=== PATIENT | female | born 1950 | race African-American/Black ===

== ENCOUNTER 2016-10-12 19:23 | Inpatient (IN) | payer MEDICARE, OTHER ==
[~2016-10-12] VITALS: Ht 170.2 cm; Wt 72.6 kg
[2016-10-12] MEDS ORDERED: ALBUTEROL2.5 MG/3 M INH (19:28)
[2016-10-12] MEDS ORDERED: METHADONE HCL5 MG PO (19:28)
[2016-10-12] MEDS ORDERED: CLONIDINE HCL0.1 M1 PO (19:28)
[2016-10-12] MEDS ORDERED: COREG3.125 MG ORAL (19:28)
[2016-10-12] MEDS ORDERED: ZOLOFT25 MG ORAL (19:28)
[2016-10-12] MEDS ORDERED: QUETIAPINE FUMA25 MG ORAL (19:28)
[2016-10-12] MEDS ORDERED: TRAMADOL HCL50 MG ORAL (19:28)
[2016-10-12 19:30] VITALS: BP 161/74
[2016-10-12 20:20] LABS: MEAN CORPUSCULAR HGB CONC 32.5 G/DL (32.0-36.0); MEAN CORPUSCULAR VOLUME 86 FL (80-99); MEAN PLATELET VOLUME 7.9 FL (6.5-10.1); PLATELET COUNT 225 K/UL (150-450); RED BLOOD COUNT 2.64 M/UL (4.20-5.40); RED CELL DISTRIBUTION WIDTH 13.4 % (11.6-14.8); WHITE BLOOD COUNT 10.8 K/UL (4.8-10.8)
[2016-10-12 20:57] LABS: ALANINE AMINOTRANSFERASE 12 U/L (3-33); ALBUMIN/GLOBULIN RATIO 0.9 (1.0-2.7); ANION GAP 25 (5-15); ASPARTATE AMINO TRANSFERASE 24 U/L (5-40); CALCIUM 6.9 mg/dL (8.6-10.2); CARBON DIOXIDE 23 mEQ/L (20-30); CHLORIDE 97 mEQ/L (98-107); CREATININE 14.4 mg/dL (0.5-0.9); HEMOLYSIS 5; SODIUM 145 mEQ/L (135-145); TOTAL PROTEIN 8.5 g/dL (6.6-8.7); TROPONIN I < 0.30 ng/mL (<=0.30)
[2016-10-12 21:02] LABS: EOSINOPHILS % (MANUAL) 3 % (0-3); LYMPHOCYTES % (MANUAL) 22 % (20-45); NEUTROPHILS % (MANUAL) 70 % (45-75); TOTAL CELLS COUNTED 100
[2016-10-12 21:03] LABS: ANISOCYTOSIS 1+; BAND NEUTROPHILS % (MANUAL) 0 % (0-8); BASOPHILS % (MANUAL) 0 % (0-2); HYPOCHROMASIA 2+; PLATELET ESTIMATE ADEQUATE; PLATELET MORPHOLOGY NORMAL; TARGET CELLS 1+
[2016-10-12 21:15] LABS: CKMB 6.1 ng/mL (< 3.8)
[2016-10-12] MEDS ORDERED: Sodium Polystyrene Sulfonate 15gm Powder ORAL ONE ×2 (21:15→23:00)
[2016-10-12] MEDS ORDERED: Calcium Gluconate 1gm/10ml vial IVP ONE ×2 (21:15→23:00)
[2016-10-12 21:30] VITALS: BP 161/86
[2016-10-12 21:30] LABS: INR 1.1 (0.9-1.1); PROTHROMBIN TIME 11.1 SEC (9.30-11.50)
[2016-10-12] MEDS ORDERED: Albuterol ud Inhalation HHN ONE (21:30)
[2016-10-12] MEDS ORDERED: Sodium Polystyrene Sulfonate Enema RECTAL ONE (22:15)
[2016-10-12 22:30] VITALS: BP 170/90
[2016-10-12] MEDS ORDERED: DuoNeb 0.5-3(2.5)mg/3ml neb HHN PRN (22:30)
[2016-10-12] MEDS ORDERED: Miralax 17gm pkt ORAL PRN (22:30)
[2016-10-12] MEDS ORDERED: Mylanta II UD 30ml ORAL PRN (22:30)
[2016-10-12] MEDS ORDERED: Zolpidem 5mg tab ORAL PRN (22:30)
[2016-10-12] MEDS ORDERED: Morphine Sulfate 2mg/ml Inj IVP PRN (22:30)
--- NOTE | 2016-10-12 22:42 | Emergency Room Report ---
History of Present Illness General Chief Complaint: Generalized Weakness Source: Patient, EMS Present Illness HPI 65-year-old female presents ED evaluation. Patient picked up by EMS from street. Patient noting that she feels very weak and tired x1 day. Patient states she missed dialysis today. History of end-stage renal disease and gets dialysis Saturday. Denies chest pain or shortness of breath. Denies fevers or chills. Denies nausea or vomiting. No other aggravating or relieving factors. Denies any other associated symptoms Allergies: Coded Allergies: No Known Allergies (Unverified , 01/01/12) Patient History Past Medical History: asthma, CVA/TIA, psych hx, renal disease, dialysis Past Surgical History: none Pertinent Family History: none Social History: Denies: alcohol use, drug use, smoking Last Menstrual Period: UNKNOWN Now: No Immunizations: UTD Reviewed Nursing Documentation: PMH: Agreed, PSxH: Agreed Nursing Documentation-PMH Hx Cardiac Problems: Yes Hx Asthma: Yes Hx Dialysis: Yes - MWF History Of Psychiatric Problem: Yes Hx Cerebrovascular Accident: Yes Hx Seizures: Yes Review of Systems All Other Systems: negative except mentioned in HPI Physical Exam Vital Signs Date Time Temp Pulse Resp B/P Pulse Ox O2 Delivery O2 Flow Rate FiO2 10/12/16 19:23 98.2 88 18 148/100 94 Room Air 10/12/16 21:30 3.0 32 Sp02 EP Interpretation: reviewed, normal General Appearance: alert, GCS 15, non-toxic, lethargic Head: normocephalic, atraumatic Eyes: bilateral eye PERRL, bilateral eye normal inspection ENT: hearing grossly normal, normal pharynx, no angioedema, normal voice Neck: full range of motion, supple/symm/no masses Respiratory: chest non-tender, lungs clear, normal breath sounds, speaking full sentences Cardiovascular #1: regular rate, rhythm, no edema Cardiovascular #2: 2+ carotid (R), 2+ carotid (L), 2+ radial (R), 2+ radial (L) , 2+ dorsalis pedis (R), 2+ dorsalis pedis (L) Gastrointestinal: normal bowel sounds, non tender, soft, non-distended, no guarding, no rebound Rectal: deferred Genitourinary: normal inspection, no CVA tenderness Musculoskeletal: back normal, gait/station normal, normal range of motion, non- tender Neurologic: alert, oriented x3, responsive, motor strength/tone normal, sensory intact, speech normal Psychiatric: judgement/insight normal, memory normal, mood/affect normal, no suicidal/homicidal ideation Reflexes: 3+ bicep (R), 3+ bicep (L), 3+ tricep (R), 3+ tricep (L), 3+ knee (R) , 3+ knee (L) Skin: normal color, no rash, warm/dry, well hydrated Lymphatic: no adenopathy Procedures Critical Care Time Critical Care Time i. I feel this is a highly complex case requiring extensive working including EKG/Rhythm strip, Xray/CT/US, Blood/urine lab work, repeat exams while in ED, and administration of strong opiates/narcotics for pain control, admission to hospital or close patient follow up. Total time: 30 min bedside evaluation and treatment excludes procedures (EKG). Reason for critical care: hyperkalemia, anemia, hypoglycemia Possible complications: hypotension, hypertension, VA, shock, arrhythmias, metabolic acidosis, end organ damage, respiratory failure. Interventions: labs, EKG, CXR. D50. calcium. kayexelate. continued albtuerol. PRBCs Course: Patient brought in for weakness, lethargy. missed dialysis today. Potassium 7.0. EKG shows peak T waves. Hb 7.4. glucose 45. given calcium. D50. kayexelate. continued albuterol. PRCs ordered. patient will likley require emergent dialysis. Consultations: nursing staff, EMS, family Performed by: Dr De Jesus Tolerated well condition = critical j. because of unstable vital signs this patient had a condition that could potentially threaten life or limb. I feel this is a critical patient who required my full attention while patient was considered critical. Total Critical Care Time excluding procedures was greater than 35 minutes Medical Decision Making Diagnostic Impression: Primary Impression: Hyperkalemia Additional Impressions: ESRD (end stage renal disease) on dialysis Anemia Qualified Codes: D64.9 - Anemia, unspecified Hypoglycemia Episode of generalized weakness ER Course Hospital Course 65-year-old female presents to ED with weakness and lethargy. missed dialysis today Differential diagnoses include: VA/unstable angina, V. tach, bradycardia, hyperkalemia, fluid overload Clinical course Patient placed on stretcher. 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 After initial history and physical I ordered labs, EKG labs reviewed- potassium 7.0. BUN/Cr elevated. Hemoglobin 7.4. glucose 45 CXR - cardiomegaly. EKG - peaked twaves, no acute changes Given Kayexalate and calcium. Given D50 and continued albuterol. PBRCs ordered. Patient is likely lethargic because of BUN >100. likely will require dialysis tonight Case discussed with Dr. Waller and he agreed to accept the patient to his service for further care and support I. I feel this is a highly complex case requiring extensive working including EKG/Rhythm strip, Xray/CT/US, Blood/urine lab work, repeat exams while in ED, and administration of strong opiates/narcotics for pain control, admission to hospital or close patient follow up. Diagnosis - hyperkalemia, ESRD on dialysis, anemia, hypoglycemia, weakness admitted to telemetry in critical condition Labs Test 10/12/16 20:00 White Blood Count 10.8 K/UL (4.8-10.8) Red Blood Count 2.64 M/UL (4.20-5.40) Hemoglobin 7.4 G/DL (12.0-16.0) Hematocrit 22.7 % (37.0-47.0) Mean Corpuscular Volume 86 FL (80-99) Mean Corpuscular Hemoglobin 28.0 PG (27.0-31.0) Mean Corpuscular Hemoglobin Concent 32.5 G/DL (32.0-36.0) Red Cell Distribution Width 13.4 % (11.6-14.8) Platelet Count 225 K/UL (150-450) Mean Platelet Volume 7.9 FL (6.5-10.1) Neutrophils (%) (Auto) % (45.0-75.0) Lymphocytes (%) (Auto) % (20.0-45.0) Monocytes (%) (Auto) % (1.0-10.0) Eosinophils (%) (Auto) % (0.0-3.0) Basophils (%) (Auto) % (0.0-2.0) Differential Total Cells Counted 100 Neutrophils % (Manual) 70 % (45-75) Lymphocytes % (Manual) 22 % (20-45) Monocytes % (Manual) 5 % (1-10) Eosinophils % (Manual) 3 % (0-3) Basophils % (Manual) 0 % (0-2) Band Neutrophils 0 % (0-8) Platelet Estimate Adequate Platelet Morphology Normal Hypochromasia 2+ Anisocytosis 1+ Target Cells 1+ Prothrombin Time 11.1 SEC (9.30-11.50) Prothromb Time International Ratio 1.1 (0.9-1.1) Activated Partial Thromboplast Time 30 SEC (23-33) Sodium Level 145 mEQ/L (135-145) Potassium Level 7.0 mEQ/L (3.4-4.9) Chloride Level 97 mEQ/L (98-107) Carbon Dioxide Level 23 mEQ/L (20-30) Anion Gap 25 (5-15) Blood Urea Nitrogen 140 mg/dL (7-23) Creatinine 14.4 mg/dL (0.5-0.9) Estimat Glomerular Filtration Rate 3.0 mL/min (>60) Glucose Level 45 mg/dL (74-106) Calcium Level 6.9 mg/dL (8.6-10.2) Total Bilirubin 0.5 mg/dL (0.0-1.2) Aspartate Amino Transf (AST/SGOT) 24 U/L (5-40) Alanine Aminotransferase (ALT/SGPT) 12 U/L (3-33) Alkaline Phosphatase 117 U/L (35-104) Total Creatine Kinase 182 U/L (26-140) Creatine Kinase MB 6.1 ng/mL (< 3.8) Creatine Kinase MB Relative Index 3.3 Troponin I < 0.30 ng/mL (<=0.30) Pro-B-Type Natriuretic Peptide > 20435 pg/mL (0-125) Total Protein 8.5 g/dL (6.6-8.7) Albumin 4.1 g/dL (3.5-5.2) Globulin 4.4 g/dL Albumin/Globulin Ratio 0.9 (1.0-2.7) EKG Diagnostic Results Rate: normal Rhythm: NSR ST Segments: other - peaked twaves ASA given to the pt in ED: No Rhythm Strip Diag. Results EP Interpretation: yes Rhythm: NSR, no PVC's, no ectopy Chest X-Ray Diagnostic Results EP Interpretation: Yes Findings: no consolidation, no effusion, no pneumothorax, no acute cardiopulmonary disease Number of Views: 1 Last Vital Signs Date Time Temp Pulse Resp B/P Pulse Ox O2 Delivery O2 Flow Rate FiO2 10/12/16 21:49 80 20 100 Nasal Cannula 3.0 32 10/12/16 21:30 98.2 161/86 Status: improved Disposition: ADMITTED INPATIENT Condition: Critical Referrals: NOT CHOSEN JAE/,REFERRING (PCP) MERARI DE JESUS M.D. Oct 12, 2016 22:41
[2016-10-13] VITALS (10 sets, daily range): BP systolic 130–162; BP diastolic 66–88
[2016-10-13 07:44] LABS: MEAN CORPUSCULAR HEMOGLOBIN 26.2 PG (27.0-31.0); MEAN CORPUSCULAR HGB CONC 30.3 G/DL (32.0-36.0); MEAN CORPUSCULAR VOLUME 86 FL (80-99); MEAN PLATELET VOLUME 7.7 FL (6.5-10.1); PLATELET COUNT 217 K/UL (150-450); RED CELL DISTRIBUTION WIDTH 13.5 % (11.6-14.8); WHITE BLOOD COUNT 21.8 K/UL (4.8-10.8)
[2016-10-13 07:55] LABS: ALBUMIN/GLOBULIN RATIO 0.8 (1.0-2.7); CALCIUM 6.6 mg/dL (8.6-10.2); CREATININE 13.9 mg/dL (0.5-0.9); GLOMERULAR FILTRATION RATE 3.3 mL/min (>60); TOTAL PROTEIN 7.1 g/dL (6.6-8.7)
[2016-10-13 08:32] LABS: HEMOGLOBIN A1C 4.1 % (< 6.0)
[2016-10-13 08:33] LABS: THYROID STIMULATING HORMONE 0.832 uIU/mL (0.300-4.500)
[2016-10-13] MEDS ORDERED: Heparin 5000 units/ml inj SUBQ SCH (09:00)
[2016-10-13] MEDS ORDERED: Sertraline 50mg tab ORAL SCH (09:00)
--- NOTE | 2016-10-13 09:33 | Diagnostic Imaging Report ---
Indications: Chest pain Technique: Portable AP chest Findings: Comparison: None Thoraco- lumbar spine demonstrates severe S-shaped scoliosis. Surgical clips overlie are presumably within the upper abdomen. Clustered metallic densities overlie the abdominal left upper quadrant. Cardiac silhouette enlarged. Pulmonary vascular redistribution. Bilateral interstitial infiltrates. Linear density right lung base. Patchy consolidative opacity left lung base. No obvious pleural abnormality. Aortic arch calcified. IMPRESSION: Findings most compatible with congestive heart failure Subsegmental atelectasis right lung base; same versus pneumonia left lung base Aortosclerosis Scoliosis Previous upper abdominal surgery Metallic densities overlying abdominal left upper quadrant may reside external to the patient or in the stomach.
[2016-10-13 09:45] LABS: BAND NEUTROPHILS % (MANUAL) 0 % (0-8); BASOPHILS % (MANUAL) 0 % (0-2); EOSINOPHILS % (MANUAL) 0 % (0-3); HYPOCHROMASIA 2+; LYMPHOCYTES % (MANUAL) 4 % (20-45); NEUTROPHILS % (MANUAL) 93 % (45-75); PLATELET ESTIMATE ADEQUATE; PLATELET MORPHOLOGY NORMAL; TOTAL CELLS COUNTED 100
[2016-10-13 09:46] LABS: TARGET CELLS OCCASIONAL
--- NOTE | 2016-10-13 11:47 | Consultation ---
History of Present Illness General Date patient seen: Oct 13, 2016 Chief Complaint: Generalized Weakness Referring physician: Dr. Waller Reason for Consultation: inpatient management Present Illness HPI 65-year-old female with pmhx of ESRF, who apparently missed her HD in [place] , was picked up by paramedics from the street because of extreme fatigue. Her K was more than 7 and bun/creatinine were very high too. She was severely anemic as well. Her cxr showed bilateral edema and effusion. Allergies: Coded Allergies: No Known Allergies (Unverified , 01/01/12) Medication History Scheduled Carvedilol (Coreg), Unknown Dose ORAL EVERY 12 HOURS, (Reported) Methadone Hcl* (Methadone*), Unknown Dose PO DAILY, (Reported) Quetiapine Fumarate* (Seroquel*), Unknown Dose ORAL DAILY, (Reported) Quetiapine Fumarate* (Seroquel*), Unknown Dose ORAL DAILY, (Reported) Sertraline Hcl* (Zoloft*), Unknown Dose ORAL DAILY, (Reported) Scheduled PRN Albuterol Sulfate* (Albuterol Sulfate Hhn*), Unknown Dose INH Q4H PRN for Shortness of Breath, (Reported) Tramadol Hcl* (Ultram*), Unknown Dose ORAL Q6H PRN for For Pain, (Reported) Miscellaneous Medications Clonidine HCl (Clonidine HCl ER), Unknown Dose PO, (Reported) Patient History Healthcare decision maker Resuscitation status Advanced Directive on File Past Medical/Surgical History Past Medical/Surgical History: (1) ESRD (end stage renal disease) on dialysis Review of Systems Constitutional: Reports: malaise, weakness Physical Exam General Appearance: cachetic Lines, tubes and drains: peripheral, dialysis access - Left arm HEENT: normocephalic, atraumatic Neck: non-tender, normal alignment Respiratory/Chest: chest wall non-tender, lungs clear Cardiovascular/Chest: normal peripheral pulses, normal rate Abdomen: normal bowel sounds Genitourinary/Rectal: normal genital exam Last 24 Hour Vital Signs Date Time Temp Pulse Resp B/P Pulse Ox O2 Delivery O2 Flow Rate FiO2 10/13/16 11:14 96.6 66 18 130/82 98 2.0 10/13/16 09:54 62 155/80 10/13/16 08:10 Nasal Cannula 2.0 10/13/16 08:00 96.0 57 20 154/78 100 Nasal Cannula 2.0 10/13/16 07:58 96.1 62 18 155/80 100 Nasal Cannula 2.0 10/13/16 07:15 98.6 62 11 152/84 100 Nasal Cannula 2.0 10/13/16 06:35 62 11 152/84 100 Nasal Cannula 2.0 10/13/16 04:00 98.6 76 17 150/72 100 Nasal Cannula 2.0 10/13/16 02:08 98.4 74 16 162/74 100 Nasal Cannula 2.0 10/13/16 00:30 73 12 155/76 100 Nasal Cannula 2.0 10/12/16 22:30 74 14 170/90 100 Nasal Cannula 2.0 10/12/16 21:49 80 20 100 Nasal Cannula 3.0 32 10/12/16 21:30 98.2 73 15 161/86 99 Room Air 10/12/16 21:30 72 12 100 Nasal Cannula 3.0 32 10/12/16 21:30 72 12 Nasal Cannula 3.0 32 10/12/16 19:30 98.2 79 13 161/74 99 Room Air 10/12/16 19:23 98.2 88 18 148/100 94 Room Air Intake and Output 10/12/16 10/13/16 19:00 07:00 Output Total 0 ml Balance 0 ml Output Urine Total 0 ml Laboratory Tests Test 10/12/16 20:00 10/13/16 07:29 10/13/16 08:00 White Blood Count 10.8 K/UL (4.8-10.8) 21.8 K/UL (4.8-10.8) #H Red Blood Count 2.64 M/UL (4.20-5.40) L 2.50 M/UL (4.20-5.40) L Hemoglobin 7.4 G/DL (12.0-16.0) L 6.5 G/DL (12.0-16.0) *L Hematocrit 22.7 % (37.0-47.0) L 21.6 % (37.0-47.0) L Mean Corpuscular Volume 86 FL (80-99) 86 FL (80-99) Mean Corpuscular Hemoglobin 28.0 PG (27.0-31.0) 26.2 PG (27.0-31.0) L Mean Corpuscular Hemoglobin Concent 32.5 G/DL (32.0-36.0) 30.3 G/DL (32.0-36.0) L Red Cell Distribution Width 13.4 % (11.6-14.8) 13.5 % (11.6-14.8) Platelet Count 225 K/UL (150-450) 217 K/UL (150-450) Mean Platelet Volume 7.9 FL (6.5-10.1) 7.7 FL (6.5-10.1) Neutrophils (%) (Auto) % (45.0-75.0) % (45.0-75.0) Lymphocytes (%) (Auto) % (20.0-45.0) % (20.0-45.0) Monocytes (%) (Auto) % (1.0-10.0) % (1.0-10.0) Eosinophils (%) (Auto) % (0.0-3.0) % (0.0-3.0) Basophils (%) (Auto) % (0.0-2.0) % (0.0-2.0) Differential Total Cells Counted 100 100 Neutrophils % (Manual) 70 % (45-75) 93 % (45-75) H Lymphocytes % (Manual) 22 % (20-45) 4 % (20-45) L Monocytes % (Manual) 5 % (1-10) 3 % (1-10) Eosinophils % (Manual) 3 % (0-3) 0 % (0-3) Basophils % (Manual) 0 % (0-2) 0 % (0-2) Band Neutrophils 0 % (0-8) 0 % (0-8) Platelet Estimate Adequate Adequate Platelet Morphology Normal Normal Hypochromasia 2+ 2+ Anisocytosis 1+ Target Cells 1+ Occasional Prothrombin Time 11.1 SEC (9.30-11.50) Prothromb Time International Ratio 1.1 (0.9-1.1) Activated Partial Thromboplast Time 30 SEC (23-33) Sodium Level 145 mEQ/L (135-145) 144 mEQ/L (135-145) Potassium Level 7.0 mEQ/L (3.4-4.9) *H 7.0 mEQ/L (3.4-4.9) *H Chloride Level 97 mEQ/L (98-107) L 98 mEQ/L (98-107) Carbon Dioxide Level 23 mEQ/L (20-30) 21 mEQ/L (20-30) Anion Gap 25 (5-15) H 25 (5-15) H Blood Urea Nitrogen 140 mg/dL (7-23) H 139 mg/dL (7-23) H Creatinine 14.4 mg/dL (0.5-0.9) H 13.9 mg/dL (0.5-0.9) H Estimat Glomerular Filtration Rate 3.0 mL/min (>60) 3.3 mL/min (>60) Glucose Level 45 mg/dL (74-106) L 102 mg/dL (74-106) Calcium Level 6.9 mg/dL (8.6-10.2) L 6.6 mg/dL (8.6-10.2) L Total Bilirubin 0.5 mg/dL (0.0-1.2) 0.4 mg/dL (0.0-1.2) Aspartate Amino Transf (AST/SGOT) 24 U/L (5-40) 23 U/L (5-40) Alanine Aminotransferase (ALT/SGPT) 12 U/L (3-33) 10 U/L (3-33) Alkaline Phosphatase 117 U/L (35-104) H 89 U/L (35-104) Total Creatine Kinase 182 U/L (26-140) H Creatine Kinase MB 6.1 ng/mL (< 3.8) H Creatine Kinase MB Relative Index 3.3 Troponin I < 0.30 ng/mL (<=0.30) Pro-B-Type Natriuretic Peptide > 24297 pg/mL (0-125) H Total Protein 8.5 g/dL (6.6-8.7) 7.1 g/dL (6.6-8.7) Albumin 4.1 g/dL (3.5-5.2) 3.3 g/dL (3.5-5.2) L Globulin 4.4 g/dL 3.8 g/dL Albumin/Globulin Ratio 0.9 (1.0-2.7) L 0.8 (1.0-2.7) L Hemoglobin A1c 4.1 % (< 6.0) Thyroid Stimulating Hormone (TSH) 0.832 uIU/mL (0.300-4.500) Stool Occult Blood Pending Height (Feet): 5 Height (Inches): 7.00 Weight (Pounds): 160 Medications Current Medications Medications (Trade) Dose Ordered Sig/Winter Route PRN Reason Start Time Stop Time Status Last Admin Dose Admin Acetaminophen (Tylenol) 650 mg Q4H PRN ORAL fever 10/12/16 22:30 11/11/16 22:29 Al Hydroxide/Mg Hydroxide (Mylanta II) 30 ml Q6H PRN ORAL dyspepsia 10/12/16 22:30 11/11/16 22:29 Albuterol/ Ipratropium (DuoNeb 0.5-3(2.5)mg/3ml) 3 ml Q6H PRN HHN dyspnea 10/12/16 22:30 10/17/16 22:29 Carvedilol (Coreg) 3.125 mg EVERY 12 HOURS ORAL 10/13/16 09:00 11/12/16 08:59 Clonidine HCl (Catapres) 0.1 mg Q4H PRN ORAL For High Blood Pressure 10/12/16 22:30 11/11/16 22:29 Dextrose (Dextrose 50%) STAT PRN IV Hypoglycemia 10/12/16 22:30 11/11/16 22:29 10/13/16 05:46 Heparin Sodium (Porcine) (Heparin 5000 units/ml) 5,000 units EVERY 12 HOURS SUBQ 10/13/16 09:00 11/12/16 08:59 Methadone HCl (Methadone HCl) 5 mg DAILY ORAL 10/13/16 10:00 10/20/16 09:59 Morphine Sulfate (Morphine Sulfate) 1 mg Q4H PRN IVP For Pain 10/12/16 22:30 10/19/16 22:29 Ondansetron HCl (Zofran) 4 mg Q6H PRN IVP Nausea & Vomiting 10/12/16 22:30 11/11/16 22:29 Polyethylene Glycol (Miralax) 17 gm HSPRN PRN ORAL Constipation 10/12/16 22:30 11/11/16 22:29 Quetiapine Fumarate (SEROquel) 25 mg DAILY ORAL 10/13/16 09:00 11/12/16 08:59 Sertraline HCl (Zoloft) 25 mg DAILY ORAL 10/13/16 09:00 11/12/16 08:59 Zolpidem Tartrate (Ambien) 5 mg HSPRN PRN ORAL Insomnia 10/12/16 22:30 11/11/16 22:29 Assessment/Plan Problem List: (1) Pulmonary edema ICD Codes: J81.1 - Chronic pulmonary edema SNOMED: 99383465 (2) Hyperkalemia ICD Codes: E87.5 - Hyperkalemia SNOMED: 86332703 (3) Hypoglycemia ICD Codes: E16.2 - Hypoglycemia, unspecified SNOMED: 996123767 (4) ESRD (end stage renal disease) on dialysis ICD Codes: N18.6 - End stage renal disease; Z99.2 - Dependence on renal dialysis SNOMED: 917026096 (5) Anemia ICD Codes: D64.9 - Anemia, unspecified SNOMED: 356879835 Qualifiers: Qualified Codes: D64.9 - Anemia, unspecified Assessment/Plan HD kayexalate prbc repeat cxr in one or two days pt/ot social service evaluation for home safety. GAGE SAEZ Oct 13, 2016 11:46
[2016-10-13] MEDS ORDERED: Cefepime HCl 1 GM in D5W 110 ML IVPB ONE ×2 (16:30→18:00)
[2016-10-13] MEDS ORDERED: Vancomycin 1gm in D5W 275ml IVPB ONE (17:00)
--- NOTE | 2016-10-13 17:38 | History and Physical Report ---
DATE OF ADMISSION: 10/12/2016 TIME: 10 a.m. CONSULTANTS: 1. Rod Garcia M.D. 2. Nicolasa Delgado M.D. CHIEF COMPLAINT: Hypoglycemia, anemia, ESRD, and hyperkalemia. HISTORY OF PRESENT ILLNESS: This is a 65-year-old female, who presented to [place] last night with history of weakness and hypoglycemia and was found to have hyperkalemia and was admitted to the telemetry for further care. Currently, calm, very sleepy in bed, unable to arouse. PAST MEDICAL HISTORY: Includes anemia, ESRD, and generalized weakness. PAST SURGICAL HISTORY: Unknown. MEDICATIONS: Include methadone, Coreg, Seroquel, Zoloft, heparin, Tylenol, MiraLax, morphine, and Ambien. ALLERGIES: Denies. SOCIAL HISTORY: Unable to obtain. REVIEW OF SYSTEMS: Not available. PHYSICAL EXAMINATION: GENERAL: , lethargic in bed, and refusing to answer questions. VITAL SIGNS: Temperature 96 degrees, pulse 62, respiratory rate 20, and blood pressure 135/80. CARDIOVASCULAR: No murmur. LUNGS: Distant and clear. ABDOMEN: Positive bowel sounds. Nontender. Nondistended. EXTREMITIES: No cyanosis, clubbing, or edema. NEUROLOGIC: The patient moves all extremities, but slightly weak. LABORATORY DATA: White count 21, hemoglobin and hematocrit 6.5 and 21, and platelets is 217,000. Potassium 7.0. BUN and creatinine 113 and 13.9, otherwise BMP is normal. INR is 1.1. ASSESSMENT: 1. Hypoglycemia. 2. Anemia. 3. Weakness. 4. End-stage renal disease. 5. Hyperkalemia. 6. Leukocytosis. PLAN: 1. Continue premedications. 2. Antibiotics per Infectious Diseases. 3. OT, PT, and dietary evaluation. 4. CBC and BMP in the morning. 5. Dialysis. 6. Resume home medications. 7. We will continue to follow this patient. Dr. Garcia, Dr. Delgado, Dr. Timmons, Dr. Andrew, and Dr. Hodge to consult. Facundo Waller D.O. DR: MELIDA JOB#: [id number] CC:
[2016-10-13] MEDS ORDERED: DuoNeb 0.5-3(2.5)mg/3ml neb HHN PRN (18:00)
[2016-10-13] MEDS ORDERED: Vancomycin 1 GM in D5W 275 ML IVPB ONE (18:30)
--- NOTE | 2016-10-13 18:35 | Consultation ---
Consult Note Consult Note HEMATOLOGY CONSULT NOTE REASON FOR CONSULT: ANEMIA EVAL DOS: 10/13/16 REQUESTING MD: ANKUR ID: 65-year-old female with a pmhx of anemia, esrd, has been seen by us back in [address] [facility] and at this time she presents to the ER for further evaluation. She was picked up by EMS from [place]. Patient noting that she feels very weak and tired x1 day. Patient states she missed dialysis today. History of end-stage renal disease and gets dialysis Saturday. Denies chest pain or shortness of breath. Denies fevers or chills. Denies nausea or vomiting. No other aggravating or relieving factors. Denies any other associated symptoms. Her hgb was noted to be 6.9, was given blood and workup commenced. Allergies: No Known Allergies (Unverified , 01/01/12) Past Medical History: asthma, CVA/TIA, psych hx, renal disease, dialysis, seizures hx Past Surgical History: none Pertinent Family History: none Social History: Denies: alcohol use, drug use, smoking ROS: negative except mentioned in HPI PE: Vital Signs Date Time Temp Pulse Resp B/P Pulse Ox O2 Delivery O2 Flow Rate FiO2 10/12/16 19:23 98.2 88 18 148/100 94 Room Air 10/12/16 21:30 3.0 32 Sp02: reviewed, normal General: lethargic Head: normocephalic, atraumatic Eyes: bilateral eye PERRL ENT: hearing grossly normal, normal pharynx Neck: full range of motion, supple/symm/no masses Respiratory: chest non-tender, lungs clear Cardiovascular: regular rate Gastrointestinal: normal bowel sounds, non tender Musculoskeletal: back normal, gait/station normal Neurologic: alert, oriented x3, responsive, motor strength/tone normal, sensory intact, speech normal Laboratory Tests: Test 10/12/16 20:00 10/13/16 07:29 10/13/16 08:00 White Blood Count 10.8 K/UL (4.8-10.8) 21.8 K/UL (4.8-10.8) #H Red Blood Count 2.64 M/UL (4.20-5.40) L 2.50 M/UL (4.20-5.40) L Hemoglobin 7.4 G/DL (12.0-16.0) L 6.5 G/DL (12.0-16.0) *L Hematocrit 22.7 % (37.0-47.0) L 21.6 % (37.0-47.0) L Mean Corpuscular Volume 86 FL (80-99) 86 FL (80-99) Mean Corpuscular Hemoglobin 28.0 PG (27.0-31.0) 26.2 PG (27.0-31.0) L Mean Corpuscular Hemoglobin Concent 32.5 G/DL (32.0-36.0) 30.3 G/DL (32.0-36.0) L Red Cell Distribution Width 13.4 % (11.6-14.8) 13.5 % (11.6-14.8) Platelet Count 225 K/UL (150-450) 217 K/UL (150-450) Mean Platelet Volume 7.9 FL (6.5-10.1) 7.7 FL (6.5-10.1) Neutrophils (%) (Auto) % (45.0-75.0) % (45.0-75.0) Lymphocytes (%) (Auto) % (20.0-45.0) % (20.0-45.0) Monocytes (%) (Auto) % (1.0-10.0) % (1.0-10.0) Eosinophils (%) (Auto) % (0.0-3.0) % (0.0-3.0) Basophils (%) (Auto) % (0.0-2.0) % (0.0-2.0) Differential Total Cells Counted 100 100 Neutrophils % (Manual) 70 % (45-75) 93 % (45-75) H Lymphocytes % (Manual) 22 % (20-45) 4 % (20-45) L Monocytes % (Manual) 5 % (1-10) 3 % (1-10) Eosinophils % (Manual) 3 % (0-3) 0 % (0-3) Basophils % (Manual) 0 % (0-2) 0 % (0-2) Band Neutrophils 0 % (0-8) 0 % (0-8) Platelet Estimate Adequate Adequate Platelet Morphology Normal Normal Hypochromasia 2+ 2+ Anisocytosis 1+ Target Cells 1+ Occasional Prothrombin Time 11.1 SEC (9.30-11.50) Prothromb Time International Ratio 1.1 (0.9-1.1) Activated Partial Thromboplast Time 30 SEC (23-33) Sodium Level 145 mEQ/L (135-145) 144 mEQ/L (135-145) Potassium Level 7.0 mEQ/L (3.4-4.9) *H 7.0 mEQ/L (3.4-4.9) *H Chloride Level 97 mEQ/L (98-107) L 98 mEQ/L (98-107) Carbon Dioxide Level 23 mEQ/L (20-30) 21 mEQ/L (20-30) Anion Gap 25 (5-15) H 25 (5-15) H Blood Urea Nitrogen 140 mg/dL (7-23) H 139 mg/dL (7-23) H Creatinine 14.4 mg/dL (0.5-0.9) H 13.9 mg/dL (0.5-0.9) H Estimat Glomerular Filtration Rate 3.0 mL/min (>60) 3.3 mL/min (>60) Glucose Level 45 mg/dL (74-106) L 102 mg/dL (74-106) Calcium Level 6.9 mg/dL (8.6-10.2) L 6.6 mg/dL (8.6-10.2) L Total Bilirubin 0.5 mg/dL (0.0-1.2) 0.4 mg/dL (0.0-1.2) Aspartate Amino Transf (AST/SGOT) 24 U/L (5-40) 23 U/L (5-40) Alanine Aminotransferase (ALT/SGPT) 12 U/L (3-33) 10 U/L (3-33) Alkaline Phosphatase 117 U/L (35-104) H 89 U/L (35-104) Total Creatine Kinase 182 U/L (26-140) H Creatine Kinase MB 6.1 ng/mL (< 3.8) H Creatine Kinase MB Relative Index 3.3 Troponin I < 0.30 ng/mL (<=0.30) Pro-B-Type Natriuretic Peptide > 87046 pg/mL (0-125) H Total Protein 8.5 g/dL (6.6-8.7) 7.1 g/dL (6.6-8.7) Albumin 4.1 g/dL (3.5-5.2) 3.3 g/dL (3.5-5.2) L Globulin 4.4 g/dL 3.8 g/dL Albumin/Globulin Ratio 0.9 (1.0-2.7) L 0.8 (1.0-2.7) L Hemoglobin A1c 4.1 % (< 6.0) Thyroid Stimulating Hormone (TSH) 0.832 uIU/mL (0.300-4.500) Stool Occult Blood Negative (NEGATIVE) Assessment: # Anemia 2/2 chronic disease # Anemia 2/2 kidney disease- back on epo # Neutrophilia potentially 2/2 infection # Hyperkalemia # ESRD (end stage renal disease) on dialysis # Hypoglycemia # Episode of generalized weakness # weakness and lethargy. missed dialysis today # cardiomegaly. Recs: - Given Kayexalate and calcium. Given D50 and continued albuterol. PBRCs ordered. - Hgb goal >7 - Ferritin and anemia w/u ordered - EPOGEN started - HD as per renal team - Appreciate pulm/cc and renal recs - Appreciate consultation! Tomas Hodge Oct 13, 2016 18:35
[2016-10-13] MEDS: Heparin 5000 units/ml inj SUBQ SCH (21:00)
--- NOTE | 2016-10-13 22:08 | Nephrology Progress Note ---
Objective Objective Last 24 Hour Vital Signs Date Time Temp Pulse Resp B/P Pulse Ox O2 Delivery O2 Flow Rate FiO2 10/13/16 21:26 73 155/88 10/13/16 19:00 96.3 73 20 155/88 99 Nasal Cannula 2.0 10/13/16 16:00 76 10/13/16 15:22 98.1 77 18 151/85 97 Room Air 10/13/16 11:44 65 10/13/16 11:42 Nasal Cannula 2.0 10/13/16 11:41 98.0 59 18 148/66 98 Nasal Cannula 2.0 10/13/16 11:14 96.6 66 18 130/82 98 2.0 10/13/16 09:54 62 155/80 10/13/16 08:15 58 10/13/16 08:10 Nasal Cannula 2.0 10/13/16 08:00 96.0 57 20 154/78 100 Nasal Cannula 2.0 10/13/16 07:58 96.1 62 18 155/80 100 Nasal Cannula 2.0 10/13/16 07:15 98.6 62 11 152/84 100 Nasal Cannula 2.0 10/13/16 06:35 62 11 152/84 100 Nasal Cannula 2.0 10/13/16 04:00 98.6 76 17 150/72 100 Nasal Cannula 2.0 10/13/16 02:08 98.4 74 16 162/74 100 Nasal Cannula 2.0 10/13/16 00:30 73 12 155/76 100 Nasal Cannula 2.0 10/12/16 22:30 74 14 170/90 100 Nasal Cannula 2.0 Intake and Output 10/12/16 10/13/16 19:00 07:00 Output Total 0 ml Balance 0 ml Output Urine Total 0 ml Laboratory Tests 10/13/16 07:29: White Blood Count 21.8#H, Red Blood Count 2.50L, Hemoglobin 6.5*L, Hematocrit 21.6L, Mean Corpuscular Volume 86, Mean Corpuscular Hemoglobin 26.2L, Mean Corpuscular Hemoglobin Concent 30.3L, Red Cell Distribution Width 13.5, Platelet Count 217, Mean Platelet Volume 7.7, Neutrophils (%) (Auto) , Lymphocytes (%) (Auto) , Monocytes (%) (Auto) , Eosinophils (%) (Auto) , Basophils (%) (Auto) , Differential Total Cells Counted 100, Neutrophils % ( Manual) 93H, Lymphocytes % (Manual) 4L, Monocytes % (Manual) 3, Eosinophils % ( Manual) 0, Basophils % (Manual) 0, Band Neutrophils 0, Platelet Estimate Adequate, Platelet Morphology Normal, Hypochromasia 2+, Target Cells Occasional , Sodium Level 144, Potassium Level 7.0*H, Chloride Level 98, Carbon Dioxide Level 21, Anion Gap 25H, Blood Urea Nitrogen 139H, Creatinine 13.9H, Estimat Glomerular Filtration Rate 3.3, Glucose Level 102, Hemoglobin A1c 4.1, Calcium Level 6.6L, Total Bilirubin 0.4, Aspartate Amino Transf (AST/SGOT) 23, Alanine Aminotransferase (ALT/SGPT) 10, Alkaline Phosphatase 89, Total Protein 7.1, Albumin 3.3L, Globulin 3.8, Albumin/Globulin Ratio 0.8L, Thyroid Stimulating Hormone (TSH) 0.832 10/13/16 08:00: Stool Occult Blood Negative Height (Feet): 5 Height (Inches): 7.00 Weight (Pounds): 160 DEBBIE HERNANDEZ Oct 13, 2016 22:08
[2016-10-13] MEDS ORDERED: Zolpidem 5mg tab ORAL PRN (22:30)
[2016-10-13] MEDS ORDERED: Mylanta II UD 30ml ORAL PRN (22:30)
[2016-10-13] MEDS ORDERED: Miralax 17gm pkt ORAL PRN (22:30)
--- NOTE | 2016-10-13 23:05 | Infectious Diseases Prog Note ---
Assessment/Plan Problems: (1) Sepsis Assessment & Plan: Present on admission. Due to pneumonia. (2) Pneumonia Assessment & Plan: Empiric cefepime. Follow-up CXR. Follow-up Scx. (3) ESRD (end stage renal disease) on dialysis (4) Non compliance with medical treatment (5) Pulmonary edema Subjective Allergies: Coded Allergies: No Known Allergies (Unverified , 01/01/12) Objective Vital Signs Last 24 Hour Vital Signs Date Time Temp Pulse Resp B/P Pulse Ox O2 Delivery O2 Flow Rate FiO2 10/13/16 21:26 73 155/88 10/13/16 19:00 96.3 73 20 155/88 99 Nasal Cannula 2.0 10/13/16 16:00 76 10/13/16 15:22 98.1 77 18 151/85 97 Room Air 10/13/16 11:44 65 10/13/16 11:42 Nasal Cannula 2.0 10/13/16 11:41 98.0 59 18 148/66 98 Nasal Cannula 2.0 10/13/16 11:14 96.6 66 18 130/82 98 2.0 10/13/16 09:54 62 155/80 10/13/16 08:15 58 10/13/16 08:10 Nasal Cannula 2.0 10/13/16 08:00 96.0 57 20 154/78 100 Nasal Cannula 2.0 10/13/16 07:58 96.1 62 18 155/80 100 Nasal Cannula 2.0 10/13/16 07:15 98.6 62 11 152/84 100 Nasal Cannula 2.0 10/13/16 06:35 62 11 152/84 100 Nasal Cannula 2.0 10/13/16 04:00 98.6 76 17 150/72 100 Nasal Cannula 2.0 10/13/16 02:08 98.4 74 16 162/74 100 Nasal Cannula 2.0 10/13/16 00:30 73 12 155/76 100 Nasal Cannula 2.0 Height (Feet): 5 Height (Inches): 7.00 Weight (Pounds): 160 Laboratory Tests Test 10/13/16 07:29 10/13/16 08:00 White Blood Count 21.8 K/UL (4.8-10.8) #H Red Blood Count 2.50 M/UL (4.20-5.40) L Hemoglobin 6.5 G/DL (12.0-16.0) *L Hematocrit 21.6 % (37.0-47.0) L Mean Corpuscular Volume 86 FL (80-99) Mean Corpuscular Hemoglobin 26.2 PG (27.0-31.0) L Mean Corpuscular Hemoglobin Concent 30.3 G/DL (32.0-36.0) L Red Cell Distribution Width 13.5 % (11.6-14.8) Platelet Count 217 K/UL (150-450) Mean Platelet Volume 7.7 FL (6.5-10.1) Neutrophils (%) (Auto) % (45.0-75.0) Lymphocytes (%) (Auto) % (20.0-45.0) Monocytes (%) (Auto) % (1.0-10.0) Eosinophils (%) (Auto) % (0.0-3.0) Basophils (%) (Auto) % (0.0-2.0) Differential Total Cells Counted 100 Neutrophils % (Manual) 93 % (45-75) H Lymphocytes % (Manual) 4 % (20-45) L Monocytes % (Manual) 3 % (1-10) Eosinophils % (Manual) 0 % (0-3) Basophils % (Manual) 0 % (0-2) Band Neutrophils 0 % (0-8) Platelet Estimate Adequate Platelet Morphology Normal Hypochromasia 2+ Target Cells Occasional Sodium Level 144 mEQ/L (135-145) Potassium Level 7.0 mEQ/L (3.4-4.9) *H Chloride Level 98 mEQ/L (98-107) Carbon Dioxide Level 21 mEQ/L (20-30) Anion Gap 25 (5-15) H Blood Urea Nitrogen 139 mg/dL (7-23) H Creatinine 13.9 mg/dL (0.5-0.9) H Estimat Glomerular Filtration Rate 3.3 mL/min (>60) Glucose Level 102 mg/dL (74-106) Hemoglobin A1c 4.1 % (< 6.0) Calcium Level 6.6 mg/dL (8.6-10.2) L Total Bilirubin 0.4 mg/dL (0.0-1.2) Aspartate Amino Transf (AST/SGOT) 23 U/L (5-40) Alanine Aminotransferase (ALT/SGPT) 10 U/L (3-33) Alkaline Phosphatase 89 U/L (35-104) Total Protein 7.1 g/dL (6.6-8.7) Albumin 3.3 g/dL (3.5-5.2) L Globulin 3.8 g/dL Albumin/Globulin Ratio 0.8 (1.0-2.7) L Thyroid Stimulating Hormone (TSH) 0.832 uIU/mL (0.300-4.500) Stool Occult Blood Negative (NEGATIVE) Current Medications Medications (Trade) Dose Ordered Sig/Winter Route PRN Reason Start Time Stop Time Status Last Admin Dose Admin Acetaminophen (Tylenol) 650 mg Q4H PRN ORAL fever 10/13/16 18:30 11/12/16 18:29 10/13/16 21:27 Al Hydroxide/Mg Hydroxide (Mylanta II) 30 ml Q6H PRN ORAL dyspepsia 10/13/16 22:30 11/12/16 22:29 Albuterol/ Ipratropium (DuoNeb 0.5-3(2.5)mg/3ml) 3 ml Q6H PRN HHN dyspnea 10/13/16 18:00 10/18/16 17:59 Carvedilol (Coreg) 3.125 mg EVERY 12 HOURS ORAL 10/13/16 21:00 11/12/16 20:59 10/13/16 21:26 Cefepime HCl/ Dextrose (Maxipime/D5W) 55 ml @ 110 mls/hr Q24H IVPB 10/14/16 16:30 10/21/16 16:29 Clonidine HCl (Catapres) 0.1 mg Q4H PRN ORAL For High Blood Pressure 10/13/16 18:30 11/12/16 18:29 Dextrose (Dextrose 50%) STAT PRN IV Hypoglycemia 10/13/16 22:30 11/12/16 22:29 Epoetin Vijay (Procrit (for ESRD on dialysis)) 5,000 units SAT-SAT-SAT SUBQ 10/15/16 21:00 11/14/16 20:59 Heparin Sodium (Porcine) (Heparin 5000 units/ml) 5,000 units EVERY 12 HOURS SUBQ 10/13/16 21:00 11/12/16 20:59 Methadone HCl (Methadone HCl) 5 mg DAILY ORAL 10/14/16 09:00 10/21/16 08:59 Morphine Sulfate (Morphine Sulfate) 1 mg Q4H PRN IVP For Pain 10/13/16 18:30 10/20/16 18:29 Ondansetron HCl (Zofran) 4 mg Q6H PRN IVP Nausea & Vomiting 10/13/16 22:30 11/12/16 22:29 Polyethylene Glycol (Miralax) 17 gm HSPRN PRN ORAL Constipation 10/13/16 22:30 11/12/16 22:29 Quetiapine Fumarate (SEROquel) 25 mg DAILY ORAL 10/14/16 09:00 11/13/16 08:59 Sertraline HCl (Zoloft) 25 mg DAILY ORAL 10/14/16 09:00 11/13/16 08:59 Vancomycin HCl (Vanco rx to dose) 1 ea DAILYPRN PRN MISC Per rx protocol 10/14/16 14:15 11/13/16 14:14 Zolpidem Tartrate (Ambien) 5 mg HSPRN PRN ORAL Insomnia 10/13/16 22:30 11/12/16 22:29 SARAHI BOWEN Oct 13, 2016 23:05
[2016-10-13] MEDS: Morphine Sulfate 2mg/ml Inj IVP PRN (23:52)
[2016-10-14] VITALS: BP 148/82
--- NOTE | 2016-10-14 01:08 | Consultation ---
DATE OF CONSULTATION: 10/13/2016 GASTROENTEROLOGY CONSULTATION CHIEF COMPLAINT: Anemia. HISTORY OF PRESENT ILLNESS: Most of the history is per chart. The patient is a 65-year-old female with a history of end-stage renal disease, on hemodialysis, who dialysis, was picked up by the paramedics from the street and brought to the hospital in acute renal failure and required an emergency dialysis. The patient was found to be profoundly anemic, so GI consult was requested for further evaluation. PAST MEDICAL HISTORY: 1. History of end-stage renal disease, on hemodialysis. 2. Scoliosis. 3. Seizure disorder. 4. Asthma. PAST SURGICAL HISTORY: Some kind of abdominal surgeries and possible hysterectomy. ALLERGIES: No known drug allergies. SOCIAL HISTORY: Unknown. FAMILY HISTORY: Noncontributory. REVIEW OF SYSTEMS: Unable to obtain. PHYSICAL EXAMINATION: VITAL SIGNS: Temperature 96.6 degrees, pulse 80, respirations 18, and blood pressure is 130/82. HEENT: Normocephalic and atraumatic. Mild pale conjunctivae. NECK: Supple. No lymphadenopathy. CARDIOVASCULAR: Regular rhythm. Plus S1 and S2. LUNGS: Decreased breath sounds bilaterally and diffusely on the supine exam. ABDOMEN: Soft and nontender. There is a scar in the midline from prior abdominal surgeries. No rebound. No guarding. No peritoneal sign. EXTREMITIES: No cyanosis. No clubbing. No edema. LABORATORY DATA: White count is 21.8, hemoglobin 6.5, hematocrit 21.6, and platelet count is 217,000. Chem-7, sodium 144, potassium 7.0, BUN is 139, and creatinine 13.9. ASSESSMENT AND PLAN: 1. This is a 65-year-old female with anemia, normocytic, most probably secondary to renal disease, no evidence of obvious gastrointestinal bleeding at this time. 2. Acute renal failure and history of hemodialysis. 3. Congestive heart failure based on chest x-ray, it was most probably from non-dialysis and fluid overload. PLAN: At this time, again there is no active gastrointestinal bleeding, anemia is most probably secondary to renal disease. The patient has not consented for GI procedures, is slowly waking up most probably from her elevated BUN and creatinine and uremia. Plan to re-interview her tomorrow regarding her prior history of GI workup. Meanwhile, stool for occult blood, send for CEA, and we will follow after blood transfusion. I want to thank Dr. Facundo Waller for this kind referral. Issa Andrew M.D. DR: SYLVIA JOB#: [id number] CC: Facundo Waller D.O.
[2016-10-14 04:10] VITALS: BP 137/79
[2016-10-14 07:10] LABS: BASOPHILS % (AUTO) 0.6 % (0.0-2.0); EOSINOPHILS % (AUTO) 0.8 % (0.0-3.0); LYMPHOCYTES % (AUTO) 21.5 % (20.0-45.0); MEAN CORPUSCULAR HEMOGLOBIN 26.9 PG (27.0-31.0); MEAN CORPUSCULAR HGB CONC 31.4 G/DL (32.0-36.0); MEAN CORPUSCULAR VOLUME 86 FL (80-99); MEAN PLATELET VOLUME 8.5 FL (6.5-10.1); MONOCYTES % (AUTO) 3.7 % (1.0-10.0); NEUTROPHILS % (AUTO) 73.4 % (45.0-75.0); PLATELET COUNT 185 K/UL (150-450); RED BLOOD COUNT 2.99 M/UL (4.20-5.40); RED CELL DISTRIBUTION WIDTH 13.6 % (11.6-14.8); WHITE BLOOD COUNT 12.2 K/UL (4.8-10.8)
[2016-10-14 07:14] LABS: CALCIUM 6.1 mg/dL (8.6-10.2); CREATININE 9.8 mg/dL (0.5-0.9); GLOMERULAR FILTRATION RATE 4.8 mL/min (>60); POTASSIUM 4.4 mEQ/L (3.4-4.9)
[2016-10-14 07:29] LABS: HEMOLYSIS 4; IRON 95 ug/dL (37-145); TOTAL IRON BINDING CAPACITY 175 ug/dL (250-400)
--- NOTE | 2016-10-14 07:41 | General Progress Note ---
Assessment/Plan Problem List: (1) Abdominal distention ICD Codes: R14.0 - Abdominal distension (gaseous) SNOMED: 67121821 (2) Anemia ICD Codes: D64.9 - Anemia, unspecified SNOMED: 134615854 Qualifiers: Qualified Codes: D64.9 - Anemia, unspecified (3) Hypoglycemia ICD Codes: E16.2 - Hypoglycemia, unspecified SNOMED: 216493772 (4) ESRD (end stage renal disease) on dialysis ICD Codes: N18.6 - End stage renal disease; Z99.2 - Dependence on renal dialysis SNOMED: 550858973 (5) Episode of generalized weakness ICD Codes: R53.1 - Weakness SNOMED: 64523819 (6) Hyperkalemia ICD Codes: E87.5 - Hyperkalemia SNOMED: 16516917 (7) Pulmonary edema ICD Codes: J81.1 - Chronic pulmonary edema SNOMED: 39738948 Status: stable, progressing, tolerating diet Assessment/Plan otp t diet bs control dialysis prn cbc bmp am Subjective Allergies: Coded Allergies: No Known Allergies (Unverified , 01/01/12) All Systems: reviewed and negative except above Subjective calm in bed Objective Last 24 Hour Vital Signs Date Time Temp Pulse Resp B/P Pulse Ox O2 Delivery O2 Flow Rate FiO2 10/14/16 04:10 98.0 71 18 137/79 98 Nasal Cannula 2.0 10/14/16 02:14 97.0 10/14/16 00:00 97.0 77 20 148/82 98 Nasal Cannula 2.0 10/13/16 23:04 96.3 10/13/16 21:26 73 155/88 10/13/16 19:00 96.3 73 20 155/88 99 Nasal Cannula 2.0 10/13/16 16:00 76 10/13/16 15:22 98.1 77 18 151/85 97 Room Air 10/13/16 11:44 65 10/13/16 11:42 Nasal Cannula 2.0 10/13/16 11:41 98.0 59 18 148/66 98 Nasal Cannula 2.0 10/13/16 11:14 96.6 66 18 130/82 98 2.0 10/13/16 09:54 62 155/80 10/13/16 08:15 58 10/13/16 08:10 Nasal Cannula 2.0 10/13/16 08:00 96.0 57 20 154/78 100 Nasal Cannula 2.0 10/13/16 07:58 96.1 62 18 155/80 100 Nasal Cannula 2.0 Intake and Output 10/13/16 10/14/16 19:00 07:00 Intake Total 120 ml Output Total 2700 ml Balance -2580 ml Intake Oral 120 ml Hemodialysis UF 2700 ml # Voids 1 # Bowel Movements 3 Laboratory Tests 10/13/16 08:00: Stool Occult Blood Negative 10/14/16 05:50: White Blood Count [Pending], Red Blood Count [Pending], Hemoglobin [Pending], Hematocrit [Pending], Mean Corpuscular Volume [Pending], Mean Corpuscular Hemoglobin [Pending], Mean Corpuscular Hemoglobin Concent [Pending], Red Cell Distribution Width [Pending], Platelet Count [Pending], Mean Platelet Volume [ Pending], Neutrophils (%) (Auto) [Pending], Lymphocytes (%) (Auto) [Pending], Monocytes (%) (Auto) [Pending], Eosinophils (%) (Auto) [Pending], Basophils (%) (Auto) [Pending], Sodium Level 140, Potassium Level 4.4, Chloride Level 92L, Carbon Dioxide Level 28, Anion Gap 20H, Blood Urea Nitrogen 82#H, Creatinine 9.8H, Estimat Glomerular Filtration Rate 4.8, Glucose Level 45L, Calcium Level 6.1L, Iron Level 95, Total Iron Binding Capacity 175L, Percent Iron Saturation 54H, Unsaturated Iron Binding 80L, Ferritin [Pending], Carcinoembryonic Antigen 14.0H Height (Feet): 5 Height (Inches): 7.00 Weight (Pounds): 160 General Appearance: alert EENT: normal ENT inspection Neck: normal alignment Cardiovascular: normal peripheral pulses, normal rate, regular rhythm Respiratory/Chest: chest wall non-tender, lungs clear, normal breath sounds Abdomen: normal bowel sounds, non tender, soft Extremities: normal inspection Edema: no edema noted Arm (L), no edema noted Arm (R), no edema noted Leg (L), no edema noted Leg (R), no edema noted Pedal (L), no edema noted Pedal (R), no edema noted Generalized Neurologic: responsive, motor weakness Skin: normal pigmentation, warm/dry PASCALE PASCUAL Oct 14, 2016 07:41
[2016-10-14 08:13] VITALS: BP 165/104
[2016-10-14 08:37] LABS: FERRITIN 1298 ng/mL (13-150)
[2016-10-14] MEDS ORDERED: Sertraline 50mg tab ORAL SCH (09:00)
[2016-10-14] MEDS: Heparin 5000 units/ml inj SUBQ SCH (09:24)
[2016-10-14] MEDS: Morphine Sulfate 2mg/ml Inj IVP PRN (09:45)
--- NOTE | 2016-10-14 10:02 | General Progress Note ---
Assessment/Plan Problem List: (1) Elevated CEA ICD Codes: R97.0 - Elevated carcinoembryonic antigen [CEA] SNOMED: 20334049, 719084218 (2) ESRD (end stage renal disease) on dialysis ICD Codes: N18.6 - End stage renal disease; Z99.2 - Dependence on renal dialysis SNOMED: 738321799 (3) Anemia ICD Codes: D64.9 - Anemia, unspecified SNOMED: 424229322 Qualifiers: Qualified Codes: D64.9 - Anemia, unspecified Assessment/Plan plan EGD and colonoscopy in AM Subjective ROS Limited/Unobtainable: Yes Constitutional: Reports: no symptoms HEENT: Reports: no symptoms Cardiovascular: Reports: no symptoms Respiratory: Reports: no symptoms Gastrointestinal/Abdominal: Reports: no symptoms Genitourinary: Reports: no symptoms 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: Reports: no symptoms Endocrine: Reports: no symptoms Allergies: Coded Allergies: No Known Allergies (Unverified , 01/01/12) Objective Last 24 Hour Vital Signs Date Time Temp Pulse Resp B/P Pulse Ox O2 Delivery O2 Flow Rate FiO2 10/14/16 09:20 99 165/104 10/14/16 08:13 97.7 99 20 165/104 100 Room Air 10/14/16 04:10 98.0 71 18 137/79 98 Nasal Cannula 2.0 10/14/16 02:14 97.0 10/14/16 00:00 97.0 77 20 148/82 98 Nasal Cannula 2.0 10/13/16 23:04 96.3 10/13/16 21:26 73 155/88 10/13/16 19:00 96.3 73 20 155/88 99 Nasal Cannula 2.0 10/13/16 16:00 76 10/13/16 15:22 98.1 77 18 151/85 97 Room Air 10/13/16 11:44 65 10/13/16 11:42 Nasal Cannula 2.0 10/13/16 11:41 98.0 59 18 148/66 98 Nasal Cannula 2.0 10/13/16 11:14 96.6 66 18 130/82 98 2.0 Intake and Output 10/13/16 10/14/16 19:00 07:00 Intake Total 120 ml Output Total 2700 ml Balance -2580 ml Intake Oral 120 ml Hemodialysis UF 2700 ml # Voids 1 # Bowel Movements 3 Laboratory Tests 10/14/16 05:50: White Blood Count 12.2H, Red Blood Count 2.99L, Hemoglobin 8.0L, Hematocrit 25.6L, Mean Corpuscular Volume 86, Mean Corpuscular Hemoglobin 26.9L, Mean Corpuscular Hemoglobin Concent 31.4L, Red Cell Distribution Width 13.6, Platelet Count 185, Mean Platelet Volume 8.5, Neutrophils (%) (Auto) 73.4, Lymphocytes (%) (Auto) 21.5, Monocytes (%) (Auto) 3.7, Eosinophils (%) (Auto) 0.8, Basophils (%) (Auto) 0.6, Sodium Level 140, Potassium Level 4.4, Chloride Level 92L, Carbon Dioxide Level 28, Anion Gap 20H, Blood Urea Nitrogen 82#H, Creatinine 9.8H, Estimat Glomerular Filtration Rate 4.8, Glucose Level 45L, Calcium Level 6.1L, Iron Level 95, Total Iron Binding Capacity 175L, Percent Iron Saturation 54H, Unsaturated Iron Binding 80L, Ferritin 1298H, Carcinoembryonic Antigen 14.0H Height (Feet): 5 Height (Inches): 7.00 Weight (Pounds): 160 General Appearance: alert EENT: normal ENT inspection Neck: supple Cardiovascular: normal rate Respiratory/Chest: decreased breath sounds Abdomen: normal bowel sounds, non tender, soft Extremities: non-tender CIPRIANO CHAVEZ Oct 14, 2016 10:02
--- NOTE | 2016-10-14 11:05 | Nephrology Progress Note ---
Assessment/Plan Problem List: (1) Anemia (2) ESRD (end stage renal disease) on dialysis (3) Episode of generalized weakness (4) Hyperkalemia (5) Elevated CEA Plan EGD/colonoscopy in am. monitor labs. HD as scheduled. d/w Dr. Garcia. Subjective Subjective s/p blood transfusion. lethargic. not conversant. Objective Objective Last 24 Hour Vital Signs Date Time Temp Pulse Resp B/P Pulse Ox O2 Delivery O2 Flow Rate FiO2 10/14/16 10:15 97.7 10/14/16 09:20 99 165/104 10/14/16 08:13 97.7 99 20 165/104 100 Room Air 10/14/16 04:10 98.0 71 18 137/79 98 Nasal Cannula 2.0 10/14/16 00:00 97.0 77 20 148/82 98 Nasal Cannula 2.0 10/13/16 23:04 96.3 10/13/16 21:26 73 155/88 10/13/16 19:00 96.3 73 20 155/88 99 Nasal Cannula 2.0 10/13/16 16:00 76 10/13/16 15:22 98.1 77 18 151/85 97 Room Air 10/13/16 11:44 65 10/13/16 11:42 Nasal Cannula 2.0 10/13/16 11:41 98.0 59 18 148/66 98 Nasal Cannula 2.0 10/13/16 11:14 96.6 66 18 130/82 98 2.0 Intake and Output 10/13/16 10/14/16 19:00 07:00 Intake Total 120 ml Output Total 2700 ml Balance -2580 ml Intake Oral 120 ml Hemodialysis UF 2700 ml # Voids 1 # Bowel Movements 3 Laboratory Tests 10/14/16 05:50: White Blood Count 12.2H, Red Blood Count 2.99L, Hemoglobin 8.0L, Hematocrit 25.6L, Mean Corpuscular Volume 86, Mean Corpuscular Hemoglobin 26.9L, Mean Corpuscular Hemoglobin Concent 31.4L, Red Cell Distribution Width 13.6, Platelet Count 185, Mean Platelet Volume 8.5, Neutrophils (%) (Auto) 73.4, Lymphocytes (%) (Auto) 21.5, Monocytes (%) (Auto) 3.7, Eosinophils (%) (Auto) 0.8, Basophils (%) (Auto) 0.6, Sodium Level 140, Potassium Level 4.4, Chloride Level 92L, Carbon Dioxide Level 28, Anion Gap 20H, Blood Urea Nitrogen 82#H, Creatinine 9.8H, Estimat Glomerular Filtration Rate 4.8, Glucose Level 45L, Calcium Level 6.1L, Iron Level 95, Total Iron Binding Capacity 175L, Percent Iron Saturation 54H, Unsaturated Iron Binding 80L, Ferritin 1298H, Carcinoembryonic Antigen 14.0H Height (Feet): 5 Height (Inches): 7.00 Weight (Pounds): 160 General Appearance: no apparent distress Cardiovascular: normal rate, regular rhythm Respiratory/Chest: lungs clear Abdomen: non tender, soft Extremities: non-pitting Neurologic: depressed affect LAKEISHA ATKINS Oct 14, 2016 11:05
[2016-10-14 12:30] VITALS: BP 160/71
[2016-10-14] MEDS ORDERED: Bisacodyl EC 5mg tab ORAL ONE (13:30)
[2016-10-14] MEDS ORDERED: Tubing Blood Filter IV ONE (14:04)
[2016-10-14] MEDS ORDERED: NS 275ml ONE (14:04)
[2016-10-14] MEDS ORDERED: Nulytely 4L ORAL ONE (15:00)
[2016-10-14] MEDS ORDERED: Cefepime HCl 500 MG in D5W 55 ML IVPB SCH (16:30)
[2016-10-14] MEDS ORDERED: Cefepime 500mg in D5W 55ml IVPB SCH (16:30)
--- NOTE | 2016-10-14 22:38 | Consultation ---
DATE OF CONSULTATION: 10/14/2016 ENDOCRINOLOGY CONSULTATION CONSULTING PHYSICIAN: Ayush Spencer M.D. REFERRING PHYSICIAN: Facundo Waller D.O. REASON FOR CONSULTATION: Hypoglycemia. HISTORY OF PRESENT ILLNESS: The patient is a 66-year-old female with history of end-stage renal disease, anemia who presents to the emergency department for evaluation. The patient has been feeling very weak and lethargic over the past one week, missed dialysis, has been anemic and blood glucose has been running low. Endocrinology was consulted. PAST MEDICAL HISTORY: 1. End-stage renal disease. 2. Scoliosis. 3. Seizure disorder. 4. Asthma. PAST SURGICAL HISTORY: 1. Abdominal surgery. 2. Hysterectomy. MEDICATIONS: Reviewed. ALLERGIES TO MEDICATIONS: None. SOCIAL HISTORY: Unknown. FAMILY HISTORY: Noncontributory. REVIEW OF SYSTEMS: As per history of present illness. PHYSICAL EXAMINATION: VITAL SIGNS: Blood pressure 98/42, pulse 80, temperature 98.3 degrees, respiratory rate 18. HEENT: Pupils are equal and reactive to light. Sclerae are anicteric. NECK: No JVD. No thyromegaly. No bruit. LUNGS: Clear. HEART: Regular. ABDOMEN: Positive bowel sounds. Soft. EXTREMITIES: Positive for edema. LABORATORY AND DIAGNOSTIC DATA: WBC 12, hemoglobin 8, and hematocrit 25, platelet count 185,000. Sodium 140, potassium 4.4, chloride 92, bicarbonate 28, BUN 83, creatinine 9.8, glucose 45. TSH 0.8. DIAGNOSES: 1. End-stage renal disease. 2. Congestive heart failure. 3. Hypoglycemia. 4. Hyperkalemia. DISCUSSION: Hypoglycemia is due to poor oral intake as well as end-stage renal disease and depletion of glycogen, possible component of sepsis. Glucose monitoring has been ordered. Encouraged oral intake. I will follow the patient during hospital stay for the management of hypoglycemia. Ayush Spencer M.D. DR: TONEY/hilda JOB#: [id number] CC:
--- NOTE | 2016-10-14 23:29 | General Progress Note ---
Assessment/Plan Assessment/Plan Assessment: # Anemia 2/2 chronic disease # Anemia 2/2 kidney disease- back on epo # Neutrophilia potentially 2/2 infection # Hyperkalemia # ESRD (end stage renal disease) on dialysis # Hypoglycemia # Episode of generalized weakness # weakness and lethargy. missed dialysis today # cardiomegaly. Recs: - Given Kayexalate and calcium. Given D50 and continued albuterol. PBRCs ordered. - Hgb goal >7 - Ferritin and anemia w/u ordered- reviewed - EPOGEN started - HD as per renal team - Appreciate pulm/cc and renal recs - Outpatient screen for colon cancer - Appreciate consultation! Subjective Constitutional: Reports: no symptoms HEENT: Reports: no symptoms Cardiovascular: Reports: no symptoms Respiratory: Reports: no symptoms Gastrointestinal/Abdominal: Reports: no symptoms Genitourinary: Reports: no symptoms 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: Reports: no symptoms Endocrine: Reports: no symptoms Hematologic/Lymphatic: Reports: anemia Allergies: Coded Allergies: No Known Allergies (Unverified , 01/01/12) Subjective Pt left AMA Objective Last 24 Hour Vital Signs Date Time Temp Pulse Resp B/P Pulse Ox O2 Delivery O2 Flow Rate FiO2 10/14/16 12:30 97.0 60 18 160/71 98 Room Air 10/14/16 10:15 97.7 10/14/16 09:20 99 165/104 10/14/16 08:13 97.7 99 20 165/104 100 Room Air 10/14/16 08:10 60 18 Room Air 21 10/14/16 04:10 98.0 71 18 137/79 98 Nasal Cannula 2.0 10/14/16 00:00 97.0 77 20 148/82 98 Nasal Cannula 2.0 Intake and Output 10/13/16 10/14/16 19:00 07:00 Intake Total 120 ml Output Total 2700 ml Balance -2580 ml Intake Oral 120 ml Hemodialysis UF 2700 ml # Voids 1 # Bowel Movements 3 Laboratory Tests 10/14/16 05:50: White Blood Count 12.2H, Red Blood Count 2.99L, Hemoglobin 8.0L, Hematocrit 25.6L, Mean Corpuscular Volume 86, Mean Corpuscular Hemoglobin 26.9L, Mean Corpuscular Hemoglobin Concent 31.4L, Red Cell Distribution Width 13.6, Platelet Count 185, Mean Platelet Volume 8.5, Neutrophils (%) (Auto) 73.4, Lymphocytes (%) (Auto) 21.5, Monocytes (%) (Auto) 3.7, Eosinophils (%) (Auto) 0.8, Basophils (%) (Auto) 0.6, Sodium Level 140, Potassium Level 4.4, Chloride Level 92L, Carbon Dioxide Level 28, Anion Gap 20H, Blood Urea Nitrogen 82#H, Creatinine 9.8H, Estimat Glomerular Filtration Rate 4.8, Glucose Level 45L, Calcium Level 6.1L, Iron Level 95, Total Iron Binding Capacity 175L, Percent Iron Saturation 54H, Unsaturated Iron Binding 80L, Ferritin 1298H, Carcinoembryonic Antigen 14.0H Height (Feet): 5 Height (Inches): 7.00 Weight (Pounds): 160 General Appearance: WD/WN EENT: PERRL/EOMI Neck: non-tender Cardiovascular: normal peripheral pulses Respiratory/Chest: chest wall non-tender Abdomen: normal bowel sounds Extremities: normal range of motion Edema: no edema noted Leg (L), no edema noted Leg (R), no edema noted Pedal (L) , no edema noted Pedal (R), no edema noted 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
--- NOTE | 2016-10-14 23:32 | Pulmonology Progress Note ---
Assessment/Plan Problems: (1) Pulmonary edema (2) Hyperkalemia (3) Hypoglycemia (4) ESRD (end stage renal disease) on dialysis (5) Anemia Subjective Allergies: Coded Allergies: No Known Allergies (Unverified , 01/01/12) Objective Last 24 Hour Vital Signs Date Time Temp Pulse Resp B/P Pulse Ox O2 Delivery O2 Flow Rate FiO2 10/14/16 12:30 97.0 60 18 160/71 98 Room Air 10/14/16 10:15 97.7 10/14/16 09:20 99 165/104 10/14/16 08:13 97.7 99 20 165/104 100 Room Air 10/14/16 08:10 60 18 Room Air 21 10/14/16 04:10 98.0 71 18 137/79 98 Nasal Cannula 2.0 10/14/16 00:00 97.0 77 20 148/82 98 Nasal Cannula 2.0 Intake and Output 10/13/16 10/14/16 19:00 07:00 Intake Total 120 ml Output Total 2700 ml Balance -2580 ml Intake Oral 120 ml Hemodialysis UF 2700 ml # Voids 1 # Bowel Movements 3 Laboratory Tests 10/14/16 05:50: White Blood Count 12.2H, Red Blood Count 2.99L, Hemoglobin 8.0L, Hematocrit 25.6L, Mean Corpuscular Volume 86, Mean Corpuscular Hemoglobin 26.9L, Mean Corpuscular Hemoglobin Concent 31.4L, Red Cell Distribution Width 13.6, Platelet Count 185, Mean Platelet Volume 8.5, Neutrophils (%) (Auto) 73.4, Lymphocytes (%) (Auto) 21.5, Monocytes (%) (Auto) 3.7, Eosinophils (%) (Auto) 0.8, Basophils (%) (Auto) 0.6, Sodium Level 140, Potassium Level 4.4, Chloride Level 92L, Carbon Dioxide Level 28, Anion Gap 20H, Blood Urea Nitrogen 82#H, Creatinine 9.8H, Estimat Glomerular Filtration Rate 4.8, Glucose Level 45L, Calcium Level 6.1L, Iron Level 95, Total Iron Binding Capacity 175L, Percent Iron Saturation 54H, Unsaturated Iron Binding 80L, Ferritin 1298H, Carcinoembryonic Antigen 14.0H GAGE SAEZ Oct 14, 2016 23:32
[2016-10-15] MEDS ORDERED: Epogen (for ESRD on dialysis) SUBQ SCH (21:00)
--- NOTE | 2016-10-16 08:51 | Discharge Summary ---
Discharge Summary Hospital Course Date of Admission Oct 12, 2016 at 22:01 Date of Discharge Oct 14, 2016 at 18:17 Admitting Diagnosis weakness/anemia HPI Syeda Golden is a 66 year old female who was admitted on Oct 12, 2016 at 22: 01 for Weakness/Anemia Hospital Course dc summary #[id number] Discharge Discharge Disposition Patient signed AMA Discharge Diagnoses: Discharge Instructions Discharge Instructions Special Instructions I have been assigned to complete a D/C Summary on this account. I was not involved in the patient management Avis Silva NP (Vanchtein) Oct 16, 2016 08:51
--- NOTE | 2016-10-16 23:18 | Discharge Summary 2 SIG ---
DATE OF ADMISSION: 10/12/2016 DATE OF SIGNING AGAINST MEDICAL ADVISE : 10/14/2016 REASON FOR ADMISSION: 66-year-old female with a history of end-stage renal disease, on hemodialysis, asthma, and psychiatric disease. She was picked up on the street by paramedics and brought to ED for evaluation. The patient was noted to be very weak and tired for one day. The patient missed dialysis. The patient denied chest pain, shortness of breath, fever, chills, nausea or vomiting. Workup in the emergency room revealed hypoglycemia with blood sugar of 45 and acute hyperkalemia with potassium of 7.0. Renal parameters were consistent with end-stage renal disease. BUN- 140 and creatinine -14.4. No leukocytosis. Anemic, hemoglobin -7.4 and hematocrit -22.7. Chest x-ray revealed pulmonary edema, subsegmental atelectasis, right lung base, possible left lung base pneumonia. Pro BNP was elevated, more than 70,000. Troponin was negative. Elevated total CK -182, elevated CK-MB -6.1, and elevated alkaline phosphatase -117. The patient was admitted for further management. ADMITTING DIAGNOSES: 1. Acute hyperkalemia. 2. Acute pulmonary edema. 3. End-stage renal disease, on hemodialysis. 4. Anemia. 5. Hypoglycemia. 6. Episode of generalized weakness. 7. Possible pneumonia HOSPITAL STAY: The patient was admitted to telemetry floor. Nephrology, Hematology, ID and GI consults were requested. Hemodialysis was done as per formula bottler. Renal parameters and electrolytes were closely monitored. Initially hyperkalemia was managed with Kayexalate, calcium gluconate, D50 and albuterol. Potassium prior to signing against medical advice - 4.4. The patient was started on empiric antibiotics. ID followed. Supplemental oxygen and pulmonary toilet was provided as needed. Pulse oximetry was stable on room air. Status post transfusion of 2 units of packed red blood cell . Anemia workup revealed stable iron. Instrument Checker followed the patient. Started the patient on Epogen, after anemia workup was reviewed. GI followed the patient. The patient with elevated CEA of 14. Stool OB was negative. GI scheduled the patient for EGD and colonoscopy. Health Analyst seen and evaluated the patient due to the hypoglycemia . Per marine cargo specialist hypoglycemia was likely secondary to poor oral intake as well as end-stage renal disease and depletion of glycogen. Glucose was closely monitored and was stable. The patient was working with physical and occupational therapists. Social service was working on evaluation for home safety. Colonoscopy and endoscopy were pending for the next morning. However, the patient decided to sign against medical advice. Risks and consequences of signing against medical advice were explained in detail to the patient by the nursing staff. However, the patient insisted and signed the form. FINAL DIAGNOSES: 1. Acute pulmonary edema likely secondary to fluid overload due to the missed hemodialysis. 2. Acute hyperkalemia, - resolved. 3. End-stage renal disease, -on hemodialysis. 4. Anemia of chronic kidney disease 5. status post 2 units packed red blood cell transfusion. 6. Hypoglycemia. 7. Elevated carcinoembryonic antigen. 8. Possible pneumonia. Facundo Waller D.O. I have been assigned to dictate discharge summary on this account and I was not involved in the patient's management. Avis sanchezelton NNayeli DR: ADONIS JOB#: [id number] CC: TIFF
[2016-10-17 09:05] LABS: OTHERS PATHOLOGIST COMMENT
== END 2016-10-14 18:17 | disposition left against medical advice (07) | DRG 425 ==
LOC: EDBD 19:23 → EMR 21:04 → EDBEDREQSVC 21:24 → EDBEDREQ 21:25 → 2E 22:01 → EDBEDREQ 10-13 06:00 → 2E 10-13 08:20 → 4W 10-13 16:43
PROC: 5A1D00Z (ICD-10-PCS; principal; 2016-10-13)
PROC: 30233N1 Transfusion of Nonautologous Red Blood Cells into Peripheral Vein, Percutaneous Approach (ICD-10-PCS; 2016-10-13)
DX: E87.5 Hyperkalemia (principal); N17.9 Acute kidney failure, unspecified; J18.9 Pneumonia, unspecified organism; N18.6 End stage renal disease; I50.9 Heart failure, unspecified; E87.79 Other fluid overload; Z99.2 Dependence on renal dialysis; D64.9 Anemia, unspecified; E16.2 Hypoglycemia, unspecified; J45.909 Unspecified asthma, uncomplicated; Z86.73 Personal history of transient ischemic attack (TIA), and cerebral infarction without residual deficits; G40.909 Epilepsy, unspecified, not intractable, without status epilepticus; Z91.15 Patient's noncompliance with renal dialysis; D63.1 Anemia in chronic kidney disease; M41.9 Scoliosis, unspecified; R97.0 Elevated carcinoembryonic antigen [CEA]
CPT/HCPCS: 36415; 71010; 80048; 80053; 82270; 82378; 82550; 82553; 82728; 82962; 83036; 83540; 83550; 83880; 84443; 84484; 85007; 85025; 85610; 85730; 86850; 86870; 86900; 86901; 86904; 86920; 87081; 93005; 94640; 94664

== ENCOUNTER 2017-01-28 06:03 | Inpatient (IN) | payer MEDICARE, OTHER ==
[~2017-01-28] VITALS: Ht 167.6 cm; Wt 66.3 kg
[2017-01-28] VITALS (18 sets, daily range): BP systolic 115–211; BP diastolic 69–129
[~2017-01-28 06:03] MED LIST: ALBUTEROL2.5 MG/3 M INH; CLONIDINE HCL0.1 M1 PO; COREG3.125 MG ORAL; METHADONE HCL5 MG PO; QUETIAPINE FUMA25 MG ORAL; TRAMADOL HCL50 MG ORAL; ZOLOFT25 MG ORAL
[2017-01-28] MEDS ORDERED: COZAAR25 MG ORAL (06:18)
[2017-01-28] MEDS ORDERED: METHADONE HCL10 MG PO (06:18)
[2017-01-28] MEDS ORDERED: MILK OF MA400 MG/51 ORAL (06:18)
[2017-01-28] MEDS ORDERED: DULCOLAX STOOL100 M1 RC (06:18)
[2017-01-28] MEDS ORDERED: CARDURA1 MG ORAL (06:18)
[2017-01-28] MEDS ORDERED: HYDRALAZINE HCL25 M1 ORAL (06:18)
[2017-01-28] MEDS ORDERED: PROTEINEX-18 LI30 ML PO (06:18)
[2017-01-28] MEDS ORDERED: COLACE100 MG ORAL (06:18)
[2017-01-28] MEDS ORDERED: RENAL-VITE TAB0.8 MG PO (06:18)
[2017-01-28] MEDS ORDERED: TYLENOL325 MG ORAL (06:18)
[2017-01-28] MEDS ORDERED: VITAMIN D400 INTLU ORAL (06:18)
[2017-01-28] MEDS ORDERED: GABAPENTIN300 MG ORAL (06:18)
[2017-01-28] MEDS ORDERED: FLEET ENEMA133 ML RECTAL (06:18)
--- NOTE | 2017-01-28 06:49 | Emergency Room Report ---
History of Present Illness General Chief Complaint: Dyspnea/Respdistress Source: Patient, Medical Record, EMS Present Illness HPI This patient presents from a nursing home facility. Chief complaint was shortness of breath. EMS report that on arrival to the nursing home facility the patient's O2 saturation is in the high 80s. On arrival here, the patient's O2 saturation is a high 90s. His has a history of renal failure and is dialysis dependent. She also has a history of peptic diabetes, hypertension , congestive heart failure. At this time she does have a sensation of difficulty breathing. She has pain in her back. She is due for dialysis today. She has no other complaints. Allergies: Coded Allergies: No Known Allergies (Unverified , 01/01/12) Patient History Past Medical History: see triage record, old chart reviewed, DM, HTN, MA, CAD, CHF, renal disease, dialysis, other - chronic anemia Social History: Denies: alcohol use, drug use, smoking Reviewed Nursing Documentation: PMH: Agreed, PSxH: Agreed Nursing Documentation-PMH Past Medical History: No History, Except For Hx Cardiac Problems: Yes - Anemia, Heart failure, Angina pectoris, Atherosclerotic heart disease Hx Hypertension: Yes Hx Asthma: Yes Hx COPD: Yes Hx Diabetes: Yes - Type 2 Hx Gastrointestinal Problems: Yes - Hemorrhoids Hx Dialysis: Yes - CKD, ESRD, AV Fistula MWF History Of Psychiatric Problem: Yes - Schizophrenia Hx Neurological Problems: No - Hyperkalemia, Metabolic Encephalopathy, Altered Mental Hx Cerebrovascular Accident: Yes Hx Seizures: Yes Review of Systems All Other Systems: negative except mentioned in HPI Physical Exam Vital Signs Date Time Temp Pulse Resp B/P Pulse Ox O2 Delivery O2 Flow Rate FiO2 01/28/17 05:55 98.1 109 18 176/129 96 Non-Rebreather 15.0 Sp02 EP Interpretation: reviewed, abnormal General Appearance: no apparent distress, alert, GCS 15, non-toxic Head: normocephalic, atraumatic Eyes: bilateral eye PERRL, bilateral eye normal inspection ENT: hearing grossly normal, normal pharynx, no angioedema, normal voice Neck: full range of motion, supple/symm/no masses Respiratory: chest non-tender, no respiratory distress, no retraction, no accessory muscle use, rales, speaking full sentences Cardiovascular #1: regular rate, rhythm, no edema, systolic murmur Gastrointestinal: normal bowel sounds, non tender, soft, non-distended, no guarding, no rebound Rectal: deferred Musculoskeletal: back normal, gait/station normal, normal range of motion, non- tender Neurologic: alert, oriented x3, responsive, motor strength/tone normal, sensory intact, speech normal Psychiatric: judgement/insight normal, memory normal, mood/affect normal, no suicidal/homicidal ideation Skin: normal color, no rash, warm/dry, well hydrated, other - anasarca Medical Decision Making Diagnostic Impression: Primary Impression: Hyperkalemia Additional Impressions: ESRD (end stage renal disease) on dialysis Pulmonary edema Respiratory distress Anemia Respiratory failure ER Course This patient presents with dyspnea. She was found to be in fluid overload. She is supposed to get dialysis today. The patient initially was doing well on nasal cannula, however she began having desaturations he became hypoxemic on nasal cannula. An ABG was obtained that showed she was acidotic and retaining CO2. She was then placed on BiPAP. Repeat ABG was obtained again and there was only marginal improvement. Therefore, I felt this patient needed definitive airway. She was also given albuterol nebs, insulin and glucose and Kayexalate. She was intubated by rapid sequence intubation on on the first attempt without complications. The case was discussed with the on-call ground support equipment mechanic who was asked to do an emergency dialysis. The patient was transferred to the ICU. This patient is critically ill. This patient required complex medical decision- making, aggressive intervention, extensive laboratory workup and monitoring. Critical care time: 40 minutes. Labs Test 01/28/17 08:00 01/28/17 09:51 01/28/17 10:30 01/28/17 11:55 White Blood Count 9.5 K/UL (4.8-10.8) Red Blood Count 2.94 M/UL (4.20-5.40) Hemoglobin 7.7 G/DL (12.0-16.0) Hematocrit 26.0 % (37.0-47.0) Mean Corpuscular Volume 89 FL (80-99) Mean Corpuscular Hemoglobin 26.4 PG (27.0-31.0) Mean Corpuscular Hemoglobin Concent 29.8 G/DL (32.0-36.0) Red Cell Distribution Width 15.4 % (11.6-14.8) Platelet Count 184 K/UL (150-450) Mean Platelet Volume 8.3 FL (6.5-10.1) Neutrophils (%) (Auto) % (45.0-75.0) Lymphocytes (%) (Auto) % (20.0-45.0) Monocytes (%) (Auto) % (1.0-10.0) Eosinophils (%) (Auto) % (0.0-3.0) Basophils (%) (Auto) % (0.0-2.0) Differential Total Cells Counted 100 Neutrophils % (Manual) 67 % (45-75) Lymphocytes % (Manual) 27 % (20-45) Monocytes % (Manual) 5 % (1-10) Eosinophils % (Manual) 1 % (0-3) Basophils % (Manual) 0 % (0-2) Band Neutrophils 0 % (0-8) Platelet Estimate Adequate Platelet Morphology Normal Hypochromasia 1+ Anisocytosis 1+ Sodium Level 142 mEQ/L (135-145) 140 mEQ/L (135-145) Potassium Level 7.4 mEQ/L (3.4-4.9) 7.5 mEQ/L (3.4-4.9) Chloride Level 99 mEQ/L (98-107) 98 mEQ/L (98-107) Carbon Dioxide Level 25 mEQ/L (20-30) 26 mEQ/L (20-30) Anion Gap 18 (5-15) 16 (5-15) Blood Urea Nitrogen 87 mg/dL (7-23) 89 mg/dL (7-23) Creatinine 9.1 mg/dL (0.5-0.9) 9.1 mg/dL (0.5-0.9) Estimat Glomerular Filtration Rate 5.2 mL/min (>60) 5.2 mL/min (>60) Glucose Level 87 mg/dL (74-106) 88 mg/dL (74-106) Calcium Level 7.9 mg/dL (8.6-10.2) 7.7 mg/dL (8.6-10.2) Total Bilirubin 0.4 mg/dL (0.0-1.2) Aspartate Amino Transf (AST/SGOT) 35 U/L (5-40) Alanine Aminotransferase (ALT/SGPT) 25 U/L (3-33) Alkaline Phosphatase 134 U/L (35-104) Total Creatine Kinase 106 U/L (26-140) Creatine Kinase MB 2.5 ng/mL (< 3.8) Creatine Kinase MB Relative Index 2.3 Troponin I < 0.30 ng/mL (<=0.30) Pro-B-Type Natriuretic Peptide 09681 pg/mL (0-125) Total Protein 7.8 g/dL (6.6-8.7) Albumin 3.7 g/dL (3.5-5.2) Globulin 4.1 g/dL Albumin/Globulin Ratio 0.9 (1.0-2.7) Arterial Blood pH 7.213 (7.350-7.450) 7.214 (7.350-7.450) Arterial Blood Partial Pressure CO2 67.9 mmHg (35.0-45.0) 66.0 mmHg (35.0-45.0) Arterial Blood Partial Pressure O2 107.7 mmHg (75.0-100.0) 144.0 mmHg (75.0-100.0) Arterial Blood HCO3 26.7 mmol/L (22.0-26.0) 26.0 mmol/L (22.0-26.0) Arterial Blood Oxygen Saturation 96.8 % (92.0-98.0) 98.5 % (92.0-98.0) Arterial Blood Base Excess -1.5 -2.0 Lico Test Positive Positive Labs Test 01/28/17 08:00 01/28/17 09:51 01/28/17 10:30 White Blood Count 9.5 K/UL (4.8-10.8) Red Blood Count 2.94 M/UL (4.20-5.40) Hemoglobin 7.7 G/DL (12.0-16.0) Hematocrit 26.0 % (37.0-47.0) Mean Corpuscular Volume 89 FL (80-99) Mean Corpuscular Hemoglobin 26.4 PG (27.0-31.0) Mean Corpuscular Hemoglobin Concent 29.8 G/DL (32.0-36.0) Red Cell Distribution Width 15.4 % (11.6-14.8) Platelet Count 184 K/UL (150-450) Mean Platelet Volume 8.3 FL (6.5-10.1) Neutrophils (%) (Auto) % (45.0-75.0) Lymphocytes (%) (Auto) % (20.0-45.0) Monocytes (%) (Auto) % (1.0-10.0) Eosinophils (%) (Auto) % (0.0-3.0) Basophils (%) (Auto) % (0.0-2.0) Differential Total Cells Counted 100 Neutrophils % (Manual) 67 % (45-75) Lymphocytes % (Manual) 27 % (20-45) Monocytes % (Manual) 5 % (1-10) Eosinophils % (Manual) 1 % (0-3) Basophils % (Manual) 0 % (0-2) Band Neutrophils 0 % (0-8) Platelet Estimate Adequate Platelet Morphology Normal Hypochromasia 1+ Anisocytosis 1+ Sodium Level 142 mEQ/L (135-145) 140 mEQ/L (135-145) Potassium Level 7.4 mEQ/L (3.4-4.9) 7.5 mEQ/L (3.4-4.9) Chloride Level 99 mEQ/L (98-107) 98 mEQ/L (98-107) Carbon Dioxide Level 25 mEQ/L (20-30) 26 mEQ/L (20-30) Anion Gap 18 (5-15) 16 (5-15) Blood Urea Nitrogen 87 mg/dL (7-23) 89 mg/dL (7-23) Creatinine 9.1 mg/dL (0.5-0.9) 9.1 mg/dL (0.5-0.9) Estimat Glomerular Filtration Rate 5.2 mL/min (>60) 5.2 mL/min (>60) Glucose Level 87 mg/dL (74-106) 88 mg/dL (74-106) Calcium Level 7.9 mg/dL (8.6-10.2) 7.7 mg/dL (8.6-10.2) Total Bilirubin 0.4 mg/dL (0.0-1.2) Aspartate Amino Transf (AST/SGOT) 35 U/L (5-40) Alanine Aminotransferase (ALT/SGPT) 25 U/L (3-33) Alkaline Phosphatase 134 U/L (35-104) Total Creatine Kinase 106 U/L (26-140) Creatine Kinase MB 2.5 ng/mL (< 3.8) Creatine Kinase MB Relative Index 2.3 Troponin I < 0.30 ng/mL (<=0.30) Pro-B-Type Natriuretic Peptide 45310 pg/mL (0-125) Total Protein 7.8 g/dL (6.6-8.7) Albumin 3.7 g/dL (3.5-5.2) Globulin 4.1 g/dL Albumin/Globulin Ratio 0.9 (1.0-2.7) Arterial Blood pH 7.213 (7.350-7.450) Arterial Blood Partial Pressure CO2 67.9 mmHg (35.0-45.0) Arterial Blood Partial Pressure O2 107.7 mmHg (75.0-100.0) Arterial Blood HCO3 26.7 mmol/L (22.0-26.0) Arterial Blood Oxygen Saturation 96.8 % (92.0-98.0) Arterial Blood Base Excess -1.5 Lico Test Positive EKG Diagnostic Results Rate: normal Rhythm: NSR ST Segments: no acute changes Rhythm Strip Diag. Results EP Interpretation: yes Rate: 80's Rhythm: NSR, no PVC's, no ectopy Chest X-Ray Diagnostic Results Chest X-Ray Diagnostic Results : Chest X-Ray Ordered: Yes # of Views/Limited/Complete: 1 View Indication: Shortness of Breath EP Interpretation: No Interpretation: no pneumothorax, other Impression: Other - +patchy opacities, concerning for CHF. PA Scribe Text Post intubation chest x-ray: Appropriate tube placement to include endotracheal tube and NG tube. Last Vital Signs Date Time Temp Pulse Resp B/P Pulse Ox O2 Delivery O2 Flow Rate FiO2 01/28/17 05:55 98.1 109 18 176/129 96 Non-Rebreather 15.0 Disposition: ADMITTED INPATIENT Condition: Critical BINA ZARAGOZA D.O. Jan 28, 2017 06:49
[2017-01-28 08:20] LABS: MEAN CORPUSCULAR HEMOGLOBIN 26.4 PG (27.0-31.0); MEAN CORPUSCULAR HGB CONC 29.8 G/DL (32.0-36.0); MEAN CORPUSCULAR VOLUME 89 FL (80-99); MEAN PLATELET VOLUME 8.3 FL (6.5-10.1); PLATELET COUNT 184 K/UL (150-450); RED BLOOD COUNT 2.94 M/UL (4.20-5.40); RED CELL DISTRIBUTION WIDTH 15.4 % (11.6-14.8); WHITE BLOOD COUNT 9.5 K/UL (4.8-10.8)
[2017-01-28 09:37] LABS: CALCIUM 7.9 mg/dL (8.6-10.2); CREATININE 9.1 mg/dL (0.5-0.9); GLOMERULAR FILTRATION RATE 5.2 mL/min (>60); TOTAL PROTEIN 7.8 g/dL (6.6-8.7); TROPONIN I < 0.30 ng/mL (<=0.30)
[2017-01-28 09:41] LABS: POTASSIUM 7.4 mEQ/L (3.4-4.9)
[2017-01-28 09:42] LABS: ALBUMIN/GLOBULIN RATIO 0.9 (1.0-2.7)
[2017-01-28 09:44] LABS: ANISOCYTOSIS 1+; BAND NEUTROPHILS % (MANUAL) 0 % (0-8); BASOPHILS % (MANUAL) 0 % (0-2); EOSINOPHILS % (MANUAL) 1 % (0-3); HYPOCHROMASIA 1+; LYMPHOCYTES % (MANUAL) 27 % (20-45); NEUTROPHILS % (MANUAL) 67 % (45-75); PLATELET ESTIMATE ADEQUATE; PLATELET MORPHOLOGY NORMAL; TOTAL CELLS COUNTED 100
[2017-01-28 09:50] LABS: CKMB 2.5 ng/mL (< 3.8)
[2017-01-28] MEDS ORDERED: Albuterol ud Inhalation HHN ONE ×2 (10:00→10:30)
[2017-01-28] MEDS ORDERED: Sodium Polystyrene Sulfonate 15gm Powder ORAL ONE (10:00)
[2017-01-28 10:29] LABS: CALCIUM 7.7 mg/dL (8.6-10.2); CREATININE 9.1 mg/dL (0.5-0.9); GLOMERULAR FILTRATION RATE 5.2 mL/min (>60)
[2017-01-28 10:32] LABS: POTASSIUM 7.5 mEQ/L (3.4-4.9)
[2017-01-28 10:50] LABS: ABG ALLEN TEST POSITIVE; ABG BASE EXCESS -1.5; ABG PCO2 67.9 mmHg (35.0-45.0)
--- NOTE | 2017-01-28 11:38 | Diagnostic Imaging Report ---
Indication: Dyspnea Comparison: 10/12/16 A single view chest radiograph was obtained. Findings: Interstitial edema demonstrated within the lungs with prominent vascularity and heart size. There is a scoliosis convex to the right. Impression: CHF
[2017-01-28] MEDS ORDERED: Miralax 17gm pkt ORAL PRN (11:45)
[2017-01-28] MEDS ORDERED: DuoNeb 0.5-3(2.5)mg/3ml neb HHN PRN (11:45)
[2017-01-28 12:04] LABS: ABG ALLEN TEST POSITIVE
[2017-01-28] MEDS ORDERED: Etomidate 40mg/20ml Inj IV ONE ×2 (12:15→15:21)
[2017-01-28] MEDS ORDERED: Zemuron 50mg/5ml Inj IV ONE ×2 (12:15→15:21)
[2017-01-28] MEDS ORDERED: Heparin 2000 units/Ns 1000ml IV ONE (12:30)
[2017-01-28] MEDS ORDERED: Lidocaine 1% Plain 30 ml INJ ONE (12:30)
--- NOTE | 2017-01-28 13:43 | Infectious Diseases Prog Note ---
Assessment/Plan Problems: (1) Pneumonia Assessment & Plan: will start vancomycin and zosyn, send sputum culture (2) Sepsis Assessment & Plan: due to the above , will send blood culture, and start vancomycin and zosyn (3) ESRD (end stage renal disease) on dialysis Assessment & Plan: continue HD, renal is following (4) Pulmonary edema Assessment & Plan: due to missing HD, continue HD as before, will treat for pneumonia too (5) Respiratory failure Assessment & Plan: due to the above, intubated, monitor ABG, and CXR (6) Hyperkalemia Assessment & Plan: needs HD, renal is following Subjective Allergies: Coded Allergies: No Known Allergies (Unverified , 01/01/12) Objective Vital Signs Last 24 Hour Vital Signs Date Time Temp Pulse Resp B/P Pulse Ox O2 Delivery O2 Flow Rate FiO2 01/28/17 13:03 97.9 84 16 141/75 100 Bi-pap 7.0 40 01/28/17 13:00 99 14 115/69 100 Bi-pap 60 01/28/17 12:34 40 01/28/17 12:30 112 16 40 01/28/17 12:09 40 01/28/17 12:00 97.9 84 17 141/75 100 Bi-pap 60 01/28/17 11:00 92 11 169/73 100 Bi-pap 60 01/28/17 11:00 60 01/28/17 10:55 95 15 100 Bi-pap 60 01/28/17 10:39 97 18 82 Bi-pap 60 01/28/17 10:39 100 15 95 Facial 60 01/28/17 10:34 60 01/28/17 10:30 97 18 100 Simple Mask 7.0 01/28/17 10:28 98.1 103 23 98 Non-Rebreather 12.0 01/28/17 10:12 107 26 82 Simple Mask 6.0 01/28/17 10:10 107 26 Simple Mask 6.0 01/28/17 10:00 98.1 108 16 187/87 87 Simple Mask 8.0 01/28/17 08:56 98.1 93 19 173/82 98 Nasal Cannula 2.0 01/28/17 06:10 109 18 Non-Rebreather 15.0 01/28/17 06:10 98.1 18 176/129 96 Non-Rebreather 15.0 01/28/17 05:55 98.1 109 18 176/129 96 Non-Rebreather 15.0 Height (Feet): 5 Height (Inches): 8.00 Weight (Pounds): 130 Laboratory Tests Test 01/28/17 08:00 01/28/17 09:51 01/28/17 10:30 01/28/17 11:55 White Blood Count 9.5 K/UL (4.8-10.8) Red Blood Count 2.94 M/UL (4.20-5.40) L Hemoglobin 7.7 G/DL (12.0-16.0) L Hematocrit 26.0 % (37.0-47.0) L Mean Corpuscular Volume 89 FL (80-99) Mean Corpuscular Hemoglobin 26.4 PG (27.0-31.0) L Mean Corpuscular Hemoglobin Concent 29.8 G/DL (32.0-36.0) L Red Cell Distribution Width 15.4 % (11.6-14.8) H Platelet Count 184 K/UL (150-450) Mean Platelet Volume 8.3 FL (6.5-10.1) Neutrophils (%) (Auto) % (45.0-75.0) Lymphocytes (%) (Auto) % (20.0-45.0) Monocytes (%) (Auto) % (1.0-10.0) Eosinophils (%) (Auto) % (0.0-3.0) Basophils (%) (Auto) % (0.0-2.0) Differential Total Cells Counted 100 Neutrophils % (Manual) 67 % (45-75) Lymphocytes % (Manual) 27 % (20-45) Monocytes % (Manual) 5 % (1-10) Eosinophils % (Manual) 1 % (0-3) Basophils % (Manual) 0 % (0-2) Band Neutrophils 0 % (0-8) Platelet Estimate Adequate Platelet Morphology Normal Hypochromasia 1+ Anisocytosis 1+ Sodium Level 142 mEQ/L (135-145) 140 mEQ/L (135-145) Potassium Level 7.4 mEQ/L (3.4-4.9) *H 7.5 mEQ/L (3.4-4.9) *H Chloride Level 99 mEQ/L (98-107) 98 mEQ/L (98-107) Carbon Dioxide Level 25 mEQ/L (20-30) 26 mEQ/L (20-30) Anion Gap 18 (5-15) H 16 (5-15) H Blood Urea Nitrogen 87 mg/dL (7-23) H 89 mg/dL (7-23) H Creatinine 9.1 mg/dL (0.5-0.9) H 9.1 mg/dL (0.5-0.9) H Estimat Glomerular Filtration Rate 5.2 mL/min (>60) 5.2 mL/min (>60) Glucose Level 87 mg/dL (74-106) 88 mg/dL (74-106) Calcium Level 7.9 mg/dL (8.6-10.2) L 7.7 mg/dL (8.6-10.2) L Total Bilirubin 0.4 mg/dL (0.0-1.2) Aspartate Amino Transf (AST/SGOT) 35 U/L (5-40) Alanine Aminotransferase (ALT/SGPT) 25 U/L (3-33) Alkaline Phosphatase 134 U/L (35-104) H Total Creatine Kinase 106 U/L (26-140) Creatine Kinase MB 2.5 ng/mL (< 3.8) Creatine Kinase MB Relative Index 2.3 Troponin I < 0.30 ng/mL (<=0.30) Pro-B-Type Natriuretic Peptide 53054 pg/mL (0-125) H Total Protein 7.8 g/dL (6.6-8.7) Albumin 3.7 g/dL (3.5-5.2) Globulin 4.1 g/dL Albumin/Globulin Ratio 0.9 (1.0-2.7) L Arterial Blood pH 7.213 (7.350-7.450) 7.214 (7.350-7.450) Arterial Blood Partial Pressure CO2 67.9 mmHg (35.0-45.0) *H 66.0 mmHg (35.0-45.0) *H Arterial Blood Partial Pressure O2 107.7 mmHg (75.0-100.0) H 144.0 mmHg (75.0-100.0) H Arterial Blood HCO3 26.7 mmol/L (22.0-26.0) H 26.0 mmol/L (22.0-26.0) Arterial Blood Oxygen Saturation 96.8 % (92.0-98.0) 98.5 % (92.0-98.0) H Arterial Blood Base Excess -1.5 -2.0 Lico Test Positive Positive Current Medications Medications (Trade) Dose Ordered Sig/Winter Route PRN Reason Start Time Stop Time Status Last Admin Dose Admin Acetaminophen (Tylenol) 650 mg Q4H PRN ORAL Fever 01/28/17 11:45 02/27/17 11:44 Albuterol/ Ipratropium (DuoNeb 0.5-3(2.5)mg/3ml) 3 ml Q4H PRN HHN Shortness of Breath 01/28/17 11:45 02/02/17 11:44 Carvedilol (Coreg) 6.25 mg EVERY 12 HOURS ORAL 01/28/17 21:00 02/27/17 20:59 Dextrose (Dextrose 50%) STAT PRN IV Hypoglycemia 01/28/17 11:45 02/27/17 11:44 Doxazosin Mesylate (Cardura) 2.5 mg BID ORAL 01/28/17 18:00 02/27/17 17:59 Gabapentin (Neurontin) 300 mg THREE TIMES A DAY ORAL 01/28/17 13:00 02/27/17 12:59 Heparin Sodium (Porcine) (Heparin 5000 units/ml) 5,000 units EVERY 12 HOURS SUBQ 01/28/17 21:00 02/27/17 20:59 Hydralazine HCl (Apresoline) 25 mg EVERY 8 HOURS ORAL 01/28/17 14:00 02/27/17 13:59 Losartan Potassium (Cozaar) 100 mg DAILY ORAL 01/29/17 09:00 02/28/17 08:59 Methadone HCl (Methadone HCl) 40 mg DAILY ORAL 01/29/17 09:00 02/05/17 08:59 UNV Ondansetron HCl (Zofran) 4 mg Q6H PRN IVP Nausea & Vomiting 01/28/17 11:45 02/27/17 11:44 Polyethylene Glycol (Miralax) 17 gm DAILYPRN PRN ORAL Constipation 01/28/17 11:45 02/27/17 11:44 Temazepam (Restoril) 15 mg HSPRN PRN ORAL Insomnia 01/28/17 11:45 02/04/17 11:44 Joao Timmons M.D. Jan 28, 2017 13:43
[2017-01-28] MEDS: HydrALAZINE 25mg tab ORAL SCH ×2 (14:00→22:23)
--- NOTE | 2017-01-28 14:33 | General Progress Note ---
Progress Note Progress Note [id number] full note dictated CHARLENE FINN Jan 28, 2017 14:32
[2017-01-28 14:51] LABS: GLOMERULAR FILTRATION RATE 5.3 mL/min (>60)
[2017-01-28 14:56] LABS: POTASSIUM 6.1 mEQ/L (3.4-4.9)
[2017-01-28] MEDS ORDERED: Piperacillin/Tazobactam 2.25 GM in D5W 110 ML IV SCH ×2 (15:00→20:00)
[2017-01-28 15:03] LABS: TROPONIN I < 0.30 ng/mL (<=0.30)
[2017-01-28 15:04] LABS: ABG PCO2 59.6 mmHg (35.0-45.0)
[2017-01-28 15:05] LABS: ABG ALLEN TEST POSITIVE; ABG BASE EXCESS -0.5
[2017-01-28] MEDS ORDERED: Vancomycin 1gm/D5W 275ml IVPB ONE ×4 (16:00→21:00)
[2017-01-28 17:13] LABS: PHOSPHORUS 7.6 mg/dL (2.5-4.8)
[2017-01-28] MEDS ORDERED: LORazepam Inj 2mg/ml 1ml IV PRN (17:45)
[2017-01-28] MEDS: Doxazosin 1mg Tab ORAL SCH (18:41)
[2017-01-28] MEDS: Morphine Sulfate 4mg/ml Inj IVP PRN (18:42)
--- NOTE | 2017-01-28 19:35 | Cardiology Progress Note ---
Assessment/Plan Assessment/Plan The patient is seen and examined, full consult note is dictated. Objective Last 24 Hour Vital Signs Date Time Temp Pulse Resp B/P Pulse Ox O2 Delivery O2 Flow Rate FiO2 01/28/17 19:18 Mechanical Ventilator 40 01/28/17 19:16 98.6 101 17 165/99 99 Mechanical Ventilator 40 01/28/17 19:00 97 16 178/110 95 Mechanical Ventilator 40 01/28/17 18:00 104 16 165/99 100 Mechanical Ventilator 40 01/28/17 17:04 93 16 40 01/28/17 17:00 93 16 165/85 99 Mechanical Ventilator 40 01/28/17 16:00 94 16 173/84 96 Mechanical Ventilator 40 01/28/17 16:00 40 01/28/17 16:00 93 01/28/17 15:30 Mechanical Ventilator 40.0 01/28/17 15:00 98.0 95 17 161/77 99 Mechanical Ventilator 40 01/28/17 15:00 91 16 181/87 98 Mechanical Ventilator 40 01/28/17 14:56 95 16 40 01/28/17 14:00 181/87 01/28/17 14:00 94 16 161/77 95 Mechanical Ventilator 40 01/28/17 13:33 99 01/28/17 13:30 97.8 92 17 171/71 95 Mechanical Ventilator 40 01/28/17 13:03 97.9 84 16 141/75 100 Bi-pap 7.0 40 01/28/17 13:00 99 14 115/69 100 Bi-pap 60 01/28/17 12:34 40 01/28/17 12:30 112 16 40 01/28/17 12:09 40 01/28/17 12:00 97.9 84 17 141/75 100 Bi-pap 60 01/28/17 11:00 92 11 169/73 100 Bi-pap 60 01/28/17 11:00 60 01/28/17 10:55 95 15 100 Bi-pap 60 01/28/17 10:39 97 18 82 Bi-pap 60 01/28/17 10:39 100 15 95 Facial 60 01/28/17 10:34 60 01/28/17 10:30 97 18 100 Simple Mask 7.0 01/28/17 10:28 98.1 103 23 98 Non-Rebreather 12.0 01/28/17 10:12 107 26 82 Simple Mask 6.0 01/28/17 10:10 107 26 Simple Mask 6.0 01/28/17 10:00 98.1 108 16 187/87 87 Simple Mask 8.0 01/28/17 08:56 98.1 93 19 173/82 98 Nasal Cannula 2.0 01/28/17 06:10 109 18 Non-Rebreather 15.0 01/28/17 06:10 98.1 18 176/129 96 Non-Rebreather 15.0 01/28/17 05:55 98.1 109 18 176/129 96 Non-Rebreather 15.0 Intake and Output 01/27/17 01/28/17 19:00 07:00 Intake Total 0 ml Balance 0 ml Intake Oral 0 ml Laboratory Tests Test 01/28/17 08:00 01/28/17 09:51 01/28/17 10:30 01/28/17 11:55 White Blood Count 9.5 K/UL (4.8-10.8) Red Blood Count 2.94 M/UL (4.20-5.40) L Hemoglobin 7.7 G/DL (12.0-16.0) L Hematocrit 26.0 % (37.0-47.0) L Mean Corpuscular Volume 89 FL (80-99) Mean Corpuscular Hemoglobin 26.4 PG (27.0-31.0) L Mean Corpuscular Hemoglobin Concent 29.8 G/DL (32.0-36.0) L Red Cell Distribution Width 15.4 % (11.6-14.8) H Platelet Count 184 K/UL (150-450) Mean Platelet Volume 8.3 FL (6.5-10.1) Neutrophils (%) (Auto) % (45.0-75.0) Lymphocytes (%) (Auto) % (20.0-45.0) Monocytes (%) (Auto) % (1.0-10.0) Eosinophils (%) (Auto) % (0.0-3.0) Basophils (%) (Auto) % (0.0-2.0) Differential Total Cells Counted 100 Neutrophils % (Manual) 67 % (45-75) Lymphocytes % (Manual) 27 % (20-45) Monocytes % (Manual) 5 % (1-10) Eosinophils % (Manual) 1 % (0-3) Basophils % (Manual) 0 % (0-2) Band Neutrophils 0 % (0-8) Platelet Estimate Adequate Platelet Morphology Normal Hypochromasia 1+ Anisocytosis 1+ Sodium Level 142 mEQ/L (135-145) 140 mEQ/L (135-145) Potassium Level 7.4 mEQ/L (3.4-4.9) *H 7.5 mEQ/L (3.4-4.9) *H Chloride Level 99 mEQ/L (98-107) 98 mEQ/L (98-107) Carbon Dioxide Level 25 mEQ/L (20-30) 26 mEQ/L (20-30) Anion Gap 18 (5-15) H 16 (5-15) H Blood Urea Nitrogen 87 mg/dL (7-23) H 89 mg/dL (7-23) H Creatinine 9.1 mg/dL (0.5-0.9) H 9.1 mg/dL (0.5-0.9) H Estimat Glomerular Filtration Rate 5.2 mL/min (>60) 5.2 mL/min (>60) Glucose Level 87 mg/dL (74-106) 88 mg/dL (74-106) Calcium Level 7.9 mg/dL (8.6-10.2) L 7.7 mg/dL (8.6-10.2) L Total Bilirubin 0.4 mg/dL (0.0-1.2) Aspartate Amino Transf (AST/SGOT) 35 U/L (5-40) Alanine Aminotransferase (ALT/SGPT) 25 U/L (3-33) Alkaline Phosphatase 134 U/L (35-104) H Total Creatine Kinase 106 U/L (26-140) Creatine Kinase MB 2.5 ng/mL (< 3.8) Creatine Kinase MB Relative Index 2.3 Troponin I < 0.30 ng/mL (<=0.30) Pro-B-Type Natriuretic Peptide 46946 pg/mL (0-125) H Total Protein 7.8 g/dL (6.6-8.7) Albumin 3.7 g/dL (3.5-5.2) Globulin 4.1 g/dL Albumin/Globulin Ratio 0.9 (1.0-2.7) L Arterial Blood pH 7.213 (7.350-7.450) 7.214 (7.350-7.450) Arterial Blood Partial Pressure CO2 67.9 mmHg (35.0-45.0) *H 66.0 mmHg (35.0-45.0) *H Arterial Blood Partial Pressure O2 107.7 mmHg (75.0-100.0) H 144.0 mmHg (75.0-100.0) H Arterial Blood HCO3 26.7 mmol/L (22.0-26.0) H 26.0 mmol/L (22.0-26.0) Arterial Blood Oxygen Saturation 96.8 % (92.0-98.0) 98.5 % (92.0-98.0) H Arterial Blood Base Excess -1.5 -2.0 Lico Test Positive Positive Test 01/28/17 14:10 01/28/17 14:55 01/28/17 16:05 Sodium Level 142 mEQ/L (135-145) Potassium Level 6.1 mEQ/L (3.4-4.9) *H Chloride Level 97 mEQ/L (98-107) L Carbon Dioxide Level 26 mEQ/L (20-30) Anion Gap 19 (5-15) H Blood Urea Nitrogen 91 mg/dL (7-23) H Creatinine 9.0 mg/dL (0.5-0.9) H Estimat Glomerular Filtration Rate 5.3 mL/min (>60) Glucose Level 60 mg/dL (74-106) L Calcium Level 8.0 mg/dL (8.6-10.2) L Troponin I < 0.30 ng/mL (<=0.30) Arterial Blood pH 7.242 (7.350-7.450) Arterial Blood Partial Pressure CO2 59.6 mmHg (35.0-45.0) *H Arterial Blood Partial Pressure O2 86.2 mmHg (75.0-100.0) Arterial Blood HCO3 25.1 mmol/L (22.0-26.0) Arterial Blood Oxygen Saturation 94.9 % (92.0-98.0) Arterial Blood Base Excess -0.5 Lico Test Positive Phosphorus Level 7.6 mg/dL (2.5-4.8) H Iron Level 66 ug/dL (37-145) Total Iron Binding Capacity 232 ug/dL (250-400) L Percent Iron Saturation 28 % (15-50) Unsaturated Iron Binding 166 ug/dL (112-346) PREM BIGGS Jan 28, 2017 19:35
--- NOTE | 2017-01-28 20:45 | History and Physical Report ---
DATE OF ADMISSION: 01/28/[address] Facundo Waller. This is Dr. Facundo Waller's patient, I am covering for him. HISTORY OF PRESENT ILLNESS: I saw the patient already at the intensive care unit. The patient is admitted for dyspnea and respiratory failure. The patient was intubated in the emergency room. The patient has end-stage renal disease on hemodialysis, comes in with pulmonary edema. Apparently the patient missed the dialysis today. The patient apparently also has a history of CHF. The patient also has severe hyperkalemia and was hypoxic and was intubated by the emergency room physician. The patient was also wheezing, initially was on BiPAP. As mentioned, I already examined the patient in the intensive care unit and cannot obtain further history. PAST MEDICAL HISTORY: However after reviewing the chart and talking to the healthcare staff, the patient has a past medical history of end-stage renal disease on hemodialysis, has history of hypertension, history of CHF, history of CAD status post SC, history of schizoaffective, history of seizures, history of anemia, history of COPD, history of diabetes mellitus, history of elevated CEA, history of constipation, history of neuropathy, history of chronic pain syndrome. PAST SURGICAL HISTORY: Unable to assess. MEDICATIONS: Apparently, the patient takes albuterol, Coreg, clonidine, gabapentin, hydralazine, losartan, methadone, but unclear whether the patient is taking the methadone at this point or not, this again is not substantiated. The patient is also on Seroquel, sertraline, tramadol, and vitamin D. ALLERGIES: No known allergies. SOCIAL HISTORY: Unable to obtain. FAMILY HISTORY: Unable to obtain. REVIEW OF SYSTEMS: Unable to obtain. The patient is intubated. PHYSICAL EXAMINATION: VITAL SIGNS: Temperature 97.9 degrees, pulse 84, and blood pressure 141/75. HEENT: PERRLA. CHEST: Bibasilar rales and rhonchi. CARDIOVASCULAR: Regular rate and rhythm. No extra sounds. GASTROINTESTINAL: Distended. Positive bowel sounds. Abdomen is soft. No organomegaly. EXTREMITIES: A 2+ edema. Reflexes are equal on both sides. NEUROLOGIC: The patient is responsive to noxious stimuli. He is intubated. We cannot do better neurological exam. The patient is sedated. LABORATORY DATA: WBC of 9.5, hemoglobin 7.7, hematocrit of 26, and platelets of 184,000. Sodium 142, potassium 7.4, BUN of 87, creatinine 9.1, glucose of 87. BNP of 43,117. ASSESSMENT: 1. Severe hyperkalemia. 2. Respiratory failure, intubated. 3. Elevated BNP, serial check. 4. Pulmonary edema. 5. History of coronary artery disease. 6. History of chronic obstructive pulmonary disease. 7. Anemia, most likely of a chronic disease. PLAN: The patient is intubated in the ICU. I have asked Dr. Posada to see the patient to rule out any infectious etiology as well as Dr. Jones, Dr. Delgado, Dr. Thompson, and Dr. Hodge. I have also been consulted for the above diagnoses and treatment. Aldari Kothari M.D. DR: MAXWELL JOB#: [id number] CC:
[2017-01-28] MEDS ORDERED: Carvedilol 6.25mg Tab ORAL SCH (21:00)
[2017-01-28] MEDS: Epogen (for ESRD on dialysis) SUBQ SCH (21:11)
[2017-01-28] MEDS: Heparin 5000 units/ml inj SUBQ SCH (21:12)
--- NOTE | 2017-01-28 22:15 | Consultation ---
DATE OF CONSULTATION: 01/28/2017 REFERRING PHYSICIAN: Aldair Kothari M.D. REASON FOR CONSULTATION: End-stage renal disease, hyperkalemia, and hypervolemia. HISTORY OF PRESENT ILLNESS: The patient is an unfortunate 66-year-old female with past medical history significant for history of end-stage renal disease, anemia of chronic kidney disease, renal osteodystrophy, diabetes, hypertension, history of seizure disorder, history of asthma, is a senior care resident. Apparently at senior care, the patient found to have shortness of breath. Upon arrival by EMS, the patient found to have O2 saturation around 80. The patient consequently was transferred to [facility]. In the ER, the patient was found to have a potassium of 7.5. The patient received Kayexalate, D50, insulin, bicarb, and calcium gluconate. The patient consequently had shortness of breath. For that, the patient got intubated, admitted in intensive care unit. Blood pressure throughout the ER visit has been stable. The patient was admitted in the intensive care unit. I was called for management of renal disease and electrolyte imbalance. Unfortunately at this point, the patient is intubated and unable to provide meaningful history, most of my information is through the detailed review of the previous admission and current admission from the ER. PAST MEDICAL HISTORY: Include, 1. Diabetes. 2. End-stage renal disease. 3. Anemia of chronic kidney disease. 4. Renal osteodystrophy. 5. Hypertension. 6. Asthma. 7. Dyslipidemia. PAST SURGICAL HISTORY: History of hysterectomy and history of abdominal surgery, history of AV fistula placement. MEDICATIONS: Include, 1. Losartan. 2. Methadone 40 mg p.o. daily. 3. Carvedilol 6.25 mg p.o. daily. 4. Cardura 2.5 mg p.o. daily. 5. Hydralazine 25 mg p.o. daily. 6. Vancomycin to be dosed by pharmacy. 7. Gabapentin 300 mg p.o. daily. 8. Albuterol and Atrovent p.r.n. shortness of breath. 9. Tylenol 650 mg q. 6 h p.r.n. pain. 10. Restoril 50 mg p.r.n. agitation. ALLERGIES: No known drug allergies. SOCIAL HISTORY: Per old chart, the patient lives in senior care. There is unknown history of alcohol or drug use. FAMILY HISTORY: Noncontributory or unknown. REVIEW OF SYSTEMS: Unable to obtain at this point due to the patient's condition and mental status. PHYSICAL EXAMINATION: VITAL SIGNS: The patient has a temperature of 98 degrees, blood pressure 115/69, pulse rate of 100, respiratory rate of 18. HEAD AND NECK: . The patient has periorbital edema. ET tube is in place. Extraocular movement intact. The patient open her eyes to verbal stimuli. LUNGS: Decreased breathing sound on both side and crackles. CARDIAC: Regular rate and rhythm. S1 and S2. No murmur. No rub. ABDOMEN: Soft, nontender, and nondistended. EXTREMITIES: A 1 to 3+ edema. NEUROLOGIC: Cranial nerves II through XII intact. . The patient is moving but not following commands. LABORATORY AND DIAGNOSTIC DATA: The patient had WBC count of 9.5, hemoglobin of 7.7, hematocrit of 26, platelet count of 184,000. Chemistry reveals sodium 140, potassium 7.5, chloride 98, BUN 89, creatinine of 9.1, and calcium 7.7 ASSESSMENT: 1. Hyperkalemia. 2. Hypocalcemia. 3. Fluid overload. 4. Respiratory failure. 5. Pulmonary edema. 6. Sepsis. PLAN: 1. To perform stat dialysis. 2. Repeat the potassium level. 3. Continue with calcium gluconate, insulin, and Kayexalate. While we were waiting for the dialysis to be performed, I would plan for series of dialysis to be started today and also tomorrow. I would start the patient back on Epogen, check the iron panel for anemia of chronic kidney disease. Check calcium, phosphorus, and PTH for evaluation of renal osteodystrophy. At the end, I would like to thank Dr. Waller, for allowing me to participate in the care of this patient. Juanita Jones M.D. DR: Xu JOB#: [id number] CC:
--- NOTE | 2017-01-28 23:30 | Consultation ---
DATE OF CONSULTATION: 01/28/2017 CONSULTING PHYSICIAN: Joao Timmons M.D. REFERRING PHYSICIAN: Facundo Waller D.O. REASON FOR CONSULTATION: Pneumonia, sepsis, recommendation for antibiotic therapy. HISTORY OF PRESENT ILLNESS: The patient is a 66-year-old female who lives at [facility] was [facility] emergency room for shortness of breath and possible fluid overload. The patient was found to be hypoxemic at the nursing facility with oxygen saturation of around 80%. When she was brought into the emergency room, her oxygenation was up to 90% after she received oxygen. The patient has end-stage renal disease, hemodialysis dependent, and she missed her hemodialysis today. So, she was sent for the hospital for evaluation. The patient was saturating 96% on non-rebreather mask. Chest x-ray showed diffuse patchy infiltration. She was intubated and admitted in the intensive care unit and I was consulted by the primary provider for antibiotics treatment for possible pneumonia and sepsis. As of note, the patient is intubated, on mechanical ventilation, cannot provide any history at this point. History was mainly obtained from the medical record. REVIEW OF SYSTEMS: Unable to obtain at this point. The patient cannot provide any history. PAST MEDICAL HISTORY: Significant for diabetes; hypertension; coronary artery disease;, CHF; end-stage renal disease, on hemodialysis; chronic anemia; seizure; and schizophrenia. PAST SURGICAL HISTORY: Unable to obtain. FAMILY HISTORY: Unable to obtain. SOCIAL HISTORY: She lives at the [facility] facility. No recent drugs, tobacco, or alcohol. ALLERGIES: No known drug allergy. MEDICATIONS: She is on DuoNeb, Zofran, Tylenol, MiraLAX, Neurontin, Apresoline, Cardura, Coreg, and methadone. LABORATORY DATA: Labs showed white count of 9.5, hemoglobin of 7.7, platelet count of 184,000, BUN of 89, creatinine of 9.1, AST 35, ALT 25, and alkaline phosphatase 134. MICROBIOLOGY: Pending. IMAGING: Chest x-ray showed interstitial edema within the lungs with prominent vascularity. PHYSICAL EXAMINATION: VITAL SIGNS: Temperature is 97.8, pulse 72, respiratory rate 17, blood pressure 171/71, and O2 saturation is 95% on 40% mechanical ventilation. GENERAL: A middle-aged female, lying in bed, intubated, alert, off sedation, not in distress. HEENT: Normocephalic and atraumatic. Pupils reactive to light. Unable to assess oral mucosa due to ET tube. NECK: Supple. No lymphadenopathy. CARDIOVASCULAR: Regular rate and rhythm. Systolic murmur in the mitral valve area, radiated to the axillary area. LUNGS: She had crackles and wheezing at the bases. ABDOMEN: Soft, distended, nontender. No organomegaly. No ascites. EXTREMITIES: Edema. No cyanosis. SKIN: No rash or hives. ASSESSMENT AND RECOMMENDATION: 1. Pneumonia with patchy infiltrates. We will start vancomycin and Zosyn, and send blood culture. 2. Sepsis due to the above. We will send blood culture and start vancomycin with Zosyn empiric treatment. 3. End-stage renal disease, on hemodialysis. Missed her hemodialysis. Needs dialysis today. Renal Service is following. 4. Pulmonary edema due to missing hemodialysis. Continue hemodialysis as before. We will treat her for pneumonia too. 5. Acute respiratory failure due to the above, intubated. To monitor ABG and chest x-ray. 6. Hyperkalemia. Need hemodialysis to remove potassium. Renal Service is following. Joao Timmons M.D. DR: FEMI JOB#: [id number] CC:
--- NOTE | 2017-01-28 23:38 | Pulmonolgy Critical Care Note ---
Critical Care - Asmt/Plan Problems: (1) Respiratory failure (2) Pulmonary edema (3) Hyperkalemia (4) ESRD (end stage renal disease) on dialysis Respiratory: monitor respiratory rate, adjust FIO2, CXR, ABG Cardiac: continue to monitor HR/BP Renal: F/U I&O, check electrolytes, other - HD today Infectious Disease: check cultures Gastrointestinal: hold feedings, abdominal imaging Endocrine: monitor blood sugar, check TSH, continue sliding scale insulin Hematologic: monitor H/H, transfuse if hgb<8.5 Neurologic: PRN Ativan, PRN Morphine, keep patient comfortable Affect: PRN ativan Prophylaxis: Protonix Disposition: keep in ICU Notes Reviewed: cardio Discussed with: nurses, consultants, case aidesales marketing manager - Objective Last 24 Hour Vital Signs Date Time Temp Pulse Resp B/P Pulse Ox O2 Delivery O2 Flow Rate FiO2 01/28/17 23:19 207/81 01/28/17 23:06 92 16 40 01/28/17 22:23 213/79 01/28/17 22:00 96 17 211/84 99 Mechanical Ventilator 40 01/28/17 21:11 96 180/77 01/28/17 21:00 95 17 179/78 99 Mechanical Ventilator 40 01/28/17 20:59 96 16 40 01/28/17 20:00 96 17 176/81 99 Mechanical Ventilator 40 01/28/17 19:30 95 18 40 01/28/17 19:18 Mechanical Ventilator 40 01/28/17 19:16 98.6 101 17 165/99 99 Mechanical Ventilator 40 01/28/17 19:00 97 16 178/110 95 Mechanical Ventilator 40 01/28/17 18:00 104 16 165/99 100 Mechanical Ventilator 40 01/28/17 17:04 93 16 40 01/28/17 17:00 93 16 165/85 99 Mechanical Ventilator 40 01/28/17 16:00 94 16 173/84 96 Mechanical Ventilator 40 01/28/17 16:00 40 01/28/17 16:00 93 01/28/17 15:30 Mechanical Ventilator 40.0 01/28/17 15:00 98.0 95 17 161/77 99 Mechanical Ventilator 40 01/28/17 15:00 91 16 181/87 98 Mechanical Ventilator 40 01/28/17 14:56 95 16 40 01/28/17 14:00 181/87 01/28/17 14:00 94 16 161/77 95 Mechanical Ventilator 40 01/28/17 13:33 99 01/28/17 13:30 97.8 92 17 171/71 95 Mechanical Ventilator 40 01/28/17 13:03 97.9 84 16 141/75 100 Bi-pap 7.0 40 01/28/17 13:00 99 14 115/69 100 Bi-pap 60 01/28/17 12:34 40 01/28/17 12:30 112 16 40 01/28/17 12:09 40 01/28/17 12:00 97.9 84 17 141/75 100 Bi-pap 60 01/28/17 11:00 92 11 169/73 100 Bi-pap 60 01/28/17 11:00 60 01/28/17 10:55 95 15 100 Bi-pap 60 01/28/17 10:39 97 18 82 Bi-pap 60 01/28/17 10:39 100 15 95 Facial 60 01/28/17 10:34 60 01/28/17 10:30 97 18 100 Simple Mask 7.0 01/28/17 10:28 98.1 103 23 98 Non-Rebreather 12.0 01/28/17 10:12 107 26 82 Simple Mask 6.0 01/28/17 10:10 107 26 Simple Mask 6.0 01/28/17 10:00 98.1 108 16 187/87 87 Simple Mask 8.0 01/28/17 08:56 98.1 93 19 173/82 98 Nasal Cannula 2.0 01/28/17 06:10 109 18 Non-Rebreather 15.0 01/28/17 06:10 98.1 18 176/129 96 Non-Rebreather 15.0 01/28/17 05:55 98.1 109 18 176/129 96 Non-Rebreather 15.0 Status: sedated Condition: critical HEENT: atraumatic Neck: full ROM Lungs: clear Heart: HR/BP stable, HR/BP unstable Abdomen: non-tender, active bowel sounds Extremities: no C/C/E, edema Decubiti: location Critical Care - Subjective ROS Limited/Unobtainable: Yes ICU Day: 1 Intubation Day: 1 Interval Events: 66 year old male female with hx of DM, HTN, [place], CAD, CHF, renal disease, dialysis, chronic anemia presents from a [facility] facility with CC of shortness of breath. EMS report that on arrival to the [facility] facility the patient's O2 saturation is in the high 80s. She was due for dialysis today. Pt was in respiratory failure in ER and got intubated and transferred to ICU. FI02: 40 Vent Support Breath Rate: 16 Vent Support Mode: AC Vent Tidal Volume: 600 Sputum Amount: Small PIP: 27 I&O: Intake and Output 01/27/17 01/28/17 19:00 07:00 Intake Total 0 ml Balance 0 ml Intake Oral 0 ml CXR: pulmonary edema, ET in good position ET-Tube: 7.5 ET Position: 23 Labs: Laboratory Tests Test 01/28/17 08:00 01/28/17 09:51 01/28/17 10:30 01/28/17 11:55 White Blood Count 9.5 K/UL (4.8-10.8) Red Blood Count 2.94 M/UL (4.20-5.40) L Hemoglobin 7.7 G/DL (12.0-16.0) L Hematocrit 26.0 % (37.0-47.0) L Mean Corpuscular Volume 89 FL (80-99) Mean Corpuscular Hemoglobin 26.4 PG (27.0-31.0) L Mean Corpuscular Hemoglobin Concent 29.8 G/DL (32.0-36.0) L Red Cell Distribution Width 15.4 % (11.6-14.8) H Platelet Count 184 K/UL (150-450) Mean Platelet Volume 8.3 FL (6.5-10.1) Neutrophils (%) (Auto) % (45.0-75.0) Lymphocytes (%) (Auto) % (20.0-45.0) Monocytes (%) (Auto) % (1.0-10.0) Eosinophils (%) (Auto) % (0.0-3.0) Basophils (%) (Auto) % (0.0-2.0) Differential Total Cells Counted 100 Neutrophils % (Manual) 67 % (45-75) Lymphocytes % (Manual) 27 % (20-45) Monocytes % (Manual) 5 % (1-10) Eosinophils % (Manual) 1 % (0-3) Basophils % (Manual) 0 % (0-2) Band Neutrophils 0 % (0-8) Platelet Estimate Adequate Platelet Morphology Normal Hypochromasia 1+ Anisocytosis 1+ Sodium Level 142 mEQ/L (135-145) 140 mEQ/L (135-145) Potassium Level 7.4 mEQ/L (3.4-4.9) *H 7.5 mEQ/L (3.4-4.9) *H Chloride Level 99 mEQ/L (98-107) 98 mEQ/L (98-107) Carbon Dioxide Level 25 mEQ/L (20-30) 26 mEQ/L (20-30) Anion Gap 18 (5-15) H 16 (5-15) H Blood Urea Nitrogen 87 mg/dL (7-23) H 89 mg/dL (7-23) H Creatinine 9.1 mg/dL (0.5-0.9) H 9.1 mg/dL (0.5-0.9) H Estimat Glomerular Filtration Rate 5.2 mL/min (>60) 5.2 mL/min (>60) Glucose Level 87 mg/dL (74-106) 88 mg/dL (74-106) Calcium Level 7.9 mg/dL (8.6-10.2) L 7.7 mg/dL (8.6-10.2) L Total Bilirubin 0.4 mg/dL (0.0-1.2) Aspartate Amino Transf (AST/SGOT) 35 U/L (5-40) Alanine Aminotransferase (ALT/SGPT) 25 U/L (3-33) Alkaline Phosphatase 134 U/L (35-104) H Total Creatine Kinase 106 U/L (26-140) Creatine Kinase MB 2.5 ng/mL (< 3.8) Creatine Kinase MB Relative Index 2.3 Troponin I < 0.30 ng/mL (<=0.30) Pro-B-Type Natriuretic Peptide 74166 pg/mL (0-125) H Total Protein 7.8 g/dL (6.6-8.7) Albumin 3.7 g/dL (3.5-5.2) Globulin 4.1 g/dL Albumin/Globulin Ratio 0.9 (1.0-2.7) L Arterial Blood pH 7.213 (7.350-7.450) 7.214 (7.350-7.450) Arterial Blood Partial Pressure CO2 67.9 mmHg (35.0-45.0) *H 66.0 mmHg (35.0-45.0) *H Arterial Blood Partial Pressure O2 107.7 mmHg (75.0-100.0) H 144.0 mmHg (75.0-100.0) H Arterial Blood HCO3 26.7 mmol/L (22.0-26.0) H 26.0 mmol/L (22.0-26.0) Arterial Blood Oxygen Saturation 96.8 % (92.0-98.0) 98.5 % (92.0-98.0) H Arterial Blood Base Excess -1.5 -2.0 Lico Test Positive Positive Test 01/28/17 14:10 01/28/17 14:55 01/28/17 16:05 Sodium Level 142 mEQ/L (135-145) Potassium Level 6.1 mEQ/L (3.4-4.9) *H Chloride Level 97 mEQ/L (98-107) L Carbon Dioxide Level 26 mEQ/L (20-30) Anion Gap 19 (5-15) H Blood Urea Nitrogen 91 mg/dL (7-23) H Creatinine 9.0 mg/dL (0.5-0.9) H Estimat Glomerular Filtration Rate 5.3 mL/min (>60) Glucose Level 60 mg/dL (74-106) L Calcium Level 8.0 mg/dL (8.6-10.2) L Troponin I < 0.30 ng/mL (<=0.30) Arterial Blood pH 7.242 (7.350-7.450) Arterial Blood Partial Pressure CO2 59.6 mmHg (35.0-45.0) *H Arterial Blood Partial Pressure O2 86.2 mmHg (75.0-100.0) Arterial Blood HCO3 25.1 mmol/L (22.0-26.0) Arterial Blood Oxygen Saturation 94.9 % (92.0-98.0) Arterial Blood Base Excess -0.5 Lico Test Positive Phosphorus Level 7.6 mg/dL (2.5-4.8) H Iron Level 66 ug/dL (37-145) Total Iron Binding Capacity 232 ug/dL (250-400) L Percent Iron Saturation 28 % (15-50) Unsaturated Iron Binding 166 ug/dL (112-346) GAGE SAEZ Jan 28, 2017 23:38
[2017-01-29] VITALS (45 sets, daily range): BP systolic 105–219; BP diastolic 66–108
[2017-01-29] MEDS: Morphine Sulfate 4mg/ml Inj IVP PRN ×4 (00:55→22:23)
[2017-01-29] MEDS ORDERED: Nitroglycerin 50mg/250ml btl 250 ML IV SCH (05:30)
[2017-01-29] MEDS: Piperacillin/Tazobactam 2.25 GM in D5W 110 ML IV SCH ×2 (05:40→15:00)
[2017-01-29 06:00] LABS: BASOPHILS % (AUTO) 0.9 % (0.0-2.0); EOSINOPHILS % (AUTO) 0.2 % (0.0-3.0); LYMPHOCYTES % (AUTO) 9.6 % (20.0-45.0); MEAN CORPUSCULAR HEMOGLOBIN 26.9 PG (27.0-31.0); MEAN CORPUSCULAR HGB CONC 31.3 G/DL (32.0-36.0); MEAN CORPUSCULAR VOLUME 86 FL (80-99); MEAN PLATELET VOLUME 8.5 FL (6.5-10.1); MONOCYTES % (AUTO) 7.1 % (1.0-10.0); NEUTROPHILS % (AUTO) 82.2 % (45.0-75.0); PLATELET COUNT 162 K/UL (150-450); RED BLOOD COUNT 3.22 M/UL (4.20-5.40); RED CELL DISTRIBUTION WIDTH 14.7 % (11.6-14.8); WHITE BLOOD COUNT 11.4 K/UL (4.8-10.8)
[2017-01-29 06:06] LABS: TROPONIN I < 0.30 ng/mL (<=0.30)
[2017-01-29 06:10] LABS: CALCIUM 7.5 mg/dL (8.6-10.2); CREATININE 6.1 mg/dL (0.5-0.9); GLOMERULAR FILTRATION RATE 8.2 mL/min (>60); PHOSPHORUS 6.2 mg/dL (2.5-4.8); POTASSIUM 4.5 mEQ/L (3.4-4.9)
--- NOTE | 2017-01-29 08:52 | Pulmonolgy Critical Care Note ---
Critical Care - Asmt/Plan Problems: (1) Respiratory failure (2) Pulmonary edema (3) Hyperkalemia (4) ESRD (end stage renal disease) on dialysis Respiratory: monitor respiratory rate, adjust FIO2, CXR Cardiac: continue to monitor HR/BP Renal: F/U I&O, keep IV fluid Infectious Disease: continue antibiotics, other - zosyn Gastrointestinal: continue feedings/current rate Endocrine: monitor blood sugar, continue sliding scale insulin Hematologic: monitor H/H, transfuse if hgb<8.5 Neurologic: PRN Ativan, PRN Morphine, keep patient comfortable Affect: PRN ativan Disposition: keep in ICU Notes Reviewed: renal Discussed with: nurses, consultants, counseling case managermanagement accounts manager - Objective Last 24 Hour Vital Signs Date Time Temp Pulse Resp B/P Pulse Ox O2 Delivery O2 Flow Rate FiO2 01/29/17 08:00 90 16 165/89 100 Mechanical Ventilator 40 01/29/17 08:00 40 01/29/17 08:00 90 01/29/17 07:30 98.2 90 16 161/90 100 Mechanical Ventilator 40 01/29/17 07:00 91 16 168/92 100 Mechanical Ventilator 40 01/29/17 06:46 91 16 40 01/29/17 06:45 92 16 168/83 100 Mechanical Ventilator 40 01/29/17 06:30 92 16 219/78 100 Mechanical Ventilator 40 01/29/17 06:15 92 16 183/67 100 Mechanical Ventilator 40 01/29/17 06:10 214/152 01/29/17 06:00 94 16 213/90 100 Mechanical Ventilator 40 01/29/17 05:00 92 16 200/88 98 Mechanical Ventilator 40 01/29/17 04:45 95 16 40 01/29/17 04:00 99.8 92 17 105/87 99 Mechanical Ventilator 40 01/29/17 04:00 40 01/29/17 04:00 94 01/29/17 03:00 91 16 178/88 96 Mechanical Ventilator 40 01/29/17 02:55 203/82 01/29/17 02:46 93 17 40 01/29/17 02:00 91 16 201/80 96 Mechanical Ventilator 40 01/29/17 01:30 92 16 40 01/29/17 01:00 90 16 186/79 96 Mechanical Ventilator 40 01/29/17 00:00 101 01/29/17 00:00 40 01/29/17 00:00 99.5 98 17 204/81 99 Mechanical Ventilator 40 01/28/17 23:53 205/80 01/28/17 23:19 207/81 01/28/17 23:06 92 16 40 01/28/17 23:00 96 16 207/87 96 Mechanical Ventilator 40 01/28/17 22:23 213/79 01/28/17 22:00 96 17 211/84 99 Mechanical Ventilator 40 01/28/17 21:11 96 180/77 01/28/17 21:00 95 17 179/78 99 Mechanical Ventilator 40 01/28/17 20:59 96 16 40 01/28/17 20:00 40 01/28/17 20:00 96 17 176/81 99 Mechanical Ventilator 40 01/28/17 20:00 99 01/28/17 19:30 95 18 40 01/28/17 19:18 Mechanical Ventilator 40 01/28/17 19:16 98.6 101 17 165/99 99 Mechanical Ventilator 40 01/28/17 19:00 97 16 178/110 95 Mechanical Ventilator 40 01/28/17 18:00 104 16 165/99 100 Mechanical Ventilator 40 01/28/17 17:04 93 16 40 01/28/17 17:00 93 16 165/85 99 Mechanical Ventilator 40 01/28/17 16:00 94 16 173/84 96 Mechanical Ventilator 40 01/28/17 16:00 40 01/28/17 16:00 93 01/28/17 15:30 Mechanical Ventilator 40.0 01/28/17 15:00 98.0 95 17 161/77 99 Mechanical Ventilator 40 01/28/17 15:00 91 16 181/87 98 Mechanical Ventilator 40 01/28/17 14:56 95 16 40 01/28/17 14:00 181/87 01/28/17 14:00 94 16 161/77 95 Mechanical Ventilator 40 01/28/17 13:33 99 01/28/17 13:30 97.8 92 17 171/71 95 Mechanical Ventilator 40 01/28/17 13:03 97.9 84 16 141/75 100 Bi-pap 7.0 40 01/28/17 13:00 99 14 115/69 100 Bi-pap 60 01/28/17 12:34 40 01/28/17 12:30 112 16 40 01/28/17 12:09 40 01/28/17 12:00 97.9 84 17 141/75 100 Bi-pap 60 01/28/17 11:00 92 11 169/73 100 Bi-pap 60 01/28/17 11:00 60 01/28/17 10:55 95 15 100 Bi-pap 60 01/28/17 10:39 97 18 82 Bi-pap 60 01/28/17 10:39 100 15 95 Facial 60 01/28/17 10:34 60 01/28/17 10:30 97 18 100 Simple Mask 7.0 01/28/17 10:28 98.1 103 23 98 Non-Rebreather 12.0 01/28/17 10:12 107 26 82 Simple Mask 6.0 01/28/17 10:10 107 26 Simple Mask 6.0 01/28/17 10:00 98.1 108 16 187/87 87 Simple Mask 8.0 01/28/17 08:56 98.1 93 19 173/82 98 Nasal Cannula 2.0 Status: sedated Condition: critical, grave HEENT: atraumatic Neck: full ROM Lungs: clear Heart: HR/BP stable Abdomen: soft, non-tender, feeding tube Extremities: no C/C/E, edema Critical Care - Subjective ROS Limited/Unobtainable: Yes ICU Day: 2 Intubation Day: 2 Condition: critical EKG Rhythm: Sinus Bradycardia FI02: 40 Vent Support Breath Rate: 16 Vent Support Mode: AC Vent Tidal Volume: 600 Sputum Amount: Small PIP: 24 I&O: Intake and Output 01/28/17 01/29/17 19:00 07:00 Intake Total 0 ml 313 ml Output Total 3200 ml Balance 0 ml -2887 ml Intake Oral 0 ml IV Total 3 ml Blood Product 250 ml Other 60 ml Output Hemodialysis UF 3200 ml # Bowel Movements 2 CXR: pulmonary edema, ET in good position ET-Tube: 7.5 ET Position: 23 Labs: Laboratory Tests Test 01/28/17 09:51 01/28/17 10:30 01/28/17 11:55 01/28/17 14:10 Sodium Level 140 mEQ/L (135-145) 142 mEQ/L (135-145) Potassium Level 7.5 mEQ/L (3.4-4.9) *H 6.1 mEQ/L (3.4-4.9) *H Chloride Level 98 mEQ/L (98-107) 97 mEQ/L (98-107) L Carbon Dioxide Level 26 mEQ/L (20-30) 26 mEQ/L (20-30) Anion Gap 16 (5-15) H 19 (5-15) H Blood Urea Nitrogen 89 mg/dL (7-23) H 91 mg/dL (7-23) H Creatinine 9.1 mg/dL (0.5-0.9) H 9.0 mg/dL (0.5-0.9) H Estimat Glomerular Filtration Rate 5.2 mL/min (>60) 5.3 mL/min (>60) Glucose Level 88 mg/dL (74-106) 60 mg/dL (74-106) L Calcium Level 7.7 mg/dL (8.6-10.2) L 8.0 mg/dL (8.6-10.2) L Arterial Blood pH 7.213 (7.350-7.450) 7.214 (7.350-7.450) Arterial Blood Partial Pressure CO2 67.9 mmHg (35.0-45.0) *H 66.0 mmHg (35.0-45.0) *H Arterial Blood Partial Pressure O2 107.7 mmHg (75.0-100.0) H 144.0 mmHg (75.0-100.0) H Arterial Blood HCO3 26.7 mmol/L (22.0-26.0) H 26.0 mmol/L (22.0-26.0) Arterial Blood Oxygen Saturation 96.8 % (92.0-98.0) 98.5 % (92.0-98.0) H Arterial Blood Base Excess -1.5 -2.0 Lico Test Positive Positive Troponin I < 0.30 ng/mL (<=0.30) Test 01/28/17 14:55 01/28/17 16:05 01/29/17 05:20 Arterial Blood pH 7.242 (7.350-7.450) Arterial Blood Partial Pressure CO2 59.6 mmHg (35.0-45.0) *H Arterial Blood Partial Pressure O2 86.2 mmHg (75.0-100.0) Arterial Blood HCO3 25.1 mmol/L (22.0-26.0) Arterial Blood Oxygen Saturation 94.9 % (92.0-98.0) Arterial Blood Base Excess -0.5 Lico Test Positive Phosphorus Level 7.6 mg/dL (2.5-4.8) H 6.2 mg/dL (2.5-4.8) H Iron Level 66 ug/dL (37-145) Total Iron Binding Capacity 232 ug/dL (250-400) L Percent Iron Saturation 28 % (15-50) Unsaturated Iron Binding 166 ug/dL (112-346) White Blood Count 11.4 K/UL (4.8-10.8) H Red Blood Count 3.22 M/UL (4.20-5.40) L Hemoglobin 8.7 G/DL (12.0-16.0) L Hematocrit 27.6 % (37.0-47.0) L Mean Corpuscular Volume 86 FL (80-99) Mean Corpuscular Hemoglobin 26.9 PG (27.0-31.0) L Mean Corpuscular Hemoglobin Concent 31.3 G/DL (32.0-36.0) L Red Cell Distribution Width 14.7 % (11.6-14.8) Platelet Count 162 K/UL (150-450) Mean Platelet Volume 8.5 FL (6.5-10.1) Neutrophils (%) (Auto) 82.2 % (45.0-75.0) H Lymphocytes (%) (Auto) 9.6 % (20.0-45.0) L Monocytes (%) (Auto) 7.1 % (1.0-10.0) Eosinophils (%) (Auto) 0.2 % (0.0-3.0) Basophils (%) (Auto) 0.9 % (0.0-2.0) Sodium Level 135 mEQ/L (135-145) Potassium Level 4.5 mEQ/L (3.4-4.9) Chloride Level 90 mEQ/L (98-107) L Carbon Dioxide Level 30 mEQ/L (20-30) Anion Gap 15 (5-15) Blood Urea Nitrogen 56 mg/dL (7-23) #H Creatinine 6.1 mg/dL (0.5-0.9) H Estimat Glomerular Filtration Rate 8.2 mL/min (>60) Glucose Level 83 mg/dL (74-106) Calcium Level 7.5 mg/dL (8.6-10.2) L Ferritin 1633 ng/mL (13-150) H Troponin I < 0.30 ng/mL (<=0.30) Albumin 3.4 g/dL (3.5-5.2) L GGAE SAEZ Jan 29, 2017 08:52
[2017-01-29] MEDS ORDERED: Losartan 50mg tab ORAL SCH (09:00)
--- NOTE | 2017-01-29 09:04 | Diagnostic Imaging Report ---
Indication: Dyspnea Comparison: 01/28/17 at 10:43 A single view chest radiograph was obtained. Findings: Patient has been intubated. Endotracheal tube is just above the ricardo in good position. No change otherwise. Pulmonary edema again demonstrated. Nasogastric tube is also in good position. Impression: Endotracheal tube in good position
--- NOTE | 2017-01-29 09:05 | Diagnostic Imaging Report ---
Indication: Dyspnea Comparison: 01/28/17 at 4 hours earlier A single view chest radiograph was obtained. Findings: Interstitial edema and prominent vascularity, cardiomegaly demonstrated without significant change. Impression: CHF. No change
[2017-01-29] MEDS: Doxazosin 1mg Tab ORAL SCH ×2 (09:14→17:23)
[2017-01-29] MEDS: Heparin 5000 units/ml inj SUBQ SCH ×2 (09:22→20:35)
--- NOTE | 2017-01-29 09:30 | Consultation ---
DATE OF CONSULTATION: 01/28/2017 HEMATOLOGY/ONCOLOGY CONSULTATION CONSULTING PHYSICIAN: Tomas Hodge M.D. REQUESTING PHYSICIAN: Aldair Kothari M.D. REASON FOR CONSULTATION: Evaluation of anemia. HISTORY OF PRESENT ILLNESS: Dear Dr. Aldair Kothari: The patient is a pleasant 66-year-old female with past medical history significant for GA, CAD, CHF, COPD, history of anemia on 00:31 at this time presents to [facility] 00:36 hemodialysis, history of recent CHF, 00:39. The patient 00:42 secondary to anemia. Hematology service was consulted. PAST MEDICAL HISTORY: Anemia, neutropenia, hyperkalemia, end-stage renal disease, weakness, cardiomegaly. Past Surgical History: 01:06. Social History: No alcohol, tobacco, or illicit drug use but 01:09 smoking. REVIEW OF SYSTEMS: Negative as mentioned as per history of present illness. PHYSICAL EXAMINATION: GENERAL: No acute distress. VITAL SIGNS: Temperature 98 degrees Fahrenheit, pulse 103, respiratory rate 12, blood pressure 165/99, and pulse oximetry 99% on room air. PULMONARY: Decreased breath sounds. CARDIOVASCULAR: Regular rate. No S3 or S4. EXTREMITIES: There is 1+ edema. LABORATORY DATA: WBC 9.5, hemoglobin 7.7, hematocrit 26, and platelet count 184,000. ASSESSMENT AND PLAN: 1. Anemia secondary to chronic kidney disease 01:44. The patient was seen by nephrology team. 2. Anemia secondary to chronic disease. Continue to closely monitor. 3. 01:59 likely related to underlying liver disease. 4. Lactic acidosis, potentially secondary to infection. 5. Pneumonia and sepsis. She is on antibiotics. 6. End-stage renal disease, on hemodialysis. 7. Hyperkalemia history, on hemodialysis. Nephrology to follow. I appreciate the consultation. Tomas Hodge M.D. DR: NELY JOB#: [id number] CC:
--- NOTE | 2017-01-29 11:27 | Nephrology Progress Note ---
Assessment/Plan Assessment 1. Hyperkalemia. 2. Hypocalcemia. 3. Fluid overload. 4. Respiratory failure. 5. Pulmonary edema. 6. Sepsis. Plan plan to repeat dialysis monitoring electrolyte continue epogen Subjective ROS Limited/Unobtainable: Yes Constitutional: Reports: no symptoms HEENT: Reports: no symptoms Genitourinary: Reports: no symptoms 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: Reports: no symptoms Objective Objective Last 24 Hour Vital Signs Date Time Temp Pulse Resp B/P Pulse Ox O2 Delivery O2 Flow Rate FiO2 01/29/17 11:17 89 17 40 01/29/17 10:00 91 16 152/90 100 Mechanical Ventilator 40 01/29/17 09:30 90 16 171/92 100 Mechanical Ventilator 40 01/29/17 09:20 89 16 40 01/29/17 09:15 176/90 01/29/17 09:00 88 16 168/89 100 Mechanical Ventilator 40 01/29/17 08:30 86 16 172/90 100 Mechanical Ventilator 40 01/29/17 08:00 90 16 165/89 100 Mechanical Ventilator 40 01/29/17 08:00 40 01/29/17 08:00 90 01/29/17 07:30 98.2 90 16 161/90 100 Mechanical Ventilator 40 01/29/17 07:00 91 16 168/92 100 Mechanical Ventilator 40 01/29/17 06:46 91 16 40 01/29/17 06:45 92 16 168/83 100 Mechanical Ventilator 40 01/29/17 06:30 92 16 219/78 100 Mechanical Ventilator 40 01/29/17 06:15 92 16 183/67 100 Mechanical Ventilator 40 01/29/17 06:10 214/152 01/29/17 06:00 94 16 213/90 100 Mechanical Ventilator 40 01/29/17 05:00 92 16 200/88 98 Mechanical Ventilator 40 01/29/17 04:45 95 16 40 01/29/17 04:00 99.8 92 17 105/87 99 Mechanical Ventilator 40 01/29/17 04:00 40 01/29/17 04:00 94 01/29/17 03:00 91 16 178/88 96 Mechanical Ventilator 40 01/29/17 02:55 203/82 01/29/17 02:46 93 17 40 01/29/17 02:00 91 16 201/80 96 Mechanical Ventilator 40 01/29/17 01:30 92 16 40 01/29/17 01:00 90 16 186/79 96 Mechanical Ventilator 40 01/29/17 00:00 101 01/29/17 00:00 40 01/29/17 00:00 99.5 98 17 204/81 99 Mechanical Ventilator 40 01/28/17 23:53 205/80 01/28/17 23:19 207/81 01/28/17 23:06 92 16 40 01/28/17 23:00 96 16 207/87 96 Mechanical Ventilator 40 01/28/17 22:23 213/79 01/28/17 22:00 96 17 211/84 99 Mechanical Ventilator 40 01/28/17 21:11 96 180/77 01/28/17 21:00 95 17 179/78 99 Mechanical Ventilator 40 01/28/17 20:59 96 16 40 01/28/17 20:00 40 01/28/17 20:00 96 17 176/81 99 Mechanical Ventilator 40 01/28/17 20:00 99 01/28/17 19:30 95 18 40 01/28/17 19:18 Mechanical Ventilator 40 01/28/17 19:16 98.6 101 17 165/99 99 Mechanical Ventilator 40 01/28/17 19:00 97 16 178/110 95 Mechanical Ventilator 40 01/28/17 18:00 104 16 165/99 100 Mechanical Ventilator 40 01/28/17 17:04 93 16 40 01/28/17 17:00 93 16 165/85 99 Mechanical Ventilator 40 01/28/17 16:00 94 16 173/84 96 Mechanical Ventilator 40 01/28/17 16:00 40 01/28/17 16:00 93 01/28/17 15:30 Mechanical Ventilator 40.0 01/28/17 15:00 98.0 95 17 161/77 99 Mechanical Ventilator 40 01/28/17 15:00 91 16 181/87 98 Mechanical Ventilator 40 01/28/17 14:56 95 16 40 01/28/17 14:00 181/87 01/28/17 14:00 94 16 161/77 95 Mechanical Ventilator 40 01/28/17 13:33 99 01/28/17 13:30 97.8 92 17 171/71 95 Mechanical Ventilator 40 01/28/17 13:03 97.9 84 16 141/75 100 Bi-pap 7.0 40 01/28/17 13:00 99 14 115/69 100 Bi-pap 60 01/28/17 12:34 40 01/28/17 12:30 112 16 40 01/28/17 12:09 40 01/28/17 12:00 97.9 84 17 141/75 100 Bi-pap 60 Intake and Output 01/28/17 01/29/17 19:00 07:00 Intake Total 0 ml 313 ml Output Total 3200 ml Balance 0 ml -2887 ml Intake Oral 0 ml IV Total 3 ml Blood Product 250 ml Other 60 ml Output Hemodialysis UF 3200 ml # Bowel Movements 2 Laboratory Tests 01/28/17 11:55: Arterial Blood pH 7.214*L, Arterial Blood Partial Pressure CO2 66.0*H, Arterial Blood Partial Pressure O2 144.0H, Arterial Blood HCO3 26.0, Arterial Blood Oxygen Saturation 98.5H, Arterial Blood Base Excess -2.0, Lico Test Positive 01/28/17 14:10: Sodium Level 142, Potassium Level 6.1*H, Chloride Level 97L, Carbon Dioxide Level 26, Anion Gap 19H, Blood Urea Nitrogen 91H, Creatinine 9.0H, Estimat Glomerular Filtration Rate 5.3, Glucose Level 60L, Calcium Level 8.0L, Troponin I < 0.30 01/28/17 14:55: Arterial Blood pH 7.242*L, Arterial Blood Partial Pressure CO2 59.6*H, Arterial Blood Partial Pressure O2 86.2, Arterial Blood HCO3 25.1, Arterial Blood Oxygen Saturation 94.9, Arterial Blood Base Excess -0.5, Lico Test Positive 01/28/17 16:05: Phosphorus Level 7.6H, Iron Level 66, Total Iron Binding Capacity 232L, Percent Iron Saturation 28, Unsaturated Iron Binding 166 01/29/17 05:20: White Blood Count 11.4H, Red Blood Count 3.22L, Hemoglobin 8.7L, Hematocrit 27.6L, Mean Corpuscular Volume 86, Mean Corpuscular Hemoglobin 26.9L, Mean Corpuscular Hemoglobin Concent 31.3L, Red Cell Distribution Width 14.7, Platelet Count 162, Mean Platelet Volume 8.5, Neutrophils (%) (Auto) 82.2H, Lymphocytes (%) (Auto) 9.6L, Monocytes (%) (Auto) 7.1, Eosinophils (%) (Auto) 0.2, Basophils (%) (Auto) 0.9, Sodium Level 135, Potassium Level 4.5, Chloride Level 90L, Carbon Dioxide Level 30, Anion Gap 15, Blood Urea Nitrogen 56#H, Creatinine 6.1H, Estimat Glomerular Filtration Rate 8.2, Glucose Level 83, Calcium Level 7.5L, Phosphorus Level 6.2H, Ferritin 1633H, Troponin I < 0.30, Albumin 3.4L Height (Feet): 5 Height (Inches): 6.00 Weight (Pounds): 151 Objective HEAD AND NECK: . The patient has periorbital edema. ET tube is in place. Extraocular movement intact. The patient open her eyes to verbal stimuli. LUNGS: Decreased breathing sound on both side and crackles. CARDIAC: Regular rate and rhythm. S1 and S2. No murmur. No rub. ABDOMEN: Soft, nontender, and nondistended. EXTREMITIES: A 1 to 3+ edema. NEUROLOGIC: Cranial nerves II through XII intact. . The patient is moving but not following commands. CHARLENE FINN Jan 29, 2017 11:27
[2017-01-29] MEDS: Nitroglycerin 50mg/250ml btl 250 ML IV SCH ×2 (13:00→20:14)
--- NOTE | 2017-01-29 13:35 | Pulmonolgy Critical Care Note ---
Critical Care - Asmt/Plan Assessment/Plan: 1. Severe hyperkalemia. 2. Respiratory failure, intubated. 3. CHF w Pulmonary edema. 4. Malignant HTN 5. History of coronary artery disease. 6. History of chronic obstructive pulmonary disease. 7. Anemia, due to renal failure Plan I will assume care per insurance All consultants are asked to discontinue care except renal and cardiology extubate dc IV sedatives DC antibiotics, no indication of infection Respiratory: weaning trial Cardiac: continue to monitor HR/BP Renal: F/U I&O Infectious Disease: other - dc abx Gastrointestinal: continue feedings/current rate Time Spent (Minutes): 40 Critical Care - Objective Last 24 Hour Vital Signs Date Time Temp Pulse Resp B/P Pulse Ox O2 Delivery O2 Flow Rate FiO2 01/29/17 12:51 91 17 40 01/29/17 12:01 40 01/29/17 12:01 92 01/29/17 11:30 91 16 158/86 100 Mechanical Ventilator 40 01/29/17 11:17 89 17 40 01/29/17 11:00 92 16 157/88 100 Mechanical Ventilator 40 01/29/17 10:30 92 16 157/86 100 Mechanical Ventilator 40 01/29/17 10:00 91 16 152/90 100 Mechanical Ventilator 40 01/29/17 09:30 90 16 171/92 100 Mechanical Ventilator 40 01/29/17 09:20 89 16 40 01/29/17 09:15 176/90 01/29/17 09:00 88 16 168/89 100 Mechanical Ventilator 40 01/29/17 08:30 86 16 172/90 100 Mechanical Ventilator 40 01/29/17 08:00 90 16 165/89 100 Mechanical Ventilator 40 01/29/17 08:00 40 01/29/17 08:00 90 01/29/17 07:30 98.2 90 16 161/90 100 Mechanical Ventilator 40 01/29/17 07:00 91 16 168/92 100 Mechanical Ventilator 40 01/29/17 06:46 91 16 40 01/29/17 06:45 92 16 168/83 100 Mechanical Ventilator 40 01/29/17 06:30 92 16 219/78 100 Mechanical Ventilator 40 01/29/17 06:15 92 16 183/67 100 Mechanical Ventilator 40 01/29/17 06:10 214/152 01/29/17 06:00 94 16 213/90 100 Mechanical Ventilator 40 01/29/17 05:00 92 16 200/88 98 Mechanical Ventilator 40 01/29/17 04:45 95 16 40 01/29/17 04:00 99.8 92 17 105/87 99 Mechanical Ventilator 40 01/29/17 04:00 40 01/29/17 04:00 94 01/29/17 03:00 91 16 178/88 96 Mechanical Ventilator 40 01/29/17 02:55 203/82 01/29/17 02:46 93 17 40 01/29/17 02:00 91 16 201/80 96 Mechanical Ventilator 40 01/29/17 01:30 92 16 40 01/29/17 01:00 90 16 186/79 96 Mechanical Ventilator 40 01/29/17 00:00 101 01/29/17 00:00 40 01/29/17 00:00 99.5 98 17 204/81 99 Mechanical Ventilator 40 01/28/17 23:53 205/80 01/28/17 23:19 207/81 01/28/17 23:06 92 16 40 01/28/17 23:00 96 16 207/87 96 Mechanical Ventilator 40 01/28/17 22:23 213/79 01/28/17 22:00 96 17 211/84 99 Mechanical Ventilator 40 01/28/17 21:11 96 180/77 01/28/17 21:00 95 17 179/78 99 Mechanical Ventilator 40 01/28/17 20:59 96 16 40 01/28/17 20:00 40 01/28/17 20:00 96 17 176/81 99 Mechanical Ventilator 40 01/28/17 20:00 99 01/28/17 19:30 95 18 40 01/28/17 19:18 Mechanical Ventilator 40 01/28/17 19:16 98.6 101 17 165/99 99 Mechanical Ventilator 40 01/28/17 19:00 97 16 178/110 95 Mechanical Ventilator 40 01/28/17 18:00 104 16 165/99 100 Mechanical Ventilator 40 01/28/17 17:04 93 16 40 01/28/17 17:00 93 16 165/85 99 Mechanical Ventilator 40 01/28/17 16:00 94 16 173/84 96 Mechanical Ventilator 40 01/28/17 16:00 40 01/28/17 16:00 93 01/28/17 15:30 Mechanical Ventilator 40.0 01/28/17 15:00 98.0 95 17 161/77 99 Mechanical Ventilator 40 01/28/17 15:00 91 16 181/87 98 Mechanical Ventilator 40 01/28/17 14:56 95 16 40 01/28/17 14:00 181/87 01/28/17 14:00 94 16 161/77 95 Mechanical Ventilator 40 01/28/17 13:33 99 Status: awake Condition: improving Lungs: clear Heart: HR/BP unstable Abdomen: soft, non-tender Extremities: edema - 2-3 + Critical Care - Subjective ROS Limited/Unobtainable: Yes Condition: critical, improving IV Access: peripheral EKG Rhythm: Sinus Rhythm FI02: 40 Vent Support Breath Rate: 16 Vent Support Mode: AC Vent Tidal Volume: 600 Sputum Amount: Moderate PIP: 21 I&O: Intake and Output 01/28/17 01/29/17 19:00 07:00 Intake Total 0 ml 313 ml Output Total 3200 ml Balance 0 ml -2887 ml Intake Oral 0 ml IV Total 3 ml Blood Product 250 ml Other 60 ml Output Hemodialysis UF 3200 ml # Bowel Movements 2 ET-Tube: 7.5 ET Position: 23 AUGIE CAREY Jan 29, 2017 13:35
[2017-01-29] MEDS ORDERED: Iron Sucrose 100 MG in NS 55 ML IVPB ONE (13:45)
[2017-01-29] MEDS ORDERED: Lidocaine 1% MPF 10mg/ml 5ml INJ ONE (13:45)
--- NOTE | 2017-01-29 16:12 | Diagnostic Imaging Report ---
Indication: DYSPNEA Technique: One view of the chest Comparison: none Findings: Stable satisfactory positions of endotracheal and nasogastric tubes. There is suggestion of increasing right-sided pleural fluid. There may be increased right lung volume loss Allowing for technical differences, suspect some improvement of previously demonstrated diffuse parenchymal disease. The heart remains enlarged. Surgical clips are again demonstrated in the left arm and abdomen Impression: Suspect some improvement in previously demonstrated pulmonary interstitial edema Suspect increasing right-sided pleural fluid and increasing right lung volume loss Other stable findings as noted.
--- NOTE | 2017-01-29 16:27 | Infectious Diseases Prog Note ---
Assessment/Plan Problems: (1) Pneumonia Assessment & Plan: continue vancomycin and zosyn, await sputum culture , monitor CXR (2) Sepsis Assessment & Plan: due to the above , await blood culture, continue vancomycin and zosyn (3) ESRD (end stage renal disease) on dialysis Assessment & Plan: continue HD, renal is following (4) Pulmonary edema Assessment & Plan: due to missing HD, continue HD as before, will treat for pneumonia too (5) Respiratory failure Assessment & Plan: due to the above, intubated, monitor ABG, and CXR (6) Hyperkalemia Assessment & Plan: improving with HD, renal is following Subjective ROS Limited/Unobtainable: Yes Allergies: Coded Allergies: No Known Allergies (Unverified , 01/01/12) Subjective she is intubated, on mechanical ventilation alert. off sedation Objective Vital Signs Last 24 Hour Vital Signs Date Time Temp Pulse Resp B/P Pulse Ox O2 Delivery O2 Flow Rate FiO2 01/29/17 14:52 98.5 01/29/17 14:49 84 17 40 01/29/17 14:30 84 16 176/96 100 Mechanical Ventilator 40 01/29/17 14:00 83 16 138/98 100 Mechanical Ventilator 40 01/29/17 13:30 84 16 152/100 100 Mechanical Ventilator 40 01/29/17 13:00 92 16 152/86 100 Mechanical Ventilator 40 01/29/17 12:51 91 17 40 01/29/17 12:30 95 16 159/85 100 Mechanical Ventilator 40 01/29/17 12:01 40 01/29/17 12:01 92 01/29/17 12:00 98.2 93 16 152/89 100 Mechanical Ventilator 40 01/29/17 12:00 Mechanical Ventilator 40.0 40 01/29/17 11:30 91 16 158/86 100 Mechanical Ventilator 40 01/29/17 11:17 89 17 40 01/29/17 11:00 92 16 157/88 100 Mechanical Ventilator 40 01/29/17 10:30 92 16 157/86 100 Mechanical Ventilator 40 01/29/17 10:00 91 16 152/90 100 Mechanical Ventilator 40 01/29/17 09:30 90 16 171/92 100 Mechanical Ventilator 40 01/29/17 09:20 89 16 40 01/29/17 09:15 176/90 01/29/17 09:00 88 16 168/89 100 Mechanical Ventilator 40 01/29/17 08:30 86 16 172/90 100 Mechanical Ventilator 40 01/29/17 08:00 90 16 165/89 100 Mechanical Ventilator 40 01/29/17 08:00 40 01/29/17 08:00 90 01/29/17 07:30 98.2 90 16 161/90 100 Mechanical Ventilator 40 01/29/17 07:00 91 16 168/92 100 Mechanical Ventilator 40 01/29/17 06:46 91 16 40 01/29/17 06:45 92 16 168/83 100 Mechanical Ventilator 40 01/29/17 06:30 92 16 219/78 100 Mechanical Ventilator 40 01/29/17 06:15 92 16 183/67 100 Mechanical Ventilator 40 01/29/17 06:10 214/152 01/29/17 06:00 94 16 213/90 100 Mechanical Ventilator 40 01/29/17 05:00 92 16 200/88 98 Mechanical Ventilator 40 01/29/17 04:45 95 16 40 01/29/17 04:00 99.8 92 17 105/87 99 Mechanical Ventilator 40 01/29/17 04:00 40 01/29/17 04:00 94 01/29/17 03:00 91 16 178/88 96 Mechanical Ventilator 40 01/29/17 02:55 203/82 01/29/17 02:46 93 17 40 01/29/17 02:00 91 16 201/80 96 Mechanical Ventilator 40 01/29/17 01:30 92 16 40 01/29/17 01:00 90 16 186/79 96 Mechanical Ventilator 40 01/29/17 00:00 101 01/29/17 00:00 40 01/29/17 00:00 99.5 98 17 204/81 99 Mechanical Ventilator 40 01/28/17 23:53 205/80 01/28/17 23:19 207/81 01/28/17 23:06 92 16 40 01/28/17 23:00 96 16 207/87 96 Mechanical Ventilator 40 01/28/17 22:23 213/79 01/28/17 22:00 96 17 211/84 99 Mechanical Ventilator 40 01/28/17 21:11 96 180/77 01/28/17 21:00 95 17 179/78 99 Mechanical Ventilator 40 01/28/17 20:59 96 16 40 01/28/17 20:00 40 01/28/17 20:00 96 17 176/81 99 Mechanical Ventilator 40 01/28/17 20:00 99 01/28/17 19:30 95 18 40 01/28/17 19:18 Mechanical Ventilator 40 01/28/17 19:16 98.6 101 17 165/99 99 Mechanical Ventilator 40 01/28/17 19:00 97 16 178/110 95 Mechanical Ventilator 40 01/28/17 18:00 104 16 165/99 100 Mechanical Ventilator 40 01/28/17 17:04 93 16 40 01/28/17 17:00 93 16 165/85 99 Mechanical Ventilator 40 Height (Feet): 5 Height (Inches): 6.00 Weight (Pounds): 151 General Appearance: WD/WN, no acute distress HEENT: normocephalic, atraumatic, anicteric, mucous membranes moist Respiratory/Chest: no respiratory distress, no accessory muscle use, decreased breath sounds, crackles/rales Cardiovascular: normal peripheral pulses, normal rate, regular rhythm, no gallop/murmur, no JVD Abdomen: normal bowel sounds, soft, non tender, no organomegaly, non distended , no mass Extremities: no cyanosis, no clubbing Skin: no rash, no lesions, ulcers 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: alert Lymphatic: no neck adenopathy, no groin adenopathy Laboratory Tests Test 01/29/17 05:20 White Blood Count 11.4 K/UL (4.8-10.8) H Red Blood Count 3.22 M/UL (4.20-5.40) L Hemoglobin 8.7 G/DL (12.0-16.0) L Hematocrit 27.6 % (37.0-47.0) L Mean Corpuscular Volume 86 FL (80-99) Mean Corpuscular Hemoglobin 26.9 PG (27.0-31.0) L Mean Corpuscular Hemoglobin Concent 31.3 G/DL (32.0-36.0) L Red Cell Distribution Width 14.7 % (11.6-14.8) Platelet Count 162 K/UL (150-450) Mean Platelet Volume 8.5 FL (6.5-10.1) Neutrophils (%) (Auto) 82.2 % (45.0-75.0) H Lymphocytes (%) (Auto) 9.6 % (20.0-45.0) L Monocytes (%) (Auto) 7.1 % (1.0-10.0) Eosinophils (%) (Auto) 0.2 % (0.0-3.0) Basophils (%) (Auto) 0.9 % (0.0-2.0) Sodium Level 135 mEQ/L (135-145) Potassium Level 4.5 mEQ/L (3.4-4.9) Chloride Level 90 mEQ/L (98-107) L Carbon Dioxide Level 30 mEQ/L (20-30) Anion Gap 15 (5-15) Blood Urea Nitrogen 56 mg/dL (7-23) #H Creatinine 6.1 mg/dL (0.5-0.9) H Estimat Glomerular Filtration Rate 8.2 mL/min (>60) Glucose Level 83 mg/dL (74-106) Calcium Level 7.5 mg/dL (8.6-10.2) L Phosphorus Level 6.2 mg/dL (2.5-4.8) H Ferritin 1633 ng/mL (13-150) H Troponin I < 0.30 ng/mL (<=0.30) Albumin 3.4 g/dL (3.5-5.2) L Current Medications Medications (Trade) Dose Ordered Sig/Winter Route PRN Reason Start Time Stop Time Status Last Admin Dose Admin Acetaminophen (Tylenol) 650 mg Q4H PRN ORAL Fever 01/28/17 11:45 02/27/17 11:44 Albuterol/ Ipratropium (DuoNeb 0.5-3(2.5)mg/3ml) 3 ml Q4H PRN HHN Shortness of Breath 01/28/17 11:45 02/02/17 11:44 Dextrose (Dextrose 50%) STAT PRN IV Hypoglycemia 01/28/17 11:45 02/27/17 11:44 Doxazosin Mesylate (Cardura) 2.5 mg BID ORAL 01/28/17 18:00 02/27/17 17:59 01/29/17 09:14 Epoetin Vijay (Procrit (for ESRD on dialysis)) 10,000 units SAT-SAT-SAT SUBQ 01/28/17 21:00 02/27/17 20:59 01/28/17 21:11 Gabapentin (Neurontin) 300 mg THREE TIMES A DAY ORAL 01/28/17 13:00 02/27/17 12:59 01/29/17 09:15 Heparin Sodium (Porcine) (Heparin 5000 units/ml) 5,000 units EVERY 12 HOURS SUBQ 01/28/17 21:00 02/27/17 20:59 01/29/17 09:22 Iron Sucrose/ Sodium Chloride (Venofer/Sodium Chloride) 60 ml @ 240 mls/hr Q24H IV 01/29/17 21:00 02/02/17 21:14 Lorazepam 2 mg 2 mg Q2H PRN IV For Anxiety 01/28/17 17:45 02/04/17 17:44 01/28/17 22:27 Losartan Potassium (Cozaar) 100 mg DAILY ORAL 01/29/17 09:00 02/28/17 08:59 01/29/17 09:15 Methadone HCl (Methadone HCl) 40 mg QHS ORAL 01/28/17 21:00 02/04/17 20:59 01/28/17 21:13 Morphine Sulfate (Morphine Sulfate) 4 mg Q4H PRN IVP Severe Pain (Pain Scale 7-10) 01/28/17 17:45 02/04/17 17:44 01/29/17 13:26 Nitroglycerin 250 ml @ 0 mls/hr Q24H IV 01/29/17 13:00 02/28/17 12:59 Ondansetron HCl (Zofran) 4 mg Q6H PRN IVP Nausea & Vomiting 01/28/17 11:45 02/27/17 11:44 Piperacillin Sod/ Tazobactam Sod 2.25 gm/Dextrose 55 ml @ 110 mls/hr Q8H IV 01/29/17 23:00 02/05/17 22:59 Piperacillin Sod/ Tazobactam Sod 2.25 gm/Dextrose 110 ml @ 220 mls/hr Q8H IV 01/29/17 07:00 01/29/17 22:59 01/29/17 05:40 Polyethylene Glycol (Miralax) 17 gm DAILYPRN PRN ORAL Constipation 01/28/17 11:45 02/27/17 11:44 Temazepam (Restoril) 15 mg HSPRN PRN ORAL Insomnia 01/28/17 11:45 8/14/17 11:44 Vancomycin HCl (Vanco rx to dose) 1 ea DAILY PRN MISC Per rx protocol 01/28/17 13:45 02/27/17 13:44 Joao Timmons M.D. Jan 29, 2017 16:27
--- NOTE | 2017-01-29 18:53 | Cardiology Report ---
APPROVED REPORT EXAM: Two-dimensional and M-mode echocardiogram with Doppler and color Doppler. INDICATION Left Ventricular function M-Mode DIMENSIONS IVSd0.8 (0.7-1.1cm)Left Atrium (MM)4.5 (1.6-4.0cm) LVDd5.9 (3.5-5.6cm)Aortic Root2.6 (2.0-3.7cm) PWd0.6 (0.7-1.1cm)Aortic Cusp Exc.1.7 (1.5-2.0cm) LVDs3.8 (2.5-4.0cm) PWs1.4 cm Other Information Technically limited study due to poor acoustic windows Technically difficult study due to poor acoustic windows. Study quality precludes accurate assessment of regional wall motion. Mild left ventricular enlargement. Normal left ventricular systolic function and wall motion. Left ventricular ejection fraction estimated to be 55 %. No evidence of ventricular hypertrophy. Possible small pleural effusion. Mild bi-atrial enlargement. Right ventricular chamber size is within normal limits. Mild focal aortic valve sclerosis with adequate cusp excursion. Mildly thickened mitral valve leaflets with normal excursion. Mild mitral annulus and aortic root calcification. Pulmonic valve not visualized. Normal tricuspid valve structure. IVC dilated at 2.2 cm with physiologic collapse. A color flow and spectral Doppler study was performed and revealed: Mild aortic regurgitation. Mild to moderate mitral regurgitation. Mitral diastolic velocities suggest reduced left ventricular relaxation (Grade I). Trace tricuspid regurgitation. Tricuspid systolic velocities suggests peak right ventricular systolic pressure of 32 mmHg. No pulmonic regurgitation present.
--- NOTE | 2017-01-29 18:54 | Cardiology Report ---
APPROVED REPORT EKG Measurement Heart [id number] Normal sinus rhythm Normal ECG
[2017-01-29] MEDS: [UNRECOGNIZED DRUG - OTHER] IV SCH ×2 (20:45)
[2017-01-29] MEDS: VENOFER IV SCH ×2 (20:45)
[2017-01-29] MEDS ORDERED: Miralax 17gm pkt GT PRN (21:00)
--- NOTE | 2017-01-29 22:15 | Consultation ---
DATE OF CONSULTATION: 01/28/2017 CARDIOLOGY CONSULTATION: CONSULTING PHYSICIAN: Jas Thompson M.D. REFERRING PHYSICIAN: Facundo Waller M.D. ADDITIONAL REFERRING PHYSICIAN: Aldair Kothari M.D. REASON FOR CONSULTATION: Management of accelerated hypertension and tachycardia. HISTORY OF PRESENT ILLNESS: The patient is a very unfortunate 66-year-old female, who is transferred from jail facility for shortness of breath. Apparently at the jail facility, the patient's oxygen saturation dropped to 80s. On arrival to this facility, oxygen saturation was in high 90s. The patient's initial blood pressure is 176/129 mmHg and she is found to be tachycardic. A 12-lead electrocardiogram in the emergency department shows sinus rhythm at a rate of 87 with QT prolongation, but no ST and T-wave abnormalities. The patient is admitted today in the intensive care unit for accelerated hypertension as well as severe hyperkalemia. Of note, the patient has history of end-stage renal disease. Her other risk factors are coronary artery disease including diabetes mellitus and hypertension. The patient apparently also has history of myocardial infarction and history of chronic anemia. PAST MEDICAL HISTORY: 1. History of CAD, status post myocardial infarction. 2. History of congestive heart failure. 3. History of anemia. 4. History of hypertension. 5. History of asthma/chronic obstructive pulmonary disease. 6. History of diabetes mellitus. 7. History of hemorrhage. 8. History of end-stage renal disease, Mondays, Wednesdays, and Fridays, status post AV fistula placement. 9. History of schizophrenia. 10. History of metabolic encephalopathy. 11. History of CVA. 12. History of seizure disorder. PAST SURGICAL HISTORY: AV fistula placement. MEDICATIONS: The list of medications from nursing facility includes acetaminophen 325 mg p.o. q.4 h. p.r.n. pain and headache, albuterol inhaler, Protein Hydrolysate with amino acid and 30 mL p.o. daily, Coreg 3.125 mg twice daily, clonidine 0.1 mg q.12 h., Dulcolax 10 mg rectally p.r.n. constipation, Colace 100 mg p.o. daily, Cardura 2.5 mg twice daily, RenaVite 0.8 mg p.o. three times daily, gabapentin 300 mg three times daily, hydralazine 25 mg three times daily, Cozaar 100 mg p.o. daily, magnesium hydroxide 30 mL p.o. p.r.n. constipation, methadone 40 mg p.o. daily, Fleet Enema 133 mL p.r.n., Seroquel 25 mg p.o. daily, Zoloft 25 mg p.o. daily, tramadol 50 mg q.6 h., and vitamin D3 1000 units p.o. daily. SOCIAL HISTORY: Denies any recent use of alcohol, tobacco, or illicit drug. She lives in a jail facility. REVIEW OF SYSTEMS: The patient is currently intubated and 12-system review cannot be obtained. PHYSICAL EXAMINATION: VITAL SIGNS: Blood pressure at the time of arrival to the hospital was 176/129, respirations 18, pulse of 109, temperature 98.1 degrees Fahrenheit, and O2 saturation 96% on mechanical ventilator. GENERAL: The patient is a very unfortunate female. HEENT: Atraumatic and normocephalic. Anicteric. Pupils are equal, round, and reactive to light and accommodation. NECK: Intubated. I cannot assess JVP due to positive inspiratory pressure. Normal carotid upstrokes. CVS: Normal S1 and S2. Regular rate and rhythm. No murmurs, gallops, or rubs. LUNGS: Diminished breath sounds in both bases. ABDOMEN: Soft, nontender, and nondistended. No hepatosplenomegaly. Positive bowel sounds. EXTREMITIES: No evidence of edema, clubbing, or cyanosis. LABORATORY FINDINGS: WBC is 9.5, hemoglobin 7.7, hematocrit 36.0, and platelet count 184,000. Sodium was 142, potassium 7.4, chloride 99, bicarbonate 25, BUN 87, creatinine 9.1, glucose 87, and calcium 7.9. Troponin I is less than 0.3. ProBNP is 43,117. DIAGNOSTIC DATA: A 12-lead electrocardiogram shows sinus rhythm at a rate of 87 with prolongation of QT interval, but no ST and T-wave abnormalities. Chest x-ray shows interstitial edema and prominent vascularity with scoliosis. ASSESSMENT AND PLAN: The patient is a very unfortunate 66-year-old female, seen in cardiology consultation at the request of Dr. Kothari. 1. Dyspnea. This patient has acute respiratory failure, gets intubated, most likely due to pulmonary edema. We will require 2D echocardiography for assessment of left ventricular systolic and diastolic function. The other mechanism for intubation is hypoventilation secondary to methadone overdose. In fact, the arterial blood gas in this patient is in favor of hypoventilation, which is likely due to decreased respiratory , pulmonary edema normally causes hypoxic respiratory failure. A 2D echocardiography can shed light on this condition. Further therapeutic and diagnostic decision will be based on results of 2D echocardiography. 2. History of coronary artery disease, status post myocardial infarction, the detail of which is unknown. 3. History of hypertension. Currently, accelerated hypertension. We would like to start the patient on hydralazine and clonidine as needed. 4. History of diabetes mellitus. 5. End-stage renal disease. 6. History of cerebrovascular accident/seizure disorder. The total amount of time spent in evaluation of this patient in the intensive care unit of [facility], discussing plan of care and discussing with ancillary service and primary care physician was 45 minutes. I would like to thank, Dr. Kothari and Dr. Waller, for involving me in the care of this most pleasant patient. Jas Thompson M.D. DR: James JOB#: [id number] CC:
--- NOTE | 2017-01-29 22:16 | Cardiology Progress Note ---
Assessment/Plan Assessment/Plan 1. Accelerated HTN, responded well NTG drip, keep MAP at 130-150 mmHg, start tapering the drip off in am. 2. Sinus tachycardia 3. Hx of DM 4. Hx of CAD, s/p NV 5. Respiratory failure Subjective Subjective Sinus tachycardia at 128. On the ventilator. Objective Last 24 Hour Vital Signs Date Time Temp Pulse Resp B/P Pulse Ox O2 Delivery O2 Flow Rate FiO2 01/29/17 21:30 128 16 40 01/29/17 21:30 127 16 123/107 100 Mechanical Ventilator 40 01/29/17 21:00 124 16 149/97 100 Mechanical Ventilator 40 01/29/17 20:30 128 17 134/92 100 Mechanical Ventilator 40 01/29/17 20:14 116/69 01/29/17 20:00 40 01/29/17 20:00 122 17 116/69 100 Mechanical Ventilator 40 01/29/17 19:30 99.0 129 17 137/89 100 Mechanical Ventilator 40 01/29/17 19:30 95 18 40 01/29/17 19:00 129 17 137/89 100 Mechanical Ventilator 40 01/29/17 18:47 98.5 01/29/17 18:30 127 17 147/103 100 Mechanical Ventilator 40 01/29/17 18:00 127 17 146/103 100 Mechanical Ventilator 40 01/29/17 17:30 126 17 170/108 100 Mechanical Ventilator 40 01/29/17 17:00 126 16 159/102 100 Mechanical Ventilator 40 01/29/17 16:59 135 20 40 01/29/17 16:37 Mechanical Ventilator 40.0 40 01/29/17 16:30 122 17 159/100 100 Mechanical Ventilator 40 01/29/17 16:30 122 17 159/100 100 Mechanical Ventilator 40 01/29/17 16:30 128 17 163/98 100 Mechanical Ventilator 40 01/29/17 16:01 100.0 127 16 175/95 100 Mechanical Ventilator 40 01/29/17 16:00 124 01/29/17 16:00 126 01/29/17 16:00 40 01/29/17 16:00 100.0 127 16 175/95 100 Mechanical Ventilator 40 01/29/17 16:00 98.6 112 16 162/96 100 Mechanical Ventilator 40 01/29/17 15:30 110 16 181/95 100 Mechanical Ventilator 40 01/29/17 15:30 120 16 165/98 100 Mechanical Ventilator 40 01/29/17 15:00 110 16 166/96 100 Mechanical Ventilator 40 01/29/17 15:00 105 17 181/85 100 Mechanical Ventilator 40 01/29/17 14:49 84 17 40 01/29/17 14:30 84 16 176/96 100 Mechanical Ventilator 40 01/29/17 14:00 83 16 138/98 100 Mechanical Ventilator 40 01/29/17 13:30 84 16 152/100 100 Mechanical Ventilator 40 01/29/17 13:00 92 16 152/86 100 Mechanical Ventilator 40 01/29/17 13:00 159/100 01/29/17 12:51 91 17 40 01/29/17 12:30 95 16 159/85 100 Mechanical Ventilator 40 01/29/17 12:01 40 01/29/17 12:01 92 01/29/17 12:00 98.2 93 16 152/89 100 Mechanical Ventilator 40 01/29/17 12:00 Mechanical Ventilator 40.0 40 01/29/17 11:30 91 16 158/86 100 Mechanical Ventilator 40 01/29/17 11:17 89 17 40 01/29/17 11:00 92 16 157/88 100 Mechanical Ventilator 40 01/29/17 10:30 92 16 157/86 100 Mechanical Ventilator 40 01/29/17 10:00 91 16 152/90 100 Mechanical Ventilator 40 01/29/17 09:30 90 16 171/92 100 Mechanical Ventilator 40 01/29/17 09:20 89 16 40 01/29/17 09:15 176/90 01/29/17 09:00 88 16 168/89 100 Mechanical Ventilator 40 01/29/17 08:30 86 16 172/90 100 Mechanical Ventilator 40 01/29/17 08:00 90 16 165/89 100 Mechanical Ventilator 40 01/29/17 08:00 40 01/29/17 08:00 90 01/29/17 07:30 98.2 90 16 161/90 100 Mechanical Ventilator 40 01/29/17 07:00 91 16 168/92 100 Mechanical Ventilator 40 01/29/17 06:46 91 16 40 01/29/17 06:45 92 16 168/83 100 Mechanical Ventilator 40 01/29/17 06:30 92 16 219/78 100 Mechanical Ventilator 40 01/29/17 06:15 92 16 183/67 100 Mechanical Ventilator 40 01/29/17 06:10 214/152 01/29/17 06:00 94 16 213/90 100 Mechanical Ventilator 40 01/29/17 05:00 92 16 200/88 98 Mechanical Ventilator 40 01/29/17 04:45 95 16 40 01/29/17 04:00 99.8 92 17 105/87 99 Mechanical Ventilator 40 01/29/17 04:00 40 01/29/17 04:00 94 01/29/17 03:00 91 16 178/88 96 Mechanical Ventilator 40 01/29/17 02:55 203/82 01/29/17 02:46 93 17 40 01/29/17 02:00 91 16 201/80 96 Mechanical Ventilator 40 01/29/17 01:30 92 16 40 01/29/17 01:00 90 16 186/79 96 Mechanical Ventilator 40 01/29/17 00:00 101 01/29/17 00:00 40 01/29/17 00:00 99.5 98 17 204/81 99 Mechanical Ventilator 40 01/28/17 23:53 205/80 01/28/17 23:19 207/81 01/28/17 23:06 92 16 40 01/28/17 23:00 96 16 207/87 96 Mechanical Ventilator 40 01/28/17 22:23 213/79 Intake and Output 01/28/17 01/29/17 19:00 07:00 Intake Total 0 ml 313 ml Output Total 3200 ml Balance 0 ml -2887 ml Intake Oral 0 ml IV Total 3 ml Blood Product 250 ml Other 60 ml Output Hemodialysis UF 3200 ml # Bowel Movements 2 2D Echo: EF 55%, Mild LVH, Mild MR/AR, RVSP 32 mmHg, Grade I LVDD Laboratory Tests Test 01/29/17 05:20 White Blood Count 11.4 K/UL (4.8-10.8) H Red Blood Count 3.22 M/UL (4.20-5.40) L Hemoglobin 8.7 G/DL (12.0-16.0) L Hematocrit 27.6 % (37.0-47.0) L Mean Corpuscular Volume 86 FL (80-99) Mean Corpuscular Hemoglobin 26.9 PG (27.0-31.0) L Mean Corpuscular Hemoglobin Concent 31.3 G/DL (32.0-36.0) L Red Cell Distribution Width 14.7 % (11.6-14.8) Platelet Count 162 K/UL (150-450) Mean Platelet Volume 8.5 FL (6.5-10.1) Neutrophils (%) (Auto) 82.2 % (45.0-75.0) H Lymphocytes (%) (Auto) 9.6 % (20.0-45.0) L Monocytes (%) (Auto) 7.1 % (1.0-10.0) Eosinophils (%) (Auto) 0.2 % (0.0-3.0) Basophils (%) (Auto) 0.9 % (0.0-2.0) Sodium Level 135 mEQ/L (135-145) Potassium Level 4.5 mEQ/L (3.4-4.9) Chloride Level 90 mEQ/L (98-107) L Carbon Dioxide Level 30 mEQ/L (20-30) Anion Gap 15 (5-15) Blood Urea Nitrogen 56 mg/dL (7-23) #H Creatinine 6.1 mg/dL (0.5-0.9) H Estimat Glomerular Filtration Rate 8.2 mL/min (>60) Glucose Level 83 mg/dL (74-106) Calcium Level 7.5 mg/dL (8.6-10.2) L Phosphorus Level 6.2 mg/dL (2.5-4.8) H Ferritin 1633 ng/mL (13-150) H Troponin I < 0.30 ng/mL (<=0.30) Albumin 3.4 g/dL (3.5-5.2) L Objective HEENT: Atraumatic, normocephalic, periorbital edema. ET tube is in place. Extraocular movement intact. The patient open her eyes to verbal stimuli. NECK: JVD cannot be assessed, no carotid bruit, upstroke 2+ B/L LUNGS: Decreased breath sounds on both side, basilar crackles. CARDIAC: Regular rate and rhythm. S1 and S2, tachycardic, No murmurs, gallops or rubs. ABDOMEN: Soft, nontender, and nondistended, + BS EXTREMITIES: 2+ B/L edema, no clubbing or cyanosis. PREM BIGGS Jan 29, 2017 22:16
[2017-01-29] MEDS: Piperacillin/Tazobactam 2.25 GM in D5W 55 ML IV SCH (22:47)
[2017-01-30] VITALS (39 sets, daily range): BP systolic 102–149; BP diastolic 63–101
[2017-01-30] MEDS: Morphine Sulfate 4mg/ml Inj IVP PRN (05:12)
[2017-01-30 05:40] LABS: BASOPHILS % (AUTO) 1.6 % (0.0-2.0); EOSINOPHILS % (AUTO) 0.2 % (0.0-3.0); LYMPHOCYTES % (AUTO) 11.8 % (20.0-45.0); MEAN CORPUSCULAR HEMOGLOBIN 27.1 PG (27.0-31.0); MEAN CORPUSCULAR HGB CONC 31.7 G/DL (32.0-36.0); MEAN CORPUSCULAR VOLUME 85 FL (80-99); MEAN PLATELET VOLUME 8.4 FL (6.5-10.1); MONOCYTES % (AUTO) 7.3 % (1.0-10.0); NEUTROPHILS % (AUTO) 79.1 % (45.0-75.0); PLATELET COUNT 142 K/UL (150-450); RED BLOOD COUNT 3.24 M/UL (4.20-5.40); RED CELL DISTRIBUTION WIDTH 14.7 % (11.6-14.8); WHITE BLOOD COUNT 13.3 K/UL (4.8-10.8)
[2017-01-30 06:00] LABS: ALBUMIN/GLOBULIN RATIO 0.7 (1.0-2.7); CALCIUM 7.5 mg/dL (8.6-10.2); CREATININE 5.3 mg/dL (0.5-0.9); GLOMERULAR FILTRATION RATE 9.8 mL/min (>60); MAGNESIUM 1.5 mg/dL (1.7-2.5); PHOSPHORUS 6.3 mg/dL (2.5-4.8); POTASSIUM 4.2 mEQ/L (3.4-4.9); TOTAL PROTEIN 6.9 g/dL (6.6-8.7)
[2017-01-30] MEDS: Piperacillin/Tazobactam 2.25 GM in D5W 55 ML IV SCH ×3 (06:18→22:35)
[2017-01-30 06:46] LABS: TROPONIN I < 0.30 ng/mL (<=0.30)
--- NOTE | 2017-01-30 08:37 | Pulmonolgy Critical Care Note ---
Critical Care - Asmt/Plan Assessment/Plan: 1. Severe hyperkalemia. 2. Respiratory failure, intubated. 3. CHF w Pulmonary edema. 4. Malignant HTN 5. Coronary artery disease. 6. Chronic obstructive pulmonary disease. 7. Anemia, due to renal failure Plan extubate dc IV sedatives [place] prn continue antibiotics, WBC higher, T 100 dialysis, UF swallow eval nasal O2 Critical Care - Objective Last 24 Hour Vital Signs Date Time Temp Pulse Resp B/P Pulse Ox O2 Delivery O2 Flow Rate FiO2 01/30/17 08:00 40 01/30/17 08:00 99.0 112 16 137/86 98 Mechanical Ventilator 40 01/30/17 07:30 111 17 149/85 99 Mechanical Ventilator 40 01/30/17 07:21 110 18 40 01/30/17 07:00 109 16 131/76 99 Mechanical Ventilator 40 01/30/17 06:30 112 16 124/63 99 Mechanical Ventilator 40 01/30/17 06:00 117 16 133/88 99 Mechanical Ventilator 40 01/30/17 05:30 114 16 133/83 99 Mechanical Ventilator 40 01/30/17 05:15 119 18 40 01/30/17 05:00 116 16 133/83 98 Mechanical Ventilator 40 01/30/17 04:30 117 16 133/81 98 Mechanical Ventilator 40 01/30/17 04:00 40 01/30/17 04:00 120 01/30/17 04:00 99.1 119 17 134/78 98 Mechanical Ventilator 40 01/30/17 03:30 116 16 148/101 97 Mechanical Ventilator 40 01/30/17 03:30 114 16 40 01/30/17 03:00 115 16 138/89 98 Mechanical Ventilator 40 01/30/17 02:30 118 16 131/88 98 Mechanical Ventilator 40 01/30/17 02:00 117 16 146/91 98 Mechanical Ventilator 40 01/30/17 01:30 118 16 40 01/30/17 01:30 117 16 128/92 98 Mechanical Ventilator 40 01/30/17 01:00 117 16 134/86 100 Mechanical Ventilator 40 01/30/17 00:30 117 16 137/93 98 Mechanical Ventilator 40 01/30/17 00:00 40 01/30/17 00:00 117 16 118/74 100 Mechanical Ventilator 40 01/30/17 00:00 114 01/29/17 23:30 99.8 120 16 127/72 100 Mechanical Ventilator 40 01/29/17 23:10 120 16 40 01/29/17 23:00 120 16 112/66 100 Mechanical Ventilator 40 01/29/17 22:30 121 16 119/75 100 Mechanical Ventilator 40 01/29/17 22:00 125 19 123/83 99 Mechanical Ventilator 40 01/29/17 21:30 128 16 40 01/29/17 21:30 127 16 123/107 100 Mechanical Ventilator 40 01/29/17 21:00 124 16 149/97 100 Mechanical Ventilator 40 01/29/17 20:30 128 17 134/92 100 Mechanical Ventilator 40 01/29/17 20:14 116/69 01/29/17 20:00 123 01/29/17 20:00 40 01/29/17 20:00 122 17 116/69 100 Mechanical Ventilator 40 01/29/17 19:30 99.0 129 17 137/89 100 Mechanical Ventilator 40 01/29/17 19:30 95 18 40 01/29/17 19:00 129 17 137/89 100 Mechanical Ventilator 40 01/29/17 18:47 98.5 01/29/17 18:30 127 17 147/103 100 Mechanical Ventilator 40 01/29/17 18:00 127 17 146/103 100 Mechanical Ventilator 40 01/29/17 17:30 126 17 170/108 100 Mechanical Ventilator 40 01/29/17 17:00 126 16 159/102 100 Mechanical Ventilator 40 01/29/17 16:59 135 20 40 01/29/17 16:37 Mechanical Ventilator 40.0 40 01/29/17 16:30 122 17 159/100 100 Mechanical Ventilator 40 01/29/17 16:30 122 17 159/100 100 Mechanical Ventilator 40 01/29/17 16:30 128 17 163/98 100 Mechanical Ventilator 40 01/29/17 16:01 100.0 127 16 175/95 100 Mechanical Ventilator 40 01/29/17 16:00 124 01/29/17 16:00 126 01/29/17 16:00 40 01/29/17 16:00 100.0 127 16 175/95 100 Mechanical Ventilator 40 01/29/17 16:00 98.6 112 16 162/96 100 Mechanical Ventilator 40 01/29/17 15:30 110 16 181/95 100 Mechanical Ventilator 40 01/29/17 15:30 120 16 165/98 100 Mechanical Ventilator 40 01/29/17 15:00 110 16 166/96 100 Mechanical Ventilator 40 01/29/17 15:00 105 17 181/85 100 Mechanical Ventilator 40 01/29/17 14:49 84 17 40 01/29/17 14:30 84 16 176/96 100 Mechanical Ventilator 40 01/29/17 14:00 83 16 138/98 100 Mechanical Ventilator 40 01/29/17 13:30 84 16 152/100 100 Mechanical Ventilator 40 01/29/17 13:00 92 16 152/86 100 Mechanical Ventilator 40 01/29/17 13:00 159/100 01/29/17 12:51 91 17 40 01/29/17 12:30 95 16 159/85 100 Mechanical Ventilator 40 01/29/17 12:01 40 01/29/17 12:01 92 01/29/17 12:00 98.2 93 16 152/89 100 Mechanical Ventilator 40 01/29/17 12:00 Mechanical Ventilator 40.0 40 01/29/17 11:30 91 16 158/86 100 Mechanical Ventilator 40 01/29/17 11:17 89 17 40 01/29/17 11:00 92 16 157/88 100 Mechanical Ventilator 40 01/29/17 10:30 92 16 157/86 100 Mechanical Ventilator 40 01/29/17 10:00 91 16 152/90 100 Mechanical Ventilator 40 01/29/17 09:30 90 16 171/92 100 Mechanical Ventilator 40 01/29/17 09:20 89 16 40 01/29/17 09:15 176/90 01/29/17 09:00 88 16 168/89 100 Mechanical Ventilator 40 Status: awake Condition: improving HEENT: normocephalic Lungs: clear Heart: HR/BP unstable Micro: Microbiology Date/Time Source Procedure Growth Status 01/28/17 16:00 Blood Blood Culture - Preliminary NO GROWTH AFTER 24 HOURS Resulted Critical Care - Subjective ROS Limited/Unobtainable: Yes Condition: improving EKG Rhythm: Sinus Rhythm FI02: 40 Vent Support Breath Rate: 16 Vent Support Mode: AC Vent Tidal Volume: 600 Sputum Amount: Moderate PIP: 20 Tube Feeding Amount: 45 I&O: Intake and Output 01/29/17 01/30/17 19:00 07:00 Intake Total 215.5 ml 529.5 ml Output Total 3800 ml Balance -3584.5 ml 529.5 ml Free Water 100 ml IV Total 40.5 ml 49.5 ml Tube Feeding 75 ml 420 ml Other 60 ml Output Hemodialysis UF 3800 ml # Bowel Movements 2 ET-Tube: 7.5 ET Position: 23 AUGIE CAREY Jan 30, 2017 08:37
[2017-01-30] MEDS: Losartan 50mg tab GT SCH (08:52)
[2017-01-30] MEDS: Doxazosin 1mg Tab GT SCH ×2 (08:53→17:34)
[2017-01-30 09:26] LABS: OTHERS PATHOLOGIST COMMENT
[2017-01-30] MEDS: Heparin 5000 units/ml inj SUBQ SCH ×2 (10:30→20:39)
[2017-01-30] MEDS: Norco 5mg/325mg tab NG PRN (10:31)
--- NOTE | 2017-01-30 11:39 | Pre-Procedure Note/Attestation ---
Pre-Procedure Note/Attestation Complete Prior to Procedure Planned Procedure: not applicable Procedure Narrative: central venous line Indications for Procedure Pre-Operative Diagnosis: needs central IV access Attestation I attest that I discussed the nature of the procedure; its benefits; risks and complications; and alternatives (and the risks and benefits of such alternatives ), prior to the procedure, with the patient (or the patient's legal traffic workforce representative). I attest that, if there was a reasonable possibility of needing a blood transfusion, the patient (or the patient's legal traffic workforce representative) was given the [facility] standardized written summary, pursuant to the [place] Blood Safety Act ([place] Health and Safety Code # 1645, as amended). I attest that I re-evaluated the patient just prior to the surgery and that there has been no change in the patient's H&P, except as documented below: BECKIE URIAS M.D. Jan 30, 2017 11:39
[2017-01-30] MEDS ORDERED: Vancomycin 1gm/D5W 275ml IVPB ONE ×2 (12:00)
--- NOTE | 2017-01-30 14:00 | Nephrology Progress Note ---
Assessment/Plan Assessment 1. Hyperkalemia. 2. Hypocalcemia. 3. Fluid overload. 4. Respiratory failure. 5. Pulmonary edema. 6. Sepsis. Plan plan to repeat dialysis i am monitoring electrolyte continue epogen replace mg Subjective Constitutional: Reports: no symptoms HEENT: Reports: no symptoms 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: Reports: no symptoms Subjective extubated this morning passed swallowing evaluation c/o being hungry Objective Objective Last 24 Hour Vital Signs Date Time Temp Pulse Resp B/P Pulse Ox O2 Delivery O2 Flow Rate FiO2 01/30/17 13:30 98 15 132/70 99 Nasal Cannula 2.0 01/30/17 13:00 101 14 130/72 99 Nasal Cannula 2.0 01/30/17 12:30 100 14 133/72 99 Nasal Cannula 2.0 01/30/17 12:00 98.9 103 16 135/82 98 Nasal Cannula 2.0 01/30/17 12:00 102 01/30/17 11:30 104 13 132/70 99 Nasal Cannula 2.0 01/30/17 11:30 99.0 01/30/17 11:00 104 12 127/78 99 Nasal Cannula 2.0 01/30/17 10:30 107 12 119/70 99 Nasal Cannula 2.0 01/30/17 10:00 109 12 115/79 99 Nasal Cannula 2.0 01/30/17 09:30 111 14 124/67 99 Nasal Cannula 2.0 01/30/17 09:30 93 2.0 28 01/30/17 09:29 Nasal Cannula 2.0 28 01/30/17 09:00 111 14 124/67 99 Nasal Cannula 2.0 01/30/17 08:52 155/81 01/30/17 08:40 Nasal Cannula 2.0 28 01/30/17 08:30 112 18 142/86 99 Mechanical Ventilator 40 01/30/17 08:00 40 01/30/17 08:00 99.0 112 16 137/86 98 Mechanical Ventilator 40 01/30/17 08:00 112 01/30/17 07:30 111 17 149/85 99 Mechanical Ventilator 40 01/30/17 07:21 110 18 40 01/30/17 07:00 109 16 131/76 99 Mechanical Ventilator 40 01/30/17 06:30 112 16 124/63 99 Mechanical Ventilator 40 01/30/17 06:00 117 16 133/88 99 Mechanical Ventilator 40 01/30/17 05:30 114 16 133/83 99 Mechanical Ventilator 40 01/30/17 05:15 119 18 40 01/30/17 05:00 116 16 133/83 98 Mechanical Ventilator 40 01/30/17 04:30 117 16 133/81 98 Mechanical Ventilator 40 01/30/17 04:00 40 01/30/17 04:00 120 01/30/17 04:00 99.1 119 17 134/78 98 Mechanical Ventilator 40 01/30/17 03:30 116 16 148/101 97 Mechanical Ventilator 40 01/30/17 03:30 114 16 40 01/30/17 03:00 115 16 138/89 98 Mechanical Ventilator 40 01/30/17 02:30 118 16 131/88 98 Mechanical Ventilator 40 01/30/17 02:00 117 16 146/91 98 Mechanical Ventilator 40 01/30/17 01:30 118 16 40 01/30/17 01:30 117 16 128/92 98 Mechanical Ventilator 40 01/30/17 01:00 117 16 134/86 100 Mechanical Ventilator 40 01/30/17 00:30 117 16 137/93 98 Mechanical Ventilator 40 01/30/17 00:00 40 01/30/17 00:00 117 16 118/74 100 Mechanical Ventilator 40 01/30/17 00:00 114 01/29/17 23:30 99.8 120 16 127/72 100 Mechanical Ventilator 40 01/29/17 23:10 120 16 40 01/29/17 23:00 120 16 112/66 100 Mechanical Ventilator 40 01/29/17 22:30 121 16 119/75 100 Mechanical Ventilator 40 01/29/17 22:00 125 19 123/83 99 Mechanical Ventilator 40 01/29/17 21:30 128 16 40 01/29/17 21:30 127 16 123/107 100 Mechanical Ventilator 40 01/29/17 21:00 124 16 149/97 100 Mechanical Ventilator 40 01/29/17 20:30 128 17 134/92 100 Mechanical Ventilator 40 01/29/17 20:14 116/69 01/29/17 20:00 123 01/29/17 20:00 40 01/29/17 20:00 122 17 116/69 100 Mechanical Ventilator 40 01/29/17 19:30 99.0 129 17 137/89 100 Mechanical Ventilator 40 01/29/17 19:30 95 18 40 01/29/17 19:00 129 17 137/89 100 Mechanical Ventilator 40 01/29/17 18:47 98.5 01/29/17 18:30 127 17 147/103 100 Mechanical Ventilator 40 01/29/17 18:00 127 17 146/103 100 Mechanical Ventilator 40 01/29/17 17:30 126 17 170/108 100 Mechanical Ventilator 40 01/29/17 17:00 126 16 159/102 100 Mechanical Ventilator 40 01/29/17 16:59 135 20 40 01/29/17 16:37 Mechanical Ventilator 40.0 40 01/29/17 16:30 122 17 159/100 100 Mechanical Ventilator 40 01/29/17 16:30 122 17 159/100 100 Mechanical Ventilator 40 01/29/17 16:30 128 17 163/98 100 Mechanical Ventilator 40 01/29/17 16:01 100.0 127 16 175/95 100 Mechanical Ventilator 40 01/29/17 16:00 124 01/29/17 16:00 126 01/29/17 16:00 40 01/29/17 16:00 100.0 127 16 175/95 100 Mechanical Ventilator 40 01/29/17 16:00 98.6 112 16 162/96 100 Mechanical Ventilator 40 01/29/17 15:30 110 16 181/95 100 Mechanical Ventilator 40 01/29/17 15:30 120 16 165/98 100 Mechanical Ventilator 40 01/29/17 15:00 110 16 166/96 100 Mechanical Ventilator 40 01/29/17 15:00 105 17 181/85 100 Mechanical Ventilator 40 01/29/17 14:49 84 17 40 01/29/17 14:30 84 16 176/96 100 Mechanical Ventilator 40 01/29/17 14:00 83 16 138/98 100 Mechanical Ventilator 40 Intake and Output 01/29/17 01/30/17 19:00 07:00 Intake Total 215.5 ml 529.5 ml Output Total 3800 ml Balance -3584.5 ml 529.5 ml Free Water 100 ml IV Total 40.5 ml 49.5 ml Tube Feeding 75 ml 420 ml Other 60 ml Output Hemodialysis UF 3800 ml # Bowel Movements 2 Laboratory Tests 01/30/17 04:25: White Blood Count 13.3H, Red Blood Count 3.24L, Hemoglobin 8.8L, Hematocrit 27.6L, Mean Corpuscular Volume 85, Mean Corpuscular Hemoglobin 27.1, Mean Corpuscular Hemoglobin Concent 31.7L, Red Cell Distribution Width 14.7, Platelet Count 142L, Mean Platelet Volume 8.4, Neutrophils (%) (Auto) 79.1H, Lymphocytes (%) (Auto) 11.8L, Monocytes (%) (Auto) 7.3, Eosinophils (%) (Auto) 0.2, Basophils (%) (Auto) 1.6, Sodium Level 137, Potassium Level 4.2, Chloride Level 92L, Carbon Dioxide Level 28, Anion Gap 17H, Blood Urea Nitrogen 53H, Creatinine 5.3H, Estimat Glomerular Filtration Rate 9.8, Glucose Level 85, Calcium Level 7.5L, Phosphorus Level 6.3H, Magnesium Level 1.5L, Total Bilirubin 0.7, Aspartate Amino Transf (AST/SGOT) 36, Alanine Aminotransferase ( ALT/SGPT) 22, Alkaline Phosphatase 101, Troponin I < 0.30, Total Protein 6.9, Albumin 2.9L, Globulin 4.0, Albumin/Globulin Ratio 0.7L, Random Vancomycin Level 15.5 Height (Feet): 5 Height (Inches): 6.00 Weight (Pounds): 151 Objective HEAD AND NECK: . The patient has periorbital edema. ET tube is in place. Extraocular movement intact. The patient open her eyes to verbal stimuli. LUNGS: Decreased breathing sound on both side and crackles. CARDIAC: Regular rate and rhythm. S1 and S2. No murmur. No rub. ABDOMEN: Soft, nontender, and nondistended. EXTREMITIES: A 1 to 3+ edema. NEUROLOGIC: Cranial nerves II through XII intact. . The patient is moving but not following commands. CHARLENE FINN Jan 30, 2017 14:00
--- NOTE | 2017-01-30 19:59 | General Progress Note ---
Assessment/Plan Assessment/Plan 1. Anemia secondary to chronic kidney disease. The patient was seen by nephrology team. --> hgb goal above 7.5 2. Anemia secondary to chronic disease. Continue to closely monitor. 3. Thrombocytopenia - likely related to underlying liver disease. 4. Lactic acidosis, potentially secondary to infection. 5. Pneumonia and sepsis. She is on antibiotics. 6. End-stage renal disease, on hemodialysis. 7. Hyperkalemia history, on hemodialysis. Nephrology to follow. Subjective Constitutional: Reports: no symptoms HEENT: Reports: no symptoms Cardiovascular: Reports: no symptoms Respiratory: Reports: no symptoms Gastrointestinal/Abdominal: Reports: no symptoms Genitourinary: Reports: no symptoms 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: Reports: no symptoms Endocrine: Reports: no symptoms Hematologic/Lymphatic: Reports: no symptoms Allergies: Coded Allergies: No Known Allergies (Unverified , 01/01/12) Subjective HD today Objective Last 24 Hour Vital Signs Date Time Temp Pulse Resp B/P Pulse Ox O2 Delivery O2 Flow Rate FiO2 01/30/17 19:00 105 18 136/83 99 Nasal Cannula 2.0 01/30/17 18:54 99 Nasal Cannula 2.0 28 01/30/17 18:54 Nasal Cannula 2.0 28 01/30/17 18:53 105 18 Nasal Cannula 2.0 28 01/30/17 18:00 106 17 134/77 99 Nasal Cannula 2.0 01/30/17 17:00 114 16 141/89 99 Nasal Cannula 2.0 01/30/17 16:00 105 01/30/17 16:00 98.4 106 15 102/90 99 Nasal Cannula 2.0 01/30/17 15:00 101 15 139/79 99 Nasal Cannula 2.0 01/30/17 14:30 99 15 122/89 99 Nasal Cannula 2.0 01/30/17 14:00 103 15 139/80 99 Nasal Cannula 2.0 01/30/17 13:30 98 15 132/70 99 Nasal Cannula 2.0 01/30/17 13:00 101 14 130/72 99 Nasal Cannula 2.0 01/30/17 12:30 100 14 133/72 99 Nasal Cannula 2.0 01/30/17 12:00 98.9 103 16 135/82 98 Nasal Cannula 2.0 01/30/17 12:00 102 01/30/17 11:30 104 13 132/70 99 Nasal Cannula 2.0 01/30/17 11:30 99.0 01/30/17 11:00 104 12 127/78 99 Nasal Cannula 2.0 01/30/17 10:30 107 12 119/70 99 Nasal Cannula 2.0 01/30/17 10:00 109 12 115/79 99 Nasal Cannula 2.0 01/30/17 09:30 111 14 124/67 99 Nasal Cannula 2.0 01/30/17 09:30 93 2.0 28 01/30/17 09:29 Nasal Cannula 2.0 28 01/30/17 09:00 111 14 124/67 99 Nasal Cannula 2.0 01/30/17 08:52 155/81 01/30/17 08:40 Nasal Cannula 2.0 01/30/17 08:30 112 18 142/86 99 Mechanical Ventilator 40 01/30/17 08:00 40 01/30/17 08:00 99.0 112 16 137/86 98 Mechanical Ventilator 40 01/30/17 08:00 112 01/30/17 07:30 111 17 149/85 99 Mechanical Ventilator 40 01/30/17 07:21 110 18 40 01/30/17 07:00 109 16 131/76 99 Mechanical Ventilator 40 01/30/17 06:30 112 16 124/63 99 Mechanical Ventilator 40 01/30/17 06:00 117 16 133/88 99 Mechanical Ventilator 40 01/30/17 05:30 114 16 133/83 99 Mechanical Ventilator 40 01/30/17 05:15 119 18 40 01/30/17 05:00 116 16 133/83 98 Mechanical Ventilator 40 01/30/17 04:30 117 16 133/81 98 Mechanical Ventilator 40 01/30/17 04:00 40 01/30/17 04:00 120 01/30/17 04:00 99.1 119 17 134/78 98 Mechanical Ventilator 40 01/30/17 03:30 116 16 148/101 97 Mechanical Ventilator 40 01/30/17 03:30 114 16 40 01/30/17 03:00 115 16 138/89 98 Mechanical Ventilator 40 01/30/17 02:30 118 16 131/88 98 Mechanical Ventilator 40 01/30/17 02:00 117 16 146/91 98 Mechanical Ventilator 40 01/30/17 01:30 118 16 40 01/30/17 01:30 117 16 128/92 98 Mechanical Ventilator 40 01/30/17 01:00 117 16 134/86 100 Mechanical Ventilator 40 01/30/17 00:30 117 16 137/93 98 Mechanical Ventilator 40 01/30/17 00:00 40 01/30/17 00:00 117 16 118/74 100 Mechanical Ventilator 40 01/30/17 00:00 114 01/29/17 23:30 99.8 120 16 127/72 100 Mechanical Ventilator 40 01/29/17 23:10 120 16 40 01/29/17 23:00 120 16 112/66 100 Mechanical Ventilator 40 01/29/17 22:30 121 16 119/75 100 Mechanical Ventilator 40 01/29/17 22:00 125 19 123/83 99 Mechanical Ventilator 40 01/29/17 21:30 128 16 40 01/29/17 21:30 127 16 123/107 100 Mechanical Ventilator 40 01/29/17 21:00 124 16 149/97 100 Mechanical Ventilator 40 01/29/17 20:30 128 17 134/92 100 Mechanical Ventilator 40 01/29/17 20:14 116/69 01/29/17 20:00 123 01/29/17 20:00 40 01/29/17 20:00 122 17 116/69 100 Mechanical Ventilator 40 Intake and Output 01/29/17 01/30/17 19:00 07:00 Intake Total 215.5 ml 529.5 ml Output Total 3800 ml Balance -3584.5 ml 529.5 ml Free Water 100 ml IV Total 40.5 ml 49.5 ml Tube Feeding 75 ml 420 ml Other 60 ml Output Hemodialysis UF 3800 ml # Bowel Movements 2 Laboratory Tests 01/30/17 04:25: White Blood Count 13.3H, Red Blood Count 3.24L, Hemoglobin 8.8L, Hematocrit 27.6L, Mean Corpuscular Volume 85, Mean Corpuscular Hemoglobin 27.1, Mean Corpuscular Hemoglobin Concent 31.7L, Red Cell Distribution Width 14.7, Platelet Count 142L, Mean Platelet Volume 8.4, Neutrophils (%) (Auto) 79.1H, Lymphocytes (%) (Auto) 11.8L, Monocytes (%) (Auto) 7.3, Eosinophils (%) (Auto) 0.2, Basophils (%) (Auto) 1.6, Sodium Level 137, Potassium Level 4.2, Chloride Level 92L, Carbon Dioxide Level 28, Anion Gap 17H, Blood Urea Nitrogen 53H, Creatinine 5.3H, Estimat Glomerular Filtration Rate 9.8, Glucose Level 85, Calcium Level 7.5L, Phosphorus Level 6.3H, Magnesium Level 1.5L, Total Bilirubin 0.7, Aspartate Amino Transf (AST/SGOT) 36, Alanine Aminotransferase ( ALT/SGPT) 22, Alkaline Phosphatase 101, Troponin I < 0.30, Total Protein 6.9, Albumin 2.9L, Globulin 4.0, Albumin/Globulin Ratio 0.7L, Random Vancomycin Level 15.5 Height (Feet): 5 Height (Inches): 6.00 Weight (Pounds): 151 General Appearance: no apparent distress EENT: normal ENT inspection Neck: normal alignment Cardiovascular: normal peripheral pulses Respiratory/Chest: lungs clear Edema: no edema noted Pedal (L), no edema noted Pedal (R) Neurologic: anaesthetic technician II-XII grossly normal Skin: warm/dry Tomas Hodge Jan 30, 2017 19:59
[2017-01-30] MEDS: VENOFER IV SCH ×2 (20:38)
[2017-01-30] MEDS: [UNRECOGNIZED DRUG - OTHER] IV SCH ×2 (20:38)
[2017-01-30] MEDS: Epogen (for ESRD on dialysis) SUBQ SCH (20:44)
--- NOTE | 2017-01-30 22:26 | Cardiology Progress Note ---
Assessment/Plan Assessment/Plan 1. Accelerated HTN, resolved, off NTG drip, continue losartan. 2. Sinus tachycardia, resolved, in SR at 67. 3. Hx of DM 4. Hx of CAD, s/p IL 5. s/p respiratory failure Subjective Subjective Sinus rhythm at 67. s/p extubation. Objective Last 24 Hour Vital Signs Date Time Temp Pulse Resp B/P Pulse Ox O2 Delivery O2 Flow Rate FiO2 01/30/17 21:00 67 12 131/85 99 Nasal Cannula 2.0 01/30/17 20:00 104 01/30/17 20:00 98.7 105 15 132/85 99 Nasal Cannula 2.0 01/30/17 19:00 105 18 136/83 99 Nasal Cannula 2.0 01/30/17 18:54 99 Nasal Cannula 2.0 28 01/30/17 18:54 Nasal Cannula 2.0 28 01/30/17 18:53 105 18 Nasal Cannula 2.0 28 01/30/17 18:00 106 17 134/77 99 Nasal Cannula 2.0 01/30/17 17:00 114 16 141/89 99 Nasal Cannula 2.0 01/30/17 16:00 105 01/30/17 16:00 98.4 106 15 102/90 99 Nasal Cannula 2.0 01/30/17 15:00 101 15 139/79 99 Nasal Cannula 2.0 01/30/17 14:30 99 15 122/89 99 Nasal Cannula 2.0 01/30/17 14:00 103 15 139/80 99 Nasal Cannula 2.0 01/30/17 13:30 98 15 132/70 99 Nasal Cannula 2.0 01/30/17 13:00 101 14 130/72 99 Nasal Cannula 2.0 01/30/17 12:30 100 14 133/72 99 Nasal Cannula 2.0 01/30/17 12:00 98.9 103 16 135/82 98 Nasal Cannula 2.0 01/30/17 12:00 102 01/30/17 11:30 104 13 132/70 99 Nasal Cannula 2.0 01/30/17 11:30 99.0 01/30/17 11:00 104 12 127/78 99 Nasal Cannula 2.0 01/30/17 10:30 107 12 119/70 99 Nasal Cannula 2.0 01/30/17 10:00 109 12 115/79 99 Nasal Cannula 2.0 01/30/17 09:30 111 14 124/67 99 Nasal Cannula 2.0 01/30/17 09:30 93 2.0 28 01/30/17 09:29 Nasal Cannula 2.0 28 01/30/17 09:00 111 14 124/67 99 Nasal Cannula 2.0 01/30/17 08:52 155/81 01/30/17 08:40 Nasal Cannula 2.0 28 01/30/17 08:30 112 18 142/86 99 Mechanical Ventilator 40 01/30/17 08:00 40 01/30/17 08:00 99.0 112 16 137/86 98 Mechanical Ventilator 40 01/30/17 08:00 112 01/30/17 07:30 111 17 149/85 99 Mechanical Ventilator 40 01/30/17 07:21 110 18 40 01/30/17 07:00 109 16 131/76 99 Mechanical Ventilator 40 01/30/17 06:30 112 16 124/63 99 Mechanical Ventilator 40 01/30/17 06:00 117 16 133/88 99 Mechanical Ventilator 40 01/30/17 05:30 114 16 133/83 99 Mechanical Ventilator 40 01/30/17 05:15 119 18 40 01/30/17 05:00 116 16 133/83 98 Mechanical Ventilator 40 01/30/17 04:30 117 16 133/81 98 Mechanical Ventilator 40 01/30/17 04:00 40 01/30/17 04:00 120 01/30/17 04:00 99.1 119 17 134/78 98 Mechanical Ventilator 40 01/30/17 03:30 116 16 148/101 97 Mechanical Ventilator 40 01/30/17 03:30 114 16 40 01/30/17 03:00 115 16 138/89 98 Mechanical Ventilator 40 01/30/17 02:30 118 16 131/88 98 Mechanical Ventilator 40 01/30/17 02:00 117 16 146/91 98 Mechanical Ventilator 40 01/30/17 01:30 118 16 40 01/30/17 01:30 117 16 128/92 98 Mechanical Ventilator 40 01/30/17 01:00 117 16 134/86 100 Mechanical Ventilator 40 01/30/17 00:30 117 16 137/93 98 Mechanical Ventilator 40 01/30/17 00:00 40 01/30/17 00:00 117 16 118/74 100 Mechanical Ventilator 40 8/9/17 00:00 114 01/29/17 23:30 99.8 120 16 127/72 100 Mechanical Ventilator 40 01/29/17 23:10 120 16 40 01/29/17 23:00 120 16 112/66 100 Mechanical Ventilator 40 01/29/17 22:30 121 16 119/75 100 Mechanical Ventilator 40 Intake and Output 01/29/17 01/30/17 19:00 07:00 Intake Total 215.5 ml 529.5 ml Output Total 3800 ml Balance -3584.5 ml 529.5 ml Free Water 100 ml IV Total 40.5 ml 49.5 ml Tube Feeding 75 ml 420 ml Other 60 ml Output Hemodialysis UF 3800 ml # Bowel Movements 2 2D Echo: EF 55%, Mild LVH, Mild MR/AR, RVSP 32 mmHg, Grade I LVDD Laboratory Tests Test 01/30/17 04:25 White Blood Count 13.3 K/UL (4.8-10.8) H Red Blood Count 3.24 M/UL (4.20-5.40) L Hemoglobin 8.8 G/DL (12.0-16.0) L Hematocrit 27.6 % (37.0-47.0) L Mean Corpuscular Volume 85 FL (80-99) Mean Corpuscular Hemoglobin 27.1 PG (27.0-31.0) Mean Corpuscular Hemoglobin Concent 31.7 G/DL (32.0-36.0) L Red Cell Distribution Width 14.7 % (11.6-14.8) Platelet Count 142 K/UL (150-450) L Mean Platelet Volume 8.4 FL (6.5-10.1) Neutrophils (%) (Auto) 79.1 % (45.0-75.0) H Lymphocytes (%) (Auto) 11.8 % (20.0-45.0) L Monocytes (%) (Auto) 7.3 % (1.0-10.0) Eosinophils (%) (Auto) 0.2 % (0.0-3.0) Basophils (%) (Auto) 1.6 % (0.0-2.0) Sodium Level 137 mEQ/L (135-145) Potassium Level 4.2 mEQ/L (3.4-4.9) Chloride Level 92 mEQ/L (98-107) L Carbon Dioxide Level 28 mEQ/L (20-30) Anion Gap 17 (5-15) H Blood Urea Nitrogen 53 mg/dL (7-23) H Creatinine 5.3 mg/dL (0.5-0.9) H Estimat Glomerular Filtration Rate 9.8 mL/min (>60) Glucose Level 85 mg/dL (74-106) Calcium Level 7.5 mg/dL (8.6-10.2) L Phosphorus Level 6.3 mg/dL (2.5-4.8) H Magnesium Level 1.5 mg/dL (1.7-2.5) L Total Bilirubin 0.7 mg/dL (0.0-1.2) Aspartate Amino Transf (AST/SGOT) 36 U/L (5-40) Alanine Aminotransferase (ALT/SGPT) 22 U/L (3-33) Alkaline Phosphatase 101 U/L (35-104) Troponin I < 0.30 ng/mL (<=0.30) Total Protein 6.9 g/dL (6.6-8.7) Albumin 2.9 g/dL (3.5-5.2) L Globulin 4.0 g/dL Albumin/Globulin Ratio 0.7 (1.0-2.7) L Random Vancomycin Level 15.5 ug/mL Microbiology Date/Time Source Procedure Growth Status 01/28/17 16:00 Blood Blood Culture - Preliminary NO GROWTH AFTER 24 HOURS Resulted 01/29/17 11:25 Sputum Gram Stain - Final Resulted 01/29/17 11:25 Sputum Sputum Culture Pending Resulted Objective HEENT: Atraumatic, normocephalic, periorbital edema. Extraocular movement intact. Awake. NECK: JVD negative, no carotid bruit, upstroke 2+ B/L LUNGS: Decreased breath sounds on both side. CARDIAC: Regular rate and rhythm. S1 and S2, No murmurs, gallops or rubs. ABDOMEN: Soft, nontender, and nondistended, + BS EXTREMITIES: 2+ B/L edema, no clubbing or cyanosis. PREM BIGGS Jan 30, 2017 22:26
[2017-01-31] VITALS (15 sets, daily range): BP systolic 107–151; BP diastolic 60–91
[2017-01-31] MEDS: Norco 5mg/325mg tab NG PRN ×3 (02:15→16:41)
[2017-01-31 06:05] LABS: MEAN CORPUSCULAR HEMOGLOBIN 27.5 PG (27.0-31.0); MEAN CORPUSCULAR HGB CONC 32.1 G/DL (32.0-36.0); MEAN CORPUSCULAR VOLUME 86 FL (80-99); MEAN PLATELET VOLUME 8.7 FL (6.5-10.1); PLATELET COUNT 151 K/UL (150-450); RED BLOOD COUNT 2.85 M/UL (4.20-5.40); RED CELL DISTRIBUTION WIDTH 14.5 % (11.6-14.8); WHITE BLOOD COUNT 11.4 K/UL (4.8-10.8)
[2017-01-31 06:11] LABS: ALBUMIN/GLOBULIN RATIO 0.9 (1.0-2.7); CALCIUM 6.8 mg/dL (8.6-10.2); CREATININE 7.4 mg/dL (0.5-0.9); GLOMERULAR FILTRATION RATE 6.7 mL/min (>60); POTASSIUM 4.7 mEQ/L (3.4-4.9); TOTAL PROTEIN 6.5 g/dL (6.6-8.7)
[2017-01-31] MEDS: Piperacillin/Tazobactam 2.25 GM in D5W 55 ML IV SCH ×3 (06:31→22:28)
[2017-01-31] MEDS: Nitroglycerin 50mg/250ml btl 250 ML IV SCH (08:01)
[2017-01-31 08:14] LABS: PHOSPHORUS 9.6 mg/dL (2.5-4.8)
[2017-01-31] MEDS: Losartan 50mg tab GT SCH (08:14)
[2017-01-31] MEDS: Doxazosin 1mg Tab GT SCH ×2 (08:15→18:05)
[2017-01-31] MEDS: Heparin 5000 units/ml inj SUBQ SCH ×2 (08:15→20:07)
[2017-01-31] MEDS: DuoNeb 0.5-3(2.5)mg/3ml neb HHN PRN (14:32)
--- NOTE | 2017-01-31 15:14 | Nephrology Progress Note ---
Assessment/Plan Assessment 1. Hyperkalemia. 2. Hypocalcemia. 3. Fluid overload. 4. Respiratory failure. 5. Pulmonary edema. 6. Sepsis. Plan plan to repeat dialysis today monitoring electrolyte continue epogen Objective Objective Last 24 Hour Vital Signs Date Time Temp Pulse Resp B/P Pulse Ox O2 Delivery O2 Flow Rate FiO2 01/31/17 14:20 100 18 100 Nasal Cannula 2.0 01/31/17 14:10 93 21 93 Nasal Cannula 2.0 01/31/17 14:08 Nasal Cannula 2.0 28 01/31/17 12:30 Nasal Cannula 2.0 28 01/31/17 12:00 97.7 92 18 107/69 95 Nasal Cannula 2.0 01/31/17 11:04 69 15 126/67 100 Nasal Cannula 2.0 01/31/17 10:00 68 14 119/61 100 Nasal Cannula 2.0 01/31/17 09:00 69 14 121/75 100 Nasal Cannula 2.0 01/31/17 08:14 121/86 01/31/17 08:01 127/77 01/31/17 08:00 98.5 74 14 117/85 100 Nasal Cannula 2.0 01/31/17 08:00 68 01/31/17 07:07 Nasal Cannula 2.0 28 01/31/17 07:06 96 Nasal Cannula 2.0 28 01/31/17 07:05 95 18 Nasal Cannula 2.0 28 01/31/17 07:00 76 14 121/91 100 Nasal Cannula 2.0 01/31/17 06:00 93 14 130/81 100 Nasal Cannula 2.0 01/31/17 05:00 97 12 127/77 100 Nasal Cannula 2.0 01/31/17 04:00 98.7 91 15 128/79 99 Nasal Cannula 2.0 01/31/17 04:00 62 01/31/17 03:14 98.4 01/31/17 03:00 62 12 111/63 100 Nasal Cannula 2.0 01/31/17 02:00 63 15 113/60 100 Nasal Cannula 2.0 01/31/17 01:00 64 12 113/62 100 Nasal Cannula 2.0 01/31/17 00:00 96 01/31/17 00:00 98.4 95 12 128/77 100 Nasal Cannula 2.0 01/30/17 23:00 102 12 122/83 100 Nasal Cannula 2.0 01/30/17 22:00 68 12 127/76 100 Nasal Cannula 2.0 01/30/17 21:00 67 12 131/85 99 Nasal Cannula 2.0 01/30/17 20:00 104 01/30/17 20:00 98.7 105 15 132/85 99 Nasal Cannula 2.0 01/30/17 19:00 105 18 136/83 99 Nasal Cannula 2.0 01/30/17 18:54 99 Nasal Cannula 2.0 28 01/30/17 18:54 Nasal Cannula 2.0 28 01/30/17 18:53 105 18 Nasal Cannula 2.0 28 01/30/17 18:00 106 17 134/77 99 Nasal Cannula 2.0 01/30/17 17:00 114 16 141/89 99 Nasal Cannula 2.0 01/30/17 16:00 105 01/30/17 16:00 98.4 106 15 102/90 99 Nasal Cannula 2.0 Intake and Output 01/30/17 01/31/17 19:00 07:00 Intake Total 502.0 ml 270 ml Balance 502.0 ml 270 ml Intake Oral 70 ml IV Total 457.0 ml 170 ml Tube Feeding 45 ml Other 30 ml # Bowel Movements 2 6 Laboratory Tests 01/31/17 04:00: White Blood Count 11.4H, Red Blood Count 2.85L, Hemoglobin 7.8L, Hematocrit 24.4L, Mean Corpuscular Volume 86, Mean Corpuscular Hemoglobin 27.5, Mean Corpuscular Hemoglobin Concent 32.1, Red Cell Distribution Width 14.5, Platelet Count 151, Mean Platelet Volume 8.7, Neutrophils (%) (Auto) , Lymphocytes (%) ( Auto) , Monocytes (%) (Auto) , Eosinophils (%) (Auto) , Basophils (%) (Auto) , Sodium Level 135, Potassium Level 4.7, Chloride Level 88L, Carbon Dioxide Level 32H, Anion Gap 15, Blood Urea Nitrogen 75H, Creatinine 7.4H, Estimat Glomerular Filtration Rate 6.7, Glucose Level 81, Calcium Level 6.8L, Phosphorus Level 9.6H , Magnesium Level 2.0, Total Bilirubin 0.6, Aspartate Amino Transf (AST/SGOT) 29 , Alanine Aminotransferase (ALT/SGPT) 21, Alkaline Phosphatase 80, Total Protein 6.5L, Albumin 3.2L, Globulin 3.3, Albumin/Globulin Ratio 0.9L Height (Feet): 5 Height (Inches): 6.00 Weight (Pounds): 149 Objective HEAD AND NECK: . The patient has periorbital edema. ET tube is in place. Extraocular movement intact. The patient open her eyes to verbal stimuli. LUNGS: Decreased breathing sound on both side and crackles. CARDIAC: Regular rate and rhythm. S1 and S2. No murmur. No rub. ABDOMEN: Soft, nontender, and nondistended. EXTREMITIES: A 1 to 3+ edema. NEUROLOGIC: Cranial nerves II through XII intact. . The patient is moving but not following commands. CHARLENE FINN Jan 31, 2017 15:14
--- NOTE | 2017-01-31 18:08 | Pulmonology Progress Note ---
Assessment/Plan Assessment/Plan 1. Severe hyperkalemia. 2. Respiratory failure, intubated. 3. CHF w Pulmonary edema. 4. Malignant HTN 5. Coronary artery disease. 6. Chronic obstructive pulmonary disease. 7. Anemia, due to renal failure Plan tolerated extubation [place] prn adjust antibiotics, sput c/s noted dialysis, UF OT/PT dc plan Subjective Constitutional: Reports: no symptoms Respiratory: Reports: productive cough, Denies: shortness of breath Cardiovascular: Denies: chest pain Allergies: Coded Allergies: No Known Allergies (Unverified , 01/01/12) Objective Last 24 Hour Vital Signs Date Time Temp Pulse Resp B/P Pulse Ox O2 Delivery O2 Flow Rate FiO2 01/31/17 16:00 97.9 70 19 125/65 99 Nasal Cannula 2.0 01/31/17 15:47 Nasal Cannula 2.0 28 01/31/17 14:20 100 18 100 Nasal Cannula 2.0 01/31/17 14:10 93 21 93 Nasal Cannula 2.0 01/31/17 14:08 Nasal Cannula 2.0 28 01/31/17 12:30 Nasal Cannula 2.0 28 01/31/17 12:00 97.7 92 18 107/69 95 Nasal Cannula 2.0 01/31/17 12:00 67 01/31/17 11:04 69 15 126/67 100 Nasal Cannula 2.0 01/31/17 10:00 68 14 119/61 100 Nasal Cannula 2.0 01/31/17 09:00 69 14 121/75 100 Nasal Cannula 2.0 01/31/17 08:14 121/86 01/31/17 08:01 127/77 01/31/17 08:00 98.5 74 14 117/85 100 Nasal Cannula 2.0 01/31/17 08:00 68 01/31/17 07:07 Nasal Cannula 2.0 28 01/31/17 07:06 96 Nasal Cannula 2.0 28 01/31/17 07:05 95 18 Nasal Cannula 2.0 28 01/31/17 07:00 76 14 121/91 100 Nasal Cannula 2.0 01/31/17 06:00 93 14 130/81 100 Nasal Cannula 2.0 01/31/17 05:00 97 12 127/77 100 Nasal Cannula 2.0 01/31/17 04:00 98.7 91 15 128/79 99 Nasal Cannula 2.0 01/31/17 04:00 62 01/31/17 03:14 98.4 01/31/17 03:00 62 12 111/63 100 Nasal Cannula 2.0 01/31/17 02:00 63 15 113/60 100 Nasal Cannula 2.0 01/31/17 01:00 64 12 113/62 100 Nasal Cannula 2.0 01/31/17 00:00 96 01/31/17 00:00 98.4 95 12 128/77 100 Nasal Cannula 2.0 01/30/17 23:00 102 12 122/83 100 Nasal Cannula 2.0 01/30/17 22:00 68 12 127/76 100 Nasal Cannula 2.0 01/30/17 21:00 67 12 131/85 99 Nasal Cannula 2.0 01/30/17 20:00 104 01/30/17 20:00 98.7 105 15 132/85 99 Nasal Cannula 2.0 01/30/17 19:00 105 18 136/83 99 Nasal Cannula 2.0 01/30/17 18:54 99 Nasal Cannula 2.0 28 01/30/17 18:54 Nasal Cannula 2.0 28 01/30/17 18:53 105 18 Nasal Cannula 2.0 28 Intake and Output 01/30/17 01/31/17 19:00 07:00 Intake Total 502.0 ml 270 ml Balance 502.0 ml 270 ml Intake Oral 70 ml IV Total 457.0 ml 170 ml Tube Feeding 45 ml Other 30 ml # Bowel Movements 2 6 General Appearance: no acute distress Respiratory/Chest: lungs clear Cardiovascular: normal rate Abdomen: soft, non tender Microbiology Date/Time Source Procedure Growth Status 01/29/17 11:25 Sputum Gram Stain - Final Resulted 01/29/17 11:25 Sputum Culture - Preliminary Gram Negative Bacillus 1 Resulted Laboratory Tests 01/31/17 04:00: White Blood Count 11.4H, Red Blood Count 2.85L, Hemoglobin 7.8L, Hematocrit 24.4L, Mean Corpuscular Volume 86, Mean Corpuscular Hemoglobin 27.5, Mean Corpuscular Hemoglobin Concent 32.1, Red Cell Distribution Width 14.5, Platelet Count 151, Mean Platelet Volume 8.7, Neutrophils (%) (Auto) , Lymphocytes (%) ( Auto) , Monocytes (%) (Auto) , Eosinophils (%) (Auto) , Basophils (%) (Auto) , Sodium Level 135, Potassium Level 4.7, Chloride Level 88L, Carbon Dioxide Level 32H, Anion Gap 15, Blood Urea Nitrogen 75H, Creatinine 7.4H, Estimat Glomerular Filtration Rate 6.7, Glucose Level 81, Calcium Level 6.8L, Phosphorus Level 9.6H , Magnesium Level 2.0, Total Bilirubin 0.6, Aspartate Amino Transf (AST/SGOT) 29 , Alanine Aminotransferase (ALT/SGPT) 21, Alkaline Phosphatase 80, Total Protein 6.5L, Albumin 3.2L, Globulin 3.3, Albumin/Globulin Ratio 0.9L Current Medications Medications (Trade) Dose Ordered Sig/Winter Route PRN Reason Start Time Stop Time Status Last Admin Dose Admin Acetaminophen (Tylenol) 650 mg Q4H PRN ORAL Fever 01/31/17 12:00 03/02/17 11:59 Acetaminophen/ Hydrocodone Bitart ([place] 5/325) 1 tab Q4H PRN NG Moderate Pain (Pain Scale 4-6) 01/31/17 12:30 02/07/17 12:29 01/31/17 16:41 Albuterol/ Ipratropium (DuoNeb 0.5-3(2.5)mg/3ml) 3 ml Q4H PRN HHN Shortness of Breath 01/31/17 12:05 02/05/17 12:04 01/31/17 14:32 Chlorhexidine Gluconate (Katya-Hex 2%) 1 applic BEDTIME TOPIC 01/31/17 21:00 03/02/17 20:59 Dextrose (Dextrose 50%) STAT PRN IV Hypoglycemia 02/01/17 12:00 03/03/17 11:59 Doxazosin Mesylate (Cardura) 2.5 mg BID GT 01/31/17 18:00 03/02/17 17:59 Epoetin Vijay (Procrit (for ESRD on dialysis)) 10,000 units MON-WED-SAT SUBQ 02/01/17 21:00 03/03/17 20:59 Gabapentin (Neurontin) 300 mg THREE TIMES A DAY GT 01/31/17 13:00 03/02/17 12:59 Heparin Sodium (Porcine) (Heparin 5000 units/ml) 5,000 units EVERY 12 HOURS SUBQ 01/31/17 21:00 03/02/17 20:59 Iron Sucrose 100 mg/Sodium Chloride 60 ml @ 240 mls/hr Q24H IV 01/31/17 21:00 02/02/17 21:01 Losartan Potassium (Cozaar) 100 mg DAILY GT 02/01/17 09:00 03/03/17 08:59 Methadone HCl (Methadone HCl) 40 mg QHS GT 01/31/17 21:00 02/07/17 20:59 Piperacillin Sod/ Tazobactam Sod/ Dextrose (Zosyn/D5W) 55 ml @ 110 mls/hr Q8H IV 01/31/17 15:00 02/05/17 22:59 01/31/17 15:52 Polyethylene Glycol (Miralax) 17 gm DAILYPRN PRN GT Constipation 01/31/17 21:00 03/02/17 20:59 Temazepam (Restoril) 15 mg HSPRN PRN GT Insomnia 01/31/17 21:00 02/07/17 20:59 AUGIE CAREY Jan 31, 2017 18:08
[2017-01-31] MEDS: Iron Sucrose 100 MG in NS 55 ML IV SCH (20:03)
[2017-01-31] MEDS: Dyna-Hex 2% Top Sol 8oz TOPIC SCH (20:05)
[2017-01-31] MEDS ORDERED: Miralax 17gm pkt GT PRN (21:00)
[2017-01-31] MEDS ORDERED: Dyna-Hex 2% Top Sol 8oz TOPIC SCH (21:00)
[2017-02-01] VITALS: BP 150/88
[2017-02-01] MEDS: Norco 5mg/325mg tab NG PRN ×4 (02:50→20:50)
[2017-02-01 04:00] VITALS: BP 142/89
[2017-02-01] MEDS: Piperacillin/Tazobactam 2.25 GM in D5W 55 ML IV SCH ×3 (06:02→22:28)
[2017-02-01 06:09] LABS: BASOPHILS % (AUTO) 0.9 % (0.0-2.0); EOSINOPHILS % (AUTO) 1.3 % (0.0-3.0); LYMPHOCYTES % (AUTO) 12.9 % (20.0-45.0); MEAN CORPUSCULAR HEMOGLOBIN 26.4 PG (27.0-31.0); MEAN CORPUSCULAR HGB CONC 30.6 G/DL (32.0-36.0); MEAN CORPUSCULAR VOLUME 86 FL (80-99); MEAN PLATELET VOLUME 9.3 FL (6.5-10.1); MONOCYTES % (AUTO) 6.5 % (1.0-10.0); NEUTROPHILS % (AUTO) 78.3 % (45.0-75.0); PLATELET COUNT 187 K/UL (150-450); RED BLOOD COUNT 3.24 M/UL (4.20-5.40); WHITE BLOOD COUNT 9.2 K/UL (4.8-10.8)
[2017-02-01 06:22] LABS: ALBUMIN/GLOBULIN RATIO 0.8 (1.0-2.7); CALCIUM 7.3 mg/dL (8.6-10.2); CREATININE 5.9 mg/dL (0.5-0.9); GLOMERULAR FILTRATION RATE 8.6 mL/min (>60); POTASSIUM 4.3 mEQ/L (3.4-4.9)
[2017-02-01 08:00] VITALS: BP 121/70
[2017-02-01] MEDS: Doxazosin 1mg Tab GT SCH ×2 (09:00→19:00)
--- NOTE | 2017-02-01 09:31 | Pulmonology Progress Note ---
Assessment/Plan Assessment/Plan 1. Severe hyperkalemia. 2. Respiratory failure, intubated. 3. CHF w Pulmonary edema. 4. Malignant HTN 5. Coronary artery disease. 6. Chronic obstructive pulmonary disease. 7. Anemia, due to renal failure 8. Pneumonia, RLL due to enterobacter aerogenes Plan f/u CXR [place] prn cont Zosyn per sensi, sput c/s noted dialysis, UF OT/PT dc plan prob Mon Subjective Constitutional: Reports: other - weak, Denies: fever Respiratory: Reports: productive cough Cardiovascular: Denies: chest pain Allergies: Coded Allergies: No Known Allergies (Unverified , 01/01/12) Objective Last 24 Hour Vital Signs Date Time Temp Pulse Resp B/P Pulse Ox O2 Delivery O2 Flow Rate FiO2 02/01/17 08:30 82 18 Nasal Cannula 2.0 28 02/01/17 08:30 Nasal Cannula 2.0 28 02/01/17 08:30 97 Nasal Cannula 2.0 28 02/01/17 08:00 98.2 79 19 121/70 96 Nasal Cannula 2.0 02/01/17 04:00 98.4 99 20 142/89 98 Nasal Cannula 2.0 28 02/01/17 04:00 97 02/01/17 03:49 97.7 02/01/17 00:00 97 02/01/17 00:00 97.7 101 20 150/88 98 Nasal Cannula 2.0 28 01/31/17 20:08 73 18 Nasal Cannula 2.0 28 01/31/17 20:08 Nasal Cannula 2.0 28 01/31/17 20:08 98 Nasal Cannula 2.0 28 01/31/17 20:00 81 01/31/17 20:00 97.7 71 20 151/81 98 Nasal Cannula 2.0 28 01/31/17 16:00 97.9 70 19 125/65 99 Nasal Cannula 2.0 01/31/17 16:00 73 01/31/17 15:47 Nasal Cannula 2.0 28 01/31/17 14:20 100 18 100 Nasal Cannula 2.0 01/31/17 14:10 93 21 93 Nasal Cannula 2.0 01/31/17 14:08 Nasal Cannula 2.0 28 01/31/17 12:30 Nasal Cannula 2.0 28 01/31/17 12:00 97.7 92 18 107/69 95 Nasal Cannula 2.0 01/31/17 12:00 67 01/31/17 11:04 69 15 126/67 100 Nasal Cannula 2.0 01/31/17 10:00 68 14 119/61 100 Nasal Cannula 2.0 Intake and Output 01/31/17 02/01/17 19:00 07:00 Intake Total 535 ml 350 ml Output Total 3100 ml Balance -2565 ml 350 ml Intake Oral 480 ml IV Total 55 ml 350 ml Output Hemodialysis UF 3100 ml # Voids 1 # Bowel Movements 4 1 Objective face still puffy General Appearance: no acute distress Respiratory/Chest: crackles/rales - right w consolidation Cardiovascular: normal rate Microbiology Date/Time Source Procedure Growth Status 01/29/17 11:25 Sputum Gram Stain - Final Complete 01/29/17 11:25 Sputum Culture - Final Enterobacter Aerogenes Complete Laboratory Tests 02/01/17 04:00: White Blood Count 9.2, Red Blood Count 3.24L, Hemoglobin 8.6L, Hematocrit 28.0L , Mean Corpuscular Volume 86, Mean Corpuscular Hemoglobin 26.4L, Mean Corpuscular Hemoglobin Concent 30.6L, Red Cell Distribution Width 15.0H, Platelet Count 187, Mean Platelet Volume 9.3, Neutrophils (%) (Auto) 78.3H, Lymphocytes (%) (Auto) 12.9L, Monocytes (%) (Auto) 6.5, Eosinophils (%) (Auto) 1.3, Basophils (%) (Auto) 0.9, Sodium Level 137, Potassium Level 4.3, Chloride Level 89L, Carbon Dioxide Level 34H, Anion Gap 14, Blood Urea Nitrogen 47#H, Creatinine 5.9H, Estimat Glomerular Filtration Rate 8.6, Glucose Level 88, Calcium Level 7.3L, Total Bilirubin 0.4, Aspartate Amino Transf (AST/SGOT) 30, Alanine Aminotransferase (ALT/SGPT) 21, Alkaline Phosphatase 81, Total Protein 7.0, Albumin 3.3L, Globulin 3.7, Albumin/Globulin Ratio 0.8L Current Medications Medications (Trade) Dose Ordered Sig/Winter Route PRN Reason Start Time Stop Time Status Last Admin Dose Admin Acetaminophen (Tylenol) 650 mg Q4H PRN ORAL Fever 01/31/17 12:00 03/02/17 11:59 Acetaminophen/ Hydrocodone Bitart ([place] 5/325) 1 tab Q4H PRN NG Moderate Pain (Pain Scale 4-6) 01/31/17 12:30 02/07/17 12:29 02/01/17 02:50 Albuterol/ Ipratropium (DuoNeb 0.5-3(2.5)mg/3ml) 3 ml Q4H PRN HHN Shortness of Breath 01/31/17 12:05 02/05/17 12:04 01/31/17 14:32 Chlorhexidine Gluconate (Katya-Hex 2%) 1 applic BEDTIME TOPIC 01/31/17 21:00 03/02/17 20:59 01/31/17 20:05 Dextrose (Dextrose 50%) STAT PRN IV Hypoglycemia 02/01/17 12:00 03/03/17 11:59 Doxazosin Mesylate (Cardura) 2.5 mg BID GT 01/31/17 18:00 03/02/17 17:59 01/31/17 18:05 Epoetin Vijay (Procrit (for ESRD on dialysis)) 10,000 units SAT-SAT-SAT SUBQ 02/01/17 21:00 03/03/17 20:59 Gabapentin (Neurontin) 300 mg THREE TIMES A DAY GT 01/31/17 13:00 03/02/17 12:59 01/31/17 18:05 Heparin Sodium (Porcine) (Heparin 5000 units/ml) 5,000 units EVERY 12 HOURS SUBQ 01/31/17 21:00 03/02/17 20:59 01/31/17 20:07 Iron Sucrose 100 mg/Sodium Chloride 60 ml @ 240 mls/hr Q24H IV 01/31/17 21:00 02/02/17 21:01 01/31/17 20:03 Losartan Potassium (Cozaar) 100 mg DAILY GT 02/01/17 09:00 03/03/17 08:59 Methadone HCl (Methadone HCl) 40 mg DAILY GT 02/01/17 09:20 02/08/17 09:19 Piperacillin Sod/ Tazobactam Sod/ Dextrose (Zosyn/D5W) 55 ml @ 110 mls/hr Q8H IV 01/31/17 15:00 02/05/17 22:59 02/01/17 06:02 Polyethylene Glycol (Miralax) 17 gm DAILYPRN PRN GT Constipation 01/31/17 21:00 03/02/17 20:59 Temazepam (Restoril) 15 mg HSPRN PRN GT Insomnia 01/31/17 21:00 02/07/17 20:59 AUGIE CAREY Feb 01, 2017 09:31
[2017-02-01] MEDS: Losartan 50mg tab GT SCH (10:01)
[2017-02-01] MEDS: Heparin 5000 units/ml inj SUBQ SCH ×2 (10:02→20:53)
[2017-02-01] MEDS ORDERED: NS 275ml ONE ×3 (10:24→10:50)
[2017-02-01] MEDS ORDERED: Tubing IV Secondary IV ONE ×3 (10:24→10:50)
[2017-02-01 12:00] VITALS: BP 135/82
--- NOTE | 2017-02-01 12:11 | Diagnostic Imaging Report ---
Indication: Dyspnea Comparison: 01/30/17 A single view chest radiograph was obtained. Findings: Mild interstitial edema suspected. The heart is enlarged. Right jugular central line is in good position. Lung volumes are low. Patient has been extubated. Impression: Right jugular line in good position. Mild interstitial edema
[2017-02-01 16:00] VITALS: BP 136/73
--- NOTE | 2017-02-01 16:20 | Nephrology Progress Note ---
Assessment/Plan Assessment 1. Hyperkalemia. 2. Hypocalcemia. 3. Fluid overload. 4. Respiratory failure. 5. Pulmonary edema. 6. Sepsis. Plan plan to repeat dialysis as schedule monitoring electrolyte continue epogen Subjective Constitutional: Reports: malaise, no symptoms, weakness HEENT: Reports: no symptoms Genitourinary: Reports: no symptoms 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: Reports: no symptoms Subjective alert and awake c/o cough Objective Objective Last 24 Hour Vital Signs Date Time Temp Pulse Resp B/P Pulse Ox O2 Delivery O2 Flow Rate FiO2 02/01/17 16:00 97.9 66 19 136/73 97 Nasal Cannula 2.0 02/01/17 12:00 95 02/01/17 12:00 98.1 98 19 135/82 Nasal Cannula 02/01/17 10:01 121/70 02/01/17 08:30 82 18 Nasal Cannula 2.0 28 02/01/17 08:30 Nasal Cannula 2.0 28 02/01/17 08:30 97 Nasal Cannula 2.0 28 02/01/17 08:00 96 02/01/17 08:00 98.2 79 19 121/70 96 Nasal Cannula 2.0 02/01/17 04:00 98.4 99 20 142/89 98 Nasal Cannula 2.0 28 02/01/17 04:00 97 02/01/17 03:49 97.7 02/01/17 00:00 97 02/01/17 00:00 97.7 101 20 150/88 98 Nasal Cannula 2.0 28 01/31/17 20:08 73 18 Nasal Cannula 2.0 28 01/31/17 20:08 Nasal Cannula 2.0 28 01/31/17 20:08 98 Nasal Cannula 2.0 28 01/31/17 20:00 81 01/31/17 20:00 97.7 71 20 151/81 98 Nasal Cannula 2.0 28 Intake and Output 01/31/17 02/01/17 19:00 07:00 Intake Total 535 ml 350 ml Output Total 3100 ml Balance -2565 ml 350 ml Intake Oral 480 ml IV Total 55 ml 350 ml Output Hemodialysis UF 3100 ml # Voids 1 # Bowel Movements 4 1 Laboratory Tests 02/01/17 04:00: White Blood Count 9.2, Red Blood Count 3.24L, Hemoglobin 8.6L, Hematocrit 28.0L , Mean Corpuscular Volume 86, Mean Corpuscular Hemoglobin 26.4L, Mean Corpuscular Hemoglobin Concent 30.6L, Red Cell Distribution Width 15.0H, Platelet Count 187, Mean Platelet Volume 9.3, Neutrophils (%) (Auto) 78.3H, Lymphocytes (%) (Auto) 12.9L, Monocytes (%) (Auto) 6.5, Eosinophils (%) (Auto) 1.3, Basophils (%) (Auto) 0.9, Sodium Level 137, Potassium Level 4.3, Chloride Level 89L, Carbon Dioxide Level 34H, Anion Gap 14, Blood Urea Nitrogen 47#H, Creatinine 5.9H, Estimat Glomerular Filtration Rate 8.6, Glucose Level 88, Calcium Level 7.3L, Total Bilirubin 0.4, Aspartate Amino Transf (AST/SGOT) 30, Alanine Aminotransferase (ALT/SGPT) 21, Alkaline Phosphatase 81, Total Protein 7.0, Albumin 3.3L, Globulin 3.7, Albumin/Globulin Ratio 0.8L Height (Feet): 5 Height (Inches): 6.00 Weight (Pounds): 149 Objective HEAD AND NECK: . The patient has periorbital edema. ET tube is in place. Extraocular movement intact. The patient open her eyes to verbal stimuli. LUNGS: Decreased breathing sound on both side and crackles. CARDIAC: Regular rate and rhythm. S1 and S2. No murmur. No rub. ABDOMEN: Soft, nontender, and nondistended. EXTREMITIES: A 1 to 3+ edema. NEUROLOGIC: Cranial nerves II through XII intact. . The patient is moving but not following commands. CHARLENE FINN Feb 01, 2017 16:20
[2017-02-01 20:00] VITALS: BP 117/74
[2017-02-01] MEDS: Epogen (for ESRD on dialysis) SUBQ SCH (20:50)
[2017-02-01] MEDS: Iron Sucrose 100 MG in NS 55 ML IV SCH (20:50)
[2017-02-01] MEDS: Dyna-Hex 2% Top Sol 8oz TOPIC SCH (20:53)
--- NOTE | 2017-02-01 22:54 | Cardiology Progress Note ---
Assessment/Plan Assessment/Plan 1. Accelerated HTN, resolved, continue losartan. 2. Sinus tachycardia, resolved, in SR at 64. 3. Hx of DM 4. Hx of CAD, s/p [place] 5. s/p respiratory failure 6. RLL pneumonia Subjective Subjective Transferred to the telemetry unit. Sinus rhythm at 64. Objective Last 24 Hour Vital Signs Date Time Temp Pulse Resp B/P Pulse Ox O2 Delivery O2 Flow Rate FiO2 02/01/17 20:00 64 02/01/17 20:00 98.2 67 18 117/74 95 Nasal Cannula 2.0 28 02/01/17 19:47 97 Nasal Cannula 2.0 28 02/01/17 19:47 65 18 Nasal Cannula 2.0 28 02/01/17 19:47 Nasal Cannula 2.0 28 02/01/17 17:09 97.9 02/01/17 16:00 68 02/01/17 16:00 97.9 66 19 136/73 97 Nasal Cannula 2.0 02/01/17 12:00 95 02/01/17 12:00 98.1 98 19 135/82 Nasal Cannula 02/01/17 10:01 121/70 02/01/17 08:30 82 18 Nasal Cannula 2.0 28 02/01/17 08:30 Nasal Cannula 2.0 28 02/01/17 08:30 97 Nasal Cannula 2.0 28 02/01/17 08:00 96 02/01/17 08:00 98.2 79 19 121/70 96 Nasal Cannula 2.0 02/01/17 04:00 98.4 99 20 142/89 98 Nasal Cannula 2.0 28 02/01/17 04:00 97 02/01/17 00:00 97 02/01/17 00:00 97.7 101 20 150/88 98 Nasal Cannula 2.0 28 Intake and Output 01/31/17 02/01/17 19:00 07:00 Intake Total 535 ml 350 ml Output Total 3100 ml Balance -2565 ml 350 ml Intake Oral 480 ml IV Total 55 ml 350 ml Output Hemodialysis UF 3100 ml # Voids 1 # Bowel Movements 4 1 2D Echo: EF 55%, Mild LVH, Mild MR/AR, RVSP 32 mmHg, Grade I LVDD Laboratory Tests Test 02/01/17 04:00 White Blood Count 9.2 K/UL (4.8-10.8) Red Blood Count 3.24 M/UL (4.20-5.40) L Hemoglobin 8.6 G/DL (12.0-16.0) L Hematocrit 28.0 % (37.0-47.0) L Mean Corpuscular Volume 86 FL (80-99) Mean Corpuscular Hemoglobin 26.4 PG (27.0-31.0) L Mean Corpuscular Hemoglobin Concent 30.6 G/DL (32.0-36.0) L Red Cell Distribution Width 15.0 % (11.6-14.8) H Platelet Count 187 K/UL (150-450) Mean Platelet Volume 9.3 FL (6.5-10.1) Neutrophils (%) (Auto) 78.3 % (45.0-75.0) H Lymphocytes (%) (Auto) 12.9 % (20.0-45.0) L Monocytes (%) (Auto) 6.5 % (1.0-10.0) Eosinophils (%) (Auto) 1.3 % (0.0-3.0) Basophils (%) (Auto) 0.9 % (0.0-2.0) Sodium Level 137 mEQ/L (135-145) Potassium Level 4.3 mEQ/L (3.4-4.9) Chloride Level 89 mEQ/L (98-107) L Carbon Dioxide Level 34 mEQ/L (20-30) H Anion Gap 14 (5-15) Blood Urea Nitrogen 47 mg/dL (7-23) #H Creatinine 5.9 mg/dL (0.5-0.9) H Estimat Glomerular Filtration Rate 8.6 mL/min (>60) Glucose Level 88 mg/dL (74-106) Calcium Level 7.3 mg/dL (8.6-10.2) L Total Bilirubin 0.4 mg/dL (0.0-1.2) Aspartate Amino Transf (AST/SGOT) 30 U/L (5-40) Alanine Aminotransferase (ALT/SGPT) 21 U/L (3-33) Alkaline Phosphatase 81 U/L (35-104) Total Protein 7.0 g/dL (6.6-8.7) Albumin 3.3 g/dL (3.5-5.2) L Globulin 3.7 g/dL Albumin/Globulin Ratio 0.8 (1.0-2.7) L Objective HEENT: Atraumatic, normocephalic, periorbital edema. Extraocular movement intact. Awake. NECK: JVD negative, no carotid bruit, upstroke 2+ B/L LUNGS: Decreased breath sounds on both side. CARDIAC: Regular rate and rhythm. S1 and S2, No murmurs, gallops or rubs. ABDOMEN: Soft, nontender, and nondistended, + BS EXTREMITIES: 2+ B/L edema, no clubbing or cyanosis. PREM BIGGS Feb 01, 2017 22:54
[2017-02-02] VITALS (7 sets, daily range): BP systolic 113–178; BP diastolic 69–92
[2017-02-02 05:16] LABS: MEAN CORPUSCULAR HEMOGLOBIN 26.7 PG (27.0-31.0); MEAN CORPUSCULAR HGB CONC 30.5 G/DL (32.0-36.0); MEAN CORPUSCULAR VOLUME 87 FL (80-99); MEAN PLATELET VOLUME 7.2 FL (6.5-10.1); PLATELET COUNT 189 K/UL (150-450); RED BLOOD COUNT 2.91 M/UL (4.20-5.40); RED CELL DISTRIBUTION WIDTH 15.3 % (11.6-14.8)
[2017-02-02] MEDS: Piperacillin/Tazobactam 2.25 GM in D5W 55 ML IV SCH ×3 (06:13→22:27)
[2017-02-02] MEDS: Norco 5mg/325mg tab NG PRN ×3 (07:56→20:37)
[2017-02-02] MEDS: DuoNeb 0.5-3(2.5)mg/3ml neb HHN PRN ×3 (08:09→16:45)
[2017-02-02] MEDS: Losartan 50mg tab GT SCH (09:14)
[2017-02-02] MEDS: Doxazosin 1mg Tab GT SCH ×2 (09:14→18:00)
[2017-02-02] MEDS: Heparin 5000 units/ml inj SUBQ SCH ×2 (09:22→20:34)
--- NOTE | 2017-02-02 12:32 | Pulmonology Progress Note ---
Assessment/Plan Assessment/Plan Assessment/Plan 1. Severe hyperkalemia. 2. Respiratory failure, intubated. 3. CHF w Pulmonary edema. 4. Malignant HTN 5. Coronary artery disease. 6. Chronic obstructive pulmonary disease. 7. Anemia, due to renal failure 8. Pneumonia, RLL due to enterobacter aerogenes Plan f/u CXR [place] prn cont Zosyn per sensi, sput c/s noted dialysis, UF OT/PT dc plan prob Mon Subjective Allergies: Coded Allergies: No Known Allergies (Unverified , 01/01/12) Objective Last 24 Hour Vital Signs Date Time Temp Pulse Resp B/P Pulse Ox O2 Delivery O2 Flow Rate FiO2 02/02/17 11:35 96.6 78 18 144/87 100 Nasal Cannula 2.0 02/02/17 09:14 178/92 02/02/17 08:55 97.0 02/02/17 08:31 97.0 66 22 178/92 100 Nasal Cannula 2.0 02/02/17 08:22 87 18 98 Nasal Cannula 2.0 02/02/17 08:14 86 22 Nasal Cannula 2.0 02/02/17 08:13 Nasal Cannula 2.0 02/02/17 08:12 86 22 99 Nasal Cannula 2.0 02/02/17 08:12 99 Nasal Cannula 2.0 02/02/17 04:00 60 02/02/17 04:00 97.0 58 18 113/71 98 Nasal Cannula 2.0 28 02/02/17 00:00 97.9 67 18 137/76 98 Nasal Cannula 2.0 28 02/02/17 00:00 64 02/01/17 20:00 64 02/01/17 20:00 98.2 67 18 117/74 95 Nasal Cannula 2.0 28 02/01/17 19:47 97 Nasal Cannula 2.0 28 02/01/17 19:47 65 18 Nasal Cannula 2.0 28 02/01/17 19:47 Nasal Cannula 2.0 28 02/01/17 16:00 68 02/01/17 16:00 97.9 66 19 136/73 97 Nasal Cannula 2.0 Intake and Output 02/01/17 02/02/17 19:00 07:00 Intake Total 747.5 ml 448.66 ml Balance 747.5 ml 448.66 ml Intake Oral 720 ml IV Total 27.5 ml 448.66 ml # Voids 1 2 # Bowel Movements 1 1 Laboratory Tests 02/02/17 05:00: White Blood Count 8.0, Red Blood Count 2.91L, Hemoglobin 7.8L, Hematocrit 25.5L , Mean Corpuscular Volume 87, Mean Corpuscular Hemoglobin 26.7L, Mean Corpuscular Hemoglobin Concent 30.5L, Red Cell Distribution Width 15.3H, Platelet Count 189, Mean Platelet Volume 7.2, Neutrophils (%) (Auto) , Lymphocytes (%) (Auto) , Monocytes (%) (Auto) , Eosinophils (%) (Auto) , Basophils (%) (Auto) Current Medications Medications (Trade) Dose Ordered Sig/Winter Route PRN Reason Start Time Stop Time Status Last Admin Dose Admin Acetaminophen (Tylenol) 650 mg Q4H PRN ORAL Fever 01/31/17 12:00 03/02/17 11:59 Acetaminophen/ Hydrocodone Bitart ([place] 5/325) 1 tab Q4H PRN NG Moderate Pain (Pain Scale 4-6) 01/31/17 12:30 02/07/17 12:29 02/02/17 07:56 Albuterol/ Ipratropium (DuoNeb 0.5-3(2.5)mg/3ml) 3 ml Q4H PRN HHN Shortness of Breath 01/31/17 12:05 02/05/17 12:04 02/02/17 12:29 Chlorhexidine Gluconate ([place]-Hex 2%) 1 applic BEDTIME TOPIC 01/31/17 21:00 03/02/17 20:59 02/01/17 20:53 Dextrose (Dextrose 50%) STAT PRN IV Hypoglycemia 02/01/17 12:00 03/03/17 11:59 Doxazosin Mesylate (Cardura) 2.5 mg BID GT 01/31/17 18:00 03/02/17 17:59 02/02/17 09:14 Epoetin Vijay (Procrit (for ESRD on dialysis)) 10,000 units MON-WED-SAT SUBQ 02/01/17 21:00 03/03/17 20:59 02/01/17 20:50 Gabapentin (Neurontin) 300 mg THREE TIMES A DAY GT 01/31/17 13:00 03/02/17 12:59 02/02/17 09:13 Heparin Sodium (Porcine) (Heparin 5000 units/ml) 5,000 units EVERY 12 HOURS SUBQ 01/31/17 21:00 03/02/17 20:59 02/02/17 09:22 Iron Sucrose 100 mg/Sodium Chloride 60 ml @ 240 mls/hr Q24H IV 01/31/17 21:00 02/02/17 21:01 02/01/17 20:50 Losartan Potassium (Cozaar) 100 mg DAILY GT 02/01/17 09:00 03/03/17 08:59 02/02/17 09:14 Methadone HCl (Methadone HCl) 40 mg DAILY GT 02/01/17 09:20 02/08/17 09:19 02/02/17 09:21 Piperacillin Sod/ Tazobactam Sod/ Dextrose (Zosyn/D5W) 55 ml @ 110 mls/hr Q8H IV 01/31/17 15:00 02/05/17 22:59 02/02/17 06:13 Polyethylene Glycol (Miralax) 17 gm DAILYPRN PRN GT Constipation 01/31/17 21:00 03/02/17 20:59 Temazepam (Restoril) 15 mg HSPRN PRN GT Insomnia 01/31/17 21:00 02/07/17 20:59 SPENCER COKER DO Feb 02, 2017 12:31
--- NOTE | 2017-02-02 17:02 | Cardiology Progress Note ---
Assessment/Plan Assessment/Plan 1. Accelerated HTN, resolved, continue losartan. 2. Sinus tachycardia, resolved, in SR at 64. 3. Hx of DM, recommend ASA and statins. 4. Hx of CAD, s/p [place] 5. s/p respiratory failure 6. RLL pneumonia Subjective Subjective Sinus rhythm at 69. Objective Last 24 Hour Vital Signs Date Time Temp Pulse Resp B/P Pulse Ox O2 Delivery O2 Flow Rate FiO2 02/02/17 16:47 91 18 100 Nasal Cannula 2.0 02/02/17 16:00 69 02/02/17 15:46 97.3 65 18 119/72 100 Nasal Cannula 2.0 02/02/17 15:19 96.6 02/02/17 12:42 84 18 98 Nasal Cannula 2.0 02/02/17 12:32 80 20 98 Nasal Cannula 2.0 02/02/17 12:00 64 02/02/17 11:35 96.6 78 18 144/87 100 Nasal Cannula 2.0 02/02/17 09:14 178/92 02/02/17 08:31 97.0 66 22 178/92 100 Nasal Cannula 2.0 02/02/17 08:22 87 18 98 Nasal Cannula 2.0 02/02/17 08:14 86 22 Nasal Cannula 2.0 02/02/17 08:13 Nasal Cannula 2.0 02/02/17 08:12 86 22 99 Nasal Cannula 2.0 02/02/17 08:12 99 Nasal Cannula 2.0 02/02/17 08:00 67 02/02/17 04:00 60 02/02/17 04:00 97.0 58 18 113/71 98 Nasal Cannula 2.0 28 02/02/17 00:00 97.9 67 18 137/76 98 Nasal Cannula 2.0 28 02/02/17 00:00 64 02/01/17 20:00 64 02/01/17 20:00 98.2 67 18 117/74 95 Nasal Cannula 2.0 28 02/01/17 19:47 97 Nasal Cannula 2.0 28 02/01/17 19:47 65 18 Nasal Cannula 2.0 28 02/01/17 19:47 Nasal Cannula 2.0 28 Intake and Output 02/01/17 02/02/17 19:00 07:00 Intake Total 747.5 ml 448.66 ml Balance 747.5 ml 448.66 ml Intake Oral 720 ml IV Total 27.5 ml 448.66 ml # Voids 1 2 # Bowel Movements 1 1 2D Echo: EF 55%, Mild LVH, Mild MR/AR, RVSP 32 mmHg, Grade I LVDD Laboratory Tests Test 02/02/17 05:00 White Blood Count 8.0 K/UL (4.8-10.8) Red Blood Count 2.91 M/UL (4.20-5.40) L Hemoglobin 7.8 G/DL (12.0-16.0) L Hematocrit 25.5 % (37.0-47.0) L Mean Corpuscular Volume 87 FL (80-99) Mean Corpuscular Hemoglobin 26.7 PG (27.0-31.0) L Mean Corpuscular Hemoglobin Concent 30.5 G/DL (32.0-36.0) L Red Cell Distribution Width 15.3 % (11.6-14.8) H Platelet Count 189 K/UL (150-450) Mean Platelet Volume 7.2 FL (6.5-10.1) Neutrophils (%) (Auto) % (45.0-75.0) Lymphocytes (%) (Auto) % (20.0-45.0) Monocytes (%) (Auto) % (1.0-10.0) Eosinophils (%) (Auto) % (0.0-3.0) Basophils (%) (Auto) % (0.0-2.0) Objective HEENT: Atraumatic, normocephalic, periorbital edema. Extraocular movement intact. Awake. NECK: JVD negative, no carotid bruit, upstroke 2+ B/L LUNGS: Decreased breath sounds on both side. CARDIAC: Regular rate and rhythm. S1 and S2, No murmurs, gallops or rubs. ABDOMEN: Soft, nontender, and nondistended, + BS EXTREMITIES: 2+ B/L edema, no clubbing or cyanosis. PREM BIGGS Feb 02, 2017 17:02
[2017-02-02] MEDS: DuoNeb 0.5-3(2.5)mg/3ml neb HHN SCH ×2 (19:14→23:02)
[2017-02-02] MEDS: Iron Sucrose 100 MG in NS 55 ML IV SCH (20:31)
[2017-02-02] MEDS: Dyna-Hex 2% Top Sol 8oz TOPIC SCH (21:05)
[2017-02-03] VITALS: BP 134/74
[2017-02-03] MEDS: DuoNeb 0.5-3(2.5)mg/3ml neb HHN SCH ×5 (02:24→19:21)
[2017-02-03 04:00] VITALS: BP 148/86
[2017-02-03] MEDS: Norco 5mg/325mg tab NG PRN (05:26)
[2017-02-03] MEDS: Piperacillin/Tazobactam 2.25 GM in D5W 55 ML IV SCH ×3 (06:05→23:00)
[2017-02-03 07:05] LABS: MEAN CORPUSCULAR HEMOGLOBIN 26.5 PG (27.0-31.0); MEAN CORPUSCULAR HGB CONC 30.2 G/DL (32.0-36.0); MEAN CORPUSCULAR VOLUME 88 FL (80-99); MEAN PLATELET VOLUME 7.6 FL (6.5-10.1); PLATELET COUNT 213 K/UL (150-450); RED BLOOD COUNT 2.97 M/UL (4.20-5.40); RED CELL DISTRIBUTION WIDTH 15.3 % (11.6-14.8); WHITE BLOOD COUNT 7.2 K/UL (4.8-10.8)
[2017-02-03 07:57] VITALS: BP 165/99
[2017-02-03] MEDS: Doxazosin 1mg Tab GT SCH (08:36)
[2017-02-03] MEDS: Losartan 50mg tab GT SCH (08:37)
[2017-02-03] MEDS: Heparin 5000 units/ml inj SUBQ SCH ×2 (08:39→20:15)
[2017-02-03 09:20] LABS: ANISOCYTOSIS 1+; BAND NEUTROPHILS % (MANUAL) 0 % (0-8); BASOPHILS % (MANUAL) 0 % (0-2); EOSINOPHILS % (MANUAL) 3 % (0-3); HYPOCHROMASIA 1+; LYMPHOCYTES % (MANUAL) 31 % (20-45); NEUTROPHILS % (MANUAL) 61 % (45-75); PLATELET ESTIMATE ADEQUATE; PLATELET MORPHOLOGY NORMAL; TOTAL CELLS COUNTED 100
[2017-02-03 09:21] LABS: POLYCHROMASIA OCCASIONAL
[2017-02-03 11:51] VITALS: BP 147/83
[2017-02-03] MEDS: Norco 5mg/325mg tab ORAL PRN ×3 (13:12→22:31)
--- NOTE | 2017-02-03 15:19 | Nephrology Progress Note ---
Assessment/Plan Assessment 1. Hyperkalemia. 2. Hypocalcemia. 3. Fluid overload. 4. Respiratory failure. 5. Pulmonary edema. 6. Sepsis. Plan plan to repeat dialysis as schedule monitoring electrolyte continue epogen Subjective Constitutional: Reports: no symptoms HEENT: Reports: no symptoms Genitourinary: Reports: no symptoms 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: Reports: no symptoms Subjective alert and awake no complaints Objective Objective Last 24 Hour Vital Signs Date Time Temp Pulse Resp B/P Pulse Ox O2 Delivery O2 Flow Rate FiO2 02/03/17 14:11 97.3 02/03/17 12:00 97 02/03/17 11:51 97.3 66 20 147/83 98 Nasal Cannula 2.0 02/03/17 11:38 106 18 100 Nasal Cannula 2.0 02/03/17 11:29 103 16 98 Nasal Cannula 2.0 02/03/17 08:37 165/99 02/03/17 08:00 93 02/03/17 07:57 97.3 108 20 165/99 97 Nasal Cannula 2.0 02/03/17 07:45 Nasal Cannula 2.0 02/03/17 07:44 109 18 100 Nasal Cannula 2.0 02/03/17 07:32 105 18 98 Nasal Cannula 2.0 02/03/17 07:30 98 Nasal Cannula 2.0 28 02/03/17 04:00 95 02/03/17 04:00 98.3 100 23 148/86 98 Nasal Cannula 2.0 02/03/17 02:29 101 18 98 Nasal Cannula 2.0 02/03/17 02:24 101 22 94 Nasal Cannula 2.0 02/03/17 00:00 98.1 95 20 134/74 95 Nasal Cannula 2.0 02/03/17 00:00 95 02/02/17 23:09 92 18 99 Nasal Cannula 2.0 02/02/17 23:02 95 18 96 Nasal Cannula 2.0 02/02/17 20:00 97.9 90 18 130/69 96 Nasal Cannula 2.0 02/02/17 19:32 90 02/02/17 19:19 90 18 98 Nasal Cannula 2.0 02/02/17 19:16 Nasal Cannula 2.0 02/02/17 19:15 92 Nasal Cannula 2.0 28 02/02/17 19:14 95 18 Nasal Cannula 2.0 28 02/02/17 19:10 95 18 92 Nasal Cannula 2.0 02/02/17 16:57 92 18 100 Nasal Cannula 2.0 02/02/17 16:47 91 18 100 Nasal Cannula 2.0 02/02/17 16:00 69 02/02/17 15:55 Nasal Cannula 2.0 02/02/17 15:46 97.3 65 18 119/72 100 Nasal Cannula 2.0 02/02/17 15:19 96.6 Intake and Output 02/02/17 02/03/17 19:00 07:00 Intake Total 545 ml 185 ml Balance 545 ml 185 ml Intake Oral 490 ml 20 ml IV Total 55 ml 165 ml # Voids 2 # Bowel Movements 2 2 Laboratory Tests 02/03/17 06:10: White Blood Count 7.2, Red Blood Count 2.97L, Hemoglobin 7.9L, Hematocrit 26.1L , Mean Corpuscular Volume 88, Mean Corpuscular Hemoglobin 26.5L, Mean Corpuscular Hemoglobin Concent 30.2L, Red Cell Distribution Width 15.3H, Platelet Count 213, Mean Platelet Volume 7.6, Neutrophils (%) (Auto) , Lymphocytes (%) (Auto) , Monocytes (%) (Auto) , Eosinophils (%) (Auto) , Basophils (%) (Auto) , Differential Total Cells Counted 100, Neutrophils % ( Manual) 61, Lymphocytes % (Manual) 31, Monocytes % (Manual) 5, Eosinophils % ( Manual) 3, Basophils % (Manual) 0, Band Neutrophils 0, Platelet Estimate Adequate, Platelet Morphology Normal, Polychromasia Occasional, Hypochromasia 1+ , Anisocytosis 1+ Height (Feet): 5 Height (Inches): 6.00 Weight (Pounds): 147 Objective HEAD AND NECK: . The patient has periorbital edema. ET tube is in place. Extraocular movement intact. The patient open her eyes to verbal stimuli. LUNGS: Decreased breathing sound on both side and crackles. CARDIAC: Regular rate and rhythm. S1 and S2. No murmur. No rub. ABDOMEN: Soft, nontender, and nondistended. EXTREMITIES: A 1 to 3+ edema. NEUROLOGIC: Cranial nerves II through XII intact. . The patient is moving but not following commands. CHARLENE FINN Feb 03, 2017 15:19
[2017-02-03 15:58] VITALS: BP 131/67
--- NOTE | 2017-02-03 16:17 | Cardiology Progress Note ---
Assessment/Plan Assessment/Plan 1. Accelerated HTN, resolved, continue losartan. 2. Sinus tachycardia, resolved. 3. Hx of DM, recommend ASA and statins. 4. Hx of CAD, s/p [place] 5. s/p respiratory failure 6. RLL pneumonia 7. ESRD Subjective Subjective Sinus rhythm at 60. Had HD yesterday. Denies CP or SOB. Objective Last 24 Hour Vital Signs Date Time Temp Pulse Resp B/P Pulse Ox O2 Delivery O2 Flow Rate FiO2 02/03/17 15:58 97.0 60 20 131/67 100 Nasal Cannula 2.0 02/03/17 15:49 103 18 100 Nasal Cannula 2.0 02/03/17 15:40 101 16 98 Nasal Cannula 2.0 02/03/17 14:11 97.3 02/03/17 12:00 97 02/03/17 11:51 97.3 66 20 147/83 98 Nasal Cannula 2.0 02/03/17 11:38 106 18 100 Nasal Cannula 2.0 02/03/17 11:29 103 16 98 Nasal Cannula 2.0 02/03/17 08:37 165/99 02/03/17 08:00 93 02/03/17 07:57 97.3 108 20 165/99 97 Nasal Cannula 2.0 02/03/17 07:45 Nasal Cannula 2.0 02/03/17 07:44 109 18 100 Nasal Cannula 2.0 02/03/17 07:32 105 18 98 Nasal Cannula 2.0 02/03/17 07:30 98 Nasal Cannula 2.0 28 02/03/17 04:00 95 02/03/17 04:00 98.3 100 23 148/86 98 Nasal Cannula 2.0 02/03/17 02:29 101 18 98 Nasal Cannula 2.0 02/03/17 02:24 101 22 94 Nasal Cannula 2.0 02/03/17 00:00 98.1 95 20 134/74 95 Nasal Cannula 2.0 02/03/17 00:00 95 02/02/17 23:09 92 18 99 Nasal Cannula 2.0 02/02/17 23:02 95 18 96 Nasal Cannula 2.0 02/02/17 20:00 97.9 90 18 130/69 96 Nasal Cannula 2.0 02/02/17 19:32 90 02/02/17 19:19 90 18 98 Nasal Cannula 2.0 02/02/17 19:16 Nasal Cannula 2.0 02/02/17 19:15 92 Nasal Cannula 2.0 28 02/02/17 19:14 95 18 Nasal Cannula 2.0 28 02/02/17 19:10 95 18 92 Nasal Cannula 2.0 02/02/17 16:57 92 18 100 Nasal Cannula 2.0 02/02/17 16:47 91 18 100 Nasal Cannula 2.0 Intake and Output 02/02/17 02/03/17 19:00 07:00 Intake Total 545 ml 185 ml Balance 545 ml 185 ml Intake Oral 490 ml 20 ml IV Total 55 ml 165 ml # Voids 2 # Bowel Movements 2 2 2D Echo: EF 55%, Mild LVH, Mild MR/AR, RVSP 32 mmHg, Grade I LVDD Laboratory Tests Test 02/03/17 06:10 White Blood Count 7.2 K/UL (4.8-10.8) Red Blood Count 2.97 M/UL (4.20-5.40) L Hemoglobin 7.9 G/DL (12.0-16.0) L Hematocrit 26.1 % (37.0-47.0) L Mean Corpuscular Volume 88 FL (80-99) Mean Corpuscular Hemoglobin 26.5 PG (27.0-31.0) L Mean Corpuscular Hemoglobin Concent 30.2 G/DL (32.0-36.0) L Red Cell Distribution Width 15.3 % (11.6-14.8) H Platelet Count 213 K/UL (150-450) Mean Platelet Volume 7.6 FL (6.5-10.1) Neutrophils (%) (Auto) % (45.0-75.0) Lymphocytes (%) (Auto) % (20.0-45.0) Monocytes (%) (Auto) % (1.0-10.0) Eosinophils (%) (Auto) % (0.0-3.0) Basophils (%) (Auto) % (0.0-2.0) Differential Total Cells Counted 100 Neutrophils % (Manual) 61 % (45-75) Lymphocytes % (Manual) 31 % (20-45) Monocytes % (Manual) 5 % (1-10) Eosinophils % (Manual) 3 % (0-3) Basophils % (Manual) 0 % (0-2) Band Neutrophils 0 % (0-8) Platelet Estimate Adequate Platelet Morphology Normal Polychromasia Occasional Hypochromasia 1+ Anisocytosis 1+ Objective HEENT: Atraumatic, normocephalic, periorbital edema. Extraocular movement intact. Awake and alert. NECK: JVD negative, no carotid bruit, upstroke 2+ B/L LUNGS: Decreased breath sounds on both side. CARDIAC: Regular rate and rhythm. S1 and S2, No murmurs, gallops or rubs. ABDOMEN: Soft, nontender, and nondistended, + BS EXTREMITIES: 1+ B/L edema, no clubbing or cyanosis. PREM BIGGS Feb 03, 2017 16:17
[2017-02-03] MEDS ORDERED: NS 275ml ONE (16:50)
[2017-02-03] MEDS: Doxazosin 1mg Tab ORAL SCH (18:23)
--- NOTE | 2017-02-03 19:08 | Pulmonology Progress Note ---
Assessment/Plan Assessment/Plan Assessment/Plan 1. Severe hyperkalemia. 2. Respiratory failure, intubated. 3. CHF w Pulmonary edema. 4. Malignant HTN 5. Coronary artery disease. 6. Chronic obstructive pulmonary disease. 7. Anemia, due to renal failure 8. Pneumonia, RLL due to enterobacter aerogenes Plan f/u CXR [place] prn cont Zosyn per sensi, sput c/s noted dialysis, UF OT/PT dc plan prob Mon Subjective Constitutional: Reports: no symptoms HEENT: Repors: no symptoms Respiratory: Reports: shortness of breath Cardiovascular: Reports: no symptoms Gastrointestinal/Abdominal: Reports: no symptoms Genitourinary: Reports: no symptoms Allergies: Coded Allergies: No Known Allergies (Unverified , 01/01/12) Subjective noted iwth intermittent sob no cp oob tolerating po ? stridors UA sounds Objective Last 24 Hour Vital Signs Date Time Temp Pulse Resp B/P Pulse Ox O2 Delivery O2 Flow Rate FiO2 02/03/17 16:00 61 02/03/17 15:58 97.0 60 20 131/67 100 Nasal Cannula 2.0 02/03/17 15:49 103 18 100 Nasal Cannula 2.0 02/03/17 15:40 101 16 98 Nasal Cannula 2.0 02/03/17 14:11 97.3 02/03/17 12:00 97 02/03/17 11:51 97.3 66 20 147/83 98 Nasal Cannula 2.0 02/03/17 11:38 106 18 100 Nasal Cannula 2.0 02/03/17 11:29 103 16 98 Nasal Cannula 2.0 02/03/17 08:37 165/99 02/03/17 08:00 93 02/03/17 07:57 97.3 108 20 165/99 97 Nasal Cannula 2.0 02/03/17 07:45 Nasal Cannula 2.0 02/03/17 07:44 109 18 100 Nasal Cannula 2.0 02/03/17 07:32 105 18 98 Nasal Cannula 2.0 02/03/17 07:30 98 Nasal Cannula 2.0 28 02/03/17 04:00 95 02/03/17 04:00 98.3 100 23 148/86 98 Nasal Cannula 2.0 02/03/17 02:29 101 18 98 Nasal Cannula 2.0 02/03/17 02:24 101 22 94 Nasal Cannula 2.0 02/03/17 00:00 98.1 95 20 134/74 95 Nasal Cannula 2.0 02/03/17 00:00 95 02/02/17 23:09 92 18 99 Nasal Cannula 2.0 02/02/17 23:02 95 18 96 Nasal Cannula 2.0 02/02/17 20:00 97.9 90 18 130/69 96 Nasal Cannula 2.0 02/02/17 19:32 90 02/02/17 19:19 90 18 98 Nasal Cannula 2.0 02/02/17 19:16 Nasal Cannula 2.0 02/02/17 19:15 92 Nasal Cannula 2.0 28 02/02/17 19:14 95 18 Nasal Cannula 2.0 28 02/02/17 19:10 95 18 92 Nasal Cannula 2.0 Intake and Output 02/02/17 02/03/17 19:00 07:00 Intake Total 545 ml 185 ml Balance 545 ml 185 ml Intake Oral 490 ml 20 ml IV Total 55 ml 165 ml # Voids 2 # Bowel Movements 2 2 General Appearance: WD/WN HEENT: atraumatic, anicteric, other - no stridor Respiratory/Chest: normal breath sounds, no respiratory distress Cardiovascular: normal rate, regular rhythm Abdomen: normal bowel sounds, no organomegaly Extremities: no cyanosis, no clubbing Skin: no rash 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: no motor/sensory deficits, oriented x 3 Laboratory Tests 02/03/17 06:10: White Blood Count 7.2, Red Blood Count 2.97L, Hemoglobin 7.9L, Hematocrit 26.1L , Mean Corpuscular Volume 88, Mean Corpuscular Hemoglobin 26.5L, Mean Corpuscular Hemoglobin Concent 30.2L, Red Cell Distribution Width 15.3H, Platelet Count 213, Mean Platelet Volume 7.6, Neutrophils (%) (Auto) , Lymphocytes (%) (Auto) , Monocytes (%) (Auto) , Eosinophils (%) (Auto) , Basophils (%) (Auto) , Differential Total Cells Counted 100, Neutrophils % ( Manual) 61, Lymphocytes % (Manual) 31, Monocytes % (Manual) 5, Eosinophils % ( Manual) 3, Basophils % (Manual) 0, Band Neutrophils 0, Platelet Estimate Adequate, Platelet Morphology Normal, Polychromasia Occasional, Hypochromasia 1+ , Anisocytosis 1+ Current Medications Medications (Trade) Dose Ordered Sig/Winter Route PRN Reason Start Time Stop Time Status Last Admin Dose Admin Acetaminophen (Tylenol) 650 mg Q4H PRN ORAL Fever 01/31/17 12:00 03/02/17 11:59 Acetaminophen/ Hydrocodone Bitart ([place] 5/325) 1 tab Q4H PRN ORAL Moderate Pain (Pain Scale 4-6) 02/03/17 12:00 02/10/17 11:59 02/03/17 18:23 Albuterol/ Ipratropium (DuoNeb 0.5-3(2.5)mg/3ml) 3 ml Q4HRT HHN 02/02/17 19:00 02/07/17 18:59 02/03/17 15:57 Chlorhexidine Gluconate (Kat[place]-Hex 2%) 1 applic BEDTIME TOPIC 01/31/17 21:00 03/02/17 20:59 02/02/17 21:05 Dextrose (Dextrose 50%) STAT PRN IV Hypoglycemia 02/01/17 12:00 03/03/17 11:59 Doxazosin Mesylate (Cardura) 2.5 mg BID ORAL 02/03/17 18:00 03/05/17 17:59 02/03/17 18:23 Epoetin Vijay (Procrit (for ESRD on dialysis)) 10,000 units SAT-SAT-SAT SUBQ 02/01/17 21:00 03/03/17 20:59 02/01/17 20:50 Gabapentin (Neurontin) 300 mg THREE TIMES A DAY ORAL 02/03/17 13:00 03/05/17 12:59 02/03/17 18:23 Heparin Sodium (Porcine) (Heparin 5000 units/ml) 5,000 units EVERY 12 HOURS SUBQ 01/31/17 21:00 03/02/17 20:59 02/03/17 08:39 Losartan Potassium (Cozaar) 100 mg DAILY GT 02/01/17 09:00 03/03/17 08:59 02/03/17 08:37 Methadone HCl (Methadone HCl) 40 mg DAILY ORAL 02/04/17 09:00 02/11/17 08:59 Piperacillin Sod/ Tazobactam Sod/ Dextrose (Zosyn/D5W) 55 ml @ 110 mls/hr Q8H IV 01/31/17 15:00 02/05/17 22:59 02/03/17 15:13 Polyethylene Glycol (Miralax) 17 gm DAILYPRN PRN GT Constipation 01/31/17 21:00 03/02/17 20:59 Temazepam (Restoril) 15 mg HSPRN PRN GT Insomnia 01/31/17 21:00 02/07/17 20:59 SPENCER COKER DO Feb 03, 2017 19:08
--- NOTE | 2017-02-03 19:11 | Pulmonology Progress Note ---
Assessment/Plan Assessment/Plan Assessment/Plan 1. Severe hyperkalemia. 2. Respiratory failure, intubated. 3. CHF w Pulmonary edema. 4. Malignant HTN 5. Coronary artery disease. 6. Chronic obstructive pulmonary disease. 7. Anemia, due to renal failure 8. Pneumonia, RLL due to enterobacter aerogenes Plan f/u CXR [place] prn aspiration precautions cont Zosyn per sensi, sput c/s noted hgb stable dialysis, UF OT/PT dc plan prob Mon Subjective Constitutional: Reports: no symptoms HEENT: Repors: no symptoms Respiratory: Reports: shortness of breath Genitourinary: Reports: no symptoms Neurologic: Reports: no symptoms Psychiatric: Reports: no symptoms Skin: Reports: no symptoms Endocrine: Reports: no symptoms Allergies: Coded Allergies: No Known Allergies (Unverified , 01/01/12) Subjective better today no fever tolerating po no coughing noted no cp oob ? stridors UA sounds Objective Last 24 Hour Vital Signs Date Time Temp Pulse Resp B/P Pulse Ox O2 Delivery O2 Flow Rate FiO2 02/03/17 16:00 61 02/03/17 15:58 97.0 60 20 131/67 100 Nasal Cannula 2.0 02/03/17 15:49 103 18 100 Nasal Cannula 2.0 02/03/17 15:40 101 16 98 Nasal Cannula 2.0 02/03/17 14:11 97.3 02/03/17 12:00 97 02/03/17 11:51 97.3 66 20 147/83 98 Nasal Cannula 2.0 02/03/17 11:38 106 18 100 Nasal Cannula 2.0 02/03/17 11:29 103 16 98 Nasal Cannula 2.0 02/03/17 08:37 165/99 02/03/17 08:00 93 02/03/17 07:57 97.3 108 20 165/99 97 Nasal Cannula 2.0 02/03/17 07:45 Nasal Cannula 2.0 02/03/17 07:44 109 18 100 Nasal Cannula 2.0 02/03/17 07:32 105 18 98 Nasal Cannula 2.0 02/03/17 07:30 98 Nasal Cannula 2.0 28 02/03/17 04:00 95 02/03/17 04:00 98.3 100 23 148/86 98 Nasal Cannula 2.0 02/03/17 02:29 101 18 98 Nasal Cannula 2.0 02/03/17 02:24 101 22 94 Nasal Cannula 2.0 02/03/17 00:00 98.1 95 20 134/74 95 Nasal Cannula 2.0 02/03/17 00:00 95 02/02/17 23:09 92 18 99 Nasal Cannula 2.0 02/02/17 23:02 95 18 96 Nasal Cannula 2.0 02/02/17 20:00 97.9 90 18 130/69 96 Nasal Cannula 2.0 02/02/17 19:32 90 02/02/17 19:19 90 18 98 Nasal Cannula 2.0 02/02/17 19:16 Nasal Cannula 2.0 02/02/17 19:15 92 Nasal Cannula 2.0 28 02/02/17 19:14 95 18 Nasal Cannula 2.0 28 02/02/17 19:10 95 18 92 Nasal Cannula 2.0 Intake and Output 02/02/17 02/03/17 19:00 07:00 Intake Total 545 ml 185 ml Balance 545 ml 185 ml Intake Oral 490 ml 20 ml IV Total 55 ml 165 ml # Voids 2 # Bowel Movements 2 2 General Appearance: WD/WN HEENT: atraumatic, anicteric Respiratory/Chest: normal breath sounds, crackles/rales Cardiovascular: normal rate, regularly irregular Abdomen: soft, non tender, no organomegaly Extremities: no cyanosis, no clubbing 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: no motor/sensory deficits, oriented x 3, normal mood/ affect Lymphatic: no neck adenopathy Musculoskeletal: normal muscle bulk Laboratory Tests 02/03/17 06:10: White Blood Count 7.2, Red Blood Count 2.97L, Hemoglobin 7.9L, Hematocrit 26.1L , Mean Corpuscular Volume 88, Mean Corpuscular Hemoglobin 26.5L, Mean Corpuscular Hemoglobin Concent 30.2L, Red Cell Distribution Width 15.3H, Platelet Count 213, Mean Platelet Volume 7.6, Neutrophils (%) (Auto) , Lymphocytes (%) (Auto) , Monocytes (%) (Auto) , Eosinophils (%) (Auto) , Basophils (%) (Auto) , Differential Total Cells Counted 100, Neutrophils % ( Manual) 61, Lymphocytes % (Manual) 31, Monocytes % (Manual) 5, Eosinophils % ( Manual) 3, Basophils % (Manual) 0, Band Neutrophils 0, Platelet Estimate Adequate, Platelet Morphology Normal, Polychromasia Occasional, Hypochromasia 1+ , Anisocytosis 1+ Current Medications Medications (Trade) Dose Ordered Sig/Winter Route PRN Reason Start Time Stop Time Status Last Admin Dose Admin Acetaminophen (Tylenol) 650 mg Q4H PRN ORAL Fever 01/31/17 12:00 03/02/17 11:59 Acetaminophen/ Hydrocodone Bitart ([place] 5/325) 1 tab Q4H PRN ORAL Moderate Pain (Pain Scale 4-6) 02/03/17 12:00 02/10/17 11:59 02/03/17 18:23 Albuterol/ Ipratropium (DuoNeb 0.5-3(2.5)mg/3ml) 3 ml Q4HRT HHN 02/02/17 19:00 02/07/17 18:59 02/03/17 15:57 Chlorhexidine Gluconate (Katya-Hex 2%) 1 applic BEDTIME TOPIC 01/31/17 21:00 03/02/17 20:59 02/02/17 21:05 Dextrose (Dextrose 50%) STAT PRN IV Hypoglycemia 02/01/17 12:00 03/03/17 11:59 Doxazosin Mesylate (Cardura) 2.5 mg BID ORAL 02/03/17 18:00 03/05/17 17:59 02/03/17 18:23 Epoetin Vijay (Procrit (for ESRD on dialysis)) 10,000 units SAT-SAT-SAT SUBQ 02/01/17 21:00 03/03/17 20:59 02/01/17 20:50 Gabapentin (Neurontin) 300 mg THREE TIMES A DAY ORAL 02/03/17 13:00 03/05/17 12:59 02/03/17 18:23 Heparin Sodium (Porcine) (Heparin 5000 units/ml) 5,000 units EVERY 12 HOURS SUBQ 01/31/17 21:00 03/02/17 20:59 02/03/17 08:39 Losartan Potassium (Cozaar) 100 mg DAILY GT 02/01/17 09:00 03/03/17 08:59 02/03/17 08:37 Methadone HCl (Methadone HCl) 40 mg DAILY ORAL 02/04/17 09:00 02/11/17 08:59 Piperacillin Sod/ Tazobactam Sod/ Dextrose (Zosyn/D5W) 55 ml @ 110 mls/hr Q8H IV 01/31/17 15:00 02/05/17 22:59 02/03/17 15:13 Polyethylene Glycol (Miralax) 17 gm DAILYPRN PRN GT Constipation 01/31/17 21:00 03/02/17 20:59 Temazepam (Restoril) 15 mg HSPRN PRN GT Insomnia 01/31/17 21:00 02/07/17 20:59 SPENCER COKER DO Feb 03, 2017 19:10
[2017-02-03 20:00] VITALS: BP 145/78
[2017-02-03] MEDS: Dyna-Hex 2% Top Sol 8oz TOPIC SCH (20:13)
[2017-02-04] VITALS: BP 165/97
[2017-02-04] MEDS: DuoNeb 0.5-3(2.5)mg/3ml neb HHN SCH ×6 (00:02→20:08)
[2017-02-04 04:00] VITALS: BP 166/101
[2017-02-04] MEDS: Norco 5mg/325mg tab ORAL PRN ×3 (05:06→20:42)
[2017-02-04] MEDS: Piperacillin/Tazobactam 2.25 GM in D5W 55 ML IV SCH ×4 (06:07→23:12)
[2017-02-04] MEDS: Losartan 50mg tab GT SCH (08:39)
[2017-02-04] MEDS: Doxazosin 1mg Tab ORAL SCH ×2 (08:40→19:57)
[2017-02-04] MEDS: Heparin 5000 units/ml inj SUBQ SCH ×2 (08:44→22:05)
--- NOTE | 2017-02-04 11:55 | Diagnostic Imaging Report ---
Indication: COUGH Technique: One view of the chest Comparison: 811.70 Findings: Heart is enlarged. There is a right jugular central venous catheter again demonstrated. Interstitial opacities, bilateral basilar atelectasis persists. There is suggestion of decreased consolidation at both lung bases. Impression: Improving bilateral basilar consolidation, over 3 days. Other stable findings as described
[2017-02-04 12:00] VITALS: BP 149/88
[2017-02-04 12:23] LABS: OTHERS PATHOLOGIST COMMENT
--- NOTE | 2017-02-04 15:16 | Nephrology Progress Note ---
Assessment/Plan Assessment 1. Hyperkalemia. 2. Hypocalcemia. 3. Fluid overload. 4. Respiratory failure. 5. Pulmonary edema. 6. Sepsis. Plan plan to repeat dialysis as schedule monitoring electrolyte continue epogen Subjective Constitutional: Reports: no symptoms HEENT: Reports: no symptoms Genitourinary: Reports: no symptoms 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: Reports: no symptoms Subjective alert and awake had nausea and vomiting not feeling well Objective Objective Last 24 Hour Vital Signs Date Time Temp Pulse Resp B/P Pulse Ox O2 Delivery O2 Flow Rate FiO2 02/04/17 15:12 95 20 100 Nasal Cannula 2.0 02/04/17 15:11 15 100 Nasal Cannula 2.0 02/04/17 15:04 91 18 96 Nasal Cannula 2.0 02/04/17 14:16 97.9 02/04/17 12:00 97.9 90 20 149/88 99 Nasal Cannula 3.0 02/04/17 11:30 94 20 100 Nasal Cannula 2.0 02/04/17 11:25 92 18 96 Nasal Cannula 2.0 02/04/17 08:39 166/101 02/04/17 07:00 98 Nasal Cannula 2.0 02/04/17 07:00 Nasal Cannula 2.0 02/04/17 06:45 101 20 100 Nasal Cannula 2.0 02/04/17 06:40 98 18 96 Nasal Cannula 2.0 02/04/17 04:00 98.3 98 23 166/101 99 Nasal Cannula 2.0 02/04/17 03:47 103 02/04/17 03:45 89 20 97 Nasal Cannula 2.0 02/04/17 03:30 86 16 94 Nasal Cannula 2.0 02/04/17 00:00 98.0 90 20 165/97 100 Nasal Cannula 2.0 02/03/17 23:49 69 02/03/17 23:45 90 20 96 Nasal Cannula 2.0 02/03/17 23:30 82 16 93 Nasal Cannula 2.0 02/03/17 20:00 97.3 66 19 145/78 99 Nasal Cannula 2.0 02/03/17 19:23 88 20 97 Nasal Cannula 2.0 02/03/17 19:22 85 16 92 Nasal Cannula 2.0 02/03/17 19:21 Nasal Cannula 2.0 02/03/17 19:21 92 Nasal Cannula 2.0 28 02/03/17 19:04 69 02/03/17 16:00 61 02/03/17 15:58 97.0 60 20 131/67 100 Nasal Cannula 2.0 02/03/17 15:49 103 18 100 Nasal Cannula 2.0 02/03/17 15:40 101 16 98 Nasal Cannula 2.0 Intake and Output 02/03/17 02/04/17 19:00 07:00 Intake Total 170 ml 110 ml Balance 170 ml 110 ml Intake Oral 170 ml IV Total 110 ml # Voids 2 # Bowel Movements 1 Height (Feet): 5 Height (Inches): 6.00 Weight (Pounds): 139 Objective HEAD AND NECK: . The patient has periorbital edema. ET tube is in place. Extraocular movement intact. The patient open her eyes to verbal stimuli. LUNGS: Decreased breathing sound on both side and crackles. CARDIAC: Regular rate and rhythm. S1 and S2. No murmur. No rub. ABDOMEN: Soft, nontender, and nondistended. EXTREMITIES: A 1 to 3+ edema. NEUROLOGIC: Cranial nerves II through XII intact. . The patient is moving but not following commands. CHARLENE FINN Feb 04, 2017 15:15
[2017-02-04 16:00] VITALS: BP 156/92
[2017-02-04] MEDS ORDERED: cloNIDine 0.2mg Tab ORAL PRN (17:30)
[2017-02-04 20:00] VITALS: BP 150/79
[2017-02-04] MEDS: Dyna-Hex 2% Top Sol 8oz TOPIC SCH (21:00)
--- NOTE | 2017-02-04 21:46 | Cardiology Progress Note ---
Assessment/Plan Assessment/Plan 1. Hypertensive heart disease, continue losartan. 2. Sinus tachycardia. 3. Hx of DM, recommend ASA and statins. 4. Hx of CAD, s/p [place] 5. s/p respiratory failure 6. RLL pneumonia 7. ESRD Subjective Subjective Sinus tachycardia at 105. Denies CP or SOB. Objective Last 24 Hour Vital Signs Date Time Temp Pulse Resp B/P Pulse Ox O2 Delivery O2 Flow Rate FiO2 02/04/17 20:00 97.3 75 20 150/79 100 Nasal Cannula 2.0 28 02/04/17 19:45 108 20 99 Nasal Cannula 2.0 28 02/04/17 19:30 97 Nasal Cannula 2.0 28 02/04/17 19:30 Nasal Cannula 2.0 28 02/04/17 19:30 106 20 98 Nasal Cannula 2.0 02/04/17 17:31 171/95 02/04/17 16:00 97.1 74 21 156/92 99 Nasal Cannula 3.0 02/04/17 15:12 95 20 100 Nasal Cannula 2.0 02/04/17 15:11 15 100 Nasal Cannula 2.0 02/04/17 15:04 91 18 96 Nasal Cannula 2.0 02/04/17 14:16 97.9 02/04/17 12:00 97.9 90 20 149/88 99 Nasal Cannula 3.0 02/04/17 11:30 94 20 100 Nasal Cannula 2.0 02/04/17 11:25 92 18 96 Nasal Cannula 2.0 02/04/17 08:39 166/101 02/04/17 07:00 98 Nasal Cannula 2.0 02/04/17 07:00 Nasal Cannula 2.0 02/04/17 06:45 101 20 100 Nasal Cannula 2.0 02/04/17 06:40 98 18 96 Nasal Cannula 2.0 02/04/17 04:00 98.3 98 23 166/101 99 Nasal Cannula 2.0 02/04/17 03:47 103 02/04/17 03:45 89 20 97 Nasal Cannula 2.0 02/04/17 03:30 86 16 94 Nasal Cannula 2.0 02/04/17 00:00 98.0 90 20 165/97 100 Nasal Cannula 2.0 02/03/17 23:49 69 02/03/17 23:45 90 20 96 Nasal Cannula 2.0 28 02/03/17 23:30 82 16 93 Nasal Cannula 2.0 28 Intake and Output 02/03/17 02/04/17 19:00 07:00 Intake Total 170 ml 110 ml Balance 170 ml 110 ml Intake Oral 170 ml IV Total 110 ml # Voids 2 # Bowel Movements 1 2D Echo: EF 55%, Mild LVH, Mild MR/AR, RVSP 32 mmHg, Grade I LVDD Objective HEENT: Atraumatic, normocephalic, periorbital edema. Extraocular movement intact. Awake and alert. NECK: JVD negative, no carotid bruit, upstroke 2+ B/L LUNGS: Decreased breath sounds on both side. CARDIAC: Regular rate and rhythm. S1 and S2, No murmurs, gallops or rubs. ABDOMEN: Soft, nontender, and nondistended, + BS EXTREMITIES: 1+ B/L edema, no clubbing or cyanosis. PREM BIGGS Feb 04, 2017 21:46
[2017-02-04] MEDS: Epogen (for ESRD on dialysis) SUBQ SCH (22:04)
[2017-02-05] VITALS: BP 151/99
[2017-02-05] MEDS: DuoNeb 0.5-3(2.5)mg/3ml neb HHN SCH ×7 (00:03→23:26)
[2017-02-05] MEDS: Norco 5mg/325mg tab ORAL PRN ×3 (01:18→20:32)
[2017-02-05 04:00] VITALS: BP 145/55
[2017-02-05] MEDS: Piperacillin/Tazobactam 2.25 GM in D5W 55 ML IV SCH ×2 (07:00→15:00)
[2017-02-05 07:54] VITALS: BP 150/95
[2017-02-05] MEDS ORDERED: Levofloxacin 500mg tab ORAL SCH (09:00)
[2017-02-05] MEDS: Bystolic 2.5mg Tab ORAL SCH (09:14)
[2017-02-05] MEDS: Doxazosin 1mg Tab ORAL SCH ×2 (09:15→19:48)
[2017-02-05] MEDS: Losartan 50mg tab GT SCH (09:15)
[2017-02-05] MEDS: Heparin 5000 units/ml inj SUBQ SCH ×2 (09:19→21:11)
[2017-02-05 12:00] VITALS: BP 134/91
--- NOTE | 2017-02-05 12:30 | Pulmonology Progress Note ---
Assessment/Plan Assessment/Plan 1. Severe hyperkalemia. 2. Respiratory failure, intubated, resolved 3. CHF w Pulmonary edema, resolved 4. Malignant HTN 5. Coronary artery disease. 6. Chronic obstructive pulmonary disease. 7. Anemia, due to renal failure 8. Pneumonia, RLL due to enterobacter aerogenes Plan DC on PO levaqiun dialysis, UF dc when bad available Subjective Constitutional: Denies: fever Respiratory: Reports: productive cough Allergies: Coded Allergies: No Known Allergies (Unverified , 01/01/12) Objective Last 24 Hour Vital Signs Date Time Temp Pulse Resp B/P Pulse Ox O2 Delivery O2 Flow Rate FiO2 02/05/17 11:25 89 20 100 Nasal Cannula 2.0 02/05/17 11:13 93 20 97 Nasal Cannula 2.0 02/05/17 09:15 150/95 02/05/17 07:54 97.3 109 18 150/95 97 Nasal Cannula 3.0 02/05/17 07:20 96 Nasal Cannula 2.0 02/05/17 07:20 Nasal Cannula 2.0 02/05/17 07:20 Nasal Cannula 2.0 02/05/17 07:20 Nasal Cannula 02/05/17 04:00 97.2 111 20 145/55 100 Nasal Cannula 2.0 02/05/17 04:00 100 02/05/17 03:47 102 20 100 Nasal Cannula 2.0 02/05/17 03:30 100 20 98 Nasal Cannula 2.0 02/05/17 00:00 97.7 77 20 151/99 100 Nasal Cannula 2.0 02/05/17 00:00 97 02/04/17 23:45 94 20 99 Nasal Cannula 2.0 02/04/17 23:30 90 20 97 Nasal Cannula 2.0 02/04/17 20:00 97.3 75 20 150/79 100 Nasal Cannula 2.0 02/04/17 20:00 86 02/04/17 19:45 108 20 99 Nasal Cannula 2.0 02/04/17 19:30 97 Nasal Cannula 2.0 28 02/04/17 19:30 Nasal Cannula 2.0 28 02/04/17 19:30 106 20 98 Nasal Cannula 2.0 02/04/17 17:31 171/95 02/04/17 16:00 97.1 74 21 156/92 99 Nasal Cannula 3.0 02/04/17 15:12 95 20 100 Nasal Cannula 2.0 28 02/04/17 15:11 15 100 Nasal Cannula 2.0 02/04/17 15:04 91 18 96 Nasal Cannula 2.0 28 02/04/17 14:16 97.9 Intake and Output 02/04/17 02/05/17 19:00 07:00 Intake Total 300 ml 240 ml Balance 300 ml 240 ml Intake Oral 300 ml 240 ml # Voids 2 1 # Bowel Movements 1 Objective face mildly puffy General Appearance: no acute distress Respiratory/Chest: lungs clear Cardiovascular: normal rate Current Medications Medications (Trade) Dose Ordered Sig/Winter Route PRN Reason Start Time Stop Time Status Last Admin Dose Admin Acetaminophen (Tylenol) 650 mg Q4H PRN ORAL Fever 01/31/17 12:00 03/02/17 11:59 Acetaminophen/ Hydrocodone Bitart ([place] 5/325) 1 tab Q4H PRN ORAL Moderate Pain (Pain Scale 4-6) 02/03/17 12:00 02/10/17 11:59 02/05/17 01:18 Albuterol/ Ipratropium (DuoNeb 0.5-3(2.5)mg/3ml) 3 ml Q4HRT HHN 02/02/17 19:00 02/07/17 18:59 02/05/17 11:13 Clonidine HCl (Catapres) 0.2 mg Q4H PRN ORAL SBP>160 mmHg 02/04/17 17:30 03/06/17 17:29 02/04/17 17:31 Dextrose (Dextrose 50%) STAT PRN IV Hypoglycemia 02/01/17 12:00 03/03/17 11:59 Doxazosin Mesylate (Cardura) 2.5 mg BID ORAL 02/03/17 18:00 03/05/17 17:59 02/05/17 09:15 Epoetin Vijay (Procrit (for ESRD on dialysis)) 10,000 units SAT-SAT-SAT SUBQ 02/01/17 21:00 03/03/17 20:59 02/04/17 22:04 Gabapentin (Neurontin) 300 mg THREE TIMES A DAY ORAL 02/03/17 13:00 03/05/17 12:59 02/05/17 09:15 Heparin Sodium (Porcine) (Heparin 5000 units/ml) 5,000 units EVERY 12 HOURS SUBQ 01/31/17 21:00 03/02/17 20:59 02/05/17 09:19 Levofloxacin (Levaquin) 500 mg DAILY ORAL 02/05/17 09:00 02/11/17 09:01 02/05/17 09:13 Losartan Potassium (Cozaar) 100 mg DAILY GT 02/01/17 09:00 03/03/17 08:59 02/05/17 09:15 Methadone HCl (Methadone HCl) 40 mg DAILY ORAL 02/04/17 09:00 02/11/17 08:59 02/05/17 09:14 Nebivolol (Bystolic) 5 mg DAILY ORAL 02/05/17 09:00 03/07/17 08:59 02/05/17 09:14 Ondansetron HCl (Zofran ODT) 4 mg Q6H PRN ORAL Nausea & Vomiting 02/04/17 15:45 03/06/17 15:44 02/04/17 16:34 Piperacillin Sod/ Tazobactam Sod/ Dextrose (Zosyn/D5W) 55 ml @ 110 mls/hr Q8H IV 01/31/17 15:00 02/05/17 22:59 02/04/17 15:43 Polyethylene Glycol (Miralax) 17 gm DAILYPRN PRN GT Constipation 01/31/17 21:00 03/02/17 20:59 Temazepam (Restoril) 15 mg HSPRN PRN GT Insomnia 01/31/17 21:00 02/07/17 20:59 AUGIE CAREY Feb 05, 2017 12:30
[2017-02-05 15:54] VITALS: BP 135/86
--- NOTE | 2017-02-05 16:37 | Nephrology Progress Note ---
Assessment/Plan Assessment 1. Hyperkalemia. 2. Hypocalcemia. 3. Fluid overload. 4. Respiratory failure. 5. Pulmonary edema. 6. Sepsis. Plan plan to repeat dialysis as schedule monitoring electrolyte continue epogen Subjective Constitutional: Reports: no symptoms HEENT: Reports: no symptoms Genitourinary: Reports: no symptoms 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: Reports: no symptoms Subjective alert and awake no complaints Objective Objective Last 24 Hour Vital Signs Date Time Temp Pulse Resp B/P Pulse Ox O2 Delivery O2 Flow Rate FiO2 02/05/17 15:54 96.8 92 18 135/86 96 Nasal Cannula 3.0 02/05/17 15:30 Nasal Cannula 2.0 02/05/17 15:24 85 18 100 Nasal Cannula 2.0 28 02/05/17 15:15 90 18 98 Nasal Cannula 2.0 02/05/17 12:00 97.5 99 20 134/91 98 Nasal Cannula 3.0 02/05/17 11:55 Nasal Cannula 2.0 02/05/17 11:25 89 20 100 Nasal Cannula 2.0 02/05/17 11:13 93 20 97 Nasal Cannula 2.0 02/05/17 09:15 150/95 02/05/17 07:54 97.3 109 18 150/95 97 Nasal Cannula 3.0 02/05/17 07:20 96 Nasal Cannula 2.0 02/05/17 07:20 Nasal Cannula 2.0 02/05/17 07:20 Nasal Cannula 2.0 02/05/17 07:20 Nasal Cannula 02/05/17 04:00 97.2 111 20 145/55 100 Nasal Cannula 2.0 02/05/17 04:00 100 02/05/17 03:47 102 20 100 Nasal Cannula 2.0 02/05/17 03:30 100 20 98 Nasal Cannula 2.0 02/05/17 00:00 97.7 77 20 151/99 100 Nasal Cannula 2.0 02/05/17 00:00 97 02/04/17 23:45 94 20 99 Nasal Cannula 2.0 02/04/17 23:30 90 20 97 Nasal Cannula 2.0 02/04/17 20:00 97.3 75 20 150/79 100 Nasal Cannula 2.0 02/04/17 20:00 86 02/04/17 19:45 108 20 99 Nasal Cannula 2.0 28 02/04/17 19:30 97 Nasal Cannula 2.0 28 02/04/17 19:30 Nasal Cannula 2.0 28 02/04/17 19:30 106 20 98 Nasal Cannula 2.0 28 02/04/17 17:31 171/95 Intake and Output 02/04/17 02/05/17 19:00 07:00 Intake Total 300 ml 240 ml Balance 300 ml 240 ml Intake Oral 300 ml 240 ml # Voids 2 1 # Bowel Movements 1 Height (Feet): 5 Height (Inches): 6.00 Weight (Pounds): 141 Objective HEAD AND NECK: . The patient has periorbital edema. ET tube is in place. Extraocular movement intact. The patient open her eyes to verbal stimuli. LUNGS: Decreased breathing sound on both side and crackles. CARDIAC: Regular rate and rhythm. S1 and S2. No murmur. No rub. ABDOMEN: Soft, nontender, and nondistended. EXTREMITIES: A 1 to 3+ edema. NEUROLOGIC: Cranial nerves II through XII intact. . The patient is moving but not following commands. CHARLENE FINN Feb 05, 2017 16:37
[2017-02-05 20:00] VITALS: BP 122/83
--- NOTE | 2017-02-05 23:40 | Cardiology Progress Note ---
Assessment/Plan Assessment/Plan 1. Hypertensive heart disease, BP well controlled, continue losartan. 2. Sinus tachycardia due to sepsis/PNA with enterobacter 3. Hx of DM, recommend ASA and statins. 4. Hx of CAD, s/p [place] 5. s/p respiratory failure 6. ESRD Subjective Subjective Sinus tachycardia at 107. Denies CP or SOB. Objective Last 24 Hour Vital Signs Date Time Temp Pulse Resp B/P Pulse Ox O2 Delivery O2 Flow Rate FiO2 02/05/17 23:27 103 18 99 Nasal Cannula 2.0 02/05/17 20:26 109 20 99 Nasal Cannula 2.0 02/05/17 20:18 Nasal Cannula 2.0 02/05/17 20:17 99 Nasal Cannula 2.0 02/05/17 20:16 107 18 100 Nasal Cannula 2.0 02/05/17 20:00 98.2 115 18 122/83 95 Nasal Cannula 3.0 02/05/17 17:00 91 02/05/17 15:54 96.8 92 18 135/86 96 Nasal Cannula 3.0 02/05/17 15:30 Nasal Cannula 2.0 02/05/17 15:24 85 18 100 Nasal Cannula 2.0 02/05/17 15:15 90 18 98 Nasal Cannula 2.0 02/05/17 12:00 99 02/05/17 12:00 97.5 99 20 134/91 98 Nasal Cannula 3.0 02/05/17 11:55 Nasal Cannula 2.0 02/05/17 11:25 89 20 100 Nasal Cannula 2.0 28 02/05/17 11:13 93 20 97 Nasal Cannula 2.0 28 02/05/17 09:15 150/95 02/05/17 08:00 112 02/05/17 07:54 97.3 109 18 150/95 97 Nasal Cannula 3.0 02/05/17 07:20 96 Nasal Cannula 2.0 28 02/05/17 07:20 Nasal Cannula 2.0 28 02/05/17 07:20 Nasal Cannula 2.0 28 02/05/17 07:20 Nasal Cannula 02/05/17 04:00 97.2 111 20 145/55 100 Nasal Cannula 2.0 28 02/05/17 04:00 100 02/05/17 03:47 102 20 100 Nasal Cannula 2.0 02/05/17 03:30 100 20 98 Nasal Cannula 2.0 28 02/05/17 00:00 97.7 77 20 151/99 100 Nasal Cannula 2.0 28 02/05/17 00:00 97 02/04/17 23:45 94 20 99 Nasal Cannula 2.0 28 Intake and Output 02/04/17 02/05/17 19:00 07:00 Intake Total 300 ml 240 ml Balance 300 ml 240 ml Intake Oral 300 ml 240 ml # Voids 2 1 # Bowel Movements 1 2D Echo: EF 55%, Mild LVH, Mild MR/AR, RVSP 32 mmHg, Grade I LVDD Objective HEENT: Atraumatic, normocephalic, periorbital edema. Extraocular movement intact. Awake and alert. NECK: JVD negative, no carotid bruit, upstroke 2+ B/L LUNGS: Decreased breath sounds on both side. CARDIAC: Regular rate and rhythm. S1 and S2, No murmurs, gallops or rubs. ABDOMEN: Soft, nontender, and nondistended, + BS EXTREMITIES: 1+ B/L edema, no clubbing or cyanosis. PREM BIGGS Feb 05, 2017 23:40
[2017-02-06] VITALS: BP 145/90
[2017-02-06] MEDS ORDERED: Miralax 17gm pkt ORAL PRN ×2 (01:30→16:00)
[2017-02-06] MEDS: DuoNeb 0.5-3(2.5)mg/3ml neb HHN SCH ×6 (02:17→23:00)
[2017-02-06 04:00] VITALS: BP 141/81
[2017-02-06] MEDS: Norco 5mg/325mg tab ORAL PRN ×4 (05:03→20:14)
[2017-02-06 09:00] VITALS: BP 146/82
[2017-02-06] MEDS ORDERED: Losartan 50mg tab ORAL SCH (09:00)
[2017-02-06] MEDS: Doxazosin 1mg Tab ORAL SCH ×2 (09:29→17:28)
[2017-02-06] MEDS: Bystolic 2.5mg Tab ORAL SCH (09:29)
[2017-02-06] MEDS: Heparin 5000 units/ml inj SUBQ SCH ×2 (09:30→20:17)
[2017-02-06 12:00] VITALS: BP 145/89
--- NOTE | 2017-02-06 14:10 | Cardiology Progress Note ---
Assessment/Plan Assessment/Plan 1. Hypertensive heart disease, stage I, continue losartan, increase Bystolic to 10mg daily. 2. Sinus tachycardia due to sepsis/PNA with enterobacter, continue Bystolic. 3. Hx of DM, recommend ASA and statins. 4. Hx of CAD, s/p [place] 5. s/p respiratory failure 6. ESRD Subjective Subjective Sinus rhythm at 93. Objective Last 24 Hour Vital Signs Date Time Temp Pulse Resp B/P Pulse Ox O2 Delivery O2 Flow Rate FiO2 02/06/17 12:00 97.5 100 20 145/89 94 Room Air 02/06/17 11:41 90 16 100 Nasal Cannula 2.0 28 02/06/17 11:33 93 18 98 Nasal Cannula 2.0 28 02/06/17 09:28 146/82 02/06/17 09:00 98.1 96 20 146/82 95 Room Air 02/06/17 08:17 96 20 100 Nasal Cannula 2.0 28 02/06/17 08:06 Nasal Cannula 2.0 02/06/17 08:06 98 Nasal Cannula 2.0 02/06/17 08:06 92 18 98 Nasal Cannula 2.0 28 02/06/17 04:00 97.7 105 18 141/81 95 Nasal Cannula 3.0 02/06/17 04:00 102 02/06/17 02:18 107 20 99 Nasal Cannula 2.0 02/06/17 02:17 102 20 97 Nasal Cannula 2.0 02/06/17 00:00 97.7 106 18 145/90 95 Nasal Cannula 3.0 02/06/17 00:00 105 02/05/17 23:37 104 21 99 Nasal Cannula 2.0 02/05/17 23:27 103 18 99 Nasal Cannula 2.0 02/05/17 20:26 109 20 99 Nasal Cannula 2.0 02/05/17 20:18 Nasal Cannula 2.0 02/05/17 20:17 99 Nasal Cannula 2.0 02/05/17 20:16 107 18 100 Nasal Cannula 2.0 02/05/17 20:00 98.2 115 18 122/83 95 Nasal Cannula 3.0 02/05/17 20:00 106 02/05/17 17:00 91 02/05/17 15:54 96.8 92 18 135/86 96 Nasal Cannula 3.0 8/15/17 15:30 Nasal Cannula 2.0 02/05/17 15:24 85 18 100 Nasal Cannula 2.0 28 02/05/17 15:15 90 18 98 Nasal Cannula 2.0 28 Intake and Output 02/05/17 02/06/17 19:00 07:00 Intake Total 480 ml 360 ml Output Total 1330 ml Balance -850 ml 360 ml Intake Oral 480 ml 360 ml Output Hemodialysis UF 1330 ml 2D Echo: EF 55%, Mild LVH, Mild MR/AR, RVSP 32 mmHg, Grade I LVDD Objective HEENT: Atraumatic, normocephalic, periorbital edema. Extraocular movement intact. Awake and alert. NECK: JVD negative, no carotid bruit, upstroke 2+ B/L LUNGS: Decreased breath sounds on both side. CARDIAC: Regular rate and rhythm. S1 and S2, No murmurs, gallops or rubs. ABDOMEN: Soft, nontender, and nondistended, + BS EXTREMITIES: 1+ B/L edema, no clubbing or cyanosis. PREM BIGGS Feb 06, 2017 14:10
--- NOTE | 2017-02-06 15:39 | Nephrology Progress Note ---
Assessment/Plan Assessment 1. Hyperkalemia. 2. Hypocalcemia. 3. Fluid overload. 4. Respiratory failure. 5. Pulmonary edema. 6. Sepsis. Plan plan to repeat dialysis as schedule monitoring electrolyte continue epogen Subjective Subjective alert and awake no complaints Objective Objective Last 24 Hour Vital Signs Date Time Temp Pulse Resp B/P Pulse Ox O2 Delivery O2 Flow Rate FiO2 02/06/17 15:33 88 16 100 Nasal Cannula 2.0 28 02/06/17 15:27 80 18 98 Nasal Cannula 2.0 28 02/06/17 12:00 97.5 100 20 145/89 94 Room Air 02/06/17 12:00 102 02/06/17 11:41 90 16 100 Nasal Cannula 2.0 28 02/06/17 11:33 93 18 98 Nasal Cannula 2.0 28 02/06/17 09:28 146/82 02/06/17 09:00 98.1 96 20 146/82 95 Room Air 02/06/17 08:17 96 20 100 Nasal Cannula 2.0 28 02/06/17 08:06 Nasal Cannula 2.0 02/06/17 08:06 98 Nasal Cannula 2.0 02/06/17 08:06 92 18 98 Nasal Cannula 2.0 28 02/06/17 08:00 93 02/06/17 04:00 97.7 105 18 141/81 95 Nasal Cannula 3.0 02/06/17 04:00 102 02/06/17 02:18 107 20 99 Nasal Cannula 2.0 28 02/06/17 02:17 102 20 97 Nasal Cannula 2.0 02/06/17 00:00 97.7 106 18 145/90 95 Nasal Cannula 3.0 02/06/17 00:00 105 02/05/17 23:37 104 21 99 Nasal Cannula 2.0 02/05/17 23:27 103 18 99 Nasal Cannula 2.0 02/05/17 20:26 109 20 99 Nasal Cannula 2.0 02/05/17 20:18 Nasal Cannula 2.0 02/05/17 20:17 99 Nasal Cannula 2.0 02/05/17 20:16 107 18 100 Nasal Cannula 2.0 02/05/17 20:00 98.2 115 18 122/83 95 Nasal Cannula 3.0 02/05/17 20:00 106 02/05/17 17:00 91 02/05/17 15:54 96.8 92 18 135/86 96 Nasal Cannula 3.0 Intake and Output 02/05/17 02/06/17 19:00 07:00 Intake Total 480 ml 360 ml Output Total 1330 ml Balance -850 ml 360 ml Intake Oral 480 ml 360 ml Output Hemodialysis UF 1330 ml Height (Feet): 5 Height (Inches): 6.00 Weight (Pounds): 139 Objective HEAD AND NECK: . The patient has periorbital edema. ET tube is in place. Extraocular movement intact. The patient open her eyes to verbal stimuli. LUNGS: Decreased breathing sound on both side and crackles. CARDIAC: Regular rate and rhythm. S1 and S2. No murmur. No rub. ABDOMEN: Soft, nontender, and nondistended. EXTREMITIES: A 1 to 3+ edema. NEUROLOGIC: Cranial nerves II through XII intact. . The patient is moving but not following commands. CHARLENE FINN Feb 06, 2017 15:39
[2017-02-06 16:12] VITALS: BP 137/80
--- NOTE | 2017-02-06 17:25 | Pulmonology Progress Note ---
Assessment/Plan Assessment/Plan 1. Severe hyperkalemia. 2. Respiratory failure, intubated, resolved 3. CHF w Pulmonary edema, resolved 4. Malignant HTN 5. Coronary artery disease. 6. Chronic obstructive pulmonary disease. 7. Anemia, due to renal failure 8. Pneumonia, RLL due to enterobacter aerogenes, resolving Plan Levaqiun dialysis, UF dc when bed available Subjective Constitutional: Denies: fever Respiratory: Denies: productive cough, shortness of breath Allergies: Coded Allergies: No Known Allergies (Unverified , 01/01/12) Objective Last 24 Hour Vital Signs Date Time Temp Pulse Resp B/P Pulse Ox O2 Delivery O2 Flow Rate FiO2 02/06/17 16:12 98.2 102 20 137/80 94 Nasal Cannula 2.0 02/06/17 15:33 88 16 100 Nasal Cannula 2.0 28 02/06/17 15:27 80 18 98 Nasal Cannula 2.0 28 02/06/17 12:00 97.5 100 20 145/89 94 Room Air 02/06/17 12:00 102 02/06/17 11:41 90 16 100 Nasal Cannula 2.0 02/06/17 11:33 93 18 98 Nasal Cannula 2.0 28 02/06/17 09:28 146/82 02/06/17 09:00 98.1 96 20 146/82 95 Room Air 02/06/17 08:17 96 20 100 Nasal Cannula 2.0 28 02/06/17 08:06 Nasal Cannula 2.0 02/06/17 08:06 98 Nasal Cannula 2.0 02/06/17 08:06 92 18 98 Nasal Cannula 2.0 28 02/06/17 08:00 93 02/06/17 04:00 97.7 105 18 141/81 95 Nasal Cannula 3.0 02/06/17 04:00 102 02/06/17 02:18 107 20 99 Nasal Cannula 2.0 28 02/06/17 02:17 102 20 97 Nasal Cannula 2.0 02/06/17 00:00 97.7 106 18 145/90 95 Nasal Cannula 3.0 02/06/17 00:00 105 02/05/17 23:37 104 21 99 Nasal Cannula 2.0 02/05/17 23:27 103 18 99 Nasal Cannula 2.0 02/05/17 20:26 109 20 99 Nasal Cannula 2.0 02/05/17 20:18 Nasal Cannula 2.0 02/05/17 20:17 99 Nasal Cannula 2.0 02/05/17 20:16 107 18 100 Nasal Cannula 2.0 02/05/17 20:00 98.2 115 18 122/83 95 Nasal Cannula 3.0 02/05/17 20:00 106 Intake and Output 02/05/17 02/06/17 19:00 07:00 Intake Total 480 ml 360 ml Output Total 1330 ml Balance -850 ml 360 ml Intake Oral 480 ml 360 ml Output Hemodialysis UF 1330 ml Objective face mildly puffy HEENT: normocephalic Respiratory/Chest: lungs clear Cardiovascular: normal rate Current Medications Medications (Trade) Dose Ordered Sig/Winter Route PRN Reason Start Time Stop Time Status Last Admin Dose Admin Acetaminophen (Tylenol) 650 mg Q4H PRN ORAL Fever 02/06/17 16:00 03/08/17 15:59 Acetaminophen/ Hydrocodone Bitart ([place] 5/325) 1 tab Q4H PRN ORAL Moderate Pain (Pain Scale 4-6) 02/06/17 16:00 02/13/17 15:59 02/06/17 16:32 Albuterol/ Ipratropium (DuoNeb 0.5-3(2.5)mg/3ml) 3 ml Q4HRT HHN 02/06/17 19:00 02/11/17 18:59 Clonidine HCl (Catapres) 0.2 mg Q4H PRN ORAL SBP>160 mmHg 02/06/17 16:00 03/08/17 15:59 Dextrose (Dextrose 50%) STAT PRN IV Hypoglycemia 02/06/17 16:00 03/08/17 15:59 Doxazosin Mesylate (Cardura) 2.5 mg BID ORAL 02/06/17 18:00 03/08/17 17:59 Epoetin Vijay (Procrit (for ESRD on dialysis)) 10,000 units MON-WED-SAT SUBQ 02/06/17 21:00 03/08/17 20:59 Gabapentin (Neurontin) 300 mg THREE TIMES A DAY ORAL 02/06/17 18:00 03/08/17 17:59 Heparin Sodium (Porcine) (Heparin 5000 units/ml) 5,000 units EVERY 12 HOURS SUBQ 02/06/17 21:00 03/08/17 20:59 Levofloxacin (Levaquin) 500 mg Q48H ORAL 02/07/17 09:00 02/17/17 09:01 Losartan Potassium (Cozaar) 100 mg DAILY ORAL 02/07/17 09:00 03/09/17 08:59 Methadone HCl (Methadone HCl) 40 mg DAILY ORAL 02/07/17 09:00 02/14/17 08:59 Nebivolol (Bystolic) 10 mg DAILY ORAL 02/07/17 09:00 03/09/17 08:59 Ondansetron HCl (Zofran ODT) 4 mg Q6H PRN ORAL Nausea & Vomiting 02/06/17 15:45 03/08/17 15:44 Polyethylene Glycol (Miralax) 17 gm DAILYPRN PRN ORAL Constipation 02/06/17 16:00 03/08/17 15:59 Temazepam (Restoril) 15 mg HSPRN PRN ORAL Insomnia 02/06/17 16:00 02/13/17 15:59 AUGIE CAREY Feb 06, 2017 17:25
[2017-02-06 20:00] VITALS: BP 143/86
[2017-02-06] MEDS: Epogen (for ESRD on dialysis) SUBQ SCH (20:15)
[2017-02-07] VITALS: BP 138/84
[2017-02-07] MEDS: DuoNeb 0.5-3(2.5)mg/3ml neb HHN SCH ×6 (03:00→23:24)
[2017-02-07] MEDS: Norco 5mg/325mg tab ORAL PRN ×4 (03:43→20:38)
[2017-02-07 04:00] VITALS: BP 141/90
[2017-02-07 08:00] VITALS: BP 140/87
[2017-02-07] MEDS: Heparin 5000 units/ml inj SUBQ SCH ×2 (08:40→20:34)
[2017-02-07] MEDS: Levofloxacin 500mg tab ORAL SCH (08:41)
[2017-02-07] MEDS: Doxazosin 1mg Tab ORAL SCH ×2 (09:00→18:00)
[2017-02-07] MEDS ORDERED: Levofloxacin 500mg tab ORAL SCH (09:00)
[2017-02-07] MEDS: Losartan 50mg tab ORAL SCH (09:00)
--- NOTE | 2017-02-07 09:28 | Nephrology Progress Note ---
Assessment/Plan Assessment 1. Hyperkalemia. 2. Hypocalcemia. 3. Fluid overload. 4. Respiratory failure. 5. Pulmonary edema. 6. Sepsis. Plan plan to repeat dialysis as schedule monitoring electrolyte continue epogen d/c planing Subjective Constitutional: Reports: no symptoms HEENT: Reports: no symptoms Genitourinary: Reports: no symptoms 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: Reports: no symptoms Subjective alert and awake no complaints Objective Objective Last 24 Hour Vital Signs Date Time Temp Pulse Resp B/P Pulse Ox O2 Delivery O2 Flow Rate FiO2 02/07/17 08:00 98.1 107 20 140/87 97 Nasal Cannula 2.0 02/07/17 07:19 104 16 100 Nasal Cannula 2.0 02/07/17 07:18 Nasal Cannula 2.0 02/07/17 07:18 100 Nasal Cannula 2.0 02/07/17 04:51 97.6 02/07/17 04:00 97.5 107 21 141/90 97 Nasal Cannula 2.0 02/07/17 03:36 Nasal Cannula 2.0 28 02/07/17 00:00 97.6 101 18 138/84 94 Nasal Cannula 2.0 02/06/17 21:09 87 18 100 Nasal Cannula 2.0 28 02/06/17 20:18 98 Nasal Cannula 2.0 28 02/06/17 20:18 74 20 98 Nasal Cannula 2.0 02/06/17 20:18 Nasal Cannula 2.0 28 02/06/17 20:00 97.7 102 20 143/86 97 Nasal Cannula 2.0 02/06/17 16:12 98.2 102 20 137/80 94 Nasal Cannula 2.0 02/06/17 15:33 88 16 100 Nasal Cannula 2.0 02/06/17 15:27 80 18 98 Nasal Cannula 2.0 28 02/06/17 12:00 97.5 100 20 145/89 94 Room Air 02/06/17 12:00 102 02/06/17 11:41 90 16 100 Nasal Cannula 2.0 02/06/17 11:33 93 18 98 Nasal Cannula 2.0 02/06/17 09:28 146/82 Intake and Output 02/06/17 02/07/17 19:00 07:00 Intake Total 900 ml 475 ml Balance 900 ml 475 ml Intake Oral 900 ml 475 ml # Voids 3 2 # Bowel Movements 2 2 Height (Feet): 5 Height (Inches): 6.00 Weight (Pounds): 143 Objective HEAD AND NECK: . The patient has periorbital edema. ET tube is in place. Extraocular movement intact. The patient open her eyes to verbal stimuli. LUNGS: Decreased breathing sound on both side and crackles. CARDIAC: Regular rate and rhythm. S1 and S2. No murmur. No rub. ABDOMEN: Soft, nontender, and nondistended. EXTREMITIES: A 1 to 3+ edema. NEUROLOGIC: Cranial nerves II through XII intact. . The patient is moving but not following commands. CHARLENE FINN Feb 07, 2017 09:28
[2017-02-07 12:00] VITALS: BP 139/88
[2017-02-07 16:00] VITALS: BP 161/82
--- NOTE | 2017-02-07 16:45 | Pulmonology Progress Note ---
Assessment/Plan Assessment/Plan 1. Severe hyperkalemia. 2. Respiratory failure, intubated, resolved 3. CHF w Pulmonary edema, resolved 4. Malignant HTN 5. Coronary artery disease. 6. Chronic obstructive pulmonary disease. 7. Anemia, due to renal failure 8. Pneumonia, RLL due to enterobacter aerogenes, resolving Plan Levaquin PO dialysis, UF dc when bed available Subjective Constitutional: Denies: fever Respiratory: Denies: productive cough, shortness of breath Allergies: Coded Allergies: No Known Allergies (Unverified , 01/01/12) Objective Last 24 Hour Vital Signs Date Time Temp Pulse Resp B/P Pulse Ox O2 Delivery O2 Flow Rate FiO2 02/07/17 16:00 97.9 66 18 161/82 95 Room Air 2.0 02/07/17 14:58 102 18 100 Nasal Cannula 2.0 02/07/17 14:53 98 16 99 Nasal Cannula 2.0 02/07/17 12:00 97.5 100 17 139/88 98 Nasal Cannula 02/07/17 12:00 99 18 99 Nasal Cannula 2.0 02/07/17 11:42 100 18 99 Nasal Cannula 2.0 02/07/17 09:00 139/88 02/07/17 08:00 98.1 107 20 140/87 97 Nasal Cannula 2.0 02/07/17 07:29 104 16 100 Nasal Cannula 2.0 02/07/17 07:19 104 16 100 Nasal Cannula 2.0 02/07/17 07:18 Nasal Cannula 2.0 02/07/17 07:18 100 Nasal Cannula 2.0 02/07/17 04:51 97.6 02/07/17 04:00 97.5 107 21 141/90 97 Nasal Cannula 2.0 02/07/17 03:36 Nasal Cannula 2.0 28 02/07/17 00:00 97.6 101 18 138/84 94 Nasal Cannula 2.0 02/06/17 21:09 87 18 100 Nasal Cannula 2.0 28 02/06/17 20:18 98 Nasal Cannula 2.0 28 02/06/17 20:18 74 20 98 Nasal Cannula 2.0 28 02/06/17 20:18 Nasal Cannula 2.0 28 02/06/17 20:00 97.7 102 20 143/86 97 Nasal Cannula 2.0 Intake and Output 02/06/17 02/07/17 19:00 07:00 Intake Total 900 ml 475 ml Balance 900 ml 475 ml Intake Oral 900 ml 475 ml # Voids 3 2 # Bowel Movements 2 2 Objective face mildly puffy HEENT: atraumatic Respiratory/Chest: lungs clear Cardiovascular: normal rate Abdomen: soft, non tender Current Medications Medications (Trade) Dose Ordered Sig/Winter Route PRN Reason Start Time Stop Time Status Last Admin Dose Admin Acetaminophen (Tylenol) 650 mg Q4H PRN ORAL Fever 02/06/17 16:00 03/08/17 15:59 Acetaminophen/ Hydrocodone Bitart ([place] 5/325) 1 tab Q4H PRN ORAL Moderate Pain (Pain Scale 4-6) 02/06/17 16:00 02/13/17 15:59 02/07/17 16:15 Albuterol/ Ipratropium (DuoNeb 0.5-3(2.5)mg/3ml) 3 ml Q4HRT HHN 02/06/17 19:00 02/11/17 18:59 02/07/17 14:53 Clonidine HCl (Catapres) 0.2 mg Q4H PRN ORAL SBP>160 mmHg 02/06/17 16:00 03/08/17 15:59 Dextrose (Dextrose 50%) STAT PRN IV Hypoglycemia 02/06/17 16:00 03/08/17 15:59 Doxazosin Mesylate (Cardura) 2.5 mg BID ORAL 02/06/17 18:00 03/08/17 17:59 02/06/17 17:28 Epoetin Vijay (Procrit (for ESRD on dialysis)) 10,000 units SAT-SAT-SAT SUBQ 02/06/17 21:00 03/08/17 20:59 02/06/17 20:15 Gabapentin (Neurontin) 300 mg THREE TIMES A DAY ORAL 02/06/17 18:00 03/08/17 17:59 02/07/17 13:35 Heparin Sodium (Porcine) (Heparin 5000 units/ml) 5,000 units EVERY 12 HOURS SUBQ 02/06/17 21:00 03/08/17 20:59 02/07/17 08:40 Levofloxacin (Levaquin) 500 mg Q48H ORAL 02/07/17 09:00 02/17/17 09:01 02/07/17 08:41 Losartan Potassium (Cozaar) 100 mg DAILY ORAL 02/07/17 09:00 03/09/17 08:59 Methadone HCl (Methadone HCl) 40 mg DAILY ORAL 02/07/17 09:00 02/14/17 08:59 02/07/17 08:42 Nebivolol (Bystolic) 10 mg DAILY ORAL 02/07/17 09:00 03/09/17 08:59 Ondansetron HCl (Zofran ODT) 4 mg Q6H PRN ORAL Nausea & Vomiting 02/06/17 15:45 03/08/17 15:44 Polyethylene Glycol (Miralax) 17 gm DAILYPRN PRN ORAL Constipation 02/06/17 16:00 03/08/17 15:59 Temazepam (Restoril) 15 mg HSPRN PRN ORAL Insomnia 02/06/17 16:00 02/13/17 15:59 AUGIE CAREY Feb 07, 2017 16:45
[2017-02-07 20:00] VITALS: BP 135/74
[2017-02-08 00:09] VITALS: BP 130/72
[2017-02-08] MEDS: Norco 5mg/325mg tab ORAL PRN ×5 (01:06→20:35)
[2017-02-08] MEDS: DuoNeb 0.5-3(2.5)mg/3ml neb HHN SCH ×6 (02:57→23:16)
[2017-02-08 04:27] VITALS: BP 159/98
[2017-02-08 08:00] VITALS: BP 164/96
[2017-02-08 08:20] LABS: BASOPHILS % (AUTO) 1.5 % (0.0-2.0); LYMPHOCYTES % (AUTO) 26.7 % (20.0-45.0); MEAN CORPUSCULAR HEMOGLOBIN 26.6 PG (27.0-31.0); MEAN CORPUSCULAR VOLUME 89 FL (80-99); MEAN PLATELET VOLUME 6.1 FL (6.5-10.1); MONOCYTES % (AUTO) 9.8 % (1.0-10.0); PLATELET COUNT 238 K/UL (150-450); RED BLOOD COUNT 3.12 M/UL (4.20-5.40); RED CELL DISTRIBUTION WIDTH 16.7 % (11.6-14.8); WHITE BLOOD COUNT 9.7 K/UL (4.8-10.8)
[2017-02-08] MEDS: Losartan 50mg tab ORAL SCH (08:41)
--- NOTE | 2017-02-08 08:49 | Pulmonology Progress Note ---
Assessment/Plan Assessment/Plan 1. Severe hyperkalemia. 2. Respiratory failure, intubated, resolved 3. CHF w Pulmonary edema, resolved 4. Malignant HTN 5. Coronary artery disease. 6. Chronic obstructive pulmonary disease. 7. Anemia, due to renal failure 8. Pneumonia, RLL due to enterobacter aerogenes, resolving Plan Levaquin PO adjust BP rx dialysis, UF dc when bed available Subjective Allergies: Coded Allergies: No Known Allergies (Unverified , 01/01/12) Objective Last 24 Hour Vital Signs Date Time Temp Pulse Resp B/P Pulse Ox O2 Delivery O2 Flow Rate FiO2 02/08/17 08:41 164/96 02/08/17 08:00 97.9 74 20 164/96 99 Nasal Cannula 2.0 02/08/17 07:25 72 18 100 Nasal Cannula 2.0 02/08/17 07:12 76 18 100 Nasal Cannula 2.0 28 02/08/17 07:11 Nasal Cannula 2.0 28 02/08/17 07:10 100 Nasal Cannula 2.0 02/08/17 06:07 98.2 02/08/17 04:27 98.2 106 20 159/98 96 Nasal Cannula 02/08/17 03:07 28 02/08/17 03:07 109 16 100 Nasal Cannula 2.0 28 02/08/17 02:59 109 16 97 Nasal Cannula 2.0 02/08/17 00:09 98.6 68 20 130/72 96 Nasal Cannula 02/07/17 23:26 70 16 99 Nasal Cannula 2.0 28 02/07/17 23:07 28 02/07/17 23:07 70 16 98 Nasal Cannula 2.0 28 02/07/17 20:00 98.2 72 20 135/74 98 Nasal Cannula 02/07/17 19:15 67 16 99 Nasal Cannula 2.0 28 02/07/17 19:07 85 Room Air 21 02/07/17 19:07 88 16 85 Room Air 21 02/07/17 19:07 Room Air 21 02/07/17 18:50 Nasal Cannula 2.0 02/07/17 16:00 97.9 66 18 161/82 95 Room Air 2.0 02/07/17 15:15 Nasal Cannula 2.0 02/07/17 14:58 102 18 100 Nasal Cannula 2.0 02/07/17 14:53 98 16 99 Nasal Cannula 2.0 02/07/17 12:00 97.5 100 17 139/88 98 Nasal Cannula 02/07/17 12:00 99 18 99 Nasal Cannula 2.0 02/07/17 11:42 100 18 99 Nasal Cannula 2.0 02/07/17 09:00 139/88 Intake and Output 02/07/17 02/08/17 19:00 07:00 Intake Total 1080 ml 120 ml Output Total 2478 ml Balance -1398 ml 120 ml Intake Oral 1080 ml 120 ml Output Hemodialysis UF 2478 ml # Voids 2 3 # Bowel Movements 2 1 Objective face mildly puffy Laboratory Tests 02/08/17 08:00: White Blood Count 9.7, Red Blood Count 3.12L, Hemoglobin 8.3L, Hematocrit 27.6L , Mean Corpuscular Volume 89, Mean Corpuscular Hemoglobin 26.6L, Mean Corpuscular Hemoglobin Concent 30.0L, Red Cell Distribution Width 16.7H, Platelet Count 238, Mean Platelet Volume 6.1L, Neutrophils (%) (Auto) 60.0, Lymphocytes (%) (Auto) 26.7, Monocytes (%) (Auto) 9.8, Eosinophils (%) (Auto) 2.0, Basophils (%) (Auto) 1.5 Current Medications Medications (Trade) Dose Ordered Sig/Winter Route PRN Reason Start Time Stop Time Status Last Admin Dose Admin Acetaminophen (Tylenol) 650 mg Q4H PRN ORAL Fever 02/06/17 16:00 03/08/17 15:59 Acetaminophen/ Hydrocodone Bitart ([place] 5/325) 1 tab Q4H PRN ORAL Moderate Pain (Pain Scale 4-6) 02/06/17 16:00 02/13/17 15:59 02/08/17 05:08 Albuterol/ Ipratropium (DuoNeb 0.5-3(2.5)mg/3ml) 3 ml Q4HRT HHN 02/06/17 19:00 02/11/17 18:59 02/08/17 07:17 Clonidine HCl (Catapres) 0.2 mg Q4H PRN ORAL SBP>160 mmHg 02/06/17 16:00 03/08/17 15:59 Dextrose (Dextrose 50%) STAT PRN IV Hypoglycemia 02/06/17 16:00 03/08/17 15:59 Doxazosin Mesylate (Cardura) 2.5 mg BID ORAL 02/06/17 18:00 03/08/17 17:59 02/06/17 17:28 Epoetin Vijay (Procrit (for ESRD on dialysis)) 10,000 units SAT-SAT-SAT SUBQ 02/06/17 21:00 03/08/17 20:59 02/06/17 20:15 Gabapentin (Neurontin) 300 mg THREE TIMES A DAY ORAL 02/06/17 18:00 03/08/17 17:59 02/08/17 08:42 Heparin Sodium (Porcine) (Heparin 5000 units/ml) 5,000 units EVERY 12 HOURS SUBQ 02/06/17 21:00 03/08/17 20:59 02/07/17 20:34 Levofloxacin (Levaquin) 500 mg Q48H ORAL 02/07/17 09:00 02/17/17 09:01 02/07/17 08:41 Losartan Potassium (Cozaar) 100 mg DAILY ORAL 02/07/17 09:00 03/09/17 08:59 02/08/17 08:41 Methadone HCl (Methadone HCl) 40 mg DAILY ORAL 02/07/17 09:00 02/14/17 08:59 02/08/17 08:41 Nebivolol (Bystolic) 10 mg DAILY ORAL 02/07/17 09:00 03/09/17 08:59 Ondansetron HCl (Zofran ODT) 4 mg Q6H PRN ORAL Nausea & Vomiting 02/06/17 15:45 03/08/17 15:44 Polyethylene Glycol (Miralax) 17 gm DAILYPRN PRN ORAL Constipation 02/06/17 16:00 03/08/17 15:59 Temazepam (Restoril) 15 mg HSPRN PRN ORAL Insomnia 02/06/17 16:00 02/13/17 15:59 AUGIE CAREY Feb 08, 2017 08:49
[2017-02-08] MEDS ORDERED: Doxazosin 1mg Tab ORAL SCH (09:00)
[2017-02-08] MEDS: Doxazosin 1mg Tab ORAL SCH ×2 (09:09→17:45)
[2017-02-08] MEDS: Heparin 5000 units/ml inj SUBQ SCH ×2 (09:09→20:37)
[2017-02-08] MEDS: Doxazosin 4mg tab ORAL SCH ×2 (10:19→17:45)
[2017-02-08 11:56] VITALS: BP 154/87
--- NOTE | 2017-02-08 15:19 | Nephrology Progress Note ---
Assessment/Plan Assessment 1. Hyperkalemia. 2. Hypocalcemia. 3. Fluid overload. 4. Respiratory failure. 5. Pulmonary edema. 6. Sepsis. Plan plan to repeat dialysis as schedule monitoring electrolyte continue epogen d/c planing Subjective Subjective alert and awake no complaints Objective Objective Last 24 Hour Vital Signs Date Time Temp Pulse Resp B/P Pulse Ox O2 Delivery O2 Flow Rate FiO2 02/08/17 11:56 97.5 75 21 154/87 98 Nasal Cannula 2.0 02/08/17 10:51 94 20 95 Nasal Cannula 2.0 02/08/17 10:41 81 20 99 Nasal Cannula 2.0 28 02/08/17 08:41 164/96 02/08/17 08:00 97.9 74 20 164/96 99 Nasal Cannula 2.0 02/08/17 07:42 89 20 Nasal Cannula 2.0 28 02/08/17 07:25 72 18 100 Nasal Cannula 2.0 02/08/17 07:12 76 18 100 Nasal Cannula 2.0 28 02/08/17 07:11 Nasal Cannula 2.0 28 02/08/17 07:10 100 Nasal Cannula 2.0 02/08/17 06:07 98.2 02/08/17 04:27 98.2 106 20 159/98 96 Nasal Cannula 02/08/17 03:07 28 02/08/17 03:07 109 16 100 Nasal Cannula 2.0 28 02/08/17 02:59 109 16 97 Nasal Cannula 2.0 28 02/08/17 00:09 98.6 68 20 130/72 96 Nasal Cannula 02/07/17 23:26 70 16 99 Nasal Cannula 2.0 28 02/07/17 23:07 28 02/07/17 23:07 70 16 98 Nasal Cannula 2.0 28 02/07/17 20:00 98.2 72 20 135/74 98 Nasal Cannula 02/07/17 19:15 67 16 99 Nasal Cannula 2.0 28 02/07/17 19:07 85 Room Air 21 02/07/17 19:07 88 16 85 Room Air 21 02/07/17 19:07 Room Air 21 02/07/17 18:50 Nasal Cannula 2.0 02/07/17 16:00 97.9 66 18 161/82 95 Room Air 2.0 Intake and Output 02/07/17 02/08/17 19:00 07:00 Intake Total 1080 ml 120 ml Output Total 2478 ml Balance -1398 ml 120 ml Intake Oral 1080 ml 120 ml Output Hemodialysis UF 2478 ml # Voids 2 3 # Bowel Movements 2 1 Laboratory Tests 02/08/17 08:00: White Blood Count 9.7, Red Blood Count 3.12L, Hemoglobin 8.3L, Hematocrit 27.6L , Mean Corpuscular Volume 89, Mean Corpuscular Hemoglobin 26.6L, Mean Corpuscular Hemoglobin Concent 30.0L, Red Cell Distribution Width 16.7H, Platelet Count 238, Mean Platelet Volume 6.1L, Neutrophils (%) (Auto) 60.0, Lymphocytes (%) (Auto) 26.7, Monocytes (%) (Auto) 9.8, Eosinophils (%) (Auto) 2.0, Basophils (%) (Auto) 1.5 Height (Feet): 5 Height (Inches): 6.00 Weight (Pounds): 140 Objective HEAD AND NECK: . The patient has periorbital edema. ET tube is in place. Extraocular movement intact. The patient open her eyes to verbal stimuli. LUNGS: Decreased breathing sound on both side and crackles. CARDIAC: Regular rate and rhythm. S1 and S2. No murmur. No rub. ABDOMEN: Soft, nontender, and nondistended. EXTREMITIES: A 1 to 3+ edema. NEUROLOGIC: Cranial nerves II through XII intact. . The patient is moving but not following commands. CHARLENE FINN Feb 08, 2017 15:19
[2017-02-08 16:00] VITALS: BP 159/90
[2017-02-08 20:00] VITALS: BP 181/92
[2017-02-08] MEDS: Epogen (for ESRD on dialysis) SUBQ SCH (20:37)
[2017-02-08] MEDS: cloNIDine 0.2mg Tab ORAL PRN (20:37)
--- NOTE | 2017-02-08 23:31 | Cardiology Progress Note ---
Assessment/Plan Assessment/Plan 1. Hypertensive heart disease, stage III, continue losartan and Bystolic, add calcium channel blockers. 2. Sinus tachycardia, resolved, due to sepsis/PNA with enterobacter, continue Bystolic. 3. Hx of DM, recommend ASA and statins. 4. Hx of CAD, s/p OH 5. s/p respiratory failure 6. ESRD Subjective Subjective Transferred to the med-surg unit. Denies chest pain or SOB. Objective Last 24 Hour Vital Signs Date Time Temp Pulse Resp B/P Pulse Ox O2 Delivery O2 Flow Rate FiO2 02/08/17 23:25 76 16 99 Nasal Cannula 3.0 32 02/08/17 23:16 75 16 97 Nasal Cannula 3.0 32 02/08/17 21:39 97.0 02/08/17 20:37 181/92 02/08/17 20:00 97.0 81 20 181/92 98 Nasal Cannula 3.0 02/08/17 19:29 79 18 98 Nasal Cannula 3.0 32 02/08/17 19:20 Nasal Cannula 3.0 32 02/08/17 19:20 96 Nasal Cannula 3.0 32 02/08/17 19:20 76 18 96 Nasal Cannula 3.0 32 02/08/17 16:00 98.1 72 20 159/90 99 Nasal Cannula 3.0 02/08/17 15:42 72 18 100 Nasal Cannula 2.0 02/08/17 15:29 71 18 99 Nasal Cannula 2.0 02/08/17 11:56 97.5 75 21 154/87 98 Nasal Cannula 2.0 02/08/17 10:51 94 20 95 Nasal Cannula 2.0 02/08/17 10:41 81 20 99 Nasal Cannula 2.0 28 02/08/17 08:41 164/96 02/08/17 08:00 97.9 74 20 164/96 99 Nasal Cannula 2.0 02/08/17 07:42 89 20 Nasal Cannula 2.0 28 02/08/17 07:25 72 18 100 Nasal Cannula 2.0 02/08/17 07:12 76 18 100 Nasal Cannula 2.0 28 02/08/17 07:11 Nasal Cannula 2.0 28 02/08/17 07:10 100 Nasal Cannula 2.0 02/08/17 04:27 98.2 106 20 159/98 96 Nasal Cannula 02/08/17 03:07 28 02/08/17 03:07 109 16 100 Nasal Cannula 2.0 28 02/08/17 02:59 109 16 97 Nasal Cannula 2.0 02/08/17 00:09 98.6 68 20 130/72 96 Nasal Cannula Intake and Output 02/07/17 02/08/17 19:00 07:00 Intake Total 1080 ml 120 ml Output Total 2478 ml Balance -1398 ml 120 ml Intake Oral 1080 ml 120 ml Output Hemodialysis UF 2478 ml # Voids 2 3 # Bowel Movements 2 1 2D Echo: EF 55%, Mild LVH, Mild MR/AR, RVSP 32 mmHg, Grade I LVDD Laboratory Tests Test 02/08/17 08:00 White Blood Count 9.7 K/UL (4.8-10.8) Red Blood Count 3.12 M/UL (4.20-5.40) L Hemoglobin 8.3 G/DL (12.0-16.0) L Hematocrit 27.6 % (37.0-47.0) L Mean Corpuscular Volume 89 FL (80-99) Mean Corpuscular Hemoglobin 26.6 PG (27.0-31.0) L Mean Corpuscular Hemoglobin Concent 30.0 G/DL (32.0-36.0) L Red Cell Distribution Width 16.7 % (11.6-14.8) H Platelet Count 238 K/UL (150-450) Mean Platelet Volume 6.1 FL (6.5-10.1) L Neutrophils (%) (Auto) 60.0 % (45.0-75.0) Lymphocytes (%) (Auto) 26.7 % (20.0-45.0) Monocytes (%) (Auto) 9.8 % (1.0-10.0) Eosinophils (%) (Auto) 2.0 % (0.0-3.0) Basophils (%) (Auto) 1.5 % (0.0-2.0) Objective HEENT: Atraumatic, normocephalic, periorbital edema. Extraocular movement intact. Awake and alert. NECK: JVD negative, no carotid bruit, upstroke 2+ B/L LUNGS: Decreased breath sounds on both side. CARDIAC: Regular rate and rhythm. S1 and S2, No murmurs, gallops or rubs. ABDOMEN: Soft, nontender, and nondistended, + BS EXTREMITIES: 1+ B/L edema, no clubbing or cyanosis. PREM BIGGS Feb 08, 2017 23:31
[2017-02-09] VITALS: BP 138/78
[2017-02-09] MEDS: DuoNeb 0.5-3(2.5)mg/3ml neb HHN SCH ×6 (03:27→23:05)
[2017-02-09 04:00] VITALS: BP 141/79
[2017-02-09] MEDS: Norco 5mg/325mg tab ORAL PRN ×4 (05:02→21:12)
[2017-02-09 08:26] VITALS: BP 137/76
[2017-02-09] MEDS: Doxazosin 1mg Tab ORAL SCH ×2 (08:28→18:11)
[2017-02-09] MEDS: Losartan 50mg tab ORAL SCH (08:29)
[2017-02-09] MEDS: Levofloxacin 500mg tab ORAL SCH (08:32)
[2017-02-09] MEDS: Doxazosin 4mg tab ORAL SCH ×2 (08:33→18:10)
[2017-02-09] MEDS: Heparin 5000 units/ml inj SUBQ SCH ×2 (08:38→21:02)
[2017-02-09 11:35] VITALS: BP 132/75
--- NOTE | 2017-02-09 12:18 | Pulmonology Progress Note ---
Assessment/Plan Assessment/Plan Assessment/Plan 1. Severe hyperkalemia. 2. Respiratory failure, intubated. 3. CHF w Pulmonary edema. 4. Malignant HTN 5. Coronary artery disease. 6. Chronic obstructive pulmonary disease. 7. Anemia, due to renal failure 8. Pneumonia, RLL due to enterobacter aerogenes Plan doing well [place] prn po abx aspiration precautions hgb stable dialysis, UF OT/PT dc when bed availabe at Subjective Constitutional: Reports: no symptoms HEENT: Repors: no symptoms Respiratory: Reports: no symptoms Cardiovascular: Reports: no symptoms Gastrointestinal/Abdominal: Reports: no symptoms Neurologic: Reports: no symptoms Skin: Reports: no symptoms Allergies: Coded Allergies: No Known Allergies (Unverified , 01/01/12) Subjective better today no fever tolerating po no coughing noted no cp oob waiting bed fro [facility] Objective Last 24 Hour Vital Signs Date Time Temp Pulse Resp B/P Pulse Ox O2 Delivery O2 Flow Rate FiO2 02/09/17 11:35 98.2 72 20 132/75 100 Nasal Cannula 2.0 02/09/17 11:33 84 20 100 Nasal Cannula 3.0 32 02/09/17 11:22 66 18 98 Nasal Cannula 2.0 28 02/09/17 08:33 68 137/76 02/09/17 08:29 137/76 02/09/17 08:26 97.7 68 20 137/76 100 Nasal Cannula 2.0 02/09/17 07:35 78 18 100 Nasal Cannula 3.0 32 02/09/17 07:25 76 18 100 Nasal Cannula 2.0 28 02/09/17 07:24 Nasal Cannula 2.0 28 02/09/17 07:23 100 Nasal Cannula 2.0 28 02/09/17 06:01 98.1 02/09/17 04:00 97.7 68 20 141/79 99 Nasal Cannula 02/09/17 03:36 73 16 99 Nasal Cannula 3.0 32 02/09/17 03:28 70 16 95 Nasal Cannula 3.0 32 02/09/17 00:00 98.1 74 18 138/78 98 Room Air 02/08/17 23:25 76 16 99 Nasal Cannula 3.0 32 02/08/17 23:16 75 16 97 Nasal Cannula 3.0 32 02/08/17 20:37 181/92 02/08/17 20:00 97.0 81 20 181/92 98 Nasal Cannula 3.0 02/08/17 19:29 79 18 98 Nasal Cannula 3.0 32 02/08/17 19:20 Nasal Cannula 3.0 32 02/08/17 19:20 96 Nasal Cannula 3.0 32 02/08/17 19:20 76 18 96 Nasal Cannula 3.0 32 02/08/17 16:00 98.1 72 20 159/90 99 Nasal Cannula 3.0 02/08/17 15:42 72 18 100 Nasal Cannula 2.0 02/08/17 15:29 71 18 99 Nasal Cannula 2.0 Intake and Output 02/08/17 02/09/17 19:00 07:00 # Voids 3 General Appearance: WD/WN, no acute distress HEENT: atraumatic, anicteric Respiratory/Chest: lungs clear, normal breath sounds Cardiovascular: normal peripheral pulses, regular rhythm Abdomen: no organomegaly, non distended Skin: no rash, no lesions 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: no motor/sensory deficits, oriented x 3 Lymphatic: no neck adenopathy Current Medications Medications (Trade) Dose Ordered Sig/Winter Route PRN Reason Start Time Stop Time Status Last Admin Dose Admin Acetaminophen (Tylenol) 650 mg Q4H PRN ORAL Fever 02/06/17 16:00 03/08/17 15:59 Acetaminophen/ Hydrocodone Bitart ([place] 5/325) 1 tab Q4H PRN ORAL Moderate Pain (Pain Scale 4-6) 02/06/17 16:00 02/13/17 15:59 02/09/17 05:02 Albuterol/ Ipratropium (DuoNeb 0.5-3(2.5)mg/3ml) 3 ml Q4HRT HHN 02/06/17 19:00 02/11/17 18:59 02/09/17 11:22 Amlodipine Besylate (Norvasc) 5 mg DAILY ORAL 02/09/17 09:00 03/11/17 08:59 02/09/17 08:33 Clonidine HCl (Catapres) 0.2 mg Q4H PRN ORAL SBP>160 mmHg 02/06/17 16:00 03/08/17 15:59 02/08/17 20:37 Dextrose (Dextrose 50%) STAT PRN IV Hypoglycemia 02/06/17 16:00 03/08/17 15:59 Doxazosin Mesylate (Cardura) 1 mg BID ORAL 02/08/17 10:00 03/10/17 09:59 02/09/17 08:28 Doxazosin Mesylate (Cardura) 4 mg BID ORAL 02/08/17 10:00 03/10/17 09:59 02/09/17 08:33 Epoetin Vijay (Procrit (for ESRD on dialysis)) 10,000 units SAT-SAT-SAT SUBQ 02/06/17 21:00 03/08/17 20:59 02/06/17 20:15 Gabapentin (Neurontin) 300 mg THREE TIMES A DAY ORAL 02/06/17 18:00 03/08/17 17:59 02/09/17 08:33 Heparin Sodium (Porcine) (Heparin 5000 units/ml) 5,000 units EVERY 12 HOURS SUBQ 02/06/17 21:00 03/08/17 20:59 02/09/17 08:38 Levofloxacin (Levaquin) 500 mg Q48H ORAL 02/07/17 09:00 02/17/17 09:01 02/09/17 08:32 Losartan Potassium (Cozaar) 100 mg DAILY ORAL 02/07/17 09:00 03/09/17 08:59 02/09/17 08:29 Methadone HCl (Methadone HCl) 40 mg DAILY ORAL 02/07/17 09:00 02/14/17 08:59 02/09/17 08:32 Nebivolol (Bystolic) 10 mg DAILY ORAL 02/07/17 09:00 03/09/17 08:59 02/09/17 08:33 Ondansetron HCl (Zofran ODT) 4 mg Q6H PRN ORAL Nausea & Vomiting 02/06/17 15:45 03/08/17 15:44 02/08/17 18:58 Polyethylene Glycol (Miralax) 17 gm DAILYPRN PRN ORAL Constipation 02/06/17 16:00 03/08/17 15:59 Temazepam (Restoril) 15 mg HSPRN PRN ORAL Insomnia 02/06/17 16:00 02/13/17 15:59 SPENCER COKER DO Feb 09, 2017 12:18
--- NOTE | 2017-02-09 13:01 | Nephrology Progress Note ---
Assessment/Plan Assessment 1. Hyperkalemia. 2. Hypocalcemia. 3. Fluid overload. 4. Respiratory failure. 5. Pulmonary edema. 6. Sepsis. Plan plan to repeat dialysis as schedule monitoring electrolyte continue epogen d/c planing Subjective Constitutional: Reports: no symptoms HEENT: Reports: no symptoms Genitourinary: Reports: no symptoms 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: Reports: no symptoms Subjective alert and awake no complaints Objective Objective Last 24 Hour Vital Signs Date Time Temp Pulse Resp B/P Pulse Ox O2 Delivery O2 Flow Rate FiO2 02/09/17 11:35 98.2 72 20 132/75 100 Nasal Cannula 2.0 02/09/17 11:33 84 20 100 Nasal Cannula 3.0 32 02/09/17 11:22 66 18 98 Nasal Cannula 2.0 28 02/09/17 08:33 68 137/76 02/09/17 08:29 137/76 02/09/17 08:26 97.7 68 20 137/76 100 Nasal Cannula 2.0 02/09/17 07:35 78 18 100 Nasal Cannula 3.0 32 02/09/17 07:25 76 18 100 Nasal Cannula 2.0 28 02/09/17 07:24 Nasal Cannula 2.0 28 02/09/17 07:23 100 Nasal Cannula 2.0 28 02/09/17 06:01 98.1 02/09/17 04:00 97.7 68 20 141/79 99 Nasal Cannula 02/09/17 03:36 73 16 99 Nasal Cannula 3.0 32 02/09/17 03:28 70 16 95 Nasal Cannula 3.0 32 02/09/17 00:00 98.1 74 18 138/78 98 Room Air 02/08/17 23:25 76 16 99 Nasal Cannula 3.0 32 02/08/17 23:16 75 16 97 Nasal Cannula 3.0 32 02/08/17 20:37 181/92 02/08/17 20:00 97.0 81 20 181/92 98 Nasal Cannula 3.0 02/08/17 19:29 79 18 98 Nasal Cannula 3.0 32 02/08/17 19:20 Nasal Cannula 3.0 32 02/08/17 19:20 96 Nasal Cannula 3.0 32 02/08/17 19:20 76 18 96 Nasal Cannula 3.0 32 02/08/17 16:00 98.1 72 20 159/90 99 Nasal Cannula 3.0 02/08/17 15:42 72 18 100 Nasal Cannula 2.0 02/08/17 15:29 71 18 99 Nasal Cannula 2.0 Intake and Output 02/08/17 02/09/17 19:00 07:00 # Voids 3 Height (Feet): 5 Height (Inches): 6.00 Weight (Pounds): 142 Objective HEAD AND NECK: . The patient has periorbital edema. ET tube is in place. Extraocular movement intact. The patient open her eyes to verbal stimuli. LUNGS: Decreased breathing sound on both side and crackles. CARDIAC: Regular rate and rhythm. S1 and S2. No murmur. No rub. ABDOMEN: Soft, nontender, and nondistended. EXTREMITIES: A 1 to 3+ edema. NEUROLOGIC: Cranial nerves II through XII intact. . The patient is moving but not following commands. CHARLENE FINN Feb 09, 2017 13:01
[2017-02-09 16:00] VITALS: BP 128/70
[2017-02-09 20:00] VITALS: BP 131/72
--- NOTE | 2017-02-09 23:25 | Cardiology Progress Note ---
Assessment/Plan Assessment/Plan 1. Hypertensive heart disease, BP well controlled, continue losartan, Bystolic, and amlodipine. 2. Sinus tachycardia, resolved, due to sepsis/PNA with enterobacter, continue Bystolic. 3. Hx of DM, recommend ASA and statins. 4. Hx of CAD, s/p [place] 5. s/p respiratory failure 6. ESRD Subjective Subjective Not in the telemetry unit. Denies chest pain or SOB. Objective Last 24 Hour Vital Signs Date Time Temp Pulse Resp B/P Pulse Ox O2 Delivery O2 Flow Rate FiO2 02/09/17 23:12 63 16 99 Nasal Cannula 2.0 28 02/09/17 23:02 28 02/09/17 23:02 73 16 98 Nasal Cannula 2.0 28 02/09/17 20:48 65 18 99 Nasal Cannula 2.0 02/09/17 20:35 Nasal Cannula 2.0 28 02/09/17 20:35 73 16 99 Nasal Cannula 2.0 28 02/09/17 20:35 99 Nasal Cannula 2.0 02/09/17 20:35 28 02/09/17 20:00 97.5 66 16 131/72 100 Nasal Cannula 2.0 02/09/17 16:00 98.0 75 20 128/70 99 Nasal Cannula 2.0 02/09/17 15:17 72 18 100 Nasal Cannula 3.0 32 02/09/17 15:07 65 18 100 Nasal Cannula 2.0 02/09/17 11:35 98.2 72 20 132/75 100 Nasal Cannula 2.0 02/09/17 11:33 84 20 100 Nasal Cannula 3.0 32 02/09/17 11:22 66 18 98 Nasal Cannula 2.0 02/09/17 08:33 68 137/76 02/09/17 08:29 137/76 02/09/17 08:26 97.7 68 20 137/76 100 Nasal Cannula 2.0 02/09/17 07:35 78 18 100 Nasal Cannula 3.0 32 02/09/17 07:25 76 18 100 Nasal Cannula 2.0 02/09/17 07:24 Nasal Cannula 2.0 28 02/09/17 07:23 100 Nasal Cannula 2.0 02/09/17 06:01 98.1 02/09/17 04:00 97.7 68 20 141/79 99 Nasal Cannula 02/09/17 03:36 73 16 99 Nasal Cannula 3.0 32 02/09/17 03:28 70 16 95 Nasal Cannula 3.0 32 02/09/17 00:00 98.1 74 18 138/78 98 Room Air 02/08/17 23:25 76 16 99 Nasal Cannula 3.0 32 Intake and Output 02/08/17 02/09/17 19:00 07:00 # Voids 3 2D Echo: EF 55%, Mild LVH, Mild MR/AR, RVSP 32 mmHg, Grade I LVDD Objective HEENT: Atraumatic, normocephalic, periorbital edema. Extraocular movement intact. Awake and alert. NECK: JVD negative, no carotid bruit, upstroke 2+ B/L LUNGS: Decreased breath sounds on both side. CARDIAC: Regular rate and rhythm. S1 and S2, No murmurs, gallops or rubs. ABDOMEN: Soft, nontender, and nondistended, + BS EXTREMITIES: 1+ B/L edema, no clubbing or cyanosis. PREM BIGGS Feb 09, 2017 23:25
[2017-02-10] VITALS (7 sets, daily range): BP systolic 119–139; BP diastolic 56–76
[2017-02-10] MEDS: Norco 5mg/325mg tab ORAL PRN ×5 (03:26→20:36)
[2017-02-10] MEDS: DuoNeb 0.5-3(2.5)mg/3ml neb HHN SCH ×6 (03:42→23:46)
[2017-02-10] MEDS: Doxazosin 4mg tab ORAL SCH ×2 (08:02→18:08)
[2017-02-10] MEDS: Doxazosin 1mg Tab ORAL SCH ×2 (08:02→18:08)
[2017-02-10] MEDS: Heparin 5000 units/ml inj SUBQ SCH ×2 (08:06→20:40)
[2017-02-10] MEDS: Losartan 50mg tab ORAL SCH (09:17)
--- NOTE | 2017-02-10 11:34 | Pulmonology Progress Note ---
Assessment/Plan Assessment/Plan Assessment/Plan 1. Severe hyperkalemia. 2. Respiratory failure, intubated. 3. CHF w Pulmonary edema. 4. Malignant HTN 5. Coronary artery disease. 6. Chronic obstructive pulmonary disease. 7. Anemia, due to renal failure 8. Pneumonia, RLL due to enterobacter aerogenes Plan doing well [place] prn po abx aspiration precautions hgb stable dialysis, UF in am OT/PT dc when bed availabe at [facility] Subjective Constitutional: Reports: no symptoms Respiratory: Reports: no symptoms Cardiovascular: Reports: no symptoms Gastrointestinal/Abdominal: Reports: no symptoms Genitourinary: Reports: no symptoms Psychiatric: Reports: no symptoms Allergies: Coded Allergies: No Known Allergies (Unverified , 01/01/12) Subjective better today no fever tolerating po no coughing noted no cp HD in am oob waiting bed fro [facility] Objective Last 24 Hour Vital Signs Date Time Temp Pulse Resp B/P Pulse Ox O2 Delivery O2 Flow Rate FiO2 02/10/17 09:17 126/72 02/10/17 08:56 97.3 02/10/17 08:02 65 126/72 02/10/17 07:53 97.3 65 18 126/72 100 Nasal Cannula 2.0 02/10/17 07:44 68 18 99 Nasal Cannula 2.0 02/10/17 07:35 65 18 100 Nasal Cannula 2.0 02/10/17 07:35 Nasal Cannula 2.0 02/10/17 07:34 100 Nasal Cannula 2.0 02/10/17 04:00 97.9 70 19 139/76 98 Nasal Cannula 2.0 02/10/17 03:49 62 16 99 Nasal Cannula 2.0 02/10/17 03:40 28 02/10/17 03:40 68 16 98 Nasal Cannula 2.0 02/10/17 00:00 98.2 70 18 128/66 99 Nasal Cannula 2.0 02/09/17 23:12 63 16 99 Nasal Cannula 2.0 02/09/17 23:02 28 02/09/17 23:02 73 16 98 Nasal Cannula 2.0 02/09/17 20:48 65 18 99 Nasal Cannula 2.0 02/09/17 20:35 Nasal Cannula 2.0 28 02/09/17 20:35 73 16 99 Nasal Cannula 2.0 02/09/17 20:35 99 Nasal Cannula 2.0 28 02/09/17 20:35 28 02/09/17 20:00 97.5 66 16 131/72 100 Nasal Cannula 2.0 02/09/17 16:00 98.0 75 20 128/70 99 Nasal Cannula 2.0 02/09/17 15:17 72 18 100 Nasal Cannula 3.0 32 02/09/17 15:07 65 18 100 Nasal Cannula 2.0 28 02/09/17 11:35 98.2 72 20 132/75 100 Nasal Cannula 2.0 Intake and Output 02/09/17 02/10/17 19:00 07:00 Intake Total 720 ml 240 ml Balance 720 ml 240 ml Intake Oral 720 ml 240 ml # Bowel Movements 4 General Appearance: WD/WN HEENT: atraumatic, mucous membranes moist Respiratory/Chest: lungs clear, normal breath sounds, no accessory muscle use Cardiovascular: normal peripheral pulses, normal rate, regular rhythm Abdomen: normal bowel sounds, soft, non tender, no organomegaly Extremities: no cyanosis, no clubbing Skin: no lesions, no ulcers 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: 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, abnormal gait Current Medications Medications (Trade) Dose Ordered Sig/Winter Route PRN Reason Start Time Stop Time Status Last Admin Dose Admin Acetaminophen (Tylenol) 650 mg Q4H PRN ORAL Fever 02/06/17 16:00 03/08/17 15:59 Acetaminophen/ Hydrocodone Bitart ([place] 5/325) 1 tab Q4H PRN ORAL Moderate Pain (Pain Scale 4-6) 02/06/17 16:00 02/13/17 15:59 02/10/17 07:57 Albuterol/ Ipratropium (DuoNeb 0.5-3(2.5)mg/3ml) 3 ml Q4HRT HHN 02/06/17 19:00 02/11/17 18:59 02/10/17 07:34 Amlodipine Besylate (Norvasc) 5 mg DAILY ORAL 02/09/17 09:00 03/11/17 08:59 02/10/17 08:02 Clonidine HCl (Catapres) 0.2 mg Q4H PRN ORAL SBP>160 mmHg 02/06/17 16:00 03/08/17 15:59 02/08/17 20:37 Dextrose (Dextrose 50%) STAT PRN IV Hypoglycemia 02/06/17 16:00 03/08/17 15:59 Doxazosin Mesylate (Cardura) 1 mg BID ORAL 02/08/17 10:00 03/10/17 09:59 02/10/17 08:02 Doxazosin Mesylate (Cardura) 4 mg BID ORAL 02/08/17 10:00 03/10/17 09:59 02/10/17 08:02 Epoetin Vijay (Procrit (for ESRD on dialysis)) 10,000 units SAT-SAT-SAT SUBQ 02/06/17 21:00 03/08/17 20:59 02/06/17 20:15 Gabapentin (Neurontin) 300 mg THREE TIMES A DAY ORAL 02/06/17 18:00 03/08/17 17:59 02/10/17 08:03 Heparin Sodium (Porcine) (Heparin 5000 units/ml) 5,000 units EVERY 12 HOURS SUBQ 02/06/17 21:00 03/08/17 20:59 02/10/17 08:06 Levofloxacin (Levaquin) 500 mg Q48H ORAL 02/07/17 09:00 02/17/17 09:01 02/09/17 08:32 Losartan Potassium (Cozaar) 100 mg DAILY ORAL 02/07/17 09:00 03/09/17 08:59 02/10/17 09:17 Methadone HCl (Methadone HCl) 40 mg DAILY ORAL 02/07/17 09:00 02/14/17 08:59 02/10/17 08:02 Nebivolol (Bystolic) 10 mg DAILY ORAL 02/07/17 09:00 03/09/17 08:59 02/10/17 08:02 Ondansetron HCl (Zofran ODT) 4 mg Q6H PRN ORAL Nausea & Vomiting 02/06/17 15:45 03/08/17 15:44 02/08/17 18:58 Polyethylene Glycol (Miralax) 17 gm DAILYPRN PRN ORAL Constipation 02/06/17 16:00 03/08/17 15:59 Temazepam (Restoril) 15 mg HSPRN PRN ORAL Insomnia 02/06/17 16:00 02/13/17 15:59 SPENCER COKER DO Feb 10, 2017 11:34
--- NOTE | 2017-02-10 12:21 | Nephrology Progress Note ---
Assessment/Plan Assessment 1. Hyperkalemia. 2. Hypocalcemia. 3. Fluid overload. 4. Respiratory failure. 5. Pulmonary edema. 6. Sepsis. Plan plan to repeat dialysis as schedule monitoring electrolyte continue epogen d/c planing Subjective Constitutional: Reports: no symptoms HEENT: Reports: no symptoms Genitourinary: Reports: no symptoms 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: Reports: no symptoms Subjective alert and awake no complaints wants to go home Objective Objective Last 24 Hour Vital Signs Date Time Temp Pulse Resp B/P Pulse Ox O2 Delivery O2 Flow Rate FiO2 02/10/17 12:03 97.7 65 18 119/66 95 Nasal Cannula 2.0 02/10/17 11:59 71 18 96 Nasal Cannula 2.0 02/10/17 11:47 64 18 95 Nasal Cannula 2.0 02/10/17 09:17 126/72 02/10/17 08:56 97.3 02/10/17 08:02 65 126/72 02/10/17 07:53 97.3 65 18 126/72 100 Nasal Cannula 2.0 02/10/17 07:44 68 18 99 Nasal Cannula 2.0 02/10/17 07:35 65 18 100 Nasal Cannula 2.0 02/10/17 07:35 Nasal Cannula 2.0 02/10/17 07:34 100 Nasal Cannula 2.0 02/10/17 04:00 97.9 70 19 139/76 98 Nasal Cannula 2.0 02/10/17 03:49 62 16 99 Nasal Cannula 2.0 02/10/17 03:40 28 02/10/17 03:40 68 16 98 Nasal Cannula 2.0 02/10/17 00:00 98.2 70 18 128/66 99 Nasal Cannula 2.0 02/09/17 23:12 63 16 99 Nasal Cannula 2.0 02/09/17 23:02 28 02/09/17 23:02 73 16 98 Nasal Cannula 2.0 02/09/17 20:48 65 18 99 Nasal Cannula 2.0 02/09/17 20:35 Nasal Cannula 2.0 02/09/17 20:35 73 16 99 Nasal Cannula 2.0 02/09/17 20:35 99 Nasal Cannula 2.0 02/09/17 20:35 28 02/09/17 20:00 97.5 66 16 131/72 100 Nasal Cannula 2.0 02/09/17 16:00 98.0 75 20 128/70 99 Nasal Cannula 2.0 02/09/17 15:17 72 18 100 Nasal Cannula 3.0 32 02/09/17 15:07 65 18 100 Nasal Cannula 2.0 28 Intake and Output 02/09/17 02/10/17 19:00 07:00 Intake Total 720 ml 240 ml Balance 720 ml 240 ml Intake Oral 720 ml 240 ml # Bowel Movements 4 Height (Feet): 5 Height (Inches): 6.00 Weight (Pounds): 143 Objective HEAD AND NECK: . The patient has periorbital edema. ET tube is in place. Extraocular movement intact. The patient open her eyes to verbal stimuli. LUNGS: Decreased breathing sound on both side and crackles. CARDIAC: Regular rate and rhythm. S1 and S2. No murmur. No rub. ABDOMEN: Soft, nontender, and nondistended. EXTREMITIES: A 1 to 3+ edema. NEUROLOGIC: Cranial nerves II through XII intact. . The patient is moving but not following commands. CHARLENE FINN Feb 10, 2017 12:21
[2017-02-11] VITALS (8 sets, daily range): BP systolic 137–173; BP diastolic 76–87
[2017-02-11] MEDS: Norco 5mg/325mg tab ORAL PRN ×5 (00:40→20:20)
[2017-02-11] MEDS: DuoNeb 0.5-3(2.5)mg/3ml neb HHN SCH ×4 (03:00→15:00)
--- NOTE | 2017-02-11 08:21 | Nephrology Progress Note ---
Assessment/Plan Assessment 1. Hyperkalemia. 2. Hypocalcemia. 3. Fluid overload. 4. Respiratory failure. 5. Pulmonary edema. 6. Sepsis. Plan plan to repeat dialysis as schedule today check stat chem 7 monitoring electrolyte continue epogen d/c planing Subjective Constitutional: Reports: weakness HEENT: Reports: no symptoms Genitourinary: Reports: no symptoms 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: Reports: no symptoms Subjective alert and awake c/o cough and mild sob refused dialysis on last treatment Objective Objective Last 24 Hour Vital Signs Date Time Temp Pulse Resp B/P Pulse Ox O2 Delivery O2 Flow Rate FiO2 02/11/17 07:34 98 Nasal Cannula 2.0 02/11/17 07:34 Nasal Cannula 2.0 02/11/17 07:33 61 18 98 Nasal Cannula 2.0 02/11/17 04:00 98.6 63 18 141/76 99 Nasal Cannula 2.0 02/11/17 03:14 Nasal Cannula 02/11/17 03:13 Nasal Cannula 02/11/17 00:00 98.4 60 20 137/78 98 Nasal Cannula 2.0 02/10/17 23:56 81 18 99 Nasal Cannula 2.0 02/10/17 23:46 61 16 99 Nasal Cannula 2.0 02/10/17 20:00 78 18 99 Nasal Cannula 2.0 02/10/17 20:00 98.1 58 19 134/56 99 Nasal Cannula 2.0 02/10/17 19:51 Nasal Cannula 2.0 02/10/17 19:51 99 Nasal Cannula 2.0 02/10/17 19:51 57 16 99 Nasal Cannula 2.0 02/10/17 18:07 134/75 02/10/17 17:22 97.0 02/10/17 16:07 97.0 60 18 135/74 99 Nasal Cannula 2.0 02/10/17 15:54 61 18 97 Nasal Cannula 2.0 02/10/17 15:44 58 16 100 Nasal Cannula 2.0 02/10/17 12:03 97.7 65 18 119/66 95 Nasal Cannula 2.0 02/10/17 11:59 71 18 96 Nasal Cannula 2.0 02/10/17 11:47 64 18 95 Nasal Cannula 2.0 02/10/17 09:17 126/72 Intake and Output 02/10/17 02/11/17 19:00 07:00 Intake Total 600 ml 480 ml Balance 600 ml 480 ml Intake Oral 600 ml 480 ml # Voids 2 # Bowel Movements 1 1 Height (Feet): 5 Height (Inches): 6.00 Weight (Pounds): 144 Objective HEAD AND NECK: . The patient has periorbital edema. ET tube is in place. Extraocular movement intact. The patient open her eyes to verbal stimuli. LUNGS: Decreased breathing sound on both side and crackles. CARDIAC: Regular rate and rhythm. S1 and S2. No murmur. No rub. ABDOMEN: Soft, nontender, and nondistended. EXTREMITIES: A 1 to 3+ edema. NEUROLOGIC: Cranial nerves II through XII intact. . The patient is moving but not following commands. CHARLENE FINN Feb 11, 2017 08:21
[2017-02-11] MEDS: Doxazosin 1mg Tab ORAL SCH ×2 (09:00→18:11)
[2017-02-11] MEDS: Doxazosin 4mg tab ORAL SCH ×2 (09:00→18:11)
[2017-02-11 09:22] LABS: MEAN CORPUSCULAR HEMOGLOBIN 26.5 PG (27.0-31.0); MEAN CORPUSCULAR HGB CONC 29.9 G/DL (32.0-36.0); MEAN CORPUSCULAR VOLUME 89 FL (80-99); MEAN PLATELET VOLUME 6.6 FL (6.5-10.1); PLATELET COUNT 195 K/UL (150-450); RED BLOOD COUNT 2.99 M/UL (4.20-5.40); RED CELL DISTRIBUTION WIDTH 17.7 % (11.6-14.8); WHITE BLOOD COUNT 7.6 K/UL (4.8-10.8)
[2017-02-11] MEDS: Levofloxacin 500mg tab ORAL SCH (09:23)
[2017-02-11] MEDS: Heparin 5000 units/ml inj SUBQ SCH ×2 (09:35→20:18)
[2017-02-11 09:43] LABS: EOSINOPHILS % (MANUAL) 5 % (0-3); LYMPHOCYTES % (MANUAL) 23 % (20-45); NEUTROPHILS % (MANUAL) 68 % (45-75); NUCLEATED RED BLOOD CELLS 1 /100 WBC; PLATELET MORPHOLOGY NORMAL; TOTAL CELLS COUNTED 100
[2017-02-11 09:44] LABS: ANISOCYTOSIS 1+; BAND NEUTROPHILS % (MANUAL) 0 % (0-8); BASOPHILS % (MANUAL) 0 % (0-2); HYPOCHROMASIA 1+; MACROCYTES 1+; PLATELET ESTIMATE ADEQUATE
[2017-02-11 09:45] LABS: ALBUMIN/GLOBULIN RATIO 1.1 (1.0-2.7); BURR CELLS 1+; CREATININE 11.7 mg/dL (0.5-0.9); MICROCYTES 1+; POLYCHROMASIA 1+; SCHISTOCYTES 1+
[2017-02-11 09:55] LABS: POTASSIUM 6.4 mEQ/L (3.4-4.9)
[2017-02-11] MEDS ORDERED: Sodium Polystyrene Sulfonate 15gm Powder ORAL ONE (10:15)
--- NOTE | 2017-02-11 16:08 | Pulmonology Progress Note ---
Assessment/Plan Assessment/Plan 1. Severe hyperkalemia. 2. Respiratory failure, intubated, resolved 3. CHF w Pulmonary edema, resolved 4. Malignant HTN 5. Coronary artery disease. 6. Chronic obstructive pulmonary disease. 7. Anemia, due to renal failure 8. Pneumonia, RLL due to enterobacter aerogenes, resolving Plan Levaquin PO complete soon dialysis, UF dc when bed available Subjective Allergies: Coded Allergies: No Known Allergies (Unverified , 01/01/12) Objective Last 24 Hour Vital Signs Date Time Temp Pulse Resp B/P Pulse Ox O2 Delivery O2 Flow Rate FiO2 02/11/17 15:16 63 18 97 Nasal Cannula 2.0 02/11/17 15:15 68 18 86 Room Air 02/11/17 14:45 Nasal Cannula 2.0 02/11/17 12:00 96.2 64 20 144/80 93 Nasal Cannula 2.0 02/11/17 11:15 72 20 99 Nasal Cannula 2.0 02/11/17 11:10 Nasal Cannula 2.0 02/11/17 11:05 71 20 99 Nasal Cannula 2.0 02/11/17 08:00 97.9 70 20 143/77 95 Room Air 02/11/17 07:44 62 20 98 Nasal Cannula 2.0 02/11/17 07:34 98 Nasal Cannula 2.0 02/11/17 07:34 Nasal Cannula 2.0 02/11/17 07:33 61 18 98 Nasal Cannula 2.0 02/11/17 04:00 98.6 63 18 141/76 99 Nasal Cannula 2.0 02/11/17 03:14 Nasal Cannula 02/11/17 03:13 Nasal Cannula 02/11/17 00:00 98.4 60 20 137/78 98 Nasal Cannula 2.0 02/10/17 23:56 81 18 99 Nasal Cannula 2.0 02/10/17 23:46 61 16 99 Nasal Cannula 2.0 02/10/17 20:00 78 18 99 Nasal Cannula 2.0 02/10/17 20:00 98.1 58 19 134/56 99 Nasal Cannula 2.0 02/10/17 19:51 Nasal Cannula 2.0 02/10/17 19:51 99 Nasal Cannula 2.0 02/10/17 19:51 57 16 99 Nasal Cannula 2.0 02/10/17 18:07 134/75 02/10/17 17:22 97.0 Intake and Output 02/10/17 02/11/17 19:00 07:00 Intake Total 600 ml 480 ml Balance 600 ml 480 ml Intake Oral 600 ml 480 ml # Voids 2 # Bowel Movements 1 1 Objective face mildly puffy Laboratory Tests 02/11/17 08:45: White Blood Count 7.6, Red Blood Count 2.99L, Hemoglobin 7.9L, Hematocrit 26.5L , Mean Corpuscular Volume 89, Mean Corpuscular Hemoglobin 26.5L, Mean Corpuscular Hemoglobin Concent 29.9L, Red Cell Distribution Width 17.7H, Platelet Count 195, Mean Platelet Volume 6.6, Neutrophils (%) (Auto) , Lymphocytes (%) (Auto) , Monocytes (%) (Auto) , Eosinophils (%) (Auto) , Basophils (%) (Auto) , Differential Total Cells Counted 100, Neutrophils % ( Manual) 68, Lymphocytes % (Manual) 23, Monocytes % (Manual) 4, Eosinophils % ( Manual) 5H, Basophils % (Manual) 0, Band Neutrophils 0, Nucleated Red Blood Cells 1, Platelet Estimate Adequate, Platelet Morphology Normal, Polychromasia 1 +, Hypochromasia 1+, Anisocytosis 1+, Microcytosis 1+, Macrocytosis 1+, Aspers Cells 1+, Schistocytes 1+, Sodium Level 135, Potassium Level 6.4*H, Chloride Level 93L, Carbon Dioxide Level 20, Anion Gap 22H, Blood Urea Nitrogen 83H, Creatinine 11.7H, Estimat Glomerular Filtration Rate 4.0, Glucose Level 105, Calcium Level 7.0L, Total Bilirubin 0.3, Aspartate Amino Transf (AST/SGOT) 19, Alanine Aminotransferase (ALT/SGPT) 14, Alkaline Phosphatase 93, Total Protein 7.0, Albumin 3.7, Globulin 3.3, Albumin/Globulin Ratio 1.1 Current Medications Medications (Trade) Dose Ordered Sig/Winter Route PRN Reason Start Time Stop Time Status Last Admin Dose Admin Acetaminophen (Tylenol) 650 mg Q4H PRN ORAL Fever 02/06/17 16:00 03/08/17 15:59 Acetaminophen/ Hydrocodone Bitart ([place] 5/325) 1 tab Q4H PRN ORAL Moderate Pain (Pain Scale 4-6) 02/06/17 16:00 02/13/17 15:59 02/11/17 15:46 Albuterol/ Ipratropium (DuoNeb 0.5-3(2.5)mg/3ml) 3 ml Q4HRT HHN 02/06/17 19:00 02/11/17 18:59 02/11/17 11:04 Amlodipine Besylate (Norvasc) 5 mg DAILY ORAL 02/09/17 09:00 03/11/17 08:59 02/10/17 08:02 Clonidine HCl (Catapres) 0.2 mg Q4H PRN ORAL SBP>160 mmHg 02/06/17 16:00 03/08/17 15:59 02/08/17 20:37 Dextrose (Dextrose 50%) STAT PRN IV Hypoglycemia 02/06/17 16:00 03/08/17 15:59 Doxazosin Mesylate (Cardura) 1 mg BID ORAL 02/08/17 10:00 03/10/17 09:59 02/10/17 18:08 Doxazosin Mesylate (Cardura) 4 mg BID ORAL 02/08/17 10:00 03/10/17 09:59 02/10/17 18:08 Epoetin Vijay (Procrit (for ESRD on dialysis)) 10,000 units SAT-SAT-SAT SUBQ 02/06/17 21:00 03/08/17 20:59 02/06/17 20:15 Gabapentin (Neurontin) 300 mg THREE TIMES A DAY ORAL 02/06/17 18:00 03/08/17 17:59 02/11/17 09:24 Heparin Sodium (Porcine) (Heparin 5000 units/ml) 5,000 units EVERY 12 HOURS SUBQ 02/06/17 21:00 03/08/17 20:59 02/11/17 09:35 Levofloxacin (Levaquin) 500 mg Q48H ORAL 02/07/17 09:00 02/17/17 09:01 02/11/17 09:23 Losartan Potassium (Cozaar) 100 mg DAILY ORAL 02/07/17 09:00 03/09/17 08:59 02/10/17 09:17 Methadone HCl (Methadone HCl) 40 mg DAILY ORAL 02/07/17 09:00 02/14/17 08:59 02/11/17 09:24 Nebivolol (Bystolic) 10 mg DAILY ORAL 02/07/17 09:00 03/09/17 08:59 02/10/17 08:02 Ondansetron HCl (Zofran ODT) 4 mg Q6H PRN ORAL Nausea & Vomiting 02/06/17 15:45 03/08/17 15:44 02/08/17 18:58 Polyethylene Glycol (Miralax) 17 gm DAILYPRN PRN ORAL Constipation 02/06/17 16:00 03/08/17 15:59 Temazepam (Restoril) 15 mg HSPRN PRN ORAL Insomnia 02/06/17 16:00 02/13/17 15:59 AUGIE CAREY Feb 11, 2017 16:08
[2017-02-11] MEDS: Losartan 50mg tab ORAL SCH (18:23)
[2017-02-11] MEDS: Epogen (for ESRD on dialysis) SUBQ SCH (20:18)
[2017-02-11] MEDS: cloNIDine 0.2mg Tab ORAL PRN (20:19)
--- NOTE | 2017-02-11 23:47 | Cardiology Progress Note ---
Assessment/Plan Assessment/Plan 1. Hypertensive heart disease, stage II, continue losartan, Bystolic, and amlodipine. 2. Sinus tachycardia, resolved, due to sepsis/PNA with enterobacter, continue Bystolic. 3. Hx of DM, recommend ASA and statins. 4. Hx of CAD, s/p PA 5. s/p respiratory failure 6. ESRD Subjective Subjective Not in the telemetry unit. No cardiac events. Objective Last 24 Hour Vital Signs Date Time Temp Pulse Resp B/P Pulse Ox O2 Delivery O2 Flow Rate FiO2 02/11/17 21:19 97.3 02/11/17 20:19 173/87 02/11/17 20:02 Nasal Cannula 2.0 28 02/11/17 20:02 98 Nasal Cannula 2.0 02/11/17 20:00 97.7 72 18 173/87 93 Room Air 02/11/17 18:26 77 164/85 02/11/17 18:23 164/85 02/11/17 18:11 77 164/85 02/11/17 16:00 97.3 73 18 153/85 94 Room Air 02/11/17 15:16 63 18 97 Nasal Cannula 2.0 02/11/17 15:15 68 18 86 Room Air 02/11/17 14:45 Nasal Cannula 2.0 02/11/17 12:00 96.2 64 20 144/80 93 Nasal Cannula 2.0 02/11/17 11:15 72 20 99 Nasal Cannula 2.0 02/11/17 11:10 Nasal Cannula 2.0 02/11/17 11:05 71 20 99 Nasal Cannula 2.0 02/11/17 08:00 97.9 70 20 143/77 95 Room Air 02/11/17 07:44 62 20 98 Nasal Cannula 2.0 02/11/17 07:34 98 Nasal Cannula 2.0 02/11/17 07:34 Nasal Cannula 2.0 02/11/17 07:33 61 18 98 Nasal Cannula 2.0 02/11/17 04:00 98.6 63 18 141/76 99 Nasal Cannula 2.0 02/11/17 03:14 Nasal Cannula 02/11/17 03:13 Nasal Cannula 02/11/17 00:00 98.4 60 20 137/78 98 Nasal Cannula 2.0 02/10/17 23:56 81 18 99 Nasal Cannula 2.0 02/10/17 23:46 61 16 99 Nasal Cannula 2.0 Intake and Output 02/10/17 02/11/17 19:00 07:00 Intake Total 600 ml 480 ml Balance 600 ml 480 ml Intake Oral 600 ml 480 ml # Voids 2 # Bowel Movements 1 1 2D Echo: EF 55%, Mild LVH, Mild MR/AR, RVSP 32 mmHg, Grade I LVDD Laboratory Tests Test 02/11/17 08:45 White Blood Count 7.6 K/UL (4.8-10.8) Red Blood Count 2.99 M/UL (4.20-5.40) L Hemoglobin 7.9 G/DL (12.0-16.0) L Hematocrit 26.5 % (37.0-47.0) L Mean Corpuscular Volume 89 FL (80-99) Mean Corpuscular Hemoglobin 26.5 PG (27.0-31.0) L Mean Corpuscular Hemoglobin Concent 29.9 G/DL (32.0-36.0) L Red Cell Distribution Width 17.7 % (11.6-14.8) H Platelet Count 195 K/UL (150-450) Mean Platelet Volume 6.6 FL (6.5-10.1) Neutrophils (%) (Auto) % (45.0-75.0) Lymphocytes (%) (Auto) % (20.0-45.0) Monocytes (%) (Auto) % (1.0-10.0) Eosinophils (%) (Auto) % (0.0-3.0) Basophils (%) (Auto) % (0.0-2.0) Differential Total Cells Counted 100 Neutrophils % (Manual) 68 % (45-75) Lymphocytes % (Manual) 23 % (20-45) Monocytes % (Manual) 4 % (1-10) Eosinophils % (Manual) 5 % (0-3) H Basophils % (Manual) 0 % (0-2) Band Neutrophils 0 % (0-8) Nucleated Red Blood Cells 1 /100 WBC Platelet Estimate Adequate Platelet Morphology Normal Polychromasia 1+ Hypochromasia 1+ Anisocytosis 1+ Microcytosis 1+ Macrocytosis 1+ Heri Cells 1+ Schistocytes 1+ Sodium Level 135 mEQ/L (135-145) Potassium Level 6.4 mEQ/L (3.4-4.9) *H Chloride Level 93 mEQ/L (98-107) L Carbon Dioxide Level 20 mEQ/L (20-30) Anion Gap 22 (5-15) H Blood Urea Nitrogen 83 mg/dL (7-23) H Creatinine 11.7 mg/dL (0.5-0.9) H Estimat Glomerular Filtration Rate 4.0 mL/min (>60) Glucose Level 105 mg/dL (74-106) Calcium Level 7.0 mg/dL (8.6-10.2) L Total Bilirubin 0.3 mg/dL (0.0-1.2) Aspartate Amino Transf (AST/SGOT) 19 U/L (5-40) Alanine Aminotransferase (ALT/SGPT) 14 U/L (3-33) Alkaline Phosphatase 93 U/L (35-104) Total Protein 7.0 g/dL (6.6-8.7) Albumin 3.7 g/dL (3.5-5.2) Globulin 3.3 g/dL Albumin/Globulin Ratio 1.1 (1.0-2.7) Objective HEENT: Atraumatic, normocephalic, periorbital edema. Extraocular movement intact. Awake and alert. NECK: JVD negative, no carotid bruit, upstroke 2+ B/L LUNGS: Decreased breath sounds on both side. CARDIAC: Regular rate and rhythm. S1 and S2, No murmurs, gallops or rubs. ABDOMEN: Soft, nontender, and nondistended, + BS EXTREMITIES: 1+ B/L edema, no clubbing or cyanosis. PREM BIGGS Feb 11, 2017 23:47
[2017-02-12] VITALS (7 sets, daily range): BP systolic 127–149; BP diastolic 67–82
[2017-02-12] MEDS: Norco 5mg/325mg tab ORAL PRN ×5 (00:25→20:30)
[2017-02-12] MEDS: Losartan 50mg tab ORAL SCH (09:05)
[2017-02-12] MEDS: Doxazosin 1mg Tab ORAL SCH ×2 (09:05→18:26)
[2017-02-12] MEDS: Doxazosin 4mg tab ORAL SCH ×2 (09:05→18:26)
[2017-02-12] MEDS: Heparin 5000 units/ml inj SUBQ SCH ×2 (09:07→20:32)
[2017-02-12 10:40] LABS: EOSINOPHILS % (AUTO) 2.5 % (0.0-3.0); LYMPHOCYTES % (AUTO) 20.9 % (20.0-45.0); MEAN CORPUSCULAR HEMOGLOBIN 26.3 PG (27.0-31.0); MEAN CORPUSCULAR HGB CONC 29.3 G/DL (32.0-36.0); MEAN CORPUSCULAR VOLUME 90 FL (80-99); MEAN PLATELET VOLUME 6.5 FL (6.5-10.1); MONOCYTES % (AUTO) 8.9 % (1.0-10.0); NEUTROPHILS % (AUTO) 66.7 % (45.0-75.0); PLATELET COUNT 186 K/UL (150-450); RED BLOOD COUNT 3.15 M/UL (4.20-5.40); RED CELL DISTRIBUTION WIDTH 18.6 % (11.6-14.8); WHITE BLOOD COUNT 7.8 K/UL (4.8-10.8)
[2017-02-12 10:57] LABS: CALCIUM 7.4 mg/dL (8.6-10.2); CREATININE 8.2 mg/dL (0.5-0.9); GLOMERULAR FILTRATION RATE 5.9 mL/min (>60); POTASSIUM 5.4 mEQ/L (3.4-4.9); TOTAL PROTEIN 7.2 g/dL (6.6-8.7)
--- NOTE | 2017-02-12 13:04 | Pulmonology Progress Note ---
Assessment/Plan Assessment/Plan 1. Severe hyperkalemia. 2. Respiratory failure, intubated, resolved 3. CHF w Pulmonary edema, resolved 4. Malignant HTN 5. Coronary artery disease. 6. Chronic obstructive pulmonary disease. 7. Anemia, due to renal failure 8. Pneumonia, RLL due to enterobacter aerogenes, resolving K better post HD Levaquin PO complete soon dialysis, UF dc when bed available Subjective Allergies: Coded Allergies: No Known Allergies (Unverified , 01/01/12) Objective Last 24 Hour Vital Signs Date Time Temp Pulse Resp B/P Pulse Ox O2 Delivery O2 Flow Rate FiO2 02/12/17 12:38 97.5 58 20 140/71 99 Room Air 02/12/17 09:08 63 145/77 02/12/17 09:05 145/77 02/12/17 08:59 97.1 66 20 149/79 94 Room Air 02/12/17 07:43 98 Nasal Cannula 2.0 28 02/12/17 07:43 Nasal Cannula 2.0 28 02/12/17 04:22 97.7 65 19 145/82 97 Room Air 02/12/17 01:22 98.2 02/11/17 23:59 98.2 69 18 150/76 96 Nasal Cannula 2.0 02/11/17 20:19 173/87 02/11/17 20:02 Nasal Cannula 2.0 28 02/11/17 20:02 98 Nasal Cannula 2.0 28 02/11/17 20:00 97.7 72 18 173/87 93 Room Air 02/11/17 18:26 77 164/85 02/11/17 18:23 164/85 02/11/17 18:11 77 164/85 02/11/17 16:00 97.3 73 18 153/85 94 Room Air 02/11/17 15:16 63 18 97 Nasal Cannula 2.0 02/11/17 15:15 68 18 86 Room Air 02/11/17 14:45 Nasal Cannula 2.0 Intake and Output 02/11/17 02/12/17 19:00 07:00 Intake Total 360 ml Output Total 3125 ml Balance -2765 ml Intake Oral 360 ml Output Hemodialysis UF 3125 ml # Voids 3 # Bowel Movements 1 Objective face mildly puffy Laboratory Tests 02/12/17 10:30: White Blood Count 7.8, Red Blood Count 3.15L, Hemoglobin 8.3L, Hematocrit 28.4L , Mean Corpuscular Volume 90, Mean Corpuscular Hemoglobin 26.3L, Mean Corpuscular Hemoglobin Concent 29.3L, Red Cell Distribution Width 18.6H, Platelet Count 186, Mean Platelet Volume 6.5, Neutrophils (%) (Auto) 66.7, Lymphocytes (%) (Auto) 20.9, Monocytes (%) (Auto) 8.9, Eosinophils (%) (Auto) 2.5, Basophils (%) (Auto) 1.0, Sodium Level 137, Potassium Level 5.4H, Chloride Level 95L, Carbon Dioxide Level 24, Anion Gap 18H, Blood Urea Nitrogen 61H, Creatinine 8.2H, Estimat Glomerular Filtration Rate 5.9, Glucose Level 74, Calcium Level 7.4L, Total Bilirubin 0.4, Aspartate Amino Transf (AST/SGOT) 21, Alanine Aminotransferase (ALT/SGPT) 14, Alkaline Phosphatase 104, Total Protein 7.2, Albumin 3.6, Globulin 3.6, Albumin/Globulin Ratio 1.0 Current Medications Medications (Trade) Dose Ordered Sig/Winter Route PRN Reason Start Time Stop Time Status Last Admin Dose Admin Acetaminophen (Tylenol) 650 mg Q4H PRN ORAL Fever 02/06/17 16:00 03/08/17 15:59 Acetaminophen/ Hydrocodone Bitart ([place] 5/325) 1 tab Q4H PRN ORAL Moderate Pain (Pain Scale 4-6) 02/06/17 16:00 02/13/17 15:59 02/12/17 11:21 Albuterol/ Ipratropium (DuoNeb 0.5-3(2.5)mg/3ml) 3 ml Q4HRT HHN 02/12/17 15:00 02/17/17 14:59 UNV Amlodipine Besylate (Norvasc) 5 mg DAILY ORAL 02/09/17 09:00 03/11/17 08:59 02/12/17 09:08 Clonidine HCl (Catapres) 0.2 mg Q4H PRN ORAL SBP>160 mmHg 02/06/17 16:00 03/08/17 15:59 02/11/17 20:19 Dextrose (Dextrose 50%) STAT PRN IV Hypoglycemia 02/06/17 16:00 03/08/17 15:59 Doxazosin Mesylate (Cardura) 1 mg BID ORAL 02/08/17 10:00 03/10/17 09:59 02/12/17 09:05 Doxazosin Mesylate (Cardura) 4 mg BID ORAL 02/08/17 10:00 03/10/17 09:59 02/12/17 09:05 Epoetin Vijay (Procrit (for ESRD on dialysis)) 10,000 units SAT-SAT-SAT SUBQ 02/06/17 21:00 03/08/17 20:59 02/06/17 20:15 Gabapentin (Neurontin) 300 mg THREE TIMES A DAY ORAL 02/06/17 18:00 03/08/17 17:59 02/12/17 09:13 Heparin Sodium (Porcine) (Heparin 5000 units/ml) 5,000 units EVERY 12 HOURS SUBQ 02/06/17 21:00 03/08/17 20:59 02/12/17 09:07 Levofloxacin (Levaquin) 500 mg Q48H ORAL 02/07/17 09:00 02/17/17 09:01 02/11/17 09:23 Losartan Potassium (Cozaar) 100 mg DAILY ORAL 02/07/17 09:00 03/09/17 08:59 02/12/17 09:05 Methadone HCl (Methadone HCl) 40 mg DAILY ORAL 02/07/17 09:00 02/14/17 08:59 02/12/17 09:06 Nebivolol (Bystolic) 10 mg DAILY ORAL 02/07/17 09:00 03/09/17 08:59 02/12/17 09:04 Ondansetron HCl (Zofran ODT) 4 mg Q6H PRN ORAL Nausea & Vomiting 02/06/17 15:45 03/08/17 15:44 02/08/17 18:58 Polyethylene Glycol (Miralax) 17 gm DAILYPRN PRN ORAL Constipation 02/06/17 16:00 03/08/17 15:59 Temazepam (Restoril) 15 mg HSPRN PRN ORAL Insomnia 02/06/17 16:00 02/13/17 15:59 AUGIE CAREY Feb 12, 2017 13:04
--- NOTE | 2017-02-12 13:44 | Nephrology Progress Note ---
Assessment/Plan Assessment 1. Hyperkalemia. 2. Hypocalcemia. 3. Fluid overload. 4. Respiratory failure. 5. Pulmonary edema. 6. Sepsis. Plan plan to repeat dialysis as schedule today check stat chem 7 monitoring electrolyte continue epogen d/c planing Subjective Subjective alert and awake had dialysis yesterday Objective Objective Last 24 Hour Vital Signs Date Time Temp Pulse Resp B/P Pulse Ox O2 Delivery O2 Flow Rate FiO2 02/12/17 12:38 97.5 58 20 140/71 99 Room Air 02/12/17 09:08 63 145/77 02/12/17 09:05 145/77 02/12/17 08:59 97.1 66 20 149/79 94 Room Air 02/12/17 07:43 98 Nasal Cannula 2.0 28 02/12/17 07:43 Nasal Cannula 2.0 28 02/12/17 04:22 97.7 65 19 145/82 97 Room Air 02/12/17 01:22 98.2 02/11/17 23:59 98.2 69 18 150/76 96 Nasal Cannula 2.0 02/11/17 20:19 173/87 02/11/17 20:02 Nasal Cannula 2.0 28 02/11/17 20:02 98 Nasal Cannula 2.0 28 02/11/17 20:00 97.7 72 18 173/87 93 Room Air 02/11/17 18:26 77 164/85 02/11/17 18:23 164/85 02/11/17 18:11 77 164/85 02/11/17 16:00 97.3 73 18 153/85 94 Room Air 02/11/17 15:16 63 18 97 Nasal Cannula 2.0 02/11/17 15:15 68 18 86 Room Air 02/11/17 14:45 Nasal Cannula 2.0 Intake and Output 02/11/17 02/12/17 19:00 07:00 Intake Total 360 ml Output Total 3125 ml Balance -2765 ml Intake Oral 360 ml Output Hemodialysis UF 3125 ml # Voids 3 # Bowel Movements 1 Laboratory Tests 02/12/17 10:30: White Blood Count 7.8, Red Blood Count 3.15L, Hemoglobin 8.3L, Hematocrit 28.4L , Mean Corpuscular Volume 90, Mean Corpuscular Hemoglobin 26.3L, Mean Corpuscular Hemoglobin Concent 29.3L, Red Cell Distribution Width 18.6H, Platelet Count 186, Mean Platelet Volume 6.5, Neutrophils (%) (Auto) 66.7, Lymphocytes (%) (Auto) 20.9, Monocytes (%) (Auto) 8.9, Eosinophils (%) (Auto) 2.5, Basophils (%) (Auto) 1.0, Sodium Level 137, Potassium Level 5.4H, Chloride Level 95L, Carbon Dioxide Level 24, Anion Gap 18H, Blood Urea Nitrogen 61H, Creatinine 8.2H, Estimat Glomerular Filtration Rate 5.9, Glucose Level 74, Calcium Level 7.4L, Total Bilirubin 0.4, Aspartate Amino Transf (AST/SGOT) 21, Alanine Aminotransferase (ALT/SGPT) 14, Alkaline Phosphatase 104, Total Protein 7.2, Albumin 3.6, Globulin 3.6, Albumin/Globulin Ratio 1.0 Height (Feet): 5 Height (Inches): 6.00 Weight (Pounds): 144 Objective HEAD AND NECK: . The patient has periorbital edema. ET tube is in place. Extraocular movement intact. The patient open her eyes to verbal stimuli. LUNGS: Decreased breathing sound on both side and crackles. CARDIAC: Regular rate and rhythm. S1 and S2. No murmur. No rub. ABDOMEN: Soft, nontender, and nondistended. EXTREMITIES: A 1 to 3+ edema. NEUROLOGIC: Cranial nerves II through XII intact. . The patient is moving but not following commands. CHARLENE FINN Feb 12, 2017 13:44
[2017-02-12] MEDS: DuoNeb 0.5-3(2.5)mg/3ml neb HHN SCH ×3 (14:34→23:53)
--- NOTE | 2017-02-12 15:11 | Diagnostic Imaging Report ---
Indications: Dysphagia Technique: Multiphasic barium dysphagia study was performed under fluoroscopic control with Roxi Painter speech pathologist. Cinegraphic images were obtained. Total fluoroscopy time: 176.7 sec Dose-area product: 0.24 mGy-m2 Findings: Comparison: None Oral and pharyngeal phases of swallowing demonstrate multiple mechanical abnormalities, as enumerated on speech pathology evaluation form. The patient demonstrates superficial laryngeal penetration of thin liquid barium, ejected, without aspiration. No penetration or aspiration of any thicker consistency of barium tested. Moderate coating of pharyngeal structures by barium after swallowing.. Esophageal phase of swallowing demonstrates no significant pooling of barium. IMPRESSION: Abnormal oropharyngeal mechanics with superficial laryngeal penetration of thin liquid barium only, no aspiration Moderate post swallow pharyngeal residue No obvious esophageal dysmotility. Recommendation per speech pathology evaluation form.
--- NOTE | 2017-02-12 23:33 | Cardiology Progress Note ---
Assessment/Plan Assessment/Plan 1. Hypertensive heart disease, stage I, continue losartan, Bystolic, and amlodipine. 2. Sinus tachycardia, resolved, due to sepsis/PNA with enterobacter, continue Bystolic. 3. Hx of DM, recommend ASA and statins. 4. Hx of CAD, s/p MA 5. s/p respiratory failure 6. ESRD Subjective Subjective No chest pain or SOB. No cardiac events. Objective Last 24 Hour Vital Signs Date Time Temp Pulse Resp B/P Pulse Ox O2 Delivery O2 Flow Rate FiO2 02/12/17 21:29 97.0 02/12/17 20:00 97.0 59 20 148/74 97 Room Air 02/12/17 19:44 60 18 97 Nasal Cannula 2.0 02/12/17 19:44 97 Nasal Cannula 2.0 02/12/17 19:44 Nasal Cannula 2.0 28 02/12/17 18:33 127/67 02/12/17 16:08 97.7 62 20 128/67 97 Nasal Cannula 2.0 02/12/17 14:38 78 20 99 Nasal Cannula 2.0 02/12/17 14:30 73 18 98 Nasal Cannula 2.0 02/12/17 12:38 97.5 58 20 140/71 99 Room Air 02/12/17 09:08 63 145/77 02/12/17 09:05 145/77 02/12/17 08:59 97.1 66 20 149/79 94 Room Air 02/12/17 07:43 98 Nasal Cannula 2.0 28 02/12/17 07:43 Nasal Cannula 2.0 02/12/17 04:22 97.7 65 19 145/82 97 Room Air 02/11/17 23:59 98.2 69 18 150/76 96 Nasal Cannula 2.0 Intake and Output 02/11/17 02/12/17 19:00 07:00 Intake Total 360 ml Output Total 3125 ml Balance -2765 ml Intake Oral 360 ml Output Hemodialysis UF 3125 ml # Voids 3 # Bowel Movements 1 2D Echo: EF 55%, Mild LVH, Mild MR/AR, RVSP 32 mmHg, Grade I LVDD Laboratory Tests Test 02/12/17 10:30 White Blood Count 7.8 K/UL (4.8-10.8) Red Blood Count 3.15 M/UL (4.20-5.40) L Hemoglobin 8.3 G/DL (12.0-16.0) L Hematocrit 28.4 % (37.0-47.0) L Mean Corpuscular Volume 90 FL (80-99) Mean Corpuscular Hemoglobin 26.3 PG (27.0-31.0) L Mean Corpuscular Hemoglobin Concent 29.3 G/DL (32.0-36.0) L Red Cell Distribution Width 18.6 % (11.6-14.8) H Platelet Count 186 K/UL (150-450) Mean Platelet Volume 6.5 FL (6.5-10.1) Neutrophils (%) (Auto) 66.7 % (45.0-75.0) Lymphocytes (%) (Auto) 20.9 % (20.0-45.0) Monocytes (%) (Auto) 8.9 % (1.0-10.0) Eosinophils (%) (Auto) 2.5 % (0.0-3.0) Basophils (%) (Auto) 1.0 % (0.0-2.0) Sodium Level 137 mEQ/L (135-145) Potassium Level 5.4 mEQ/L (3.4-4.9) H Chloride Level 95 mEQ/L (98-107) L Carbon Dioxide Level 24 mEQ/L (20-30) Anion Gap 18 (5-15) H Blood Urea Nitrogen 61 mg/dL (7-23) H Creatinine 8.2 mg/dL (0.5-0.9) H Estimat Glomerular Filtration Rate 5.9 mL/min (>60) Glucose Level 74 mg/dL (74-106) Calcium Level 7.4 mg/dL (8.6-10.2) L Total Bilirubin 0.4 mg/dL (0.0-1.2) Aspartate Amino Transf (AST/SGOT) 21 U/L (5-40) Alanine Aminotransferase (ALT/SGPT) 14 U/L (3-33) Alkaline Phosphatase 104 U/L (35-104) Total Protein 7.2 g/dL (6.6-8.7) Albumin 3.6 g/dL (3.5-5.2) Globulin 3.6 g/dL Albumin/Globulin Ratio 1.0 (1.0-2.7) Objective HEENT: Atraumatic, normocephalic, periorbital edema. Extraocular movement intact. Awake and alert. NECK: JVD negative, no carotid bruit, upstroke 2+ B/L LUNGS: Decreased breath sounds on both side. CARDIAC: Regular rate and rhythm. S1 and S2, No murmurs, gallops or rubs. ABDOMEN: Soft, nontender, and nondistended, + BS EXTREMITIES: 1+ B/L edema, no clubbing or cyanosis. PREM BIGGS Feb 12, 2017 23:33
[2017-02-13] VITALS (7 sets, daily range): BP systolic 131–150; BP diastolic 57–84
[2017-02-13] MEDS: DuoNeb 0.5-3(2.5)mg/3ml neb HHN SCH ×6 (02:37→23:34)
--- NOTE | 2017-02-13 08:40 | Pulmonology Progress Note ---
Assessment/Plan Assessment/Plan 1. Severe hyperkalemia. 2. Respiratory failure, intubated, resolved 3. CHF w Pulmonary edema, resolved 4. Malignant HTN 5. Coronary artery disease. 6. Chronic obstructive pulmonary disease. 7. Anemia, due to renal failure 8. Pneumonia, RLL due to enterobacter aerogenes, resolving On HD currently Levaquin dc soon dialysis, UF dc when bed available disc w RN Subjective Constitutional: Reports: no symptoms Allergies: Coded Allergies: No Known Allergies (Unverified , 01/01/12) Objective Last 24 Hour Vital Signs Date Time Temp Pulse Resp B/P (MAP) Pulse Ox O2 Delivery O2 Flow Rate FiO2 02/13/17 08:05 131/57 02/13/17 07:45 69 20 99 Nasal Cannula 2.0 02/13/17 07:43 98 20 Nasal Cannula 2.0 02/13/17 07:40 Nasal Cannula 2.0 02/13/17 07:40 68 18 98 Nasal Cannula 2.0 02/13/17 07:40 98 Nasal Cannula 2.0 02/13/17 05:10 98.1 69 20 150/79 98 Room Air 02/13/17 05:10 Room Air 02/13/17 04:00 97.8 72 18 148/84 98 Room Air 02/13/17 02:44 67 20 99 Nasal Cannula 2.0 02/13/17 02:37 65 18 98 Nasal Cannula 2.0 02/12/17 23:59 75 20 99 Nasal Cannula 2.0 02/12/17 23:56 97.5 64 20 146/80 97 Room Air 02/12/17 23:53 71 18 98 Nasal Cannula 2.0 02/12/17 21:29 97.0 02/12/17 20:00 97.0 59 20 148/74 97 Room Air 02/12/17 19:55 65 20 99 Nasal Cannula 2.0 02/12/17 19:44 60 18 97 Nasal Cannula 2.0 02/12/17 19:44 97 Nasal Cannula 2.0 02/12/17 19:44 Nasal Cannula 2.0 02/12/17 18:33 127/67 02/12/17 16:08 97.7 62 20 128/67 97 Nasal Cannula 2.0 02/12/17 14:38 78 20 99 Nasal Cannula 2.0 02/12/17 14:30 73 18 98 Nasal Cannula 2.0 02/12/17 12:38 97.5 58 20 140/71 99 Room Air 02/12/17 09:08 63 145/77 02/12/17 09:05 145/77 02/12/17 08:59 97.1 66 20 149/79 94 Room Air Objective face mildly puffy Laboratory Tests 02/12/17 10:30: White Blood Count 7.8, Red Blood Count 3.15L, Hemoglobin 8.3L, Hematocrit 28.4L , Mean Corpuscular Volume 90, Mean Corpuscular Hemoglobin 26.3L, Mean Corpuscular Hemoglobin Concent 29.3L, Red Cell Distribution Width 18.6H, Platelet Count 186, Mean Platelet Volume 6.5, Neutrophils (%) (Auto) 66.7, Lymphocytes (%) (Auto) 20.9, Monocytes (%) (Auto) 8.9, Eosinophils (%) (Auto) 2.5, Basophils (%) (Auto) 1.0, Sodium Level 137, Potassium Level 5.4H, Chloride Level 95L, Carbon Dioxide Level 24, Anion Gap 18H, Blood Urea Nitrogen 61H, Creatinine 8.2H, Estimat Glomerular Filtration Rate 5.9, Glucose Level 74, Calcium Level 7.4L, Total Bilirubin 0.4, Aspartate Amino Transf (AST/SGOT) 21, Alanine Aminotransferase (ALT/SGPT) 14, Alkaline Phosphatase 104, Total Protein 7.2, Albumin 3.6, Globulin 3.6, Albumin/Globulin Ratio 1.0 Current Medications Medications (Trade) Dose Ordered Sig/Winter Route PRN Reason Start Time Stop Time Status Last Admin Dose Admin Acetaminophen (Tylenol) 650 mg Q4H PRN ORAL Fever 02/06/17 16:00 03/08/17 15:59 Acetaminophen/ Hydrocodone Bitart ([place] 5/325) 1 tab Q4H PRN ORAL Moderate Pain (Pain Scale 4-6) 02/06/17 16:00 02/13/17 15:59 02/12/17 20:30 Albuterol/ Ipratropium (DuoNeb 0.5-3(2.5)mg/3ml) 3 ml Q4HRT HHN 02/12/17 15:00 02/17/17 14:59 02/13/17 07:40 Amlodipine Besylate (Norvasc) 5 mg DAILY ORAL 02/09/17 09:00 03/11/17 08:59 02/12/17 09:08 Clonidine HCl (Catapres) 0.2 mg Q4H PRN ORAL SBP>160 mmHg 02/06/17 16:00 03/08/17 15:59 02/11/17 20:19 Dextrose (Dextrose 50%) STAT PRN IV Hypoglycemia 02/06/17 16:00 03/08/17 15:59 Doxazosin Mesylate (Cardura) 1 mg BID ORAL 02/08/17 10:00 03/10/17 09:59 02/12/17 18:26 Doxazosin Mesylate (Cardura) 4 mg BID ORAL 02/08/17 10:00 03/10/17 09:59 02/12/17 18:26 Epoetin Vijay (Procrit (for ESRD on dialysis)) 10,000 units SAT-SAT-SAT SUBQ 02/06/17 21:00 03/08/17 20:59 02/06/17 20:15 Gabapentin (Neurontin) 300 mg THREE TIMES A DAY ORAL 02/06/17 18:00 03/08/17 17:59 02/12/17 18:26 Heparin Sodium (Porcine) (Heparin 5000 units/ml) 5,000 units EVERY 12 HOURS SUBQ 02/06/17 21:00 03/08/17 20:59 02/12/17 20:32 Levofloxacin (Levaquin) 500 mg Q48H ORAL 02/07/17 09:00 02/17/17 09:01 02/11/17 09:23 Losartan Potassium (Cozaar) 100 mg DAILY ORAL 02/07/17 09:00 03/09/17 08:59 02/12/17 09:05 Methadone HCl (Methadone HCl) 40 mg DAILY ORAL 02/07/17 09:00 02/14/17 08:59 02/12/17 09:06 Nebivolol (Bystolic) 10 mg DAILY ORAL 02/07/17 09:00 03/09/17 08:59 02/12/17 09:04 Ondansetron HCl (Zofran ODT) 4 mg Q6H PRN ORAL Nausea & Vomiting 02/06/17 15:45 03/08/17 15:44 02/08/17 18:58 Polyethylene Glycol (Miralax) 17 gm DAILYPRN PRN ORAL Constipation 02/06/17 16:00 03/08/17 15:59 Temazepam (Restoril) 15 mg HSPRN PRN ORAL Insomnia 02/06/17 16:00 02/13/17 15:59 AUGIE CAREY Feb 13, 2017 08:40
[2017-02-13] MEDS: Doxazosin 4mg tab ORAL SCH ×2 (09:22→17:01)
[2017-02-13] MEDS: Levofloxacin 500mg tab ORAL SCH (09:22)
[2017-02-13] MEDS: Doxazosin 1mg Tab ORAL SCH ×2 (09:22→17:01)
[2017-02-13] MEDS: Losartan 50mg tab ORAL SCH (09:23)
[2017-02-13] MEDS: Heparin 5000 units/ml inj SUBQ SCH ×2 (09:24→21:06)
--- NOTE | 2017-02-13 10:31 | Wound Nurse Progress Note ---
Wound RN Progress Note Wound Consult skin assessed right posterior shoulder ruptured blister noted with good progress dry intact,resolved. VIV MCGUIRE Feb 13, 2017 10:30
[2017-02-13] MEDS: Norco 5mg/325mg tab ORAL PRN ×4 (11:03→23:13)
--- NOTE | 2017-02-13 18:08 | Nephrology Progress Note ---
Assessment/Plan Assessment 1. Hyperkalemia. 2. Hypocalcemia. 3. Fluid overload. 4. Respiratory failure. 5. Pulmonary edema. 6. Sepsis. Plan plan to repeat dialysis as schedule today check stat chem 7 monitoring electrolyte continue epogen d/c planing Subjective Constitutional: Reports: no symptoms HEENT: Reports: no symptoms Genitourinary: Reports: no symptoms 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: Reports: no symptoms Subjective alert and awake on hemodialysis Objective Objective Last 24 Hour Vital Signs Date Time Temp Pulse Resp B/P (MAP) Pulse Ox O2 Delivery O2 Flow Rate FiO2 02/13/17 16:04 97.5 59 18 148/81 95 Nasal Cannula 2.0 02/13/17 15:01 65 16 99 Nasal Cannula 2.0 02/13/17 14:56 63 16 98 Nasal Cannula 2.0 02/13/17 12:02 97.8 02/13/17 12:00 98.1 69 18 150/74 95 Nasal Cannula 2.0 02/13/17 10:58 67 18 99 Nasal Cannula 2.0 02/13/17 10:53 65 18 99 Nasal Cannula 2.0 02/13/17 09:23 69 131/57 02/13/17 09:23 131/57 02/13/17 08:50 97.8 68 18 143/76 98 Nasal Cannula 2.0 02/13/17 08:50 Nasal Cannula 2.0 02/13/17 08:05 131/57 02/13/17 07:45 69 20 99 Nasal Cannula 2.0 02/13/17 07:43 98 20 Nasal Cannula 2.0 02/13/17 07:40 Nasal Cannula 2.0 02/13/17 07:40 68 18 98 Nasal Cannula 2.0 02/13/17 07:40 98 Nasal Cannula 2.0 02/13/17 05:10 98.1 69 20 150/79 98 Room Air 02/13/17 05:10 Room Air 02/13/17 04:00 97.8 72 18 148/84 98 Room Air 02/13/17 02:44 67 20 99 Nasal Cannula 2.0 02/13/17 02:37 65 18 98 Nasal Cannula 2.0 02/12/17 23:59 75 20 99 Nasal Cannula 2.0 02/12/17 23:56 97.5 64 20 146/80 97 Room Air 02/12/17 23:53 71 18 98 Nasal Cannula 2.0 02/12/17 20:00 97.0 59 20 148/74 97 Room Air 02/12/17 19:55 65 20 99 Nasal Cannula 2.0 02/12/17 19:44 60 18 97 Nasal Cannula 2.0 02/12/17 19:44 97 Nasal Cannula 2.0 28 02/12/17 19:44 Nasal Cannula 2.0 28 02/12/17 18:33 127/67 Intake and Output 02/13/17 02/14/17 19:00 07:00 Output Total 3000 ml Balance -3000 ml Output Hemodialysis UF 3000 ml # Bowel Movements 1 Height (Feet): 5 Height (Inches): 6.00 Weight (Pounds): 145 Objective HEAD AND NECK: . The patient has periorbital edema. ET tube is in place. Extraocular movement intact. The patient open her eyes to verbal stimuli. LUNGS: Decreased breathing sound on both side and crackles. CARDIAC: Regular rate and rhythm. S1 and S2. No murmur. No rub. ABDOMEN: Soft, nontender, and nondistended. EXTREMITIES: A 1 to 3+ edema. NEUROLOGIC: Cranial nerves II through XII intact. . The patient is moving but not following commands. CHARLENE FINN Feb 13, 2017 18:08
[2017-02-13] MEDS: Epogen (for ESRD on dialysis) SUBQ SCH (21:03)
--- NOTE | 2017-02-13 23:52 | Cardiology Progress Note ---
Assessment/Plan Assessment/Plan 1. Hypertensive heart disease, controlled, continue losartan, Bystolic, and amlodipine. 2. Sinus tachycardia, resolved, due to sepsis/PNA with enterobacter, continue Bystolic. 3. Hx of DM, recommend ASA and statins. 4. Hx of CAD, s/p NE 5. s/p respiratory failure 6. ESRD Subjective Subjective No chest pain or SOB. No cardiac events. Objective Last 24 Hour Vital Signs Date Time Temp Pulse Resp B/P (MAP) Pulse Ox O2 Delivery O2 Flow Rate FiO2 02/13/17 23:42 61 18 99 Nasal Cannula 2.0 28 02/13/17 23:32 63 18 99 Nasal Cannula 2.0 28 02/13/17 21:00 97.3 62 18 141/79 90 Room Air 02/13/17 19:59 97.5 02/13/17 19:57 62 16 99 Nasal Cannula 2.0 02/13/17 19:49 61 16 99 Nasal Cannula 2.0 02/13/17 19:49 99 Nasal Cannula 2.0 02/13/17 19:49 Nasal Cannula 2.0 02/13/17 16:04 97.5 59 18 148/81 95 Nasal Cannula 2.0 02/13/17 15:01 65 16 99 Nasal Cannula 2.0 02/13/17 14:56 63 16 98 Nasal Cannula 2.0 02/13/17 12:02 97.8 02/13/17 12:00 98.1 69 18 150/74 95 Nasal Cannula 2.0 02/13/17 10:58 67 18 99 Nasal Cannula 2.0 02/13/17 10:53 65 18 99 Nasal Cannula 2.0 02/13/17 09:23 69 131/57 02/13/17 09:23 131/57 02/13/17 08:50 97.8 68 18 143/76 98 Nasal Cannula 2.0 02/13/17 08:50 Nasal Cannula 2.0 02/13/17 08:05 131/57 02/13/17 07:45 69 20 99 Nasal Cannula 2.0 02/13/17 07:43 98 20 Nasal Cannula 2.0 02/13/17 07:40 Nasal Cannula 2.0 02/13/17 07:40 68 18 98 Nasal Cannula 2.0 02/13/17 07:40 98 Nasal Cannula 2.0 02/13/17 05:10 98.1 69 20 150/79 98 Room Air 02/13/17 05:10 Room Air 02/13/17 04:00 97.8 72 18 148/84 98 Room Air 02/13/17 02:44 67 20 99 Nasal Cannula 2.0 02/13/17 02:37 65 18 98 Nasal Cannula 2.0 02/12/17 23:59 75 20 99 Nasal Cannula 2.0 02/12/17 23:56 97.5 64 20 146/80 97 Room Air 02/12/17 23:53 71 18 98 Nasal Cannula 2.0 Intake and Output 02/13/17 02/14/17 19:00 07:00 Output Total 3000 ml Balance -3000 ml Output Hemodialysis UF 3000 ml # Bowel Movements 1 2D Echo: EF 55%, Mild LVH, Mild MR/AR, RVSP 32 mmHg, Grade I LVDD Objective HEENT: Atraumatic, normocephalic, periorbital edema. Extraocular movement intact. Awake and alert. NECK: JVD negative, no carotid bruit, upstroke 2+ B/L LUNGS: Decreased breath sounds on both side. CARDIAC: Regular rate and rhythm. S1 and S2, No murmurs, gallops or rubs. ABDOMEN: Soft, nontender, and nondistended, + BS EXTREMITIES: 1+ B/L edema, no clubbing or cyanosis. PREM BIGGS Feb 13, 2017 23:52
[2017-02-14] VITALS: BP 147/71
[2017-02-14] MEDS: DuoNeb 0.5-3(2.5)mg/3ml neb HHN SCH ×6 (03:28→23:15)
[2017-02-14 04:00] VITALS: BP 158/104
[2017-02-14] MEDS: Norco 5mg/325mg tab ORAL PRN ×4 (06:01→21:28)
[2017-02-14 08:27] VITALS: BP 149/75
[2017-02-14] MEDS: Doxazosin 4mg tab ORAL SCH ×2 (08:39→16:59)
[2017-02-14] MEDS: Doxazosin 1mg Tab ORAL SCH ×2 (08:39→16:59)
[2017-02-14] MEDS: Losartan 50mg tab ORAL SCH (08:39)
[2017-02-14] MEDS: Heparin 5000 units/ml inj SUBQ SCH ×2 (08:43→21:26)
[2017-02-14 11:53] VITALS: BP 120/78
[2017-02-14 15:33] VITALS: BP 126/77
--- NOTE | 2017-02-14 15:55 | Nephrology Progress Note ---
Assessment/Plan Assessment 1. Hyperkalemia. 2. Hypocalcemia. 3. Fluid overload. 4. Respiratory failure. 5. Pulmonary edema. 6. Sepsis. Plan plan to repeat dialysis as schedule today check stat chem 7 monitoring electrolyte continue epogen d/c planing Subjective Subjective alert and awake on hemodialysis Objective Objective Last 24 Hour Vital Signs Date Time Temp Pulse Resp B/P (MAP) Pulse Ox O2 Delivery O2 Flow Rate FiO2 02/14/17 15:33 97.6 60 21 126/77 97 Nasal Cannula 2.0 02/14/17 15:16 58 18 98 Nasal Cannula 2.0 02/14/17 13:56 98.6 02/14/17 11:53 98.6 60 20 120/78 98 Room Air 02/14/17 10:58 63 18 99 Nasal Cannula 2.0 02/14/17 10:49 61 16 99 Nasal Cannula 2.0 02/14/17 08:39 65 149/75 02/14/17 08:39 149/75 02/14/17 08:27 98.5 65 20 149/75 99 Nasal Cannula 2.0 02/14/17 07:57 66 18 98 Nasal Cannula 2.0 02/14/17 07:48 99 Nasal Cannula 2.0 02/14/17 07:47 65 18 99 Nasal Cannula 2.0 02/14/17 07:47 Nasal Cannula 2.0 02/14/17 04:00 97.7 67 20 158/104 100 Nasal Cannula 2.0 02/14/17 03:39 68 16 99 Nasal Cannula 2.0 02/14/17 03:28 65 16 99 Nasal Cannula 2.0 02/14/17 00:00 97.5 63 20 147/71 97 Nasal Cannula 2.0 02/13/17 23:42 61 18 99 Nasal Cannula 2.0 02/13/17 23:32 63 18 99 Nasal Cannula 2.0 02/13/17 21:00 97.3 62 18 141/79 90 Room Air 02/13/17 19:57 62 16 99 Nasal Cannula 2.0 02/13/17 19:49 61 16 99 Nasal Cannula 2.0 02/13/17 19:49 99 Nasal Cannula 2.0 02/13/17 19:49 Nasal Cannula 2.0 02/13/17 16:04 97.5 59 18 148/81 95 Nasal Cannula 2.0 Height (Feet): 5 Height (Inches): 6.00 Weight (Pounds): 138 Objective HEAD AND NECK: . The patient has periorbital edema. ET tube is in place. Extraocular movement intact. The patient open her eyes to verbal stimuli. LUNGS: Decreased breathing sound on both side and crackles. CARDIAC: Regular rate and rhythm. S1 and S2. No murmur. No rub. ABDOMEN: Soft, nontender, and nondistended. EXTREMITIES: A 1 to 3+ edema. NEUROLOGIC: Cranial nerves II through XII intact. . The patient is moving but not following commands. CHARLENE FINN Feb 14, 2017 15:54
--- NOTE | 2017-02-14 17:12 | Pulmonology Progress Note ---
Assessment/Plan Assessment/Plan 1. Severe hyperkalemia. 2. Respiratory failure, intubated, resolved 3. CHF w Pulmonary edema, resolved 4. Malignant HTN 5. Coronary artery disease. 6. Chronic obstructive pulmonary disease. 7. Anemia, due to renal failure 8. Pneumonia, RLL due to enterobacter aerogenes, resolving HD per renal K better Levaquin dc 02/17/17 BP controlled dc when bed available Subjective Constitutional: Reports: no symptoms Allergies: Coded Allergies: No Known Allergies (Unverified , 01/01/12) Objective Last 24 Hour Vital Signs Date Time Temp Pulse Resp B/P (MAP) Pulse Ox O2 Delivery O2 Flow Rate FiO2 02/14/17 15:33 97.6 60 21 126/77 97 Nasal Cannula 2.0 02/14/17 15:26 62 16 98 Nasal Cannula 2.0 02/14/17 15:16 58 18 98 Nasal Cannula 2.0 02/14/17 13:56 98.6 02/14/17 11:53 98.6 60 20 120/78 98 Room Air 02/14/17 10:58 63 18 99 Nasal Cannula 2.0 02/14/17 10:49 61 16 99 Nasal Cannula 2.0 02/14/17 08:39 65 149/75 02/14/17 08:39 149/75 02/14/17 08:27 98.5 65 20 149/75 99 Nasal Cannula 2.0 02/14/17 07:57 66 18 98 Nasal Cannula 2.0 02/14/17 07:48 99 Nasal Cannula 2.0 02/14/17 07:47 65 18 99 Nasal Cannula 2.0 02/14/17 07:47 Nasal Cannula 2.0 02/14/17 04:00 97.7 67 20 158/104 100 Nasal Cannula 2.0 02/14/17 03:39 68 16 99 Nasal Cannula 2.0 02/14/17 03:28 65 16 99 Nasal Cannula 2.0 02/14/17 00:00 97.5 63 20 147/71 97 Nasal Cannula 2.0 02/13/17 23:42 61 18 99 Nasal Cannula 2.0 02/13/17 23:32 63 18 99 Nasal Cannula 2.0 02/13/17 21:00 97.3 62 18 141/79 90 Room Air 8/23/17 19:57 62 16 99 Nasal Cannula 2.0 28 02/13/17 19:49 61 16 99 Nasal Cannula 2.0 28 02/13/17 19:49 99 Nasal Cannula 2.0 28 02/13/17 19:49 Nasal Cannula 2.0 28 Objective face mildly puffy General Appearance: no acute distress HEENT: atraumatic Respiratory/Chest: lungs clear Current Medications Medications (Trade) Dose Ordered Sig/Winter Route PRN Reason Start Time Stop Time Status Last Admin Dose Admin Acetaminophen (Tylenol) 650 mg Q4H PRN ORAL Fever 02/06/17 16:00 03/08/17 15:59 Acetaminophen/ Hydrocodone Bitart ([place] 5/325) 1 tab Q4H PRN ORAL Moderate Pain (Pain Scale 4-6) 02/13/17 16:30 02/20/17 16:29 02/14/17 12:57 Albuterol/ Ipratropium (DuoNeb 0.5-3(2.5)mg/3ml) 3 ml Q4HRT HHN 02/12/17 15:00 02/17/17 14:59 02/14/17 15:15 Amlodipine Besylate (Norvasc) 5 mg DAILY ORAL 02/09/17 09:00 03/11/17 08:59 02/14/17 08:39 Clonidine HCl (Catapres) 0.2 mg Q4H PRN ORAL SBP>160 mmHg 02/06/17 16:00 03/08/17 15:59 02/11/17 20:19 Dextrose (Dextrose 50%) STAT PRN IV Hypoglycemia 02/06/17 16:00 03/08/17 15:59 Doxazosin Mesylate (Cardura) 1 mg BID ORAL 02/08/17 10:00 03/10/17 09:59 02/14/17 16:59 Doxazosin Mesylate (Cardura) 4 mg BID ORAL 02/08/17 10:00 03/10/17 09:59 02/14/17 16:59 Epoetin Vijay (Procrit (for ESRD on dialysis)) 10,000 units SAT-WED-SAT SUBQ 02/06/17 21:00 03/08/17 20:59 02/13/17 21:03 Gabapentin (Neurontin) 300 mg THREE TIMES A DAY ORAL 02/06/17 18:00 03/08/17 17:59 02/14/17 16:59 Heparin Sodium (Porcine) (Heparin 5000 units/ml) 5,000 units EVERY 12 HOURS SUBQ 02/06/17 21:00 03/08/17 20:59 02/14/17 08:43 Levofloxacin (Levaquin) 500 mg Q48H ORAL 02/07/17 09:00 02/17/17 09:01 02/13/17 09:22 Losartan Potassium (Cozaar) 100 mg DAILY ORAL 02/07/17 09:00 03/09/17 08:59 02/14/17 08:39 Nebivolol (Bystolic) 10 mg DAILY ORAL 02/07/17 09:00 03/09/17 08:59 02/14/17 08:39 Ondansetron HCl (Zofran ODT) 4 mg Q6H PRN ORAL Nausea & Vomiting 02/06/17 15:45 03/08/17 15:44 02/08/17 18:58 Polyethylene Glycol (Miralax) 17 gm DAILYPRN PRN ORAL Constipation 02/06/17 16:00 03/08/17 15:59 AUGIE CAREY Feb 14, 2017 17:12
[2017-02-14 20:00] VITALS: BP 144/70
--- NOTE | 2017-02-14 23:56 | Cardiology Progress Note ---
Assessment/Plan Assessment/Plan 1. Hypertensive heart disease, controlled, continue losartan, Bystolic, and amlodipine. 2. Sinus tachycardia, resolved, due to sepsis/PNA with enterobacter, continue Bystolic. 3. Hx of DM, recommend ASA and statins. 4. Hx of CAD, s/p LA 5. s/p respiratory failure 6. ESRD Subjective Subjective No chest pain or SOB. Not on the telemetry unit. Objective Last 24 Hour Vital Signs Date Time Temp Pulse Resp B/P (MAP) Pulse Ox O2 Delivery O2 Flow Rate FiO2 02/14/17 23:25 64 16 100 Nasal Cannula 2.0 28 02/14/17 23:15 65 16 97 Nasal Cannula 2.0 02/14/17 20:00 98.2 64 20 144/70 100 Room Air 02/14/17 19:55 61 16 100 Nasal Cannula 2.0 02/14/17 19:47 Nasal Cannula 2.0 02/14/17 19:47 62 16 99 Nasal Cannula 2.0 02/14/17 19:47 99 Nasal Cannula 2.0 02/14/17 18:26 97.6 02/14/17 15:33 97.6 60 21 126/77 97 Nasal Cannula 2.0 02/14/17 15:26 62 16 98 Nasal Cannula 2.0 02/14/17 15:16 58 18 98 Nasal Cannula 2.0 02/14/17 11:53 98.6 60 20 120/78 98 Room Air 02/14/17 10:58 63 18 99 Nasal Cannula 2.0 02/14/17 10:49 61 16 99 Nasal Cannula 2.0 02/14/17 08:39 65 149/75 02/14/17 08:39 149/75 02/14/17 08:27 98.5 65 20 149/75 99 Nasal Cannula 2.0 02/14/17 07:57 66 18 98 Nasal Cannula 2.0 02/14/17 07:48 99 Nasal Cannula 2.0 02/14/17 07:47 65 18 99 Nasal Cannula 2.0 02/14/17 07:47 Nasal Cannula 2.0 02/14/17 04:00 97.7 67 20 158/104 100 Nasal Cannula 2.0 02/14/17 03:39 68 16 99 Nasal Cannula 2.0 02/14/17 03:28 65 16 99 Nasal Cannula 2.0 28 02/14/17 00:00 97.5 63 20 147/71 97 Nasal Cannula 2.0 Intake and Output 02/14/17 02/15/17 19:00 07:00 Intake Total 360 ml Output Total 0 ml Balance 360 ml Intake Oral 360 ml Output Urine Total 0 ml 2D Echo: EF 55%, Mild LVH, Mild MR/AR, RVSP 32 mmHg, Grade I LVDD Objective HEENT: Atraumatic, normocephalic, periorbital edema. Extraocular movement intact. Awake and alert. NECK: JVD negative, no carotid bruit, upstroke 2+ B/L LUNGS: Decreased breath sounds on both side. CARDIAC: Regular rate and rhythm. S1 and S2, No murmurs, gallops or rubs. ABDOMEN: Soft, nontender, and nondistended, + BS EXTREMITIES: 1+ B/L edema, no clubbing or cyanosis. PREM BIGGS Feb 14, 2017 23:56
[2017-02-15] VITALS (7 sets, daily range): BP systolic 136–172; BP diastolic 70–84
[2017-02-15] MEDS: Norco 5mg/325mg tab ORAL PRN ×2 (01:36→08:19)
[2017-02-15] MEDS: DuoNeb 0.5-3(2.5)mg/3ml neb HHN SCH ×4 (02:37→15:41)
[2017-02-15] MEDS: cloNIDine 0.2mg Tab ORAL PRN (04:20)
--- NOTE | 2017-02-15 06:57 | Nephrology Progress Note ---
Assessment/Plan Assessment 1. Hyperkalemia. 2. Hypocalcemia. 3. Fluid overload. 4. Respiratory failure. 5. Pulmonary edema. 6. Sepsis. Plan plan to repeat dialysis as schedule today check stat chem 7 monitoring electrolyte continue epogen d/c planing Subjective Subjective alert and awake on hemodialysis Objective Objective Last 24 Hour Vital Signs Date Time Temp Pulse Resp B/P (MAP) Pulse Ox O2 Delivery O2 Flow Rate FiO2 02/15/17 06:50 65 18 100 Nasal Cannula 2.0 28 02/15/17 06:46 97 Nasal Cannula 2.0 02/15/17 06:45 Nasal Cannula 2.0 02/15/17 06:40 65 16 97 Nasal Cannula 2.0 02/15/17 04:20 172/84 02/15/17 04:00 97.9 75 20 172/84 97 Room Air 02/15/17 02:47 66 16 100 Nasal Cannula 2.0 02/15/17 02:37 68 18 98 Nasal Cannula 2.0 02/15/17 00:00 98.2 69 20 142/80 98 Room Air 02/14/17 23:25 64 16 100 Nasal Cannula 2.0 02/14/17 23:15 65 16 97 Nasal Cannula 2.0 02/14/17 20:00 98.2 64 20 144/70 100 Room Air 02/14/17 19:55 61 16 100 Nasal Cannula 2.0 02/14/17 19:47 Nasal Cannula 2.0 02/14/17 19:47 62 16 99 Nasal Cannula 2.0 02/14/17 19:47 99 Nasal Cannula 2.0 02/14/17 18:26 97.6 02/14/17 15:33 97.6 60 21 126/77 97 Nasal Cannula 2.0 02/14/17 15:26 62 16 98 Nasal Cannula 2.0 02/14/17 15:16 58 18 98 Nasal Cannula 2.0 02/14/17 11:53 98.6 60 20 120/78 98 Room Air 02/14/17 10:58 63 18 99 Nasal Cannula 2.0 02/14/17 10:49 61 16 99 Nasal Cannula 2.0 02/14/17 08:39 65 149/75 02/14/17 08:39 149/75 02/14/17 08:27 98.5 65 20 149/75 99 Nasal Cannula 2.0 02/14/17 07:57 66 18 98 Nasal Cannula 2.0 02/14/17 07:48 99 Nasal Cannula 2.0 02/14/17 07:47 65 18 99 Nasal Cannula 2.0 28 02/14/17 07:47 Nasal Cannula 2.0 Height (Feet): 5 Height (Inches): 6.00 Weight (Pounds): 146 Objective HEAD AND NECK: . The patient has periorbital edema. ET tube is in place. Extraocular movement intact. The patient open her eyes to verbal stimuli. LUNGS: Decreased breathing sound on both side and crackles. CARDIAC: Regular rate and rhythm. S1 and S2. No murmur. No rub. ABDOMEN: Soft, nontender, and nondistended. EXTREMITIES: A 1 to 3+ edema. NEUROLOGIC: Cranial nerves II through XII intact. . The patient is moving but not following commands. CHARLENE FINN Feb 15, 2017 06:57
[2017-02-15] MEDS: Levofloxacin 500mg tab ORAL SCH (08:10)
[2017-02-15] MEDS: Doxazosin 1mg Tab ORAL SCH (08:11)
[2017-02-15] MEDS: Doxazosin 4mg tab ORAL SCH (08:11)
[2017-02-15] MEDS: Losartan 50mg tab ORAL SCH (08:12)
[2017-02-15] MEDS: Heparin 5000 units/ml inj SUBQ SCH (08:15)
--- NOTE | 2017-02-15 13:50 | Discharge Summary ---
Discharge Summary Hospital Course Date of Admission Jan 28, 2017 at 10:15 Date of Discharge 02/15/17 Admitting Diagnosis dyspnea HPI Syeda Golden is a 66 year old female who was admitted on Jan 28, 2017 at 10:15 for Dyspnea Consultations renal, cardiac Hospital Course 1. Severe hyperkalemia. 2. Respiratory failure, intubated, resolved 3. CHF w Pulmonary edema, resolved 4. Malignant HTN 5. Coronary artery disease. 6. Chronic obstructive pulmonary disease. 7. Anemia, due to renal failure 8. Pneumonia, RLL due to enterobacter aerogenes, resolving managed resp failure w vent and dialyzed. Treated w abx for pneumonia. Extubated and able to eat by mouth. Delayed dc due to placement problem. Additional dc med Levaquin 500 mg qd until 02/17/17. Discharge Medications Continued Medications: Acetaminophen (Tylenol) 325 Mg Tablet 325 MG ORAL Q4HR PRN for Prn Pain/Headache/Temp > 101, #30 TAB 0 Refills Albuterol Sulfate* (Albuterol Sulfate Hhn*) 2.5 Mg/3 Ml Vial.neb Unknown Dose INH Q4H PRN for Shortness of Breath, EA Amino Acids/Protein Hydrolys (Proteinex-18 Liquid) 30 Ml Liquid 30 ML PO, ML Carvedilol (Coreg) 3.125 Mg Tablet Unknown Dose ORAL EVERY 12 HOURS, TAB Clonidine HCl (Clonidine HCl ER) 0.1 Mg Tab.er.12h Unknown Dose PO, TAB Docusate Sodium (Dulcolax Stool Softener) 100 Mg Capsule 10 MG RC PRN, CAP Docusate Sodium* (Colace*) 100 Mg Capsule 100 MG ORAL DAILY, CAP Doxazosin Mesylate* (Cardura*) 1 Mg Tablet 2.5 MG ORAL BID, TAB Folic Acid/Vit Bcomp,C (Renal-Perri Tablet) 0.8 Mg Tablet 0.8 MG PO, TAB Gabapentin* (Gabapentin*) 300 Mg Capsule 300 MG ORAL THREE TIMES A DAY, CAP 0 Refills Hydralazine Hcl* (Hydralazine Hcl*) 25 Mg Tablet 25 MG ORAL EVERY 8 HOURS, TAB 0 Refills Losartan Potassium* (Cozaar*) 25 Mg Tablet 100 MG ORAL DAILY, TAB Magnesium Hydroxide* (Milk Of Magnesia*) 400 Mg/5 Ml Oral.susp 30 ML ORAL PRN, ML Methadone Hcl* (Methadone*) 5 Mg Tablet Unknown Dose PO DAILY, #10 TAB 0 Refills Methadone Hcl* (Methadone*) 10 Mg Tablet 40 MG PO DAILY, #10 TAB 0 Refills Quetiapine Fumarate* (Seroquel*) 25 Mg Tablet Unknown Dose ORAL DAILY, TAB Quetiapine Fumarate* (Seroquel*) 25 Mg Tablet Unknown Dose ORAL DAILY, TAB Sertraline Hcl* (Zoloft*) 25 Mg Tablet Unknown Dose ORAL DAILY, TAB Tramadol Hcl* (Ultram*) 50 Mg Tablet Unknown Dose ORAL Q6H PRN for For Pain, #30 TAB 0 Refills Vitamin D (Vitamin D3) 400 Unit Tablet 1000 UNITS ORAL DAILY, TAB Discontinued Medications: Na Phos,M-B/Na Phos,Di-Ba* (Fleet Enema*) 133 Ml Enema 133 ML RECTAL PRN, ML 0 Refills Discharge Condition Upon Discharge: improving Discharge Disposition Patient was discharged to SNF/Subacute Facility(03) Discharge Diagnoses: (1) Pulmonary edema (2) Respiratory failure (3) Anemia (4) Respiratory distress (5) Sepsis (6) Pneumonia (7) Hyperkalemia (8) ESRD (end stage renal disease) on dialysis AUGIE CAREY Feb 15, 2017 13:50
== END 2017-02-15 17:40 | DRG 720 ==
LOC: EDBD 06:03 → EMR 06:55 → EDBEDREQ 10:04 → ICU 10:15 → EDBEDREQSVC 10:53 → EDBEDREQ 11:16 → ICU 01-29 00:52 → 2E 01-31 11:34 → 4W 02-06 15:00 → SDSOVERFLO 02-08 14:35 → 4W 02-08 14:37 → 4E 02-13 18:04
PROC: 5A1945Z Respiratory Ventilation, 24-96 Consecutive Hours (ICD-10-PCS; principal; 2017-01-28)
PROC: 0BH17EZ Insertion of Endotracheal Airway into Trachea, Via Natural or Artificial Opening (ICD-10-PCS; principal; 2017-01-28)
PROC: 5A1D60Z (ICD-10-PCS; 2017-01-28)
DX: A41.9 Sepsis, unspecified organism (principal); J96.01 Acute respiratory failure with hypoxia; I13.2 Hypertensive heart and chronic kidney disease with heart failure and with stage 5 chronic kidney disease, or end stage renal disease; J15.6 Pneumonia due to other Gram-negative bacteria; N18.6 End stage renal disease; J44.0 Chronic obstructive pulmonary disease with (acute) lower respiratory infection; E11.22 Type 2 diabetes mellitus with diabetic chronic kidney disease; I50.9 Heart failure, unspecified; N25.0 Renal osteodystrophy; E83.51 Hypocalcemia; Z99.2 Dependence on renal dialysis; E87.5 Hyperkalemia; D63.1 Anemia in chronic kidney disease; I25.10 Atherosclerotic heart disease of native coronary artery without angina pectoris; F25.9 Schizoaffective disorder, unspecified; G40.909 Epilepsy, unspecified, not intractable, without status epilepticus
CPT/HCPCS: 31500; 36415; 36569; 36600; 71010; 74230; 80048; 80053; 80069; 80202; 82550; 82553; 82728; 82803; 83540; 83550; 83735; 83880; 84100; 84484; 85007; 85025; 86850; 86870; 86900; 86901; 86904; 86920; 87040; 87070; 87181; 87205; 93005; 93306; 94002; 94003; 94640; 94664; 94760; J7620

== ENCOUNTER 2017-02-28 20:18 | Inpatient (IN) | payer MEDICARE, OTHER ==
[~2017-02-28] VITALS: Ht 170.2 cm; Wt 66.4 kg
[~2017-02-28 20:18] MED LIST changes: +CARDURA1 MG ORAL; +COLACE100 MG ORAL; +COZAAR25 MG ORAL; +DULCOLAX STOOL100 M1 RC; +FLEET ENEMA133 ML RECTAL; +GABAPENTIN300 MG ORAL; +HYDRALAZINE HCL25 M1 ORAL; +METHADONE HCL10 MG PO; +MILK OF MA400 MG/51 ORAL; +PROTEINEX-18 LI30 ML PO; +RENAL-VITE TAB0.8 MG PO; +TYLENOL325 MG ORAL; +VITAMIN D400 INTLU ORAL
[2017-02-28] MEDS ORDERED: Vancomycin 1 GM in NS 275 ML IV ONE (20:45)
--- NOTE | 2017-02-28 21:01 | Emergency Room Report ---
History of Present Illness General Chief Complaint: General Complaint Source: Patient, Medical Record Present Illness HPI [id number] BIB SW because was unable to get HD yesterday due ?infection in LUE dialysis access site Patient c/o pain, swelling, warmth to area Denies fever/chills Didnt have HD yesterday History of COPD on 2L home O2 Allergies: Coded Allergies: No Known Allergies (Unverified , 02/28/17) Patient History Past Medical History: COPD, renal disease Past Surgical History: none Pertinent Family History: none Social History: Denies: smoking, alcohol use, drug use Last Menstrual Period: n/a Now: No Immunizations: UTD Reviewed Nursing Documentation: PMH: Agreed, PSxH: Agreed Nursing Documentation-PMH Past Medical History: No History, Except For Hx Cardiac Problems: Yes Hx Hypertension: Yes Hx Asthma: Yes Hx COPD: Yes Hx Diabetes: Yes Hx Cancer: No Hx Gastrointestinal Problems: Yes Hx Dialysis: Yes - CKD, ESRD, AV Fistula MWF Hx Neurological Problems: Yes - metabolic encephalopathy Hx Cerebrovascular Accident: Yes Hx Seizures: Yes Review of Systems All Other Systems: negative except mentioned in HPI Physical Exam Vital Signs Date Time Temp Pulse Resp B/P (MAP) Pulse Ox O2 Delivery O2 Flow Rate FiO2 02/28/17 20:33 98.2 78 16 111/55 88 Room Air Sp02 EP Interpretation: reviewed, abnormal General Appearance: normal inspection, well appearing, no apparent distress, alert, GCS 15, non-toxic Head: normocephalic, atraumatic Eyes: bilateral eye PERRL, bilateral eye EOMI ENT: normal ENT inspection, hearing grossly normal, normal voice Neck: normal inspection, full range of motion, supple, no bony tend Respiratory: normal inspection, lungs clear, normal breath sounds, no respiratory distress, no retraction, no accessory muscle use, no wheezing, speaking full sentences Cardiovascular #1: regular rate, rhythm, no edema Gastrointestinal: normal inspection, normal bowel sounds, non tender, soft, no guarding, no hernia Genitourinary: no CVA tenderness Musculoskeletal: normal inspection, back normal, normal range of motion, Vanessa' s Sign negative, other - LUE HD port: Warm, mild ttp. Erythema at site. No bleeding. No pus Neurologic: normal inspection, alert, oriented x3, responsive, county manager III-XII nml as tested, motor strength/tone normal, speech normal Psychiatric: normal inspection, judgement/insight normal, mood/affect normal Skin: normal inspection, normal color, no rash Medical Decision Making Medicare Attestation I Augie Panda MD hereby attest that the medical record entry for date of service, 02/28/17 accurately reflects signatures/notations that I made in my capacity as MD when I treated/diagnosed the above listed Medicare beneficiary. I attest that this information is true, accurate and complete to the best of my knowledge. I understand that any falsification, omission, or concealment of material fact may subject me to administrative, civil, or criminal liability. This patient warrants hospital admission for extreme of age and has a condition that cannot be treated as outpatient. Diagnostic Impression: Primary Impression: Infection, dialysis vascular access Qualified Codes: T82.7XXA - Infection and inflammatory reaction due to other cardiac and vascular devices, implants and grafts, initial encounter ER Course Low O2 sat 88% on arrival. Improved to 100% on supplemental 2L O2 she is chronically on No acute respiratory distress - did not warrant BIPAP for fluid/pulm edema/ overload CXR: No PNA Labs pending at time of signout Blood Cx pending Empiric Abx given for ?LUE HD site infection Signed out to Dr Meier at 1030pm to followup labs and endorsement for admission EKG Diagnostic Results Rate: normal Rhythm: other - Prolonged QTc ST Segments: no acute changes ASA given to the pt in ED: No Rhythm Strip Diag. Results EP Interpretation: yes Rate: 61 Rhythm: NSR, no PVC's, no ectopy Chest X-Ray Diagnostic Results Chest X-Ray Diagnostic Results : Chest X-Ray Ordered: Yes # of Views/Limited/Complete: 1 View Indication: Other - Missed HD EP Interpretation: Yes Interpretation: other - Cardiomegaly, chronic bilateral scarring. No PNA Electronically Signed by: Dr Augie Panda MD Last Vital Signs Date Time Temp Pulse Resp B/P (MAP) Pulse Ox O2 Delivery O2 Flow Rate FiO2 02/28/17 20:33 98.2 78 16 111/55 88 Room Air Status: improved Disposition: ADMITTED INPATIENT Condition: Serious AUGIE PANDA M.D. Feb 28, 2017 21:01
[2017-02-28] MEDS ORDERED: Cefepime 1gm vial ONE (21:32)
[2017-02-28] MEDS: Cefepime HCl 1 GM in NS 55 ML IV SCH (22:11)
[2017-02-28 22:15] LABS: MEAN CORPUSCULAR HEMOGLOBIN 27.3 PG (27.0-31.0); MEAN CORPUSCULAR HGB CONC 30.1 G/DL (32.0-36.0); MEAN CORPUSCULAR VOLUME 91 FL (80-99); MEAN PLATELET VOLUME 7.4 FL (6.5-10.1); PLATELET COUNT 190 K/UL (150-450); RED BLOOD COUNT 2.62 M/UL (4.20-5.40); RED CELL DISTRIBUTION WIDTH 14.9 % (11.6-14.8); WHITE BLOOD COUNT 6.6 K/UL (4.8-10.8)
[2017-02-28] MEDS ORDERED: NS 275ml ONE (22:21)
[2017-02-28] MEDS ORDERED: Tubing IV Secondary IV ONE (22:21)
[2017-02-28 22:25] LABS: TROPONIN I < 0.30 ng/mL (<=0.30)
[2017-02-28 22:29] LABS: CALCIUM 7.5 mg/dL (8.6-10.2); CREATININE 10.2 mg/dL (0.5-0.9); GLOMERULAR FILTRATION RATE 4.6 mL/min (>60); POTASSIUM 4.9 mEQ/L (3.4-4.9); TOTAL PROTEIN 7.3 g/dL (6.6-8.7)
[2017-02-28 22:39] LABS: CKMB 3.5 ng/mL (< 3.8)
[2017-02-28 22:42] LABS: ANISOCYTOSIS 1+; BASOPHILS % (MANUAL) 2 % (0-2); EOSINOPHILS % (MANUAL) 4 % (0-3); LYMPHOCYTES % (MANUAL) 32 % (20-45); NEUTROPHILS % (MANUAL) 55 % (45-75); PLATELET MORPHOLOGY NORMAL; TOTAL CELLS COUNTED 100
[2017-02-28 22:43] LABS: BAND NEUTROPHILS % (MANUAL) 0 % (0-8); HYPOCHROMASIA 2+; PLATELET ESTIMATE ADEQUATE
[2017-02-28] MEDS ORDERED: Vancomycin 1gm inj IVPB ONE (22:53)
[2017-03-01] VITALS (11 sets, daily range): BP systolic 115–176; BP diastolic 55–89
[2017-03-01 05:01] LABS: MEAN CORPUSCULAR HEMOGLOBIN 26.8 PG (27.0-31.0); MEAN CORPUSCULAR HGB CONC 30.1 G/DL (32.0-36.0); MEAN CORPUSCULAR VOLUME 89 FL (80-99); MEAN PLATELET VOLUME 8.2 FL (6.5-10.1); PLATELET COUNT 197 K/UL (150-450); RED BLOOD COUNT 2.61 M/UL (4.20-5.40); RED CELL DISTRIBUTION WIDTH 14.9 % (11.6-14.8); WHITE BLOOD COUNT 6.2 K/UL (4.8-10.8)
[2017-03-01 05:02] LABS: INR 1.1 (0.9-1.1)
[2017-03-01 05:27] LABS: CALCIUM 7.4 mg/dL (8.6-10.2); CREATININE 10.5 mg/dL (0.5-0.9); GLOMERULAR FILTRATION RATE 4.4 mL/min (>60)
[2017-03-01 05:47] LABS: POTASSIUM 5.1 mEQ/L (3.4-4.9)
[2017-03-01] MEDS: Cefepime HCl 1 GM in NS 55 ML IV SCH (08:45)
--- NOTE | 2017-03-01 10:23 | Diagnostic Imaging Report ---
Indication: Dyspnea Comparison: 02/04/17 A single view chest radiograph was obtained. Findings: Interstitial edema suspected. There is a scoliosis. Cardiomegaly is present. Bones are osteopenic. The findings have not changed significantly. Impression: Suspected mild interstitial edema
[2017-03-01] MEDS ORDERED: RENA-VITE RX T1 EAC1 PO (10:59)
[2017-03-01] MEDS ORDERED: DOXAZOSIN MESYLA1 MG ORAL (10:59)
[2017-03-01] MEDS ORDERED: HEPARIN SO5000 UNIT2 SUBQ (10:59)
[2017-03-01] MEDS ORDERED: ZOFRAN4 M1 ORAL (10:59)
[2017-03-01] MEDS ORDERED: ATORVASTATIN CA20 MG ORAL (10:59)
[2017-03-01] MEDS ORDERED: ASPIRIN81 MG ORAL (10:59)
[2017-03-01] MEDS ORDERED: NORCO 5-325 TA1 EAC1 ORAL (10:59)
[2017-03-01] MEDS ORDERED: APRESOLINE50 MG ORAL (10:59)
[2017-03-01] MEDS ORDERED: CLONAZEPAM2 MG PO (10:59)
[2017-03-01] MEDS ORDERED: CLONIDINE HCL0.1 MG PO (10:59)
[2017-03-01] MEDS ORDERED: COREG3.125 MG ORAL (10:59)
--- NOTE | 2017-03-01 11:22 | General Progress Note ---
Progress Note Progress Note patient admitted for infected graft dialysis was ordered CHARLENE FINN Mar 01, 2017 11:22
[2017-03-01] MEDS ORDERED: Heparin Sod 1000 units/ml 10ml ONE (11:44)
[2017-03-01] MEDS ORDERED: Lidocaine 1% Plain 30 ml INJ ONE (11:44)
[2017-03-01] MEDS ORDERED: Heparin 2000 units/Ns 1000ml 1,000 ML ONE (11:44)
[2017-03-01 13:02] LABS: OTHERS PATHOLOGIST COMMENT
--- NOTE | 2017-03-01 13:27 | History & Physical ---
History and Physical History & Physicial HISTORY OF PRESENT ILLNESS: Admitted from dialysis due to warm, red and tender LUE shunt. HD not done. No fevers. PAST MEDICAL HISTORY: end-stage renal disease on hemodialysis, hypertension, CHF, CAD status post NM, schizoaffective d/o, history of seizures, anemia, COPD, diabetes mellitus with neuropathy, chronic pain syndrome on methadone. Recently here with pulmonary edema requiring intubation. PAST SURGICAL HISTORY: shunt LUE MEDICATIONS: reviewed and reconciled. ALLERGIES: No known allergies. SOCIAL HISTORY: smoker REVIEW OF SYSTEMS: no chest pain, SOB no n/v/d, no REINA or seizure little urine output PHYSICAL EXAMINATION: VITAL SIGNS: satisfactory HEENT: PERRLA. CHEST: clear. CARDIOVASCULAR: Regular rate and rhythm. No extra sounds. GASTROINTESTINAL: Not distended. Positive bowel sounds. Abdomen is soft. No organomegaly. EXTREMITIES: no edema. LUE shunt red LABORATORY DATA: anemia ASSESSMENT: 1. LUE dialysis shunt infection. 2. renal failure on HD 3. HTN 4. schizoaffective d/o 5. coronary artery disease. 6. chronic obstructive pulmonary disease. 7. Anemia, most likely of renal disease. 8. Seizure d/o PLAN: ID, renal, vascular called abx groin dialysis cath placed AUGIE CAREY Mar 01, 2017 13:27
[2017-03-01] MEDS ORDERED: Albuterol 90mcg Inhaler 8gm INH PRN (13:30)
[2017-03-01] MEDS ORDERED: Milk of Magnesia 30ml Ud ORAL PRN (13:30)
--- NOTE | 2017-03-01 13:45 | Diagnostic Imaging Report ---
Indication: Patient requires hemodialysis. Findings: After the indications, procedure, risks, complications, and alternatives of the procedure were explained, written informed consent was obtained. The neck was prepped with alcohol. All elements of maximal sterile barrier technique were followed including usage of a cap, mask, sterile gown, sterile gloves, hand hygiene and a large sterile sheet. 1% lidocaine was used to anesthetize the skin. Sonographic evaluation was performed demonstrating a patent and compressible right femoral vein. Access was obtained under real-time ultrasound guidance using an 18 gauge needle and a digital image was saved in archive. An 0.035 wire was then advanced into the vein. Needle exchanged for a dilator. A temporary hemodialysis catheter was then advanced over the wire. Wire was removed. Catheter was secured to the skin using 2-0 Prolene suture. Both ports aspirate and flush easily. Fluoroscopic imaging was utilized to negotiate the 035 wire into position. Final position of the hemodialysis catheter was confirmed by fluoroscopy. The tip of the catheter is within the IVC. Total fluoroscopic time 0.9 minutes. The catheter is cleared for use. Impression: Successful placement of right femoral vein hemodialysis catheter.
[2017-03-01] MEDS: HydrALAZINE 50mg tab ORAL SCH ×2 (15:29→21:12)
[2017-03-01] MEDS ORDERED: Doxazosin 4mg tab ORAL SCH (16:30)
[2017-03-01] MEDS: Norco 5mg/325mg tab ORAL PRN (18:25)
[2017-03-01] MEDS: Doxazosin 1mg Tab ORAL SCH (18:25)
[2017-03-01] MEDS: Cefepime HCl 1 GM in D5W 55 ML IVPB SCH (21:00)
[2017-03-01] MEDS: Atorvastatin 20mg tab ORAL SCH (21:00)
[2017-03-01] MEDS: Heparin 5000 units/ml inj SUBQ SCH (21:09)
[2017-03-01] MEDS: Epogen (for ESRD on dialysis) SUBQ SCH (21:09)
--- NOTE | 2017-03-01 23:06 | Infectious Diseases Prog Note ---
Assessment/Plan Assessment/Plan Full consult dictated: A) 1) infected left arm graft and left arm cellulitis 2) esrd, hd 3) allergies - negative P) 1) vancomycin and cefepime 2) check blood cultures and labs 3) orders entered 4) thanks Subjective Allergies: Coded Allergies: No Known Allergies (Unverified , 02/28/17) Objective Vital Signs Last 24 Hour Vital Signs Date Time Temp Pulse Resp B/P (MAP) Pulse Ox O2 Delivery O2 Flow Rate FiO2 03/01/17 21:12 135/65 03/01/17 20:00 97.7 70 21 135/65 92 Room Air 03/01/17 18:24 176/89 03/01/17 18:24 75 176/89 03/01/17 16:00 97.7 75 20 176/89 98 Nasal Cannula 2.0 03/01/17 15:29 163/84 03/01/17 12:15 66 17 163/84 100 Nasal Cannula 2.0 03/01/17 12:10 63 13 159/81 100 Nasal Cannula 2.0 03/01/17 12:05 63 15 158/80 100 Nasal Cannula 2.0 03/01/17 12:00 63 16 159/80 100 Nasal Cannula 2.0 03/01/17 11:48 64 14 2.0 03/01/17 08:00 98.0 63 20 127/59 98 Nasal Cannula 1.0 03/01/17 04:00 97.3 65 20 115/55 100 Room Air 03/01/17 02:00 97.2 66 20 132/63 100 Nasal Cannula 2.0 03/01/17 01:00 98.0 80 20 140/89 100 Room Air 03/01/17 01:00 80 20 140/89 100 Room Air Height (Feet): 5 Height (Inches): 7.00 Weight (Pounds): 130 Laboratory Tests Test 03/01/17 04:00 White Blood Count 6.2 K/UL (4.8-10.8) Red Blood Count 2.61 M/UL (4.20-5.40) L Hemoglobin 7.0 G/DL (12.0-16.0) L Hematocrit 23.2 % (37.0-47.0) L Mean Corpuscular Volume 89 FL (80-99) Mean Corpuscular Hemoglobin 26.8 PG (27.0-31.0) L Mean Corpuscular Hemoglobin Concent 30.1 G/DL (32.0-36.0) L Red Cell Distribution Width 14.9 % (11.6-14.8) H Platelet Count 197 K/UL (150-450) Mean Platelet Volume 8.2 FL (6.5-10.1) Neutrophils (%) (Auto) % (45.0-75.0) Lymphocytes (%) (Auto) % (20.0-45.0) Monocytes (%) (Auto) % (1.0-10.0) Eosinophils (%) (Auto) % (0.0-3.0) Basophils (%) (Auto) % (0.0-2.0) Prothrombin Time 11.0 SEC (9.30-11.50) Prothromb Time International Ratio 1.1 (0.9-1.1) Activated Partial Thromboplast Time 34 SEC (23-33) H Sodium Level 140 mEQ/L (135-145) Potassium Level 5.1 mEQ/L (3.4-4.9) H Chloride Level 98 mEQ/L (98-107) Carbon Dioxide Level 21 mEQ/L (20-30) Anion Gap 21 (5-15) H Blood Urea Nitrogen 104 mg/dL (7-23) H Creatinine 10.5 mg/dL (0.5-0.9) H Estimat Glomerular Filtration Rate 4.4 mL/min (>60) Glucose Level 96 mg/dL (74-106) Calcium Level 7.4 mg/dL (8.6-10.2) L Current Medications Medications (Trade) Dose Ordered Sig/Winter Route PRN Reason Start Time Stop Time Status Last Admin Dose Admin Acetaminophen (Tylenol) 650 mg Q4H PRN ORAL Mild Pain/Temp > 100.5 03/01/17 13:30 03/31/17 13:29 Acetaminophen/ Hydrocodone Bitart ([place] 5/325) 1 tab Q6H PRN ORAL For Pain 03/01/17 13:30 03/08/17 13:29 03/01/17 18:25 Albuterol Sulfate (Proventil MDI) 2 puff Q4H PRN INH Shortness of Breath 03/01/17 13:30 03/31/17 13:29 Aspirin (ASA) 81 mg DAILY ORAL 03/02/17 09:00 04/01/17 08:59 Atorvastatin Calcium (Lipitor) 20 mg BEDTIME ORAL 03/01/17 21:00 03/31/17 20:59 03/01/17 21:00 Carvedilol (Coreg) 3.125 mg QPM ORAL 03/01/17 16:30 03/31/17 16:29 03/01/17 18:24 Cefepime HCl 1 gm/ Dextrose 55 ml @ 110 mls/hr Q24H IVPB 03/01/17 21:00 03/08/17 20:59 03/01/17 21:00 Clonazepam (KlonoPIN) 2 mg Q8HR PRN ORAL For Anxiety 03/01/17 18:45 03/08/17 18:44 Clonidine HCl (Catapres) 0.1 mg QPM ORAL 03/01/17 16:30 03/31/17 16:29 03/01/17 18:24 Doxazosin Mesylate (Cardura) 1 mg QPM@1630 ORAL 03/01/17 18:30 03/31/17 18:29 03/01/17 18:25 Epoetin Vijay (Procrit (for ESRD on dialysis)) 10,000 units SAT-SAT-SAT SUBQ 03/01/17 21:00 03/31/17 20:59 03/01/17 21:09 Gabapentin (Neurontin) 300 mg THREE TIMES A DAY ORAL 03/01/17 18:00 03/31/17 17:59 03/01/17 18:24 Heparin Sodium (Porcine) (Heparin 5000 units/ml) 5,000 units EVERY 12 HOURS SUBQ 03/01/17 21:00 03/31/17 20:59 03/01/17 21:09 Hydralazine HCl (Apresoline) 50 mg Q8HR ORAL 03/01/17 14:00 03/31/17 13:59 03/01/17 21:12 Losartan Potassium (Cozaar) 100 mg DAILY ORAL 03/02/17 09:00 04/01/17 08:59 Magnesium Hydroxide (Mom) 30 ml DAILYPRN PRN ORAL Constipation 03/01/17 13:30 03/31/17 13:29 Methadone HCl (Methadone HCl) 40 mg DAILY ORAL 03/01/17 15:30 03/08/17 15:29 03/01/17 15:29 Ondansetron HCl (Zofran ODT) 4 mg Q6H PRN ORAL Nausea & Vomiting 03/01/17 13:30 03/31/17 13:29 Quetiapine Fumarate (SEROquel) 25 mg Q12HR ORAL 03/01/17 21:00 03/31/17 20:59 03/01/17 21:00 Vancomycin HCl (Vanco rx to dose) 1 ea DAILY MISC 03/01/17 19:15 03/31/17 19:14 Vitamin B Complex/ Vit C/Folic Acid (Nephrovite) 1 tab DAILY ORAL 03/02/17 09:00 04/01/17 08:59 Vitamin D (Vitamin D) 400 intlu DAILY ORAL 03/02/17 09:00 04/01/17 08:59 ESTEBAN ZUNIGA Mar 01, 2017 23:05
[2017-03-02] VITALS: BP 105/64
[2017-03-02 04:00] VITALS: BP 115/56
[2017-03-02] MEDS: HydrALAZINE 50mg tab ORAL SCH ×3 (05:44→20:48)
[2017-03-02 08:35] VITALS: BP 158/78
[2017-03-02] MEDS: Aspirin Baby 81mg ORAL SCH ×2 (08:50→11:43)
[2017-03-02] MEDS: Losartan 50mg tab ORAL SCH ×2 (08:50→11:42)
[2017-03-02] MEDS: Heparin 5000 units/ml inj SUBQ SCH ×2 (08:51→20:47)
[2017-03-02] MEDS: Nephrovite tab (Rena-Vite) ORAL SCH ×2 (08:51→11:42)
[2017-03-02] MEDS: Vitamin D 400 INTLU TAB ORAL SCH ×2 (08:51→11:42)
[2017-03-02 11:28] LABS: EOSINOPHILS % (AUTO) 2.6 % (0.0-3.0); LYMPHOCYTES % (AUTO) 33.2 % (20.0-45.0); MEAN CORPUSCULAR HEMOGLOBIN 26.5 PG (27.0-31.0); MEAN CORPUSCULAR HGB CONC 29.8 G/DL (32.0-36.0); MEAN CORPUSCULAR VOLUME 89 FL (80-99); MONOCYTES % (AUTO) 9.5 % (1.0-10.0); NEUTROPHILS % (AUTO) 53.7 % (45.0-75.0); PLATELET COUNT 202 K/UL (150-450); RED BLOOD COUNT 3.06 M/UL (4.20-5.40); WHITE BLOOD COUNT 5.8 K/UL (4.8-10.8)
[2017-03-02 11:46] LABS: CALCIUM 7.2 mg/dL (8.6-10.2); CREATININE 12.5 mg/dL (0.5-0.9); GLOMERULAR FILTRATION RATE 3.6 mL/min (>60); POTASSIUM 5.9 mEQ/L (3.4-4.9); TOTAL PROTEIN 7.2 g/dL (6.6-8.7)
[2017-03-02 12:00] VITALS: BP 137/79
[2017-03-02] MEDS ORDERED: Vancomycin 1.25 GM in D5W 275 ML IVPB ONE (13:30)
[2017-03-02 15:58] LABS: ABG PCO2 59.2 mmHg (35.0-45.0)
[2017-03-02 15:59] LABS: ABG ALLEN TEST POSITIVE; ABG BASE EXCESS 4.5
[2017-03-02 16:00] VITALS: BP 141/79
[2017-03-02] MEDS: Doxazosin 1mg Tab ORAL SCH (16:52)
[2017-03-02] MEDS: Norco 5mg/325mg tab ORAL PRN (16:54)
--- NOTE | 2017-03-02 17:16 | Infectious Diseases Prog Note ---
Assessment/Plan Assessment/Plan Full consult dictated: A) 1) infected left arm graft and left arm cellulitis 2) esrd, hd, dm, htn, hld, anemia, cva, sz, cad 3) allergies - negative P) 1) vancomycin and cefepime 2) check blood cultures final and labs 3) orders entered 4) ? gallium, ? us, will d/w renal Subjective Allergies: Coded Allergies: No Known Allergies (Unverified , 02/28/17) Objective Vital Signs Last 24 Hour Vital Signs Date Time Temp Pulse Resp B/P (MAP) Pulse Ox O2 Delivery O2 Flow Rate FiO2 03/02/17 16:54 65 149/79 03/02/17 16:53 149/79 03/02/17 14:00 124/76 03/02/17 12:00 98.1 75 20 137/79 99 Room Air 03/02/17 11:42 158/78 03/02/17 11:06 Nasal Cannula 03/02/17 08:35 97.0 79 20 158/78 100 Room Air 03/02/17 07:20 Room Air 03/02/17 05:44 115/56 03/02/17 04:00 97.9 61 22 115/56 98 Room Air 03/02/17 00:00 97.7 56 20 105/64 94 Room Air 03/01/17 21:12 135/65 03/01/17 20:00 97.7 70 21 135/65 92 Room Air 03/01/17 18:24 176/89 03/01/17 18:24 75 176/89 Height (Feet): 5 Height (Inches): 7.00 Weight (Pounds): 147 Microbiology Date/Time Source Procedure Growth Status 02/28/17 21:56 Blood Blood Culture - Preliminary NO GROWTH AFTER 24 HOURS Resulted 02/28/17 21:40 Blood Blood Culture - Preliminary NO GROWTH AFTER 24 HOURS Resulted Laboratory Tests Test 03/02/17 09:10 03/02/17 15:44 White Blood Count 5.8 K/UL (4.8-10.8) Red Blood Count 3.06 M/UL (4.20-5.40) L Hemoglobin 8.1 G/DL (12.0-16.0) L Hematocrit 27.2 % (37.0-47.0) L Mean Corpuscular Volume 89 FL (80-99) Mean Corpuscular Hemoglobin 26.5 PG (27.0-31.0) L Mean Corpuscular Hemoglobin Concent 29.8 G/DL (32.0-36.0) L Red Cell Distribution Width 15.0 % (11.6-14.8) H Platelet Count 202 K/UL (150-450) Mean Platelet Volume 7.0 FL (6.5-10.1) Neutrophils (%) (Auto) 53.7 % (45.0-75.0) Lymphocytes (%) (Auto) 33.2 % (20.0-45.0) Monocytes (%) (Auto) 9.5 % (1.0-10.0) Eosinophils (%) (Auto) 2.6 % (0.0-3.0) Basophils (%) (Auto) 1.0 % (0.0-2.0) Sodium Level 138 mEQ/L (135-145) Potassium Level 5.9 mEQ/L (3.4-4.9) H Chloride Level 96 mEQ/L (98-107) L Carbon Dioxide Level 19 mEQ/L (20-30) L Anion Gap 23 (5-15) H Blood Urea Nitrogen 127 mg/dL (7-23) H Creatinine 12.5 mg/dL (0.5-0.9) H Estimat Glomerular Filtration Rate 3.6 mL/min (>60) Glucose Level 86 mg/dL (74-106) Calcium Level 7.2 mg/dL (8.6-10.2) L Total Bilirubin 0.4 mg/dL (0.0-1.2) Aspartate Amino Transf (AST/SGOT) 23 U/L (5-40) Alanine Aminotransferase (ALT/SGPT) 14 U/L (3-33) Alkaline Phosphatase 127 U/L (35-104) H Total Protein 7.2 g/dL (6.6-8.7) Albumin 3.6 g/dL (3.5-5.2) Globulin 3.6 g/dL Albumin/Globulin Ratio 1.0 (1.0-2.7) Random Vancomycin Level 10.0 ug/mL Arterial Blood pH 7.330 (7.350-7.450) Arterial Blood Partial Pressure CO2 59.2 mmHg (35.0-45.0) *H Arterial Blood Partial Pressure O2 79.6 mmHg (75.0-100.0) Arterial Blood HCO3 31.0 mmol/L (22.0-26.0) H Arterial Blood Oxygen Saturation 95.3 % (92.0-98.0) Arterial Blood Base Excess 4.5 Lico Test Positive Current Medications Medications (Trade) Dose Ordered Sig/Winter Route PRN Reason Start Time Stop Time Status Last Admin Dose Admin Acetaminophen (Tylenol) 650 mg Q4H PRN ORAL Mild Pain/Temp > 100.5 03/01/17 13:30 03/31/17 13:29 Acetaminophen/ Hydrocodone Bitart ([place] 5/325) 1 tab Q6H PRN ORAL For Pain 03/01/17 13:30 03/08/17 13:29 03/02/17 16:54 Albuterol Sulfate (Proventil MDI) 2 puff Q4H PRN INH Shortness of Breath 03/01/17 13:30 03/31/17 13:29 Aspirin (ASA) 81 mg DAILY ORAL 03/02/17 09:00 04/01/17 08:59 03/02/17 11:43 Atorvastatin Calcium (Lipitor) 20 mg BEDTIME ORAL 03/01/17 21:00 03/31/17 20:59 03/01/17 21:00 Carvedilol (Coreg) 3.125 mg QPM ORAL 03/01/17 16:30 03/31/17 16:29 03/02/17 16:54 Cefepime HCl 1 gm/ Dextrose 55 ml @ 110 mls/hr Q24H IVPB 03/01/17 21:00 03/08/17 20:59 03/01/17 21:00 Clonazepam (KlonoPIN) 2 mg Q8HR PRN ORAL For Anxiety 03/01/17 18:45 03/08/17 18:44 03/02/17 16:54 Clonidine HCl (Catapres) 0.1 mg QPM ORAL 03/01/17 16:30 03/31/17 16:29 03/02/17 16:53 Doxazosin Mesylate (Cardura) 1 mg QPM@1630 ORAL 03/01/17 18:30 03/31/17 18:29 03/02/17 16:52 Epoetin Vijay (Procrit (for ESRD on dialysis)) 10,000 units SAT-WED-FRI SUBQ 03/01/17 21:00 03/31/17 20:59 03/01/17 21:09 Gabapentin (Neurontin) 300 mg THREE TIMES A DAY ORAL 03/01/17 18:00 03/31/17 17:59 03/01/17 18:24 Heparin Sodium (Porcine) (Heparin 5000 units/ml) 5,000 units EVERY 12 HOURS SUBQ 03/01/17 21:00 03/31/17 20:59 03/01/17 21:09 Hydralazine HCl (Apresoline) 50 mg Q8HR ORAL 03/01/17 14:00 03/31/17 13:59 03/01/17 21:12 Losartan Potassium (Cozaar) 100 mg DAILY ORAL 03/02/17 09:00 04/01/17 08:59 03/02/17 11:42 Magnesium Hydroxide (Mom) 30 ml DAILYPRN PRN ORAL Constipation 03/01/17 13:30 03/31/17 13:29 Methadone HCl (Methadone HCl) 40 mg DAILY ORAL 03/01/17 15:30 03/08/17 15:29 03/02/17 11:43 Ondansetron HCl (Zofran ODT) 4 mg Q6H PRN ORAL Nausea & Vomiting 03/01/17 13:30 03/31/17 13:29 Quetiapine Fumarate (SEROquel) 25 mg Q12HR ORAL 03/01/17 21:00 03/31/17 20:59 03/02/17 11:41 Vancomycin HCl (Vanco rx to dose) 1 ea DAILY MISC 03/01/17 19:15 03/31/17 19:14 Vitamin B Complex/ Vit C/Folic Acid (Nephrovite) 1 tab DAILY ORAL 03/02/17 09:00 04/01/17 08:59 03/02/17 11:42 Vitamin D (Vitamin D) 400 intlu DAILY ORAL 03/02/17 09:00 04/01/17 08:59 03/02/17 11:42 ESTEBAN ZUNIGA Mar 02, 2017 17:16
[2017-03-02 20:22] VITALS: BP 132/73
[2017-03-02] MEDS: Atorvastatin 20mg tab ORAL SCH (20:37)
[2017-03-02] MEDS: Cefepime HCl 1 GM in D5W 55 ML IVPB SCH (20:38)
--- NOTE | 2017-03-02 20:44 | Pulmonology Progress Note ---
Assessment/Plan Assessment/Plan 1. LUE dialysis shunt infection. 2. renal failure on HD 3. HTN 4. schizoaffective d/o 5. coronary artery disease. 6. chronic obstructive pulmonary disease. 7. Anemia, most likely of renal disease. 8. Seizure d/o abx per id fu with renal recommendations wound intermediate meds fu cultures hd per renal Subjective Constitutional: Reports: no symptoms HEENT: Repors: no symptoms Respiratory: Reports: no symptoms Cardiovascular: Reports: no symptoms Gastrointestinal/Abdominal: Reports: no symptoms Allergies: Coded Allergies: No Known Allergies (Unverified , 02/28/17) Subjective no events noted no cp nv or bleeding tolerating po on ra no fever Objective Last 24 Hour Vital Signs Date Time Temp Pulse Resp B/P (MAP) Pulse Ox O2 Delivery O2 Flow Rate FiO2 03/02/17 20:22 99.1 72 19 132/73 98 Nasal Cannula 2.0 03/02/17 16:54 65 149/79 03/02/17 16:53 149/79 03/02/17 16:00 98.1 65 18 141/79 97 Nasal Cannula 2.0 03/02/17 14:00 124/76 03/02/17 12:00 98.1 75 20 137/79 99 Room Air 03/02/17 11:42 158/78 03/02/17 11:06 Nasal Cannula 03/02/17 08:35 97.0 79 20 158/78 100 Room Air 03/02/17 07:20 Room Air 03/02/17 05:44 115/56 03/02/17 04:00 97.9 61 22 115/56 98 Room Air 03/02/17 00:00 97.7 56 20 105/64 94 Room Air 03/01/17 21:12 135/65 Intake and Output 03/02/17 03/03/17 19:00 07:00 Intake Total 755.000 ml 240 ml Output Total 3200 ml Balance -2445.000 ml 240 ml Intake Oral 480 ml 240 ml IV Total 275.000 ml Hemodialysis UF 3200 ml # Voids 2 General Appearance: WD/WN HEENT: normocephalic, anicteric Respiratory/Chest: lungs clear, normal breath sounds Cardiovascular: normal rate, regular rhythm Abdomen: soft, non tender, no organomegaly Extremities: no cyanosis Skin: no rash 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: energy scheduler II-XII grossly normal, abnormal gait, alert Microbiology Date/Time Source Procedure Growth Status 02/28/17 21:56 Blood Blood Culture - Preliminary NO GROWTH AFTER 24 HOURS Resulted 02/28/17 21:40 Blood Blood Culture - Preliminary NO GROWTH AFTER 24 HOURS Resulted Laboratory Tests 03/02/17 09:10: White Blood Count 5.8, Red Blood Count 3.06L, Hemoglobin 8.1L, Hematocrit 27.2L , Mean Corpuscular Volume 89, Mean Corpuscular Hemoglobin 26.5L, Mean Corpuscular Hemoglobin Concent 29.8L, Red Cell Distribution Width 15.0H, Platelet Count 202, Mean Platelet Volume 7.0, Neutrophils (%) (Auto) 53.7, Lymphocytes (%) (Auto) 33.2, Monocytes (%) (Auto) 9.5, Eosinophils (%) (Auto) 2.6, Basophils (%) (Auto) 1.0, Sodium Level 138, Potassium Level 5.9H, Chloride Level 96L, Carbon Dioxide Level 19L, Anion Gap 23H, Blood Urea Nitrogen 127H, Creatinine 12.5H, Estimat Glomerular Filtration Rate 3.6, Glucose Level 86, Calcium Level 7.2L, Total Bilirubin 0.4, Aspartate Amino Transf (AST/SGOT) 23, Alanine Aminotransferase (ALT/SGPT) 14, Alkaline Phosphatase 127H, Total Protein 7.2, Albumin 3.6, Globulin 3.6, Albumin/Globulin Ratio 1.0, Random Vancomycin Level 10.0 03/02/17 15:44: Arterial Blood pH 7.330L, Arterial Blood Partial Pressure CO2 59.2*H, Arterial Blood Partial Pressure O2 79.6, Arterial Blood HCO3 31.0H, Arterial Blood Oxygen Saturation 95.3, Arterial Blood Base Excess 4.5, Lico Test Positive Current Medications Medications (Trade) Dose Ordered Sig/Winter Route PRN Reason Start Time Stop Time Status Last Admin Dose Admin Acetaminophen (Tylenol) 650 mg Q4H PRN ORAL Mild Pain/Temp > 100.5 03/01/17 13:30 03/31/17 13:29 Acetaminophen/ Hydrocodone Bitart ([place] 5/325) 1 tab Q6H PRN ORAL For Pain 03/01/17 13:30 03/08/17 13:29 03/02/17 16:54 Albuterol Sulfate (Proventil MDI) 2 puff Q4H PRN INH Shortness of Breath 03/01/17 13:30 03/31/17 13:29 Aspirin (ASA) 81 mg DAILY ORAL 03/02/17 09:00 04/01/17 08:59 03/02/17 11:43 Atorvastatin Calcium (Lipitor) 20 mg BEDTIME ORAL 03/01/17 21:00 03/31/17 20:59 03/01/17 21:00 Carvedilol (Coreg) 3.125 mg QPM ORAL 03/01/17 16:30 03/31/17 16:29 03/02/17 16:54 Cefepime HCl 1 gm/ Dextrose 55 ml @ 110 mls/hr Q24H IVPB 03/01/17 21:00 03/08/17 20:59 03/01/17 21:00 Clonazepam (KlonoPIN) 2 mg Q8HR PRN ORAL For Anxiety 03/01/17 18:45 03/08/17 18:44 03/02/17 16:54 Clonidine HCl (Catapres) 0.1 mg QPM ORAL 03/01/17 16:30 03/31/17 16:29 03/02/17 16:53 Doxazosin Mesylate (Cardura) 1 mg QPM@1630 ORAL 03/01/17 18:30 03/31/17 18:29 03/02/17 16:52 Epoetin Vijay (Procrit (for ESRD on dialysis)) 10,000 units SAT-SAT-SAT SUBQ 03/01/17 21:00 03/31/17 20:59 03/01/17 21:09 Gabapentin (Neurontin) 300 mg THREE TIMES A DAY ORAL 03/01/17 18:00 03/31/17 17:59 03/02/17 18:29 Heparin Sodium (Porcine) (Heparin 5000 units/ml) 5,000 units EVERY 12 HOURS SUBQ 03/01/17 21:00 03/31/17 20:59 03/01/17 21:09 Hydralazine HCl (Apresoline) 50 mg Q8HR ORAL 03/01/17 14:00 03/31/17 13:59 03/01/17 21:12 Losartan Potassium (Cozaar) 100 mg DAILY ORAL 03/02/17 09:00 04/01/17 08:59 03/02/17 11:42 Magnesium Hydroxide (Mom) 30 ml DAILYPRN PRN ORAL Constipation 03/01/17 13:30 03/31/17 13:29 Methadone HCl (Methadone HCl) 40 mg DAILY ORAL 03/01/17 15:30 03/08/17 15:29 03/02/17 11:43 Ondansetron HCl (Zofran ODT) 4 mg Q6H PRN ORAL Nausea & Vomiting 03/01/17 13:30 03/31/17 13:29 Quetiapine Fumarate (SEROquel) 25 mg Q12HR ORAL 03/01/17 21:00 03/31/17 20:59 03/02/17 11:41 Vancomycin HCl (Vanco rx to dose) 1 ea DAILY MISC 03/01/17 19:15 03/31/17 19:14 Vitamin B Complex/ Vit C/Folic Acid (Nephrovite) 1 tab DAILY ORAL 03/02/17 09:00 04/01/17 08:59 03/02/17 11:42 Vitamin D (Vitamin D) 400 intlu DAILY ORAL 03/02/17 09:00 04/01/17 08:59 03/02/17 11:42 SPENCER COKER DO Mar 02, 2017 20:44
[2017-03-03 00:15] VITALS: BP 121/67
--- NOTE | 2017-03-03 00:45 | Consultation ---
DATE OF CONSULTATION: 03/02/2017 ADDENDUM: Per the records, the patient also has a history of hyperlipidemia, chronic kidney disease, and also what looks like CVA, weakness, and also seizures. Radha Torres M.D. DR: Matthew JOB#: [id number] CC:
--- NOTE | 2017-03-03 03:15 | Consultation ---
DATE OF CONSULTATION: 03/02/2017 INFECTIOUS DISEASE CONSULTATION CONSULTING PHYSICIAN: Radha Torres M.D. REFERRING PHYSICIAN: Angel Ware M.D. REASON FOR CONSULTATION: Left arm infected graft and cellulitis. CHIEF COMPLAINT: The patient's chief complaint coming into the hospital is dialysis port infection. HISTORY OF PRESENT ILLNESS: This is a 66-year-old female, who comes into [facility] and it was noted that she had some left arm swelling. The patient was diagnosed with possible graft infection of the left arm. On discussion with the nursing staff, this is an old graft but I am not 100% sure how old it is. The patient also has possible cellulitis of the left arm. Infectious Disease consultation was requested for antibiotic management. Case was communicated with Dr. Ware. The patient was placed on vancomycin and cefepime when I saw the patient yesterday. Blood cultures are so far negative to date. Renal has also seen the patient. MAR was noted. Orders were noted. Notes were reviewed. Case was discussed with the RN. PAST MEDICAL HISTORY: The patient's past medical history includes history of the following. The patient has past medical history of end-stage renal disease, on hemodialysis. She has history of CHF, hypertension, CAD, myocardial infarction, schizoaffective disorder, seizures, anemia, COPD, diabetes, neuropathy, chronic pain syndrome, and methadone use. Please see past medical history in medical order. MEDICATIONS: Upon reviewing the MAR, she is on the following medications. She is on aspirin, Cozaar, Nephro-Perri, vitamin D, Lipitor, Seroquel, Procrit, heparin, cefepime, vancomycin, clonazepam, gabapentin, carvedilol, clonidine, methadone, hydralazine, albuterol, hydrocodone, Zofran, magnesium hydroxide, and acetaminophen. ALLERGIES: No known drug allergies. No antibiotic allergies. SOCIAL HISTORY: Positive for smoking. No alcohol or drug abuse. FAMILY HISTORY: Noncontributory. Negative for exposure to tuberculosis or cancer. REVIEW OF SYSTEMS: Constitutional: The patient has generalized weakness and fatigue. No fever, chills, nausea, vomiting, or diarrhea. No . Head And Neck: No obvious head pain or neck pain. She is responsive. No thrush or dysphagia. Cardiac: No chest pain or palpitation. Gastrointestinal: No nausea, vomiting, or diarrhea. Genitourinary: She has no Kathleen. She is on hemodialysis. Pulmonary: No shortness of breath. She did cough up some blood earlier. I discussed with nursing staff. No significant secretions. Skin: No rash. Neurological: No seizures. PHYSICAL EXAMINATION: VITAL SIGNS: Temperature 98.1 degrees, pulse rate 65, respiratory rate 20, blood pressure 149/79, and saturation 99%. GENERAL: Alert, responsive, in no acute distress. Weakness noted. HEAD AND NECK: Oral exam, no thrush. Eye exam, no icterus. Normocephalic. No facial droop. No neck stiffness. Neck is supple. HEART: Regular. No rub, gallop, or murmur. LUNGS: Clear bilaterally. No rhonchi or rales. May be a few crackles. ABDOMEN: Soft. Positive bowel sounds. Nontender. SKIN: No rash or dermatitis. Left arm graft site shows mildly erythema. No significant drainage and no open wound was noted. Some swelling noted. MUSCULOSKELETAL: No effusion. Legs without cellulitis. PERIPHERAL VASCULAR: No cyanosis or gangrene. RECTAL: Deferred. GENITOURINARY: No Kathleen. LINES: Line sites without phlebitis. NEUROLOGIC: Generalized weakness and responsive. LABORATORY AND DIAGNOSTIC DATA: Laboratory data as follows. Creatinine is 12.5. The patient's white count is 5.8 and 8.1. The patient's random level is 10. Interstitial edema is mild on chest x-ray. Blood cultures are negative to date. Final blood cultures are pending. ASSESSMENT AND PLAN: 1. The patient has possible left arm graft/shunt infection and cellulitis. The patient has some erythema and swelling at the site and some pain also. Continue vancomycin and cefepime for methicillin-resistant Staphylococcus aureus, gram-negative coverage. Check blood cultures. Consider gallium scan versus further imaging such as an ultrasound. We will discuss with the renal about the further workup for graft infection. Continue vancomycin and cefepime for now. Check final blood cultures and labs. 2. The patient has anemia. 3. The patient has end-stage renal disease, on hemodialysis. 4. Myocardial infarction, coronary artery disease. 5. Hypertension. 6. Diabetes mellitus. 7. Schizoaffective disorder. 8. Seizure. 9. Chronic obstructive pulmonary disease. 10. Neuropathy. 11. Chronic pain syndrome. 12. Methadone. 13. With pulmonary edema. 14. She was advised to stop smoking. 15. MAR was noted. 16. The case was discussed with RN. 17. Family history noncontributory. 18. Allergies are negative. 19. Continue treatment per Dr. Ware and consultants. The patient has some hemoptysis; however, I think this is related to her pulmonary edema and I do not think she has tuberculosis and I would not put her on isolation for this. Radha Torres M.D. DR: Berenice JOB#: [id number] CC:
[2017-03-03 04:29] VITALS: BP 127/65
[2017-03-03] MEDS: HydrALAZINE 50mg tab ORAL SCH ×3 (05:29→21:00)
[2017-03-03 07:26] LABS: MEAN CORPUSCULAR HEMOGLOBIN 26.3 PG (27.0-31.0); MEAN CORPUSCULAR HGB CONC 29.9 G/DL (32.0-36.0); MEAN CORPUSCULAR VOLUME 88 FL (80-99); MEAN PLATELET VOLUME 7.9 FL (6.5-10.1); PLATELET COUNT 198 K/UL (150-450); RED BLOOD COUNT 2.65 M/UL (4.20-5.40); RED CELL DISTRIBUTION WIDTH 14.8 % (11.6-14.8)
[2017-03-03 07:40] LABS: CALCIUM 7.6 mg/dL (8.6-10.2); CREATININE 9.6 mg/dL (0.5-0.9); POTASSIUM 4.7 mEQ/L (3.4-4.9)
--- NOTE | 2017-03-03 07:55 | Pulmonology Progress Note ---
Assessment/Plan Assessment/Plan 1. LUE dialysis shunt infection. 2. renal failure on HD 3. HTN 4. schizoaffective d/o 5. coronary artery disease. 6. chronic obstructive pulmonary disease. 7. Anemia, most likely of renal disease. 8. Seizure d/o abx per id fu with renal recommendations wound [facility] meds fu cultures hd per renal Subjective Constitutional: Reports: no symptoms HEENT: Repors: no symptoms Respiratory: Reports: no symptoms Cardiovascular: Reports: no symptoms Gastrointestinal/Abdominal: Reports: no symptoms Genitourinary: Reports: no symptoms Allergies: Coded Allergies: No Known Allergies (Unverified , 02/28/17) Subjective no events noted no cp nv or bleeding tolerating po on ra no fever Objective Last 24 Hour Vital Signs Date Time Temp Pulse Resp B/P (MAP) Pulse Ox O2 Delivery O2 Flow Rate FiO2 03/03/17 05:29 127/65 03/03/17 04:29 98.8 64 19 127/65 98 Nasal Cannula 2.0 03/03/17 00:15 98.9 68 18 121/67 98 Nasal Cannula 2.0 03/02/17 20:48 132/73 03/02/17 20:22 99.1 72 19 132/73 98 Nasal Cannula 2.0 03/02/17 16:54 65 149/79 03/02/17 16:53 149/79 03/02/17 16:00 98.1 65 18 141/79 97 Nasal Cannula 2.0 03/02/17 14:00 124/76 03/02/17 12:00 98.1 75 20 137/79 99 Room Air 03/02/17 11:42 158/78 03/02/17 11:06 Nasal Cannula 03/02/17 08:35 97.0 79 20 158/78 100 Room Air General Appearance: WD/WN Respiratory/Chest: lungs clear, normal breath sounds Cardiovascular: normal rate, regular rhythm Abdomen: soft, non tender, no organomegaly Skin: no rash 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: alert, responsive Microbiology Date/Time Source Procedure Growth Status 02/28/17 21:56 Blood Blood Culture - Preliminary Strep Species, Alpha Hemolytic Resulted 02/28/17 21:40 Blood Blood Culture - Preliminary NO GROWTH AFTER 48 HOURS Resulted Laboratory Tests 03/02/17 09:10: White Blood Count 5.8, Red Blood Count 3.06L, Hemoglobin 8.1L, Hematocrit 27.2L , Mean Corpuscular Volume 89, Mean Corpuscular Hemoglobin 26.5L, Mean Corpuscular Hemoglobin Concent 29.8L, Red Cell Distribution Width 15.0H, Platelet Count 202, Mean Platelet Volume 7.0, Neutrophils (%) (Auto) 53.7, Lymphocytes (%) (Auto) 33.2, Monocytes (%) (Auto) 9.5, Eosinophils (%) (Auto) 2.6, Basophils (%) (Auto) 1.0, Sodium Level 138, Potassium Level 5.9H, Chloride Level 96L, Carbon Dioxide Level 19L, Anion Gap 23H, Blood Urea Nitrogen 127H, Creatinine 12.5H, Estimat Glomerular Filtration Rate 3.6, Glucose Level 86, Calcium Level 7.2L, Total Bilirubin 0.4, Aspartate Amino Transf (AST/SGOT) 23, Alanine Aminotransferase (ALT/SGPT) 14, Alkaline Phosphatase 127H, Total Protein 7.2, Albumin 3.6, Globulin 3.6, Albumin/Globulin Ratio 1.0, Random Vancomycin Level 10.0 03/02/17 15:44: Arterial Blood pH 7.330L, Arterial Blood Partial Pressure CO2 59.2*H, Arterial Blood Partial Pressure O2 79.6, Arterial Blood HCO3 31.0H, Arterial Blood Oxygen Saturation 95.3, Arterial Blood Base Excess 4.5, Lico Test Positive 03/03/17 06:15: White Blood Count 6.0, Red Blood Count 2.65L, Hemoglobin 7.0L, Hematocrit 23.3L , Mean Corpuscular Volume 88, Mean Corpuscular Hemoglobin 26.3L, Mean Corpuscular Hemoglobin Concent 29.9L, Red Cell Distribution Width 14.8, Platelet Count 198, Mean Platelet Volume 7.9, Neutrophils (%) (Auto) , Lymphocytes (%) (Auto) , Monocytes (%) (Auto) , Eosinophils (%) (Auto) , Basophils (%) (Auto) , Sodium Level 138, Potassium Level 4.7, Chloride Level 94L , Carbon Dioxide Level 26, Anion Gap 18H, Blood Urea Nitrogen 85#H, Creatinine 9.6H, Estimat Glomerular Filtration Rate 5.0, Glucose Level 75, Calcium Level 7.6L, Neutrophils % (Manual) [Pending], Lymphocytes % (Manual) [Pending], Platelet Estimate [Pending], Platelet Morphology [Pending] Current Medications Medications (Trade) Dose Ordered Sig/Winter Route PRN Reason Start Time Stop Time Status Last Admin Dose Admin Acetaminophen (Tylenol) 650 mg Q4H PRN ORAL Mild Pain/Temp > 100.5 03/01/17 13:30 03/31/17 13:29 Acetaminophen/ Hydrocodone Bitart ([place] 5/325) 1 tab Q6H PRN ORAL For Pain 03/01/17 13:30 03/08/17 13:29 03/02/17 16:54 Albuterol Sulfate (Proventil MDI) 2 puff Q4H PRN INH Shortness of Breath 03/01/17 13:30 03/31/17 13:29 Aspirin (ASA) 81 mg DAILY ORAL 03/02/17 09:00 04/01/17 08:59 03/02/17 11:43 Atorvastatin Calcium (Lipitor) 20 mg BEDTIME ORAL 03/01/17 21:00 03/31/17 20:59 03/02/17 20:37 Carvedilol (Coreg) 3.125 mg QPM ORAL 03/01/17 16:30 03/31/17 16:29 03/02/17 16:54 Cefepime HCl 1 gm/ Dextrose 55 ml @ 110 mls/hr Q24H IVPB 03/01/17 21:00 03/08/17 20:59 03/02/17 20:38 Clonazepam (KlonoPIN) 2 mg Q8HR PRN ORAL For Anxiety 03/01/17 18:45 03/08/17 18:44 03/02/17 16:54 Clonidine HCl (Catapres) 0.1 mg QPM ORAL 03/01/17 16:30 03/31/17 16:29 03/02/17 16:53 Doxazosin Mesylate (Cardura) 1 mg QPM@1630 ORAL 03/01/17 18:30 03/31/17 18:29 03/02/17 16:52 Epoetin Vijay (Procrit (for ESRD on dialysis)) 10,000 units MON-WED-SAT SUBQ 03/01/17 21:00 03/31/17 20:59 03/01/17 21:09 Gabapentin (Neurontin) 300 mg THREE TIMES A DAY ORAL 03/01/17 18:00 03/31/17 17:59 03/02/17 18:29 Heparin Sodium (Porcine) (Heparin 5000 units/ml) 5,000 units EVERY 12 HOURS SUBQ 03/01/17 21:00 03/31/17 20:59 03/02/17 20:47 Hydralazine HCl (Apresoline) 50 mg Q8HR ORAL 03/01/17 14:00 03/31/17 13:59 03/02/17 20:48 Losartan Potassium (Cozaar) 100 mg DAILY ORAL 03/02/17 09:00 04/01/17 08:59 03/02/17 11:42 Magnesium Hydroxide (Mom) 30 ml DAILYPRN PRN ORAL Constipation 03/01/17 13:30 03/31/17 13:29 Methadone HCl (Methadone HCl) 40 mg DAILY ORAL 03/01/17 15:30 03/08/17 15:29 03/02/17 11:43 Ondansetron HCl (Zofran ODT) 4 mg Q6H PRN ORAL Nausea & Vomiting 03/01/17 13:30 03/31/17 13:29 Quetiapine Fumarate (SEROquel) 25 mg Q12HR ORAL 03/01/17 21:00 03/31/17 20:59 03/02/17 20:38 Vancomycin HCl (Vanco rx to dose) 1 ea DAILY MISC 03/01/17 19:15 03/31/17 19:14 Vitamin B Complex/ Vit C/Folic Acid (Nephrovite) 1 tab DAILY ORAL 03/02/17 09:00 04/01/17 08:59 03/02/17 11:42 Vitamin D (Vitamin D) 400 intlu DAILY ORAL 03/02/17 09:00 04/01/17 08:59 03/02/17 11:42 SPENCER COKER DO Mar 03, 2017 07:55
[2017-03-03 08:04] VITALS: BP 154/74
[2017-03-03 08:36] LABS: BAND NEUTROPHILS % (MANUAL) 0 % (0-8); BASOPHILS % (MANUAL) 0 % (0-2); EOSINOPHILS % (MANUAL) 4 % (0-3); LYMPHOCYTES % (MANUAL) 32 % (20-45); NEUTROPHILS % (MANUAL) 55 % (45-75); PLATELET ESTIMATE ADEQUATE; TOTAL CELLS COUNTED 100
[2017-03-03 08:37] LABS: ANISOCYTOSIS 1+; HYPOCHROMASIA 1+; PLATELET MORPHOLOGY NORMAL
[2017-03-03] MEDS: Losartan 50mg tab ORAL SCH (08:37)
[2017-03-03] MEDS: Nephrovite tab (Rena-Vite) ORAL SCH (08:38)
[2017-03-03] MEDS: Aspirin Baby 81mg ORAL SCH (08:40)
[2017-03-03] MEDS: Vitamin D 400 INTLU TAB ORAL SCH (08:40)
[2017-03-03] MEDS: Heparin 5000 units/ml inj SUBQ SCH (08:40)
--- NOTE | 2017-03-03 11:18 | Nephrology Progress Note ---
Assessment/Plan Assessment 1.ESRD 2.Anemia of CKD 3.ANT 4.Infected graft 5.HTN Plan 1.to continue Epogen 2.continue iron 3.iv antibiotic 4.F/u with us of graft Subjective ROS Limited/Unobtainable: Yes HEENT: Reports: no symptoms Genitourinary: Reports: no symptoms 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: Reports: no symptoms Subjective no complaints Objective Objective Last 24 Hour Vital Signs Date Time Temp Pulse Resp B/P (MAP) Pulse Ox O2 Delivery O2 Flow Rate FiO2 03/03/17 08:37 154/74 03/03/17 08:04 98.2 65 19 154/74 92 Room Air 03/03/17 06:43 67 15 Room Air 03/03/17 05:29 127/65 03/03/17 04:29 98.8 64 19 127/65 98 Nasal Cannula 2.0 03/03/17 00:15 98.9 68 18 121/67 98 Nasal Cannula 2.0 03/02/17 20:48 132/73 03/02/17 20:22 99.1 72 19 132/73 98 Nasal Cannula 2.0 03/02/17 16:54 65 149/79 03/02/17 16:53 149/79 03/02/17 16:00 98.1 65 18 141/79 97 Nasal Cannula 2.0 03/02/17 14:00 124/76 03/02/17 12:00 98.1 75 20 137/79 99 Room Air 03/02/17 11:42 158/78 Laboratory Tests 03/02/17 15:44: Arterial Blood pH 7.330L, Arterial Blood Partial Pressure CO2 59.2*H, Arterial Blood Partial Pressure O2 79.6, Arterial Blood HCO3 31.0H, Arterial Blood Oxygen Saturation 95.3, Arterial Blood Base Excess 4.5, Lico Test Positive 03/03/17 06:15: White Blood Count 6.0, Red Blood Count 2.65L, Hemoglobin 7.0L, Hematocrit 23.3L , Mean Corpuscular Volume 88, Mean Corpuscular Hemoglobin 26.3L, Mean Corpuscular Hemoglobin Concent 29.9L, Red Cell Distribution Width 14.8, Platelet Count 198, Mean Platelet Volume 7.9, Neutrophils (%) (Auto) , Lymphocytes (%) (Auto) , Monocytes (%) (Auto) , Eosinophils (%) (Auto) , Basophils (%) (Auto) , Differential Total Cells Counted 100, Neutrophils % ( Manual) 55, Lymphocytes % (Manual) 32, Monocytes % (Manual) 9, Eosinophils % ( Manual) 4H, Basophils % (Manual) 0, Band Neutrophils 0, Platelet Estimate Adequate, Platelet Morphology Normal, Hypochromasia 1+, Anisocytosis 1+, Sodium Level 138, Potassium Level 4.7, Chloride Level 94L, Carbon Dioxide Level 26, Anion Gap 18H, Blood Urea Nitrogen 85#H, Creatinine 9.6H, Estimat Glomerular Filtration Rate 5.0, Glucose Level 75, Calcium Level 7.6L Height (Feet): 5 Height (Inches): 7.00 Weight (Pounds): 146 Objective GENERAL: Alert, responsive, in no acute distress. Weakness noted. HEAD AND NECK: Oral exam, no thrush. Eye exam, no icterus. Normocephalic. No facial droop. No neck stiffness. Neck is supple. HEART: Regular. No rub, gallop, or murmur. LUNGS: Clear bilaterally. No rhonchi or rales. May be a few crackles. ABDOMEN: Soft. Positive bowel sounds. Nontender. SKIN: No rash or dermatitis. Left arm graft site shows mildly erythema. No significant drainage and no open wound was noted. Some swelling noted. CHARLENE FINN Mar 03, 2017 11:18
[2017-03-03 11:35] VITALS: BP 152/99
[2017-03-03 16:01] VITALS: BP 123/86
[2017-03-03] MEDS: Doxazosin 1mg Tab ORAL SCH (17:10)
[2017-03-03 20:00] VITALS: BP 139/74
[2017-03-03] MEDS: Atorvastatin 20mg tab ORAL SCH (21:00)
[2017-03-03] MEDS: Cefepime HCl 1 GM in D5W 55 ML IVPB SCH (21:00)
--- NOTE | 2017-03-03 23:55 | General Progress Note ---
Progress Note Progress Note Dictated consult to follow Patient seen and examined Patent left upper arm autogenous basilic vein transposition av fistula with central vein stenosis/ pulsatile thrill and superficial skin blister from access site Malfunctioning shunt with no clinical evidence of infection No artificial graft No fever Normal wbc Blood cx negative End-stage renal disease, on hemodialysis, CHF, hypertension, CAD, myocardial infarction, schizoaffective disorder, seizures, anemia, COPD, diabetes, neuropathy, chronic pain syndrome with methadone use Rec HD via permcath and remove femoral micki Rest left arm av shunt for 4 wks until skin blisters heal I will follow her as outpatient and will need fistulogram prior to shunt use in 4 wks Ok for d/c per vascular point after permcath placement d/w patient at length d/w RN at bedside PAPI ANDREWS Mar 03, 2017 23:55
[2017-03-04] VITALS (16 sets, daily range): BP systolic 105–169; BP diastolic 71–97
[2017-03-04] MEDS: HydrALAZINE 50mg tab ORAL SCH ×3 (05:42→23:16)
[2017-03-04] MEDS ORDERED: Heparin 2000 units/Ns 1000ml INJ ONE ×2 (08:00→13:30)
[2017-03-04] MEDS ORDERED: Lidocaine 1% Plain 30 ml INJ ONE (08:00)
--- NOTE | 2017-03-04 08:14 | Nephrology Progress Note ---
Assessment/Plan Assessment 1.ESRD 2.Anemia of CKD 3.ANT 4.Infected fistula 5.HTN Plan 1.to continue Epogen 2.continue iron 3.iv antibiotic 4.F/u with us of graft 5.dialysis today 6.check iron panel Subjective Constitutional: Reports: no symptoms HEENT: Reports: no symptoms Genitourinary: Reports: no symptoms 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: Reports: no symptoms Subjective on hemodialysis no complaints Objective Objective Last 24 Hour Vital Signs Date Time Temp Pulse Resp B/P (MAP) Pulse Ox O2 Delivery O2 Flow Rate FiO2 03/04/17 05:30 98.1 73 21 154/79 100 Nasal Cannula 3.0 03/04/17 05:30 Nasal Cannula 3.0 03/04/17 04:00 98.8 78 20 158/91 91 Room Air 03/04/17 00:00 97.9 71 20 136/81 94 Room Air 03/03/17 21:00 139/74 03/03/17 20:00 98.2 69 21 139/74 92 Room Air 03/03/17 19:45 72 16 Room Air 03/03/17 17:11 123/86 03/03/17 17:10 95 123/86 03/03/17 16:01 98.0 95 20 123/86 99 Nasal Cannula 2.0 03/03/17 14:41 122/81 03/03/17 11:35 97.9 95 20 152/99 93 Room Air 03/03/17 08:37 154/74 Height (Feet): 5 Height (Inches): 7.00 Weight (Pounds): 147 Objective GENERAL: Alert, responsive, in no acute distress. Weakness noted. HEAD AND NECK: Oral exam, no thrush. Eye exam, no icterus. Normocephalic. No facial droop. No neck stiffness. Neck is supple. HEART: Regular. No rub, gallop, or murmur. LUNGS: Clear bilaterally. No rhonchi or rales. May be a few crackles. ABDOMEN: Soft. Positive bowel sounds. Nontender. SKIN: No rash or dermatitis. Left arm graft site shows mildly erythema. No significant drainage and no open wound was noted. Some swelling noted. CHARLENE FINN Mar 04, 2017 08:14
[2017-03-04] MEDS: Aspirin Baby 81mg ORAL SCH (09:00)
[2017-03-04] MEDS: Losartan 50mg tab ORAL SCH (09:00)
[2017-03-04] MEDS: Nephrovite tab (Rena-Vite) ORAL SCH (10:29)
[2017-03-04] MEDS: Vitamin D 400 INTLU TAB ORAL SCH (10:29)
[2017-03-04] MEDS ORDERED: Heparin Sod 1000 units/ml 10ml INJ ONE (13:30)
[2017-03-04] MEDS ORDERED: Lidocaine 1% 10mg/ml/Epi 0.005mg/ml 30ml vial INJ ONE (13:30)
--- NOTE | 2017-03-04 14:21 | Pre-Procedure Note/Attestation ---
Pre-Procedure Note/Attestation Complete Prior to Procedure Planned Procedure: not applicable Procedure Narrative: permacath Indications for Procedure Pre-Operative Diagnosis: renal failure Attestation I attest that I discussed the nature of the procedure; its benefits; risks and complications; and alternatives (and the risks and benefits of such alternatives ), prior to the procedure, with the patient (or the patient's legal car sales representative). I attest that, if there was a reasonable possibility of needing a blood transfusion, the patient (or the patient's legal car sales representative) was given the [facility] standardized written summary, pursuant to the [place]onte [place] Blood Safety Act ([place] Health and Safety Code # 1645, as amended). I attest that I re-evaluated the patient just prior to the surgery and that there has been no change in the patient's H&P, except as documented below: BECKIE URIAS M.D. Mar 04, 2017 14:21
[2017-03-04] MEDS ORDERED: ceFAZolin 1gm/50ml Premix 50 ML IV ONE ×2 (14:30→15:01)
[2017-03-04] MEDS ORDERED: ceFAZolin 1gm in D5W 55ml IVP ONE (14:45)
--- NOTE | 2017-03-04 15:29 | Diagnostic Imaging Report ---
Indication: RENAL-C Technique: Patient was given preprocedure antibiotics. Informed consent obtained prior to commencement of the procedure. Total sterile technique, including sterile gloves and hand hygiene, hat, mask, sterile gown, large sterile drape, and preparation with 2% chlorhexidine utilized. Procedural timeout performed. Ultrasound demonstrates patent compressible right internal jugular vein. Under real-time ultrasound guidance, and after local anesthesia with 1% lidocaine, puncture right internal jugular vein using 21-gauge micropuncture needle, passage 0.018 guidewire. This was used to measure the appropriate length of the intravascular portion of the catheter. 4 Azerbaijani micropuncture catheter inserted and then left in place. A location in the right chest 2 fingerbreadths below the clavicle was then selected for the chest pocket. The intended incision and pocket were anesthetized with 1% lidocaine with bicarbonate and epinephrine. Incision was made. Blunt dissection was used to create a pocket in the subcutaneous soft tissues. 2 3-0 Vicryl anchor sutures were placed in the floor of the pocket and connected to the reservoir of the 8 [place] Ang[employer] Bioflo port catheter. The intended subcutaneous tunnel was anesthetized. A tunneling device was used to pull the catheter from the chest pocket to the neck dermatotomy. The catheter was then connected to the reservoir, and the integrity of the system was tested by injecting saline into the reservoir. The catheter was then cut to . A 0.035 guidewire was inserted into the right neck introducer under fluoroscopic guidance and directed into the inferior vena cava. Over it was passed a peel-away sheath. The guidewire and dilator were moved. The catheter was inserted into the peel-away sheath, and the peel-away sheath was removed. Fluoroscopic visualization demonstrated adequate position of the catheter tip, at the cavoatrial junction. An image was saved. The integrity of the system was again tested by aspiration of blood from and injection of heparinized saline into the reservoir. The anchor sutures were then tied and cut. The chest pocket and incision were closed using deep 3-0 interrupted Vicryl and superficial 4-0 interrupted Vicryl sutures. The skin of the incision and of the neck dermatotomy was closed with Dermabond. The patient tolerated the procedure well, without immediate complication. Fluoroscopy time minutes Dose area product dGycm2 Comparison: None Findings: Completion image documents satisfactory catheter course and position, tip at the cavoatrial junction Impression: Successful placement of right chest 8 Azerbaijani port catheter under sonographic and fluoroscopic supervision, as described Indications: Needs long-term dialysis access Technique: Patient given IV Ancef . Total sterile technique, including sterile gloves, hand hygiene, hat, mask,, sterile gown, large sterile drape, and preparation with 2% chlorhexidine utilized. Local anesthesia with 1% lidocaine. Under real-time ultrasound guidance, puncture right internal jugular vein using 21-gauge micropuncture needle, passage 0.018 guidewire, exchange for 4 Azerbaijani micropuncture introducer. The guidewire was used to measure the appropriate catheter length, and was removed. The sheath was left in place. The subcutaneous tract was then anesthetized with 1% lidocaine. A chest dermatotomy was made . The tunneling device was used to pull a 14.5 Azerbaijani 23 cm Bard catheter through the subcutaneous tunnel to the neck dermatotomy. A guidewire was passed through the neck introducer. Due to distortion of the anatomy due to severe scoliotic deformity, contrast was injected to confirm catheter tip position within the right atrium. Attempts were made at passing guidewire into the inferior vena cava. However, the guidewire kept entering right renal vein. This was deemed an adequate guidewire position. Serial dilators were passed over -- the guidewire, followed by the introduction of a 14.5 Azerbaij[place] AirGuard peel-away sheath. The catheter was then introduced into the sheath, the peel-away sheath was removed. Digital radiograph documents satisfactory catheter tip position in the high right atrium, no kinking at the insertion site. Both catheter ports aspirated and flushed. Catheter was fixed to the skin. Patient tolerated procedure well without immediate complication. Total fluoroscopy time 5.7 minutes. Total dose area product 435 dGycm2 . Comparison: None Findings: Completion radiograph documents satisfactory position and course of the catheter, catheter tip at the high right atrium. Impression: Successful placement of right transjugular tunneled dialysis catheter, as described above
--- NOTE | 2017-03-04 16:00 | Infectious Diseases Prog Note ---
Assessment/Plan Assessment/Plan ASSESSMENT AND PLAN: 1. strep bacteremia, b-hemolytic, possible fistula infection, ? endocarditis - continue vancomycin - day # 4 abx - perma-cath placed today - check echo, check surveillance blood culture, check labs - d/w RN and radiology - vascular surgery f/u 2. The patient has anemia. 3. The patient has end-stage renal disease, on hemodialysis. 4. Myocardial infarction, coronary artery disease. 5. Hypertension. 6. Diabetes mellitus. 7. Schizoaffective disorder. 8. Seizure. 9. Chronic obstructive pulmonary disease. 10. Neuropathy. 11. Chronic pain syndrome. 12. Methadone. 13. With pulmonary edema. 14. She was advised to stop smoking. 15. MAR was noted. 16. The case was discussed with RN. 17. Family history noncontributory. 18. Allergies are negative. 19. Continue treatment per Dr. Ware and consultants. Subjective Constitutional: Denies: fever HEENT: Denies: congestion Respiratory: Denies: shortness of breath Cardiovascular: Denies: chest pain Gastrointestinal/Abdominal: Denies: nausea, vomiting, diarrhea Genitourinary: Reports: other - no chou Neurologic: Denies: headache Psychiatric: Denies: depression Skin: Denies: rash Hematologic: Denies: bleeding Musculoskeletal: Denies: pain Allergies: Coded Allergies: No Known Allergies (Unverified , 02/28/17) Objective Vital Signs Last 24 Hour Vital Signs Date Time Temp Pulse Resp B/P (MAP) Pulse Ox O2 Delivery O2 Flow Rate FiO2 03/04/17 14:55 94 16 147/86 95 Nasal Cannula 2.0 03/04/17 14:50 94 15 149/87 97 Nasal Cannula 2.0 03/04/17 14:45 93 21 146/85 97 Nasal Cannula 2.0 03/04/17 14:40 93 20 119/84 97 Nasal Cannula 2.0 03/04/17 14:35 83 16 157/81 99 Nasal Cannula 2.0 03/04/17 14:30 87 18 169/94 98 Nasal Cannula 2.0 03/04/17 14:25 89 18 155/94 98 Nasal Cannula 2.0 03/04/17 13:21 85 14 2.0 03/04/17 12:15 97.7 80 20 167/83 96 Nasal Cannula 2.0 03/04/17 09:19 Nasal Cannula 3.0 03/04/17 09:18 97.6 78 18 154/73 99 Nasal Cannula 3.0 03/04/17 08:15 63 20 137/71 97 Room Air 03/04/17 07:00 67 16 Room Air 03/04/17 05:30 98.1 73 21 154/79 100 Nasal Cannula 3.0 03/04/17 05:30 Nasal Cannula 3.0 03/04/17 04:00 98.8 78 20 158/91 91 Room Air 03/04/17 00:00 97.9 71 20 136/81 94 Room Air 03/03/17 21:00 139/74 03/03/17 20:00 98.2 69 21 139/74 92 Room Air 03/03/17 19:45 72 16 Room Air 03/03/17 17:11 123/86 03/03/17 17:10 95 123/86 03/03/17 16:01 98.0 95 20 123/86 99 Nasal Cannula 2.0 Height (Feet): 5 Height (Inches): 7.00 Weight (Pounds): 147 General Appearance: no acute distress HEENT: normocephalic, atraumatic, anicteric, mucous membranes moist Respiratory/Chest: lungs clear, normal breath sounds, no respiratory distress, no accessory muscle use Cardiovascular: normal rate, regular rhythm, no gallop/murmur, no JVD Abdomen: normal bowel sounds, soft, non tender, no organomegaly, non distended Genitourinary: other - no chou Extremities: no cyanosis, other - left arm with mild edema, no drainage, ? blisters, ? cellulitis Skin: no rash 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: physician practice manager II-XII grossly normal, alert, oriented x 3, responsive Lymphatic: no neck adenopathy Musculoskeletal: no effusion Objective chest x-ray - interstitial edema Microbiology Date/Time Source Procedure Growth Status 02/28/17 21:56 Blood Blood Culture - Preliminary Strep Species, Alpha Hemolytic Resulted Labs Test 03/02/17 09:10 03/02/17 15:44 03/03/17 06:15 White Blood Count 5.8 K/UL (4.8-10.8) 6.0 K/UL (4.8-10.8) Red Blood Count 3.06 M/UL (4.20-5.40) 2.65 M/UL (4.20-5.40) Hemoglobin 8.1 G/DL (12.0-16.0) 7.0 G/DL (12.0-16.0) Hematocrit 27.2 % (37.0-47.0) 23.3 % (37.0-47.0) Mean Corpuscular Volume 89 FL (80-99) 88 FL (80-99) Mean Corpuscular Hemoglobin 26.5 PG (27.0-31.0) 26.3 PG (27.0-31.0) Mean Corpuscular Hemoglobin Concent 29.8 G/DL (32.0-36.0) 29.9 G/DL (32.0-36.0) Red Cell Distribution Width 15.0 % (11.6-14.8) 14.8 % (11.6-14.8) Platelet Count 202 K/UL (150-450) 198 K/UL (150-450) Mean Platelet Volume 7.0 FL (6.5-10.1) 7.9 FL (6.5-10.1) Neutrophils (%) (Auto) 53.7 % (45.0-75.0) % (45.0-75.0) Lymphocytes (%) (Auto) 33.2 % (20.0-45.0) % (20.0-45.0) Monocytes (%) (Auto) 9.5 % (1.0-10.0) % (1.0-10.0) Eosinophils (%) (Auto) 2.6 % (0.0-3.0) % (0.0-3.0) Basophils (%) (Auto) 1.0 % (0.0-2.0) % (0.0-2.0) Sodium Level 138 mEQ/L (135-145) 138 mEQ/L (135-145) Potassium Level 5.9 mEQ/L (3.4-4.9) 4.7 mEQ/L (3.4-4.9) Chloride Level 96 mEQ/L (98-107) 94 mEQ/L (98-107) Carbon Dioxide Level 19 mEQ/L (20-30) 26 mEQ/L (20-30) Anion Gap 23 (5-15) 18 (5-15) Blood Urea Nitrogen 127 mg/dL (7-23) 85 mg/dL (7-23) Creatinine 12.5 mg/dL (0.5-0.9) 9.6 mg/dL (0.5-0.9) Estimat Glomerular Filtration Rate 3.6 mL/min (>60) 5.0 mL/min (>60) Glucose Level 86 mg/dL (74-106) 75 mg/dL (74-106) Calcium Level 7.2 mg/dL (8.6-10.2) 7.6 mg/dL (8.6-10.2) Total Bilirubin 0.4 mg/dL (0.0-1.2) Aspartate Amino Transf (AST/SGOT) 23 U/L (5-40) Alanine Aminotransferase (ALT/SGPT) 14 U/L (3-33) Alkaline Phosphatase 127 U/L (35-104) Total Protein 7.2 g/dL (6.6-8.7) Albumin 3.6 g/dL (3.5-5.2) Globulin 3.6 g/dL Albumin/Globulin Ratio 1.0 (1.0-2.7) Random Vancomycin Level 10.0 ug/mL Arterial Blood pH 7.330 (7.350-7.450) Arterial Blood Partial Pressure CO2 59.2 mmHg (35.0-45.0) Arterial Blood Partial Pressure O2 79.6 mmHg (75.0-100.0) Arterial Blood HCO3 31.0 mmol/L (22.0-26.0) Arterial Blood Oxygen Saturation 95.3 % (92.0-98.0) Arterial Blood Base Excess 4.5 Lico Test Positive Differential Total Cells Counted 100 Neutrophils % (Manual) 55 % (45-75) Lymphocytes % (Manual) 32 % (20-45) Monocytes % (Manual) 9 % (1-10) Eosinophils % (Manual) 4 % (0-3) Basophils % (Manual) 0 % (0-2) Band Neutrophils 0 % (0-8) Platelet Estimate Adequate Platelet Morphology Normal Hypochromasia 1+ Anisocytosis 1+ Current Medications Medications (Trade) Dose Ordered Sig/Winter Route PRN Reason Start Time Stop Time Status Last Admin Dose Admin Acetaminophen (Tylenol) 650 mg Q4H PRN ORAL Mild Pain/Temp > 100.5 03/01/17 13:30 03/31/17 13:29 Acetaminophen/ Hydrocodone Bitart (Davis 5/325) 1 tab Q6H PRN ORAL For Pain 03/01/17 13:30 03/08/17 13:29 03/02/17 16:54 Albuterol Sulfate (Proventil MDI) 2 puff Q4H PRN INH Shortness of Breath 03/01/17 13:30 03/31/17 13:29 Aspirin (ASA) 81 mg DAILY ORAL 03/02/17 09:00 04/01/17 08:59 03/03/17 08:40 Atorvastatin Calcium (Lipitor) 20 mg BEDTIME ORAL 03/01/17 21:00 03/31/17 20:59 03/03/17 21:00 Carvedilol (Coreg) 3.125 mg QPM ORAL 03/01/17 16:30 03/31/17 16:29 03/03/17 17:10 Cefepime HCl 1 gm/ Dextrose 55 ml @ 110 mls/hr Q24H IVPB 03/01/17 21:00 03/08/17 20:59 03/03/17 21:00 Clonazepam (KlonoPIN) 2 mg Q8HR PRN ORAL For Anxiety 03/01/17 18:45 03/08/17 18:44 03/04/17 10:34 Clonidine HCl (Catapres) 0.1 mg QPM ORAL 03/01/17 16:30 03/31/17 16:29 03/03/17 17:11 Doxazosin Mesylate (Cardura) 1 mg QPM@1630 ORAL 03/01/17 18:30 03/31/17 18:29 03/03/17 17:10 Epoetin Vijay (Procrit (for ESRD on dialysis)) 10,000 units SAT-SAT-SAT SUBQ 03/01/17 21:00 03/31/17 20:59 03/01/17 21:09 Gabapentin (Neurontin) 300 mg THREE TIMES A DAY ORAL 03/01/17 18:00 03/31/17 17:59 03/04/17 10:29 Hydralazine HCl (Apresoline) 50 mg Q8HR ORAL 03/01/17 14:00 03/31/17 13:59 03/03/17 21:00 Losartan Potassium (Cozaar) 100 mg DAILY ORAL 03/02/17 09:00 10/9/17 08:59 03/03/17 08:37 Magnesium Hydroxide (Mom) 30 ml DAILYPRN PRN ORAL Constipation 03/01/17 13:30 03/31/17 13:29 Methadone HCl (Methadone HCl) 40 mg DAILY ORAL 03/01/17 15:30 03/08/17 15:29 03/04/17 10:28 Ondansetron HCl (Zofran ODT) 4 mg Q6H PRN ORAL Nausea & Vomiting 03/01/17 13:30 03/31/17 13:29 Quetiapine Fumarate (SEROquel) 25 mg Q12HR ORAL 03/01/17 21:00 03/31/17 20:59 03/04/17 10:29 Vancomycin HCl (Vanco rx to dose) 1 ea DAILY MISC 03/01/17 19:15 03/31/17 19:14 Vitamin B Complex/ Vit C/Folic Acid (Nephrovite) 1 tab DAILY ORAL 03/02/17 09:00 04/01/17 08:59 03/04/17 10:29 Vitamin D (Vitamin D) 400 intlu DAILY ORAL 03/02/17 09:00 04/01/17 08:59 03/04/17 10:29 ESTEBAN ZUNIGA Mar 04, 2017 16:00
--- NOTE | 2017-03-04 17:15 | General Progress Note ---
Assessment/Plan Assessment/Plan 1. LUE dialysis shunt infection due to Strep 2. renal failure on HD 3. HTN 4. schizoaffective d/o 5. coronary artery disease. 6. chronic obstructive pulmonary disease. 7. Anemia, most likely of renal disease. 8. Seizure d/o might have SBE; check echo note plan for new access subclavian snf on discharge soon Subjective Constitutional: Denies: fever Respiratory: Denies: shortness of breath Allergies: Coded Allergies: No Known Allergies (Unverified , 02/28/17) Objective Last 24 Hour Vital Signs Date Time Temp Pulse Resp B/P (MAP) Pulse Ox O2 Delivery O2 Flow Rate FiO2 03/04/17 16:03 98.0 90 17 146/78 99 Room Air 03/04/17 14:55 94 16 147/86 95 Nasal Cannula 2.0 03/04/17 14:50 94 15 149/87 97 Nasal Cannula 2.0 03/04/17 14:45 93 21 146/85 97 Nasal Cannula 2.0 03/04/17 14:40 93 20 119/84 97 Nasal Cannula 2.0 03/04/17 14:35 83 16 157/81 99 Nasal Cannula 2.0 03/04/17 14:30 87 18 169/94 98 Nasal Cannula 2.0 03/04/17 14:25 89 18 155/94 98 Nasal Cannula 2.0 03/04/17 13:21 85 14 2.0 03/04/17 12:15 97.7 80 20 167/83 96 Nasal Cannula 2.0 03/04/17 09:19 Nasal Cannula 3.0 03/04/17 09:18 97.6 78 18 154/73 99 Nasal Cannula 3.0 03/04/17 08:15 63 20 137/71 97 Room Air 03/04/17 07:00 67 16 Room Air 03/04/17 05:30 98.1 73 21 154/79 100 Nasal Cannula 3.0 03/04/17 05:30 Nasal Cannula 3.0 03/04/17 04:00 98.8 78 20 158/91 91 Room Air 03/04/17 00:00 97.9 71 20 136/81 94 Room Air 03/03/17 21:00 139/74 03/03/17 20:00 98.2 69 21 139/74 92 Room Air 03/03/17 19:45 72 16 Room Air Intake and Output 03/04/17 03/05/17 19:00 07:00 Output Total 3100 ml Balance -3100 ml Hemodialysis UF 3100 ml Height (Feet): 5 Height (Inches): 7.00 Weight (Pounds): 147 General Appearance: no apparent distress Neck: supple Cardiovascular: normal rate Respiratory/Chest: lungs clear AUGIE CAREY Mar 04, 2017 17:15
[2017-03-04] MEDS: Doxazosin 1mg Tab ORAL SCH (17:41)
[2017-03-04 17:56] LABS: HEMOLYSIS 7; IRON 77 ug/dL (37-145); TOTAL IRON BINDING CAPACITY 209 ug/dL (250-400)
--- NOTE | 2017-03-04 18:47 | Cardiology Report ---
APPROVED REPORT EKG Measurement Heart [id number] Normal sinus rhythm Prolonged QT Abnormal ECG
[2017-03-04] MEDS: Atorvastatin 20mg tab ORAL SCH (23:16)
[2017-03-04] MEDS: Epogen (for ESRD on dialysis) SUBQ SCH (23:16)
[2017-03-05] VITALS: BP 111/79
[2017-03-05 04:00] VITALS: BP 130/79
[2017-03-05 06:24] LABS: MEAN CORPUSCULAR HEMOGLOBIN 27.4 PG (27.0-31.0); MEAN CORPUSCULAR HGB CONC 31.1 G/DL (32.0-36.0); MEAN CORPUSCULAR VOLUME 88 FL (80-99); MEAN PLATELET VOLUME 7.9 FL (6.5-10.1); PLATELET COUNT 209 K/UL (150-450); RED BLOOD COUNT 2.56 M/UL (4.20-5.40); RED CELL DISTRIBUTION WIDTH 14.4 % (11.6-14.8); WHITE BLOOD COUNT 9.3 K/UL (4.8-10.8)
[2017-03-05] MEDS: HydrALAZINE 50mg tab ORAL SCH ×3 (06:34→21:19)
[2017-03-05 06:46] LABS: CALCIUM 8.2 mg/dL (8.6-10.2); CREATININE 7.5 mg/dL (0.5-0.9); GLOMERULAR FILTRATION RATE 6.5 mL/min (>60); POTASSIUM 4.5 mEQ/L (3.4-4.9)
[2017-03-05 08:34] VITALS: BP 158/79
[2017-03-05] MEDS: Losartan 50mg tab ORAL SCH (08:40)
[2017-03-05] MEDS: Aspirin Baby 81mg ORAL SCH (08:40)
[2017-03-05] MEDS: Nephrovite tab (Rena-Vite) ORAL SCH (08:41)
[2017-03-05] MEDS: Vitamin D 400 INTLU TAB ORAL SCH (08:41)
[2017-03-05 09:28] LABS: BAND NEUTROPHILS % (MANUAL) 0 % (0-8); BASOPHILS % (MANUAL) 1 % (0-2); BLISTER CELL 1+; EOSINOPHILS % (MANUAL) 2 % (0-3); HYPOCHROMASIA 1+; LYMPHOCYTES % (MANUAL) 25 % (20-45); NEUTROPHILS % (MANUAL) 66 % (45-75); OVALOCYTES 1+; PLATELET ESTIMATE ADEQUATE; PLATELET MORPHOLOGY NORMAL; SCHISTOCYTES 1+; TOTAL CELLS COUNTED 100
[2017-03-05 09:29] LABS: ANISOCYTOSIS 1+
--- NOTE | 2017-03-05 09:35 | Diagnostic Imaging Report ---
APPROVED REPORT CPT Code: 15825 Present Symptoms Comments: Pain LEFT UPPER EXTREMITY: Venous imaging reveals patency of the internal jugular, subclavian, axillary and brachial veins. The cephalic and basilic veins are also patent. Doppler indicates normal spontaneous flow within these venous segments.
--- NOTE | 2017-03-05 09:35 | Diagnostic Imaging Report ---
APPROVED REPORT CPT Code: 71430 Symptoms Other : Pain LEFT UPPER EXTREMITY: Imaging of the subclavian, axillary, brachial, radial and ulnar arteries is within normal limits. There is no evidence of stenosis or occlusion within these segments. The Doppler waveforms of the left upper extremity are multiphasic, consistent with normal inflow to the left upper extremity. Imaging reveals also patency of the arterio-venous fistula, brachial artery to cephalic vein at upper extremity level. Velocities obtained from the fistula are as follows: Proximal brachial artery: 187 cm/s proximal: 120 cm/s mid: 263 cm/s anastomosis: 3.8 mm, 365 cm/s Brachial artery: 70 cm/s
[2017-03-05 11:39] VITALS: BP 157/90
[2017-03-05 11:44] LABS: HEMOLYSIS 12; IRON 60 ug/dL (37-145); TOTAL IRON BINDING CAPACITY 196 ug/dL (250-400)
[2017-03-05 11:50] LABS: FERRITIN 1232 ng/mL (13-150)
--- NOTE | 2017-03-05 13:58 | General Progress Note ---
Assessment/Plan Assessment/Plan 1. LUE dialysis shunt infection due to Strep 2. renal failure on HD 3. HTN 4. schizoaffective d/o 5. coronary artery disease. 6. chronic obstructive pulmonary disease. 7. Anemia, most likely of renal disease. 8. Seizure d/o no vegetation on echo noted A fib on echo; no hx thereof now regular on exam and on recent EKG; will repeat New subclavian PermCath in place dialysis to remove groin cath tomorrow snf on discharge soon Subjective Constitutional: Denies: fever Allergies: Coded Allergies: No Known Allergies (Unverified , 02/28/17) Objective Last 24 Hour Vital Signs Date Time Temp Pulse Resp B/P (MAP) Pulse Ox O2 Delivery O2 Flow Rate FiO2 03/05/17 13:44 157/90 03/05/17 11:39 97.8 101 19 157/90 96 Nasal Cannula 2.0 03/05/17 08:40 158/79 03/05/17 08:34 97.9 85 20 158/79 95 Nasal Cannula 2.0 03/05/17 07:20 85 18 Room Air 03/05/17 06:34 130/79 03/05/17 04:00 98.3 82 21 130/79 98 Room Air 03/05/17 00:00 98.6 87 20 111/79 93 Room Air 03/04/17 23:16 105/75 03/04/17 20:00 98.8 95 20 105/75 92 Room Air 03/04/17 19:56 70 18 Room Air 03/04/17 17:41 146/78 03/04/17 17:41 90 146/78 03/04/17 16:03 98.0 90 17 146/78 99 Room Air 03/04/17 14:55 94 16 147/86 95 Nasal Cannula 2.0 03/04/17 14:50 94 15 149/87 97 Nasal Cannula 2.0 03/04/17 14:45 93 21 146/85 97 Nasal Cannula 2.0 03/04/17 14:40 93 20 119/84 97 Nasal Cannula 2.0 03/04/17 14:35 83 16 157/81 99 Nasal Cannula 2.0 03/04/17 14:30 87 18 169/94 98 Nasal Cannula 2.0 03/04/17 14:25 89 18 155/94 98 Nasal Cannula 2.0 Intake and Output 03/05/17 03/06/17 19:00 07:00 Intake Total 360 ml Output Total 0 ml Balance 360 ml Intake Oral 360 ml Output Urine Total 0 ml Laboratory Tests 03/04/17 17:10: Iron Level 77, Total Iron Binding Capacity 209L, Percent Iron Saturation 37, Unsaturated Iron Binding 132 03/05/17 05:45: Iron Level 60, Total Iron Binding Capacity 196L, Percent Iron Saturation 31, Unsaturated Iron Binding 136, White Blood Count 9.3, Red Blood Count 2.56L, Hemoglobin 7.0L, Hematocrit 22.5L, Mean Corpuscular Volume 88, Mean Corpuscular Hemoglobin 27.4, Mean Corpuscular Hemoglobin Concent 31.1L, Red Cell Distribution Width 14.4, Platelet Count 209, Mean Platelet Volume 7.9, Neutrophils (%) (Auto) , Lymphocytes (%) (Auto) , Monocytes (%) (Auto) , Eosinophils (%) (Auto) , Basophils (%) (Auto) , Differential Total Cells Counted 100, Neutrophils % (Manual) 66, Lymphocytes % (Manual) 25, Monocytes % ( Manual) 6, Eosinophils % (Manual) 2, Basophils % (Manual) 1, Band Neutrophils 0 , Platelet Estimate Adequate, Platelet Morphology Normal, Hypochromasia 1+, Anisocytosis 1+, Ovalocytes 1+, Blister Cells 1+, Schistocytes 1+, Sodium Level 136, Potassium Level 4.5, Chloride Level 98, Carbon Dioxide Level 21, Anion Gap 17H, Blood Urea Nitrogen 68H, Creatinine 7.5H, Estimat Glomerular Filtration Rate 6.5, Glucose Level 85, Calcium Level 8.2L, Ferritin 1232H, Random Vancomycin Level 19.4 Height (Feet): 5 Height (Inches): 7.00 Weight (Pounds): 146 General Appearance: no apparent distress Neck: supple Cardiovascular: normal rate, regular rhythm Respiratory/Chest: lungs clear AUGIE CAREY Mar 05, 2017 13:58
[2017-03-05] MEDS: Doxazosin 1mg Tab ORAL SCH (15:37)
[2017-03-05 16:08] VITALS: BP 151/102
--- NOTE | 2017-03-05 16:29 | Nephrology Progress Note ---
Assessment/Plan Assessment 1.ESRD 2.Anemia of CKD 3.ANT 4.Infected fistula 5.HTN Plan 1.to continue Epogen 2.continue iron 3.iv antibiotic 4.F/u with us of graft 5.dialysis today 6.check iron panel Subjective Constitutional: Reports: no symptoms HEENT: Reports: no symptoms Genitourinary: Reports: no symptoms 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: Reports: no symptoms Subjective no complaints Objective Objective Last 24 Hour Vital Signs Date Time Temp Pulse Resp B/P (MAP) Pulse Ox O2 Delivery O2 Flow Rate FiO2 03/05/17 16:08 97.6 95 20 151/102 95 Nasal Cannula 2.0 03/05/17 15:37 157/90 03/05/17 15:37 101 157/90 03/05/17 13:44 157/90 03/05/17 11:39 97.8 101 19 157/90 96 Nasal Cannula 2.0 03/05/17 08:40 158/79 03/05/17 08:34 97.9 85 20 158/79 95 Nasal Cannula 2.0 03/05/17 07:20 85 18 Room Air 03/05/17 06:34 130/79 03/05/17 04:00 98.3 82 21 130/79 98 Room Air 03/05/17 00:00 98.6 87 20 111/79 93 Room Air 03/04/17 23:16 105/75 03/04/17 20:00 98.8 95 20 105/75 92 Room Air 03/04/17 19:56 70 18 Room Air 03/04/17 17:41 146/78 03/04/17 17:41 90 146/78 Intake and Output 03/05/17 03/06/17 19:00 07:00 Intake Total 360 ml Output Total 0 ml Balance 360 ml Intake Oral 360 ml Output Urine Total 0 ml Laboratory Tests 03/04/17 17:10: Iron Level 77, Total Iron Binding Capacity 209L, Percent Iron Saturation 37, Unsaturated Iron Binding 132 03/05/17 05:45: Iron Level 60, Total Iron Binding Capacity 196L, Percent Iron Saturation 31, Unsaturated Iron Binding 136, White Blood Count 9.3, Red Blood Count 2.56L, Hemoglobin 7.0L, Hematocrit 22.5L, Mean Corpuscular Volume 88, Mean Corpuscular Hemoglobin 27.4, Mean Corpuscular Hemoglobin Concent 31.1L, Red Cell Distribution Width 14.4, Platelet Count 209, Mean Platelet Volume 7.9, Neutrophils (%) (Auto) , Lymphocytes (%) (Auto) , Monocytes (%) (Auto) , Eosinophils (%) (Auto) , Basophils (%) (Auto) , Differential Total Cells Counted 100, Neutrophils % (Manual) 66, Lymphocytes % (Manual) 25, Monocytes % ( Manual) 6, Eosinophils % (Manual) 2, Basophils % (Manual) 1, Band Neutrophils 0 , Platelet Estimate Adequate, Platelet Morphology Normal, Hypochromasia 1+, Anisocytosis 1+, Ovalocytes 1+, Blister Cells 1+, Schistocytes 1+, Sodium Level 136, Potassium Level 4.5, Chloride Level 98, Carbon Dioxide Level 21, Anion Gap 17H, Blood Urea Nitrogen 68H, Creatinine 7.5H, Estimat Glomerular Filtration Rate 6.5, Glucose Level 85, Calcium Level 8.2L, Ferritin 1232H, Random Vancomycin Level 19.4 Height (Feet): 5 Height (Inches): 7.00 Weight (Pounds): 146 Objective GENERAL: Alert, responsive, in no acute distress. Weakness noted. HEAD AND NECK: Oral exam, no thrush. Eye exam, no icterus. Normocephalic. No facial droop. No neck stiffness. Neck is supple. HEART: Regular. No rub, gallop, or murmur. LUNGS: Clear bilaterally. No rhonchi or rales. May be a few crackles. ABDOMEN: Soft. Positive bowel sounds. Nontender. SKIN: No rash or dermatitis. Left arm graft site shows mildly erythema. No significant drainage and no open wound was noted. Some swelling noted. CHARLENE FINN Mar 05, 2017 16:29
--- NOTE | 2017-03-05 17:28 | Cardiology Report ---
APPROVED REPORT EXAM: Two-dimensional and M-mode echocardiogram with Doppler and color Doppler. INDICATION Vegetation M-Mode DIMENSIONS IVSd1.2 (0.7-1.1cm)Left Atrium (MM)4.0 (1.6-4.0cm) LVDd4.0 (3.5-5.6cm)Aortic Root3.5 (2.0-3.7cm) PWd2.5 (0.7-1.1cm)Aortic Cusp Exc.0.8 (1.5-2.0cm) LVDs2.8 (2.5-4.0cm) PWs1.6 cm Technically difficult study due to poor acoustic windows. Study quality precludes accurate assessment of regional wall motion. Normal left ventricular chamber size, systolic function and wall motion. Left ventricular ejection fraction estimated to be 60-65 %. Mild left ventricular hypertrophy. Anterior Echo-free space, may be due to pericardial fat or effusion. Moderate left atrial enlargement. Mild right atrial enlargement. All other cardiac chamber sizes are within normal limits. Aortic valve calcification with decreased cusp excursion c/w aortic stenosis. Mildly thickened mitral valve leaflets with normal excursion. Mild mitral annulus and aortic root calcification. Pulmonic valve not well visualized. Normal tricuspid valve structure. IVC dilated at 1.7 cm with physiologic collapse. No discrete vegetations seen, however SBE may not be excluded by transthoracic 2-D echo. Consider [place] if clinically indicated. A color flow and spectral Doppler study was performed and revealed: Moderate aortic regurgitation. Peak aortic valve gradient of 55 mmHg and a mean of 21 mmHg. Aortic valve area 1.4 cm2 calculated by continuity equation. Mild to moderate mitral regurgitation. Left ventricular diastolic function could not be determined due to A-Fib. Mild tricuspid regurgitation. Tricuspid systolic velocities suggests peak right ventricular systolic pressure of 47 mmHg, consistent with moderate pulmonary hypertension. No pulmonic regurgitation present.
[2017-03-05] MEDS ORDERED: Vancomycin 1 GM in NS 275 ML IVPB ONE (18:00)
[2017-03-05] MEDS: Norco 5mg/325mg tab ORAL PRN (18:17)
[2017-03-05 20:00] VITALS: BP 133/76
[2017-03-05] MEDS: Atorvastatin 20mg tab ORAL SCH (21:19)
[2017-03-06] VITALS: BP 161/82
[2017-03-06 04:00] VITALS: BP 161/83
[2017-03-06] MEDS: HydrALAZINE 50mg tab ORAL SCH ×3 (06:09→20:44)
--- NOTE | 2017-03-06 08:14 | Nephrology Progress Note ---
Assessment/Plan Assessment 1.ESRD 2.Anemia of CKD 3.ANT 4.Infected fistula 5.HTN Plan 1.to continue Epogen 2.continue iron 3.iv antibiotic 4.dialysis today l Subjective Constitutional: Reports: no symptoms HEENT: Reports: no symptoms Genitourinary: Reports: no symptoms 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: Reports: no symptoms Subjective no complaints Objective Objective Last 24 Hour Vital Signs Date Time Temp Pulse Resp B/P (MAP) Pulse Ox O2 Delivery O2 Flow Rate FiO2 03/06/17 07:59 91 Nasal Cannula 2.0 03/06/17 07:59 Nasal Cannula 2.0 03/06/17 07:35 85 16 Room Air 03/06/17 06:09 161/83 03/06/17 04:00 97.9 85 20 161/83 100 Room Air 03/06/17 00:00 97.6 101 20 161/82 98 Room Air 03/05/17 21:19 133/76 03/05/17 20:00 97.9 67 20 133/76 97 Room Air 03/05/17 19:06 79 18 Room Air 03/05/17 16:08 97.6 95 20 151/102 95 Nasal Cannula 2.0 03/05/17 15:37 157/90 03/05/17 15:37 101 157/90 03/05/17 13:44 157/90 03/05/17 11:39 97.8 101 19 157/90 96 Nasal Cannula 2.0 03/05/17 08:40 158/79 03/05/17 08:34 97.9 85 20 158/79 95 Nasal Cannula 2.0 Height (Feet): 5 Height (Inches): 7.00 Weight (Pounds): 147 Objective GENERAL: Alert, responsive, in no acute distress. Weakness noted. HEAD AND NECK: Oral exam, no thrush. Eye exam, no icterus.facial swelling Normocephalic. No facial droop. No neck stiffness. Neck is supple. HEART: Regular. No rub, gallop, or murmur. LUNGS: Clear bilaterally. No rhonchi or rales. May be a few crackles. ABDOMEN: Soft. Positive bowel sounds. Nontender. SKIN: No rash or dermatitis. Left arm graft site shows mildly erythema. No significant drainage and no open wound was noted. Some swelling noted. CHARLENE FINN Mar 06, 2017 08:14
[2017-03-06 08:15] VITALS: BP 166/84
[2017-03-06] MEDS: Nephrovite tab (Rena-Vite) ORAL SCH (09:06)
[2017-03-06] MEDS: Aspirin Baby 81mg ORAL SCH (09:06)
[2017-03-06] MEDS: Vitamin D 400 INTLU TAB ORAL SCH (09:07)
[2017-03-06] MEDS: Losartan 50mg tab ORAL SCH (09:11)
[2017-03-06 12:03] VITALS: BP 165/83
[2017-03-06 13:39] LABS: MEAN CORPUSCULAR HEMOGLOBIN 25.9 PG (27.0-31.0); MEAN CORPUSCULAR HGB CONC 29.7 G/DL (32.0-36.0); MEAN CORPUSCULAR VOLUME 87 FL (80-99); MEAN PLATELET VOLUME 7.5 FL (6.5-10.1); PLATELET COUNT 246 K/UL (150-450); RED BLOOD COUNT 2.82 M/UL (4.20-5.40); RED CELL DISTRIBUTION WIDTH 14.2 % (11.6-14.8); WHITE BLOOD COUNT 13.3 K/UL (4.8-10.8)
[2017-03-06 13:50] LABS: CALCIUM 7.9 mg/dL (8.6-10.2); CREATININE 9.8 mg/dL (0.5-0.9); GLOMERULAR FILTRATION RATE 4.8 mL/min (>60); POTASSIUM 5.2 mEQ/L (3.4-4.9)
[2017-03-06 14:09] LABS: ANISOCYTOSIS 1+; BAND NEUTROPHILS % (MANUAL) 0 % (0-8); BASOPHILS % (MANUAL) 1 % (0-2); BURR CELLS 1+; EOSINOPHILS % (MANUAL) 1 % (0-3); HYPOCHROMASIA 2+; LYMPHOCYTES % (MANUAL) 19 % (20-45); NEUTROPHILS % (MANUAL) 70 % (45-75); NUCLEATED RED BLOOD CELLS 1 /100 WBC; PLATELET ESTIMATE ADEQUATE; PLATELET MORPHOLOGY NORMAL; SCHISTOCYTES 1+; TOTAL CELLS COUNTED 100
--- NOTE | 2017-03-06 14:46 | Cardiology Report ---
APPROVED REPORT EKG Measurement Heart [id number] Normal sinus rhythm Possible Left atrial enlargement Prolonged QT Abnormal ECG
--- NOTE | 2017-03-06 15:06 | Infectious Diseases Prog Note ---
Assessment/Plan Assessment/Plan ASSESSMENT AND PLAN: 1. strep bacteremia, alpha-hemolytic, possible fistula infection, possible endocarditis, TTE without vegetation, leukocytosis noted, sepsis - continue vancomycin - day # 6 abx, favor 4 weeks abx total - perma-cath placed, surveillance blood cultures negative - d/w Dr. Ware, d/w Renal, d/w vascular surgery - check f/u labs and cbc 2. The patient has anemia. 3. The patient has end-stage renal disease, on hemodialysis. 4. Myocardial infarction, coronary artery disease. 5. Hypertension. 6. Diabetes mellitus. 7. Schizoaffective disorder. 8. Seizure. 9. Chronic obstructive pulmonary disease. 10. Neuropathy. 11. Chronic pain syndrome. 12. Methadone. 13. With pulmonary edema. 14. She was advised to stop smoking. 15. MAR was noted. 16. The case was discussed with RN. 17. Family history noncontributory. 18. Allergies are negative. 19. Continue treatment per Dr. Ware and consultants. Subjective Constitutional: Denies: fever HEENT: Denies: congestion Respiratory: Denies: shortness of breath Cardiovascular: Denies: chest pain Gastrointestinal/Abdominal: Reports: other - no chou, Denies: nausea, vomiting , diarrhea Neurologic: Reports: other - sedated secondary to klonopin Psychiatric: Denies: depression Skin: Denies: rash Hematologic: Denies: bleeding Musculoskeletal: Denies: pain Allergies: Coded Allergies: No Known Allergies (Unverified , 02/28/17) Objective Vital Signs Last 24 Hour Vital Signs Date Time Temp Pulse Resp B/P (MAP) Pulse Ox O2 Delivery O2 Flow Rate FiO2 03/06/17 12:30 Nasal Cannula 2.0 03/06/17 12:03 97.4 85 20 165/83 95 Room Air 03/06/17 09:11 166/84 03/06/17 08:15 97.9 86 20 166/84 97 Nasal Cannula 2.0 03/06/17 07:59 91 Nasal Cannula 2.0 03/06/17 07:59 Nasal Cannula 2.0 03/06/17 07:35 85 16 Room Air 03/06/17 06:09 161/83 03/06/17 04:00 97.9 85 20 161/83 100 Room Air 03/06/17 00:00 97.6 101 20 161/82 98 Room Air 03/05/17 21:19 133/76 03/05/17 20:00 97.9 67 20 133/76 97 Room Air 03/05/17 19:06 79 18 Room Air 03/05/17 16:08 97.6 95 20 151/102 95 Nasal Cannula 2.0 03/05/17 15:37 157/90 03/05/17 15:37 101 157/90 Height (Feet): 5 Height (Inches): 7.00 Weight (Pounds): 147 General Appearance: no acute distress HEENT: normocephalic, atraumatic, anicteric, mucous membranes moist Respiratory/Chest: lungs clear, normal breath sounds, no respiratory distress, no accessory muscle use Cardiovascular: normal rate, regular rhythm, no gallop/murmur, no JVD Abdomen: normal bowel sounds, soft, non tender, no organomegaly, non distended Genitourinary: other - no chou Extremities: no cyanosis Skin: no rash 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, alert, responsive Lymphatic: no neck adenopathy Musculoskeletal: no effusion Objective chest x-ray - interstitial edema echo - no discrete vegetation seen (report reviewed) Microbiology Date/Time Source Procedure Growth Status 03/04/17 17:25 Blood Blood Culture - Preliminary NO GROWTH AFTER 24 HOURS Resulted Microbiology Date/Time Source Procedure Growth Status 03/04/17 17:25 Blood Blood Culture - Preliminary NO GROWTH AFTER 24 HOURS Resulted 03/04/17 17:10 Blood Blood Culture - Preliminary NO GROWTH AFTER 24 HOURS Resulted blood cultures - alpha hemolytic strep, sensitivities noted Laboratory Tests Test 03/06/17 13:00 White Blood Count 13.3 K/UL (4.8-10.8) H Red Blood Count 2.82 M/UL (4.20-5.40) L Hemoglobin 7.3 G/DL (12.0-16.0) L Hematocrit 24.6 % (37.0-47.0) L Mean Corpuscular Volume 87 FL (80-99) Mean Corpuscular Hemoglobin 25.9 PG (27.0-31.0) L Mean Corpuscular Hemoglobin Concent 29.7 G/DL (32.0-36.0) L Red Cell Distribution Width 14.2 % (11.6-14.8) Platelet Count 246 K/UL (150-450) Mean Platelet Volume 7.5 FL (6.5-10.1) Neutrophils (%) (Auto) % (45.0-75.0) Lymphocytes (%) (Auto) % (20.0-45.0) Monocytes (%) (Auto) % (1.0-10.0) Eosinophils (%) (Auto) % (0.0-3.0) Basophils (%) (Auto) % (0.0-2.0) Differential Total Cells Counted 100 Neutrophils % (Manual) 70 % (45-75) Lymphocytes % (Manual) 19 % (20-45) L Monocytes % (Manual) 9 % (1-10) Eosinophils % (Manual) 1 % (0-3) Basophils % (Manual) 1 % (0-2) Band Neutrophils 0 % (0-8) Nucleated Red Blood Cells 1 /100 WBC Platelet Estimate Adequate Platelet Morphology Normal Hypochromasia 2+ Anisocytosis 1+ [place] Cells 1+ Schistocytes 1+ Sodium Level 130 mEQ/L (135-145) L Potassium Level 5.2 mEQ/L (3.4-4.9) H Chloride Level 91 mEQ/L (98-107) L Carbon Dioxide Level 20 mEQ/L (20-30) Anion Gap 19 (5-15) H Blood Urea Nitrogen 94 mg/dL (7-23) #H Creatinine 9.8 mg/dL (0.5-0.9) H Estimat Glomerular Filtration Rate 4.8 mL/min (>60) Glucose Level 96 mg/dL (74-106) Calcium Level 7.9 mg/dL (8.6-10.2) L Current Medications Medications (Trade) Dose Ordered Sig/Winter Route PRN Reason Start Time Stop Time Status Last Admin Dose Admin Acetaminophen (Tylenol) 650 mg Q4H PRN ORAL Mild Pain/Temp > 100.5 03/01/17 13:30 03/31/17 13:29 Acetaminophen/ Hydrocodone Bitart ([place] 5/325) 1 tab Q6H PRN ORAL For Pain 03/01/17 13:30 03/08/17 13:29 03/05/17 18:17 Albuterol Sulfate (Proventil MDI) 2 puff Q4H PRN INH Shortness of Breath 03/01/17 13:30 03/31/17 13:29 Aspirin (ASA) 81 mg DAILY ORAL 03/02/17 09:00 04/01/17 08:59 03/06/17 09:06 Atorvastatin Calcium (Lipitor) 20 mg BEDTIME ORAL 03/01/17 21:00 03/31/17 20:59 03/05/17 21:19 Carvedilol (Coreg) 3.125 mg QPM ORAL 03/01/17 16:30 03/31/17 16:29 03/05/17 15:37 Clonidine HCl (Catapres) 0.1 mg QPM ORAL 03/01/17 16:30 03/31/17 16:29 03/05/17 15:37 Doxazosin Mesylate (Cardura) 1 mg QPM@1630 ORAL 03/01/17 18:30 03/31/17 18:29 03/05/17 15:37 Epoetin Vijay (Procrit (for ESRD on dialysis)) 10,000 units SAT- SUBQ 03/01/17 21:00 03/31/17 20:59 03/04/17 23:16 Ferrous Sulfate (Feosol) 325 mg BID ORAL 03/05/17 18:00 04/04/17 17:59 03/05/17 18:19 Gabapentin (Neurontin) 300 mg THREE TIMES A DAY ORAL 03/01/17 18:00 03/31/17 17:59 03/06/17 09:07 Hydralazine HCl (Apresoline) 50 mg Q8HR ORAL 03/01/17 14:00 03/31/17 13:59 03/06/17 06:09 Losartan Potassium (Cozaar) 100 mg DAILY ORAL 03/02/17 09:00 04/01/17 08:59 03/06/17 09:11 Magnesium Hydroxide (Mom) 30 ml DAILYPRN PRN ORAL Constipation 03/01/17 13:30 03/31/17 13:29 Methadone HCl (Methadone HCl) 40 mg DAILY ORAL 03/01/17 15:30 03/08/17 15:29 03/06/17 09:07 Ondansetron HCl (Zofran ODT) 4 mg Q6H PRN ORAL Nausea & Vomiting 03/01/17 13:30 03/31/17 13:29 Quetiapine Fumarate (SEROquel) 25 mg Q12HR ORAL 03/01/17 21:00 03/31/17 20:59 03/06/17 09:06 Vancomycin HCl (Vanco rx to dose) 1 ea DAILY MISC 03/01/17 19:15 03/31/17 19:14 Vitamin B Complex/ Vit C/Folic Acid (Nephrovite) 1 tab DAILY ORAL 03/02/17 09:00 04/01/17 08:59 03/06/17 09:06 Vitamin D (Vitamin D) 400 intlu DAILY ORAL 03/02/17 09:00 04/01/17 08:59 03/06/17 09:07 ESTEBAN ZUNIGA Mar 06, 2017 15:06
[2017-03-06 15:31] VITALS: BP 106/58
[2017-03-06] MEDS: Doxazosin 1mg Tab ORAL SCH (16:30)
--- NOTE | 2017-03-06 19:00 | General Progress Note ---
Assessment/Plan Assessment/Plan 1. LUE dialysis shunt infection due to Strep 2. renal failure on HD 3. HTN 4. schizoaffective d/o 5. coronary artery disease. 6. chronic obstructive pulmonary disease. 7. Anemia, most likely of renal disease. 8. Seizure d/o no vegetation on echo however per discussion w ID rec 4 weeks total in [facility] for possible strep endocarditis EKG SR New subclavian PermCath in place, dialyzed today dialysis removed groin cath snf after dialysis dc klonopin due to lethargy Subjective Constitutional: Reports: no symptoms Allergies: Coded Allergies: No Known Allergies (Unverified , 02/28/17) Objective Last 24 Hour Vital Signs Date Time Temp Pulse Resp B/P (MAP) Pulse Ox O2 Delivery O2 Flow Rate FiO2 03/06/17 16:07 Nasal Cannula 2.0 03/06/17 15:31 98.2 59 20 106/58 99 Nasal Cannula 2.0 03/06/17 12:30 Nasal Cannula 2.0 03/06/17 12:03 97.4 85 20 165/83 95 Room Air 03/06/17 09:11 166/84 03/06/17 08:15 97.9 86 20 166/84 97 Nasal Cannula 2.0 03/06/17 07:59 91 Nasal Cannula 2.0 03/06/17 07:59 Nasal Cannula 2.0 03/06/17 07:35 85 16 Room Air 03/06/17 06:09 161/83 03/06/17 04:00 97.9 85 20 161/83 100 Room Air 03/06/17 00:00 97.6 101 20 161/82 98 Room Air 03/05/17 21:19 133/76 03/05/17 20:00 97.9 67 20 133/76 97 Room Air 03/05/17 19:06 79 18 Room Air Intake and Output 03/06/17 03/07/17 19:00 07:00 Intake Total 600 ml Output Total 3000 ml Balance -2400 ml Intake Oral 600 ml Output Urine Total 0 ml Hemodialysis UF 3000 ml # Bowel Movements 1 Laboratory Tests 03/06/17 13:00: White Blood Count 13.3H, Red Blood Count 2.82L, Hemoglobin 7.3L, Hematocrit 24.6L, Mean Corpuscular Volume 87, Mean Corpuscular Hemoglobin 25.9L, Mean Corpuscular Hemoglobin Concent 29.7L, Red Cell Distribution Width 14.2, Platelet Count 246, Mean Platelet Volume 7.5, Neutrophils (%) (Auto) , Lymphocytes (%) (Auto) , Monocytes (%) (Auto) , Eosinophils (%) (Auto) , Basophils (%) (Auto) , Differential Total Cells Counted 100, Neutrophils % ( Manual) 70, Lymphocytes % (Manual) 19L, Monocytes % (Manual) 9, Eosinophils % ( Manual) 1, Basophils % (Manual) 1, Band Neutrophils 0, Nucleated Red Blood Cells 1, Platelet Estimate Adequate, Platelet Morphology Normal, Hypochromasia 2 +, Anisocytosis 1+, Her[place] Cells 1+, Schistocytes 1+, Sodium Level 130L, Potassium Level 5.2H, Chloride Level 91L, Carbon Dioxide Level 20, Anion Gap 19H , Blood Urea Nitrogen 94#H, Creatinine 9.8H, Estimat Glomerular Filtration Rate 4.8, Glucose Level 96, Calcium Level 7.9L Height (Feet): 5 Height (Inches): 7.00 Weight (Pounds): 147 General Appearance: no apparent distress, other - face puffy Cardiovascular: normal rate Respiratory/Chest: lungs clear AUGIE CAREY Mar 06, 2017 19:00
[2017-03-06 20:00] VITALS: BP 177/95
[2017-03-06] MEDS: Atorvastatin 20mg tab ORAL SCH (20:43)
[2017-03-06] MEDS: Epogen (for ESRD on dialysis) SUBQ SCH (20:44)
[2017-03-06] MEDS ORDERED: VANCOMYCIN1 GM/2502 IVPB (21:03)
[2017-03-06] MEDS ORDERED: VANCOCIN250 MG ORAL (21:03)
[2017-03-07 00:26] VITALS: BP 140/81
[2017-03-07 04:00] VITALS: BP 151/84
[2017-03-07] MEDS: HydrALAZINE 50mg tab ORAL SCH ×2 (05:18→12:44)
[2017-03-07 07:53] LABS: GLOMERULAR FILTRATION RATE 6.1 mL/min (>60); POTASSIUM 4.4 mEQ/L (3.4-4.9)
[2017-03-07 08:26] VITALS: BP 164/92
[2017-03-07 08:34] LABS: MEAN CORPUSCULAR HEMOGLOBIN 26.3 PG (27.0-31.0); MEAN CORPUSCULAR HGB CONC 30.2 G/DL (32.0-36.0); MEAN CORPUSCULAR VOLUME 87 FL (80-99); PLATELET COUNT 206 K/UL (150-450); RED BLOOD COUNT 2.72 M/UL (4.20-5.40); RED CELL DISTRIBUTION WIDTH 14.3 % (11.6-14.8); WHITE BLOOD COUNT 8.1 K/UL (4.8-10.8)
[2017-03-07] MEDS: Vitamin D 400 INTLU TAB ORAL SCH (08:46)
[2017-03-07] MEDS: Aspirin Baby 81mg ORAL SCH (08:47)
[2017-03-07] MEDS: Nephrovite tab (Rena-Vite) ORAL SCH (08:47)
[2017-03-07] MEDS: Losartan 50mg tab ORAL SCH (08:47)
[2017-03-07 10:18] LABS: ANISOCYTOSIS 1+; BAND NEUTROPHILS % (MANUAL) 0 % (0-8); BASOPHILS % (MANUAL) 0 % (0-2); EOSINOPHILS % (MANUAL) 1 % (0-3); HYPOCHROMASIA 1+; LYMPHOCYTES % (MANUAL) 22 % (20-45); NEUTROPHILS % (MANUAL) 73 % (45-75); NUCLEATED RED BLOOD CELLS 2 /100 WBC; PLATELET ESTIMATE ADEQUATE; PLATELET MORPHOLOGY NORMAL; SCHISTOCYTES 1+; TEAR DROP CELLS 1+; TOTAL CELLS COUNTED 100
[2017-03-07 10:19] LABS: BURR CELLS 1+; TARGET CELLS 1+
--- NOTE | 2017-03-07 10:48 | Nephrology Progress Note ---
Assessment/Plan Assessment 1.ESRD 2.Anemia of CKD 3.ANT 4.Infected fistula 5.HTN Plan 1.to continue Epogen 2.continue iron 3.iv antibiotic 4.dialysis today l Subjective Constitutional: Reports: no symptoms HEENT: Reports: no symptoms Genitourinary: Reports: no symptoms 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: Reports: no symptoms Subjective no complaints Objective Objective Last 24 Hour Vital Signs Date Time Temp Pulse Resp B/P (MAP) Pulse Ox O2 Delivery O2 Flow Rate FiO2 03/07/17 08:47 164/92 03/07/17 08:26 98.1 106 20 164/92 95 Nasal Cannula 2.0 03/07/17 05:18 151/84 03/07/17 04:00 97.7 99 20 151/84 98 Nasal Cannula 2.0 03/07/17 00:26 97.8 100 20 140/81 97 Room Air 03/06/17 20:54 72 18 Room Air 03/06/17 20:54 94 Nasal Cannula 2.0 03/06/17 20:54 Nasal Cannula 2.0 28 03/06/17 20:44 106/58 03/06/17 20:00 97.7 96 18 177/95 98 Nasal Cannula 2.0 03/06/17 16:07 Nasal Cannula 2.0 03/06/17 15:31 98.2 59 20 106/58 99 Nasal Cannula 2.0 03/06/17 12:30 Nasal Cannula 2.0 03/06/17 12:03 97.4 85 20 165/83 95 Room Air Intake and Output 03/07/17 03/08/17 19:00 07:00 # Bowel Movements 1 Laboratory Tests 03/06/17 13:00: White Blood Count 13.3H, Red Blood Count 2.82L, Hemoglobin 7.3L, Hematocrit 24.6L, Mean Corpuscular Volume 87, Mean Corpuscular Hemoglobin 25.9L, Mean Corpuscular Hemoglobin Concent 29.7L, Red Cell Distribution Width 14.2, Platelet Count 246, Mean Platelet Volume 7.5, Neutrophils (%) (Auto) , Lymphocytes (%) (Auto) , Monocytes (%) (Auto) , Eosinophils (%) (Auto) , Basophils (%) (Auto) , Differential Total Cells Counted 100, Neutrophils % ( Manual) 70, Lymphocytes % (Manual) 19L, Monocytes % (Manual) 9, Eosinophils % ( Manual) 1, Basophils % (Manual) 1, Band Neutrophils 0, Nucleated Red Blood Cells 1, Platelet Estimate Adequate, Platelet Morphology Normal, Hypochromasia 2 +, Anisocytosis 1+, [place] Cells 1+, Schistocytes 1+, Sodium Level 130L, Potassium Level 5.2H, Chloride Level 91L, Carbon Dioxide Level 20, Anion Gap 19H , Blood Urea Nitrogen 94#H, Creatinine 9.8H, Estimat Glomerular Filtration Rate 4.8, Glucose Level 96, Calcium Level 7.9L 03/07/17 06:10: White Blood Count 8.1, Red Blood Count 2.72L, Hemoglobin 7.1L, Hematocrit 23.7L , Mean Corpuscular Volume 87, Mean Corpuscular Hemoglobin 26.3L, Mean Corpuscular Hemoglobin Concent 30.2L, Red Cell Distribution Width 14.3, Platelet Count 206, Mean Platelet Volume 8.0, Neutrophils (%) (Auto) , Lymphocytes (%) (Auto) , Monocytes (%) (Auto) , Eosinophils (%) (Auto) , Basophils (%) (Auto) , Differential Total Cells Counted 100, Neutrophils % ( Manual) 73, Lymphocytes % (Manual) 22, Monocytes % (Manual) 4, Eosinophils % ( Manual) 1, Basophils % (Manual) 0, Band Neutrophils 0, Nucleated Red Blood Cells 2, Platelet Estimate Adequate, Platelet Morphology Normal, Hypochromasia 1 +, Anisocytosis 1+, Heri Cells 1+, Schistocytes 1+, Sodium Level 134L, Potassium Level 4.4, Chloride Level 92L, Carbon Dioxide Level 25, Anion Gap 17H , Blood Urea Nitrogen 68#H, Creatinine 8.0H, Estimat Glomerular Filtration Rate 6.1, Glucose Level 71L, Calcium Level 8.0L, [place] Cells 1+, [place] Cells 1+ Height (Feet): 5 Height (Inches): 7.00 Weight (Pounds): 146 Objective GENERAL: Alert, responsive, in no acute distress. Weakness noted. HEAD AND NECK: Oral exam, no thrush. Eye exam, no icterus.facial swelling Normocephalic. No facial droop. No neck stiffness. Neck is supple. HEART: Regular. No rub, gallop, or murmur. LUNGS: Clear bilaterally. No rhonchi or rales. May be a few crackles. ABDOMEN: Soft. Positive bowel sounds. Nontender. SKIN: No rash or dermatitis. Left arm graft site shows mildly erythema. No significant drainage and no open wound was noted. Some swelling noted. CHARLENE FINN Mar 07, 2017 10:48
[2017-03-07 12:07] VITALS: BP 174/107
--- NOTE | 2017-03-07 13:59 | Diagnostic Imaging Report ---
Indication: Dyspnea Comparison: 02/28/17 A single view chest radiograph was obtained. Findings: There is right permacath placement in the interval. Mild interstitial edema may be present. Heart is enlarged. Scoliosis again noted. Impression: Right permacath in good position. No change otherwise
[2017-03-07 15:15] VITALS: BP 158/93
--- NOTE | 2017-03-07 15:17 | General Progress Note ---
Assessment/Plan Assessment/Plan 1. LUE dialysis shunt infection due to Strep 2. renal failure on HD 3. HTN 4. schizoaffective d/o 5. coronary artery disease. 6. chronic obstructive pulmonary disease. 7. Anemia, most likely of renal disease. 8. Seizure d/o no vegetation on echo 4 weeks total in [facility] for possible strep endocarditis BP high, rx clonidine upset about d/c clonopin (due to sedation); restart at lower dose New subclavian PermCath in place, dialyzed yesterday snf Subjective Allergies: Coded Allergies: No Known Allergies (Unverified , 02/28/17) Objective Last 24 Hour Vital Signs Date Time Temp Pulse Resp B/P (MAP) Pulse Ox O2 Delivery O2 Flow Rate FiO2 03/07/17 14:44 185/105 03/07/17 12:44 174/107 03/07/17 12:07 97.9 105 20 174/107 95 Nasal Cannula 2.0 03/07/17 08:47 164/92 03/07/17 08:26 98.1 106 20 164/92 95 Nasal Cannula 2.0 03/07/17 08:12 Room Air 03/07/17 08:12 95 Room Air 03/07/17 08:11 113 20 Room Air 03/07/17 05:18 151/84 03/07/17 04:00 97.7 99 20 151/84 98 Nasal Cannula 2.0 03/07/17 00:26 97.8 100 20 140/81 97 Room Air 03/06/17 20:54 72 18 Room Air 03/06/17 20:54 94 Nasal Cannula 2.0 03/06/17 20:54 Nasal Cannula 2.0 28 03/06/17 20:44 106/58 03/06/17 20:00 97.7 96 18 177/95 98 Nasal Cannula 2.0 03/06/17 16:07 Nasal Cannula 2.0 03/06/17 15:31 98.2 59 20 106/58 99 Nasal Cannula 2.0 Intake and Output 03/07/17 03/08/17 19:00 07:00 Intake Total 240 ml Output Total 0 ml Balance 240 ml Intake Oral 240 ml Output Urine Total 0 ml # Bowel Movements 1 Laboratory Tests 03/07/17 06:10: White Blood Count 8.1, Red Blood Count 2.72L, Hemoglobin 7.1L, Hematocrit 23.7L , Mean Corpuscular Volume 87, Mean Corpuscular Hemoglobin 26.3L, Mean Corpuscular Hemoglobin Concent 30.2L, Red Cell Distribution Width 14.3, Platelet Count 206, Mean Platelet Volume 8.0, Neutrophils (%) (Auto) , Lymphocytes (%) (Auto) , Monocytes (%) (Auto) , Eosinophils (%) (Auto) , Basophils (%) (Auto) , Differential Total Cells Counted 100, Neutrophils % ( Manual) 73, Lymphocytes % (Manual) 22, Monocytes % (Manual) 4, Eosinophils % ( Manual) 1, Basophils % (Manual) 0, Band Neutrophils 0, Nucleated Red Blood Cells 2, Platelet Estimate Adequate, Platelet Morphology Normal, Hypochromasia 1 +, Anisocytosis 1+, Target Cells 1+, Tear Drop Cells 1+, Heri Cells 1+, Schistocytes 1+, Sodium Level 134L, Potassium Level 4.4, Chloride Level 92L, Carbon Dioxide Level 25, Anion Gap 17H, Blood Urea Nitrogen 68#H, Creatinine 8.0H, Estimat Glomerular Filtration Rate 6.1, Glucose Level 71L, Calcium Level 8.0L Height (Feet): 5 Height (Inches): 7.00 Weight (Pounds): 146 AUGIE CAREY Mar 07, 2017 15:17
--- NOTE | 2017-03-08 09:30 | Discharge Summary ---
Discharge Summary Hospital Course Date of Admission Mar 02, 2017 at 20:54 Date of Discharge Mar 07, 2017 at 15:46 Admitting Diagnosis dialysis port infection HPI Syeda Golden is a 66 year old female who was admitted on Mar 02, 2017 at 20:54 for Dialysis Port Infection Hospital Course [id number] Discharge Discharge Disposition Patient was discharged to [facility] (04) Discharge Diagnoses: Diamante Motta NP Mar 08, 2017 09:30
--- NOTE | 2017-03-08 17:00 | Discharge Summary 2 SIG ---
DATE OF ADMISSION: 03/02/2017 DATE OF DISCHARGE: 03/07/2017 CONSULTANTS: 1. Radha Torres M.D. 2. Juanita Jones M.D. 3. Hardy Hurtado M.D. BRIEF HOSPITAL COURSE: The patient is a 66-year-old female with history of end-stage renal disease, on hemodialysis, presented to ED for evaluation of left arm with AV shunt that is warm, red, and tender to touch. The patient did not get hemodialysis done secondary to possible infection on the dialysis shunt. She denied fever. On evaluation, there was no leukocytosis; however, hemoglobin was 7.2 and hematocrit was 23. Creatinine was 10.2. She was admitted to medical floor and underwent placement of non-tunneled right femoral vein hemodialysis catheter. Dr. Jones was consulted. Dialysis was ordered. She was also given epogen. She was seen by Dr. Torres and was given vancomycin and cefepime while awaiting culture results. She was seen by Dr. Hurtado and on assessment, the left upper arm autogenous basilic vein transposition AV fistula with central vein stenosis/pulsatile thrill and superficial skin blister from the access site. It was a malfunctioning shunt with no clinical evidence of infection. No artificial graft. She was recommended to have removal of femoral Melvin and to rest the left arm AV shunt for 4 weeks for skin blisters to heal. She was advised need to follow up as outpatient for a fistulogram prior to shunt use. On 03/04/2017, she underwent placement of Perm-A-Cath catheter through the right internal jugular vein. Blood cultures showed growth of alpha hemolytic strep with possible endocarditis. A transthoracic echocardiogram was done and did not show any vegetation; however, the patient will still need a total of 4 weeks of IV vancomycin for possible strep endocarditis. New subclavian Perm-A-Cath catheter was in place and was dialyzed. She was eventually discharged to a SNF to continue antibiotic treatment. FINAL DIAGNOSES: 1. Left upper extremity dialysis shunt infection due to streptococcus. 2. End-stage renal failure, on hemodialysis. 3. Hypertension. 4. Schizoaffective disorder. 5. Coronary artery disease. 6. Chronic obstructive pulmonary disease. 7. Anemia, most likely of renal disease. The patient was given Epogen. 8. Seizure disorder. DISPOSITION: The patient was discharged to [facility]. DISCHARGE MEDICATIONS: Refer to medication list. FOLLOW-UP: The patient will need to follow up with vascular surgeon in 4 weeks. Continue with outpatient hemodialysis using right chest PermCath. Continue IV antibiotic for 4 weeks. Angel Ware M.D. I have been assigned to dictate discharge summary on this account and I was not involved in the patient's management. Diamante Motta N.P. DR: MARIAM JOB#: [id number] CC: TIFF
--- NOTE | 2017-03-12 00:45 | Consultation ---
DATE OF CONSULTATION: 03/04/2017 VASCULAR SURGERY CONSULTATION CONSULTING PHYSICIAN: Hardy Hurtado M.D. REFERRING PHYSICIANS: 1. Angel Ware M.D. 2. Juanita Jones M.D. REASON FOR EVALUATION: Left arm AV shunt evaluation. History of Present Illness: The patient is a 66-year-old who suffers from schizophrenia, hypertension, and end-stage renal failure, on hemodialysis. The patient has a left upper arm basilic vein transposition AV fistula placed, which has been functional. The patient had developed some blister formation, superficial, with some erythema. Vascular Surgery is consulted for further evaluation. The patient currently has no other complaint. Past Medical History: As above, history of left basilic vein AV fistula transposition, seizure disorder, noncompliance, anemia, COPD, coronary artery disease, and end-stage renal failure, on hemodialysis. MEDICATIONS: See attached MAR. ALLERGIES: No known drug allergies. Social History: Smoker. Denies use of drugs or alcohol abuse. shelter resident. FAMILY HISTORY: Unremarkable. SYSTEMIC REVIEW: CARDIOVASCULAR: No history of chest pain or palpitations. PULMONARY: No cough. No hemoptysis. Gastrointestinal: No history of abdominal pain, constipation, or diarrhea. GENITOURINARY: No urinary symptoms. NEUROLOGICAL: No history of stroke or seizures. PHYSICAL EXAMINATION: Vital Signs: The patient is afebrile at 97, heart rate is 80, blood pressure 140/70, and respirations 16. LUNGS: Clear to auscultation. HEART: Regular rate and rhythm. ABDOMEN: Soft and nontender. Extremities: The patient has a palpable left upper arm basilic vein transposition AV fistula. It is pulsatile. There is superficial skin abrasions with no drainage or hematoma with an autogenous basilic vein fistula. Hand is warm, intact radial pulse. She has palpable femoral pulses. Feet are warm. Intact pedal Dopplers bilaterally. IMPRESSION: 1. Patent pulsatile left basilic vein transposition arteriovenous fistula, pulsatile, malfunctioning, rule out arterial stenosis. 2. History of sepsis. 3. Hypertension. 4. Schizophrenic affective disorder. 5. Coronary artery disease. 6. Chronic obstructive pulmonary disorder. 7. Anemia. 8. Seizure disorder. Plan and Recommendation: We will obtain left arm AV shunt duplex, antibiotics per Infectious Diseases service. The patient's AV shunt needs to be rested. Continue dialysis through a tunneled PermCath for about 4 to 6 weeks, and once the blisters have healed, we will schedule the patient for outpatient fistulogram to assist outflow shunt and for intervention. Hardy Hurtado M.D. DR: OBEY JOB#: [id number] CC: Angel Ware M.D.; Fax#: [phone] Jones M.D. ; Fax#: [phone] Torres M.D.; Fax#: [phone] Hurtado M.D.; Fax#: [phone]
== END 2017-03-07 15:46 | DRG 466 ==
LOC: EMR 22:03 → OBSVTOIN 22:20 → INTOOBSV 22:20 → 4E 22:20 → UNDOADMOB 22:20 → EDBEDREQ 23:16 → 4E 03-01 01:20 → OBSVTOIN 03-02 20:54 → 4E 03-02 20:54
PROC: 06HM33Z Insertion of Infusion Device into Right Femoral Vein, Percutaneous Approach (ICD-10-PCS; 2017-03-02)
PROC: 05HM33Z Insertion of Infusion Device into Right Internal Jugular Vein, Percutaneous Approach (ICD-10-PCS; principal; 2017-03-04)
PROC: 5A1D00Z (ICD-10-PCS; 2017-03-06)
DX: T82.7XXA Infection and inflammatory reaction due to other cardiac and vascular devices, implants and grafts, initial encounter (principal); N18.6 End stage renal disease; I33.0 Acute and subacute infective endocarditis; I12.0 Hypertensive chronic kidney disease with stage 5 chronic kidney disease or end stage renal disease; T82.898A Other specified complication of vascular prosthetic devices, implants and grafts, initial encounter; Y83.8 Other surgical procedures as the cause of abnormal reaction of the patient, or of later complication, without mention of misadventure at the time of the procedure; E11.40 Type 2 diabetes mellitus with diabetic neuropathy, unspecified; I50.9 Heart failure, unspecified; I25.10 Atherosclerotic heart disease of native coronary artery without angina pectoris; I25.2 Old myocardial infarction; F25.9 Schizoaffective disorder, unspecified; J44.9 Chronic obstructive pulmonary disease, unspecified; G89.4 Chronic pain syndrome; D63.1 Anemia in chronic kidney disease; Z79.891 Long term (current) use of opiate analgesic; F17.200 Nicotine dependence, unspecified, uncomplicated; E78.5 Hyperlipidemia, unspecified; Z86.73 Personal history of transient ischemic attack (TIA), and cerebral infarction without residual deficits; R56.9 Unspecified convulsions; B95.5 Unspecified streptococcus as the cause of diseases classified elsewhere
CPT/HCPCS: 36415; 36569; 36591; 36600; 71010; 76000; 76937; 80048; 80053; 80202; 82550; 82553; 82728; 82803; 82962; 83540; 83550; 83605; 84484; 85007; 85025; 85610; 85730; 87040; 87181; 93005; 93306; 93926; 93971; 94664; 94760; 96365; 96523; 99285; G0379

== ENCOUNTER 2017-09-10 14:37 | Inpatient (IN) | payer MEDICARE, OTHER ==
[~2017-09-10] VITALS: Ht 177.8 cm; Wt 63.5 kg
[~2017-09-10 14:37] MED LIST changes: +APRESOLINE50 MG ORAL; +ASPIRIN81 MG ORAL; +ATORVASTATIN CA20 MG ORAL; +CLONAZEPAM2 MG PO; +CLONIDINE HCL0.1 MG PO; +DOXAZOSIN MESYLA1 MG ORAL; +HEPARIN SO5000 UNIT2 SUBQ; +NORCO 5-325 TA1 EAC1 ORAL; +RENA-VITE RX T1 EAC1 PO; +VANCOCIN250 MG ORAL; +VANCOMYCIN1 GM/2502 IVPB; +ZOFRAN4 M1 ORAL
--- NOTE | 2017-09-10 14:54 | Emergency Room Report ---
History of Present Illness General Chief Complaint: Generalized Weakness Source: Patient Present Illness HPI Patient is 66-year-old female brought in by EMS after increased generalized weakness and hypotension. Patient prior history of renal disease as well as diabetes. She states that she was dialyzed yesterday. The patient is noted to be hypotensive by EMS. She reports taking methadone regularly.The patient presented increased vomiting as well as diarrhea. She denies any black or bloody stools. Allergies: Coded Allergies: No Known Allergies (Unverified , 02/28/17) Patient History Past Medical History: see triage record Last Menstrual Period: unk Now: No Reviewed Nursing Documentation: PMH: Agreed, PSxH: Agreed Nursing Documentation-PMH Hx Hypertension: Yes - encephalopathy Hx Asthma: Yes Hx COPD: Yes Hx Diabetes: Yes Hx Cancer: No Hx Gastrointestinal Problems: Yes Hx Dialysis: Yes - ESRD (MWF) History Of Psychiatric Problem: Yes - schizophrenia Hx Neurological Problems: Yes - metabolic encephalopathy Hx Cerebrovascular Accident: Yes Hx Seizures: Yes Physical Exam Vital Signs Date Time Temp Pulse Resp B/P (MAP) Pulse Ox O2 Delivery O2 Flow Rate FiO2 09/10/17 14:27 107 16 89/51 99 Room Air Medical Decision Making Diagnostic Impression: Primary Impression: ESRD (end stage renal disease) on dialysis Additional Impression: Lung mass ER Course Patient presented for generalized weakness. Differential diagnosis included was not limited to anemia, urinary tract infection, electrolyte abnormality, hypothyroidism, myocardial infarction, myasthenia gravis, dehydration, among others. Because of complexity of patient's case laboratory testing and imaging studies were ordered.The laboratory testing showed mildly elevated white blood count. Patient was noted to have some improvement in blood pressure after IV fluids The patient was noted to have a large left lung mass this anatomy. This did not appear to be present on prior imaging studies. Dr. Facundo Waller was contacted for inpatient management. Labs Test 09/10/17 17:35 09/10/17 18:50 White Blood Count 12.1 K/UL (4.8-10.8) Red Blood Count 3.66 M/UL (4.20-5.40) Hemoglobin 9.7 G/DL (12.0-16.0) Hematocrit 31.1 % (37.0-47.0) Mean Corpuscular Volume 85 FL (80-99) Mean Corpuscular Hemoglobin 26.5 PG (27.0-31.0) Mean Corpuscular Hemoglobin Concent 31.2 G/DL (32.0-36.0) Red Cell Distribution Width 16.8 % (11.6-14.8) Platelet Count 300 K/UL (150-450) Mean Platelet Volume 6.0 FL (6.5-10.1) Neutrophils (%) (Auto) 77.0 % (45.0-75.0) Lymphocytes (%) (Auto) 13.5 % (20.0-45.0) Monocytes (%) (Auto) 8.1 % (1.0-10.0) Eosinophils (%) (Auto) 0.3 % (0.0-3.0) Basophils (%) (Auto) 1.0 % (0.0-2.0) Prothrombin Time 12.3 SEC (9.30-11.50) Prothromb Time International Ratio 1.2 (0.9-1.1) Activated Partial Thromboplast Time 34 SEC (23-33) Sodium Level 139 MMOL/L (136-145) Potassium Level 3.9 MMOL/L (3.5-5.1) Chloride Level 100 MMOL/L (98-107) Carbon Dioxide Level 27 MMOL/L (21-32) Anion Gap 12 mmol/L (5-15) Blood Urea Nitrogen 30 mg/dL (7-18) Creatinine 5.8 MG/DL (0.55-1.30) Estimat Glomerular Filtration Rate 8.8 mL/min (>60) Glucose Level 70 MG/DL (74-106) Lactic Acid Level 0.80 mmol/L (0.66-2.22) Calcium Level 5.7 MG/DL (8.5-10.1) Phosphorus Level 4.3 MG/DL (2.5-4.9) Magnesium Level 2.0 MG/DL (1.8-2.4) Total Bilirubin 0.3 MG/DL (0.2-1.0) Aspartate Amino Transf (AST/SGOT) 33 U/L (15-37) Alanine Aminotransferase (ALT/SGPT) 12 U/L (12-78) Alkaline Phosphatase 99 U/L (46-116) Total Creatine Kinase 49 U/L (26-308) Creatine Kinase MB 0.8 NG/ML (0.0-3.6) Creatine Kinase MB Relative Index 1.6 Troponin I 0.054 ng/mL (0.000-0.056) Pro-B-Type Natriuretic Peptide 49984 pg/mL (0-125) Total Protein 7.5 G/DL (6.4-8.2) Albumin 1.9 G/DL (3.4-5.0) Globulin 5.6 g/dL Albumin/Globulin Ratio 0.3 (1.0-2.7) Lipase 262 U/L (73-393) EKG Diagnostic Results Rate: normal - 106 Rhythm: NSR ST Segments: no acute changes Chest X-Ray Diagnostic Results Chest X-Ray Diagnostic Results : Chest X-Ray Ordered: Yes # of Views/Limited/Complete: 1 View Indication: Shortness of Breath EP Interpretation: No Impression: Other - left left perihilar mass Last Vital Signs Date Time Temp Pulse Resp B/P (MAP) Pulse Ox O2 Delivery O2 Flow Rate FiO2 09/10/17 14:27 107 16 89/51 99 Room Air Status: improved Disposition: ADMITTED INPATIENT Condition: Serious Pablo Rodriguez Sep 10, 2017 14:54
[2017-09-10] MEDS ORDERED: RENVELA0.8 GM ORAL (15:17)
[2017-09-10] MEDS ORDERED: AMLODIPINE BES2.5 MG ORAL (15:19)
[2017-09-10] MEDS ORDERED: VITAMIN D1000 UNI1 ORAL (15:21)
--- NOTE | 2017-09-10 15:59 | Diagnostic Imaging Report ---
Indication: Shortness of breath Technique: One view of the chest Comparison: 03/07/2017 Findings: Interim development of masslike opacity in the left hilar region measuring approximately 9 x 6 cm, not evident on the prior study. Chronic appearing interstitial prominence is again demonstrated bilaterally. Previously demonstrated tunneled dialysis catheter is no longer present. There is marked thoracic scoliotic deformity. The pleural spaces are clear. The aorta is tortuous and calcified. Surgical clips are seen in the upper abdomen to the right of midline Impression: 9 x 6 cm masslike opacity in the left hilar region. New since 03/07/2017. Main differential considerations include rapidly growing neoplasm versus infiltrate. Diffuse interstitial disease, suspect chronic but acute interstitial edema also possible
[2017-09-10 16:45] VITALS: BP 108/58
[2017-09-10 18:01] LABS: EOSINOPHILS % (AUTO) 0.3 % (0.0-3.0); HEMATOCRIT 31.1 % (37.0-47.0); HEMOGLOBIN 9.7 G/DL (12.0-16.0); LYMPHOCYTES % (AUTO) 13.5 % (20.0-45.0); MEAN CORPUSCULAR VOLUME 85 FL (80-99); MONOCYTES % (AUTO) 8.1 % (1.0-10.0); PLATELET COUNT 300 K/UL (150-450); RED BLOOD COUNT 3.66 M/UL (4.20-5.40); RED CELL DISTRIBUTION WIDTH 16.8 % (11.6-14.8); WHITE BLOOD COUNT 12.1 K/UL (4.8-10.8)
[2017-09-10 18:12] LABS: INR 1.2 (0.9-1.1)
[2017-09-10 18:32] LABS: ALANINE AMINOTRANSFERASE 12 U/L (12-78); ALBUMIN 1.9 G/DL (3.4-5.0); ALBUMIN/GLOBULIN RATIO 0.3 (1.0-2.7); ALKALINE PHOSPHATASE 99 U/L (46-116); ANION GAP 12 mmol/L (5-15); ASPARTATE AMINO TRANSFERASE 33 U/L (15-37); BILIRUBIN,TOTAL 0.3 MG/DL (0.2-1.0); BLOOD UREA NITROGEN 30 mg/dL (7-18); CARBON DIOXIDE 27 MMOL/L (21-32); CHLORIDE 100 MMOL/L (98-107); CKMB 0.8 NG/ML (0.0-3.6); CREATINE KINASE 49 U/L (26-308); CREATININE 5.8 MG/DL (0.55-1.30); PHOSPHORUS 4.3 MG/DL (2.5-4.9); POTASSIUM 3.9 MMOL/L (3.5-5.1); SODIUM 139 MMOL/L (136-145)
[2017-09-10 18:34] LABS: CALCIUM 5.7 MG/DL (8.5-10.1)
[2017-09-10 19:04] VITALS: BP 109/58
[2017-09-10] MEDS ORDERED: Albuterol/Ipratropium 3ml neb HHN PRN (19:30)
[2017-09-10] MEDS ORDERED: Miralax 17gm pkt ORAL PRN (19:30)
[2017-09-10 20:15] VITALS: BP 105/57
[2017-09-10 20:21] VITALS: BP 105/53
[2017-09-10] MEDS: Heparin 5000 units/ml inj SUBQ SCH (21:19)
[2017-09-11] VITALS (7 sets, daily range): BP systolic 91–136; BP diastolic 61–79
[2017-09-11] MEDS: Morphine Sulfate 2mg/ml Inj IVP PRN ×3 (00:19→18:17)
[2017-09-11] MEDS: Renvela 800mg Pkt ORAL SCH ×3 (08:41→18:17)
[2017-09-11] MEDS: Heparin 5000 units/ml inj SUBQ SCH ×2 (08:42→20:46)
[2017-09-11 08:50] LABS: EOSINOPHILS % (AUTO) 0.5 % (0.0-3.0); HEMATOCRIT 27.9 % (37.0-47.0); HEMOGLOBIN 8.6 G/DL (12.0-16.0); LYMPHOCYTES % (AUTO) 16.2 % (20.0-45.0); MEAN CORPUSCULAR VOLUME 86 FL (80-99); MONOCYTES % (AUTO) 7.5 % (1.0-10.0); NEUTROPHILS % (AUTO) 74.8 % (45.0-75.0); PLATELET COUNT 273 K/UL (150-450); RED BLOOD COUNT 3.24 M/UL (4.20-5.40); WHITE BLOOD COUNT 10.1 K/UL (4.8-10.8)
[2017-09-11 08:53] LABS: ALBUMIN 1.7 G/DL (3.4-5.0); ANION GAP 15 mmol/L (5-15); BLOOD UREA NITROGEN 35 mg/dL (7-18); CARBON DIOXIDE 24 MMOL/L (21-32); CHLORIDE 98 MMOL/L (98-107); CREATININE 6.6 MG/DL (0.55-1.30); PHOSPHORUS 4.3 MG/DL (2.5-4.9); POTASSIUM 4.2 MMOL/L (3.5-5.1); SODIUM 136 MMOL/L (136-145)
[2017-09-11 09:50] LABS: CALCIUM 5.9 MG/DL (8.5-10.1)
[2017-09-11] MEDS: NovoLOG Insulin Flexpen SUBQ SCH ×3 (11:30→21:00)
--- NOTE | 2017-09-11 12:38 | Consultation ---
History of Present Illness General Date patient seen: Sep 11, 2017 Time patient seen: 12:26 Chief Complaint: Generalized Weakness Present Illness HPI 66 y/o F with hx of Asthma/COPD, DM2, HTN, ESRD on HD, opoid dependency on methadone, schizophrenia, CVA, seizure disorder presents to ED On 09/10 with increased generalized weakness, hypotension. She got HD day prior to admission. Also reported vomiting and diarrhea. Patient reported recent abx use. In ED BP 89/51, responded to IVFs. Afebrile. Mild leukocytosis to 12 now resolved.. CXR showed Left lung mass. Denies melena, f/c. Allergies: Coded Allergies: No Known Allergies (Unverified , 02/28/17) Medication History Scheduled Amlodipine Besylate* (Amlodipine Besylate*), 2.5 MG ORAL QHS, (Reported) Aspirin* (Aspirin*), 81 MG ORAL DAILY, (Reported) Atorvastatin Calcium* (Atorvastatin Calcium*), 20 MG ORAL BEDTIME, (Reported) Carvedilol (Coreg), Unknown Dose ORAL EVERY 12 HOURS, (Reported) Carvedilol (Coreg), 3.125 MG ORAL QPM, (Reported) Cholecalciferol (Vitamin D3)* (Vitamin D*), 2,000 UNITS ORAL DAILY, (Reported) Clonazepam (Clonazepam), 2 MG PO Q8HR, (Reported) Clonidine Hcl (Clonidine Hcl), 0.1 MG PO QPM, (Reported) Docusate Sodium (Dulcolax Stool Softener), 10 MG RC PRN, (Reported) Docusate Sodium* (Colace*), 100 MG ORAL DAILY, (Reported) Doxazosin Mesylate* (Cardura*), 1 MG ORAL QHS, (Reported) Doxazosin Mesylate* (Doxazosin Mesylate*), 1 MG ORAL QPM, (Reported) Gabapentin* (Gabapentin*), 300 MG ORAL THREE TIMES A DAY, (Reported) Heparin Sod (Porcine) (Heparin Sodium*), 5,000 UNITS SUBQ EVERY 12 HOURS, ( Reported) Hydralazine HCl (Hydralazine HCl), 50 MG ORAL TID, (Reported) Hydralazine Hcl* (Hydralazine Hcl*), 25 MG ORAL DAILY, (Reported) Losartan Potassium* (Cozaar*), 100 MG ORAL DAILY, (Reported) Magnesium Hydroxide* (Milk Of Magnesia*), 30 ML ORAL PRN, (Reported) Methadone Hcl* (Methadone*), Unknown Dose PO DAILY, (Reported) Methadone Hcl* (Methadone*), 40 MG PO DAILY, (Reported) Quetiapine Fumarate* (Seroquel*), Unknown Dose ORAL DAILY, (Reported) Quetiapine Fumarate* (Seroquel*), 25 MG ORAL QHS, (Reported) Sertraline Hcl* (Zoloft*), Unknown Dose ORAL DAILY, (Reported) Sevelamer Carbonate* (Renvela*), 800 MG ORAL THREE TIMES A DAY, (Reported) Vancomycin HCl (Vancocin HCl), 1 MG ORAL QID, (Reported) Vancomycin Hcl/D5w (Vancomycin-D5w 1 G/250 Ml), 1 GM IVPB 3XW, (Reported) Vit B Cmplx 3/Fa/Vit C/Biotin (Petra-Perri Rx Tablet), 1 EACH PO BEDTIME, ( Reported) Vitamin D (Vitamin D3), 1,000 UNITS ORAL DAILY, (Reported) Scheduled PRN Acetaminophen (Tylenol), 325 MG ORAL Q4HR PRN for Prn Pain/Headache/Temp > 101, (Reported) Albuterol Sulfate* (Albuterol Sulfate Hhn*), Unknown Dose INH Q4H PRN for Shortness of Breath, (Reported) Hydrocodone Bit/Acetaminophen 5-325* ([place] 5-325 Tablet*), 1 TAB ORAL Q6HR PRN for Moderate Pain (Pain Scale 4-6), (Reported) Ondansetron (Zofran), 4 MG ORAL Q6H PRN for Nausea & Vomiting, (Reported) Tramadol Hcl* (Ultram*), Unknown Dose ORAL Q6H PRN for For Pain, (Reported) Miscellaneous Medications Amino Acids/Protein Hydrolys (Proteinex-18 Liquid), 30 ML PO, (Reported) Clonidine HCl (Clonidine HCl ER), Unknown Dose PO, (Reported) Folic Acid/Vit Bcomp,C (Renal-Perri Tablet), 0.8 MG PO, (Reported) Patient History Healthcare decision maker Resuscitation status Full Code Advanced Directive on File No Patient History Narrative Pmhx : as above Shx: reviewed Fhx: Non contributory Review of Systems All Other Systems: negative except mentioned in HPI Physical Exam Physical Exam Narrative General Appearance: no apparent distress, alert, non-toxic HEENT:normocephalic, atraumatic, PERRL, normal pharynx Neck: full range of motion, supple/symm/no masses Respiratory: chest non-tender, speaking full sentences, wheezing Cardiovascular : regular rate, rhythm, no edema Gastrointestinal: normal bowel sounds, non tender, soft, non-distended, no guarding, no rebound Genitourinary: normal inspection, no CVA tenderness Musculoskeletal: back normal, gait/station normal, normal range of motion, non- tender Neurologic: alert, oriented x3, responsive Skin: normal color, no rash, warm/dry, well hydrated Last 24 Hour Vital Signs Date Time Temp Pulse Resp B/P (MAP) Pulse Ox O2 Delivery O2 Flow Rate FiO2 09/11/17 08:00 108 09/11/17 08:00 98.0 115 20 103/61 95 Nasal Cannula 2.0 98.0 09/11/17 07:40 Nasal Cannula 2.0 28 09/11/17 07:40 98 Nasal Cannula 2.0 28 09/11/17 07:40 81 18 Nasal Cannula 2.0 28 09/11/17 04:00 98.6 109 18 91/63 99 Nasal Cannula 2.0 98.6 09/11/17 03:51 107 09/11/17 00:23 104 09/11/17 00:00 98.4 105 20 94/63 98 Nasal Cannula 2.0 98.4 09/10/17 20:21 98.1 107 17 105/53 97 Nasal Cannula 2.0 98.1 09/10/17 20:15 107 17 105/57 97 Nasal Cannula 2.0 09/10/17 20:15 107 17 105/57 97 Nasal Cannula 2.0 09/10/17 19:04 109 17 109/58 98 Nasal Cannula 2.0 09/10/17 16:45 108 14 108/58 98 Nasal Cannula 2.0 09/10/17 14:27 107 16 89/51 99 Room Air Intake and Output 09/10/17 09/11/17 19:00 07:00 Intake Total 1000 ml 200 ml Balance 1000 ml 200 ml Intake Oral 200 ml IV Total 1000 ml # Bowel Movements 1 3 Laboratory Tests Test 09/10/17 17:35 09/10/17 18:50 09/11/17 06:12 White Blood Count 12.1 K/UL (4.8-10.8) H 10.1 K/UL (4.8-10.8) Red Blood Count 3.66 M/UL (4.20-5.40) L 3.24 M/UL (4.20-5.40) L Hemoglobin 9.7 G/DL (12.0-16.0) L 8.6 G/DL (12.0-16.0) L Hematocrit 31.1 % (37.0-47.0) L 27.9 % (37.0-47.0) L Mean Corpuscular Volume 85 FL (80-99) 86 FL (80-99) Mean Corpuscular Hemoglobin 26.5 PG (27.0-31.0) L 26.5 PG (27.0-31.0) L Mean Corpuscular Hemoglobin Concent 31.2 G/DL (32.0-36.0) L 30.9 G/DL (32.0-36.0) L Red Cell Distribution Width 16.8 % (11.6-14.8) H 17.0 % (11.6-14.8) H Platelet Count 300 K/UL (150-450) 273 K/UL (150-450) Mean Platelet Volume 6.0 FL (6.5-10.1) L 6.0 FL (6.5-10.1) L Neutrophils (%) (Auto) 77.0 % (45.0-75.0) H 74.8 % (45.0-75.0) Lymphocytes (%) (Auto) 13.5 % (20.0-45.0) L 16.2 % (20.0-45.0) L Monocytes (%) (Auto) 8.1 % (1.0-10.0) 7.5 % (1.0-10.0) Eosinophils (%) (Auto) 0.3 % (0.0-3.0) 0.5 % (0.0-3.0) Basophils (%) (Auto) 1.0 % (0.0-2.0) 1.0 % (0.0-2.0) Prothrombin Time 12.3 SEC (9.30-11.50) H Prothromb Time International Ratio 1.2 (0.9-1.1) H Activated Partial Thromboplast Time 34 SEC (23-33) H Sodium Level 139 MMOL/L (136-145) 136 MMOL/L (136-145) Potassium Level 3.9 MMOL/L (3.5-5.1) 4.2 MMOL/L (3.5-5.1) Chloride Level 100 MMOL/L (98-107) 98 MMOL/L (98-107) Carbon Dioxide Level 27 MMOL/L (21-32) 24 MMOL/L (21-32) Anion Gap 12 mmol/L (5-15) 15 mmol/L (5-15) Blood Urea Nitrogen 30 mg/dL (7-18) H 35 mg/dL (7-18) H Creatinine 5.8 MG/DL (0.55-1.30) H 6.6 MG/DL (0.55-1.30) H Estimat Glomerular Filtration Rate 8.8 mL/min (>60) 7.5 mL/min (>60) Glucose Level 70 MG/DL (74-106) L 41 MG/DL (74-106) L Lactic Acid Level 0.80 mmol/L (0.66-2.22) Calcium Level 5.7 MG/DL (8.5-10.1) *L 5.9 MG/DL (8.5-10.1) *L Phosphorus Level 4.3 MG/DL (2.5-4.9) 4.3 MG/DL (2.5-4.9) Magnesium Level 2.0 MG/DL (1.8-2.4) Total Bilirubin 0.3 MG/DL (0.2-1.0) Aspartate Amino Transf (AST/SGOT) 33 U/L (15-37) Alanine Aminotransferase (ALT/SGPT) 12 U/L (12-78) Alkaline Phosphatase 99 U/L (46-116) Total Creatine Kinase 49 U/L (26-308) Creatine Kinase MB 0.8 NG/ML (0.0-3.6) Creatine Kinase MB Relative Index 1.6 Troponin I 0.054 ng/mL (0.000-0.056) 0.042 ng/mL (0.000-0.056) Pro-B-Type Natriuretic Peptide 93429 pg/mL (0-125) H Total Protein 7.5 G/DL (6.4-8.2) Albumin 1.9 G/DL (3.4-5.0) L 1.7 G/DL (3.4-5.0) L Globulin 5.6 g/dL Albumin/Globulin Ratio 0.3 (1.0-2.7) L Lipase 262 U/L (73-393) Urine Color Pending Urine Appearance Pending Urine pH Pending Urine Specific [place] Pending Urine Protein Pending Urine Glucose (UA) Pending Urine Ketones Pending Urine Occult Blood Pending Urine Nitrite Pending Urine Bilirubin Pending Urine Urobilinogen Pending Urine Leukocyte Esterase Pending Height (Feet): 5 Height (Inches): 10.00 Weight (Pounds): 140 Medications Current Medications Medications (Trade) Dose Ordered Sig/Winter Route PRN Reason Start Time Stop Time Status Last Admin Dose Admin Acetaminophen (Tylenol) 650 mg Q4H PRN ORAL Fever 09/10/17 19:30 10/10/17 19:29 09/10/17 21:18 Albuterol/ Ipratropium (Albuterol/ Ipratropium) 3 ml Q4H PRN HHN Shortness of Breath 09/10/17 19:30 09/15/17 19:29 Dextrose (Dextrose 50%) STAT PRN IV Hypoglycemia 09/11/17 09:15 10/11/17 09:14 Heparin Sodium (Porcine) (Heparin 5000 units/ml) 5,000 units EVERY 12 HOURS SUBQ 09/10/17 21:00 10/10/17 20:59 09/11/17 08:42 Insulin Aspart (NovoLOG) BEFORE MEALS AND HS SUBQ 09/11/17 11:30 10/11/17 11:29 Methadone HCl (Methadone HCl) 40 mg DAILY ORAL 09/11/17 10:00 09/18/17 09:59 09/11/17 10:05 Morphine Sulfate (Morphine Sulfate) 2 mg Q4H PRN IVP For Pain 09/11/17 00:00 09/18/17 00:00 09/11/17 05:25 Ondansetron HCl (Zofran) 4 mg Q6H PRN IVP Nausea & Vomiting 09/10/17 19:30 10/10/17 19:29 Polyethylene Glycol (Miralax) 17 gm DAILYPRN PRN ORAL Constipation 09/10/17 19:30 10/10/17 19:29 Quetiapine Fumarate (SEROquel) 25 mg QHS ORAL 09/10/17 21:00 10/10/17 20:59 09/10/17 21:18 Sevelamer Carbonate (Renvela) 800 mg THREE TIMES A DAY ORAL 09/11/17 09:00 10/11/17 08:59 09/11/17 12:10 Temazepam (Restoril) 15 mg HSPRN PRN ORAL Insomnia 09/10/17 19:30 09/17/17 19:29 Assessment/Plan Assessment/Plan Abx: None Assessment: Hypotension- improved with IVFs- ?2ry to V/D Diarrhea-r/o Cdiff, however per RN no episodes here Mild leukocytosis, resolved ?Lung mass -CXR: 9 x 6 cm masslike opacity in the left hilar region. New since 2016. Main differential considerations include rapidly growing neoplasm versus infiltrate. Diffuse interstitial disease, suspect chronic but acute interstitial edema also possible Asthma/COPD DM2 HTN ESRD on HD opoid dependency on methadone schizophrenia CVA seizure disorder Plan: -Continue to monitor to off abx unless febrile, HD unstable, recurrent leukocytosis and/or PNA on CT chest. -Check Cdiff if diarrhea -plan for CT chest to further evaluate CXR abnormality -f/u cx -Monitor CBC/BMP, temperatures Thank you for this consultation. Will continue to follow along with you. Discussed with TONEY. Portia Menjivar M.D. Sep 11, 2017 12:38
--- NOTE | 2017-09-11 14:32 | General Progress Note ---
Progress Note Progress Note [id number] full consult dictated CHARLENE FINN Sep 11, 2017 14:32
--- NOTE | 2017-09-11 14:34 | Cardiology Report ---
APPROVED REPORT EXAM: Two-dimensional and M-mode echocardiogram with Doppler and color Doppler. INDICATION LV function M-Mode DIMENSIONS IVSd1.7 (0.7-1.1cm)Left Atrium (MM)3.1 (1.6-4.0cm) LVDd4.6 (3.5-5.6cm)Aortic Root3.2 (2.0-3.7cm) PWd1.9 (0.7-1.1cm)Aortic Cusp Exc.1.2 (1.5-2.0cm) LVDs2.1 (2.5-4.0cm) PWs2.4 cm Study quality precludes accurate assessment of regional wall motion. Normal left ventricular chamber size, hyperdynamic systolic function and wall motion. Left ventricular ejection fraction estimated to be 70-75 %. Moderate left ventricular hypertrophy. No evidence of pericardial effusion. Moderate bi-atrial enlargement. Right ventricular chamber size is within normal limits. Aortic valve calcification with decreased cusp excursion c/w aortic stenosis. Moderately thickened mitral valve leaflets with normal excursion. Moderate mitral annulus and aortic root calcification. Pulmonic valve not well visualized. Normal tricuspid valve structure. Subcostal views not obtained. A color flow and spectral Doppler study was performed and revealed: Moderate aortic regurgitation. Peak aortic valve gradient of 46 mmHg and a mean of 33 mmHg. Aortic valve area 1.2 cm2 calculated by continuity equation suggestive of at least moderate aortic stenosis. Mild mitral regurgitation. Left ventricular diastolic function could not be determined due to A-Fib. Mild tricuspid regurgitation. Tricuspid systolic velocities suggests peak right ventricular systolic pressure of 46 mmHg, consistent with moderate pulmonary hypertension. No pulmonic regurgitation present.
--- NOTE | 2017-09-11 17:01 | Diagnostic Imaging Report ---
Clinical Indication: Left hilar mass demonstrated on recent chest radiograph Technique: Spiral acquisitions obtained through the chest. No IV contrast utilized, reason not stated. Multiplanar reconstructions generated. Total dose length product 525.09 mGycm. CTDIvol(s) 15.27 mGy. Dose reduction achieved using automated exposure control Comparison: Reference made to chest radiograph 09/10/2017 Findings: Large soft tissue mass extends from the left upper mediastinal border to the anterior and anterolateral chest wall. This measures 11 x 6.8 x 6 cm. There is a more medial mass extending into the left lung apex which may be separate but is continuous, measures approximately 2.4 x 3 x 4 cm. Minimal groundglass opacity and reticular opacity is seen in the left lung peripheral to the mass. A few small bullae are seen in the left lung apex. There is some pleural-parenchymal scarring in the left lung apex. There is a small left pleural effusion. There is compressive atelectasis of portions of the left lower lobe. There is a pleural-based mass in the anterolateral left hemithorax which measures approximately 12 x 9 mm and demonstrates fluid attenuation. Some atelectasis is seen in the right lower lobe. There is some pleural thickening in the posterior basilar right hemithorax. This appears to be associated with a rib fracture deformity. It is uncertain whether the second mass described above represents a parenchymal mass versus mediastinal adenopathy. There is questionably right paratracheal adenopathy, although is difficult to assess in the absence of IV contrast given the presence of ectatic right neck vessels. The esophagus is unremarkable. The heart size is normal. There is no pericardial effusion. The main pulmonary artery is dilated, measuring 45 mm in diameter There is an osteolytic lesion of the posterior lateral right first rib. There is a fracture deformity of indeterminate age but probably old of the anterolateral right sixth rib. As mentioned earlier, pleural thickening overlies an old fracture deformity of the posterolateral right eighth rib. There is scoliotic deformity and kyphotic deformity of the thoracic spine. No axillary or chest wall mass or adenopathy demonstrated. Limited views of the upper abdominal anatomy demonstrates surgical clips which are seen in the posterior right upper quadrant of the visualized abdomen. These may represent nephrectomy clips as a right kidney is not demonstrated. The left kidney appears atrophic and demonstrates multiple cysts. Impression: Large left upper lobe soft tissue mass measuring 11 x 6.8 x 6 cm. This is highly suspicious for pulmonary neoplasm More medial left upper hemithoracic mass noted, may reflect an extension of the above-mentioned lesion, versus a second lesion, versus mediastinal lymphadenopathy Osteolytic lesion of the right first rib. This is concerning for an osseous metastasis Small left pleural effusion. Compression atelectasis of portions of the left lower lobe 12 x 9 mm anterolateral left hemithoracic pleural based mass. Probably a small focal pleural fluid collection as this demonstrates fluid attenuation Evidence of bullous COPD Possible right paratracheal adenopathy versus ectatic neck vessels Markedly dilated main pulmonary artery, diagnostic for pulmonary arterial hypertension Thoracic scoliosis Evidence of right upper quadrant surgery, likely right nephrectomy. Correlate with clinical history and findings Atrophic left kidney with multiple cysts The CT scanner at [facility] is accredited by the [employer] and the scans are performed using protocols designed to limit radiation exposure to as low as reasonably achievable to attain images of sufficient resolution adequate for diagnostic evaluation.
[2017-09-11] MEDS: Epogen (for ESRD on dialysis) SUBQ SCH (20:47)
--- NOTE | 2017-09-11 20:55 | Cardiology Progress Note ---
Assessment/Plan Assessment/Plan The patient is seen and examined, full consult note will be dictated. Objective Last 24 Hour Vital Signs Date Time Temp Pulse Resp B/P (MAP) Pulse Ox O2 Delivery O2 Flow Rate FiO2 09/11/17 16:00 98.7 111 18 112/78 95 Nasal Cannula 2.0 98.7 09/11/17 16:00 112 09/11/17 12:00 99.0 114 18 100/69 100 Nasal Cannula 2.0 99.0 09/11/17 12:00 111 09/11/17 08:00 108 09/11/17 08:00 98.0 115 20 103/61 95 Nasal Cannula 2.0 98.0 09/11/17 07:40 Nasal Cannula 2.0 28 09/11/17 07:40 98 Nasal Cannula 2.0 28 09/11/17 07:40 81 18 Nasal Cannula 2.0 28 09/11/17 04:00 98.6 109 18 91/63 99 Nasal Cannula 2.0 98.6 09/11/17 03:51 107 09/11/17 00:23 104 09/11/17 00:00 98.4 105 20 94/63 98 Nasal Cannula 2.0 98.4 Intake and Output 09/10/17 09/11/17 19:00 07:00 Intake Total 1000 ml 200 ml Balance 1000 ml 200 ml Intake Oral 200 ml IV Total 1000 ml # Bowel Movements 1 3 Laboratory Tests Test 09/11/17 06:12 White Blood Count 10.1 K/UL (4.8-10.8) Red Blood Count 3.24 M/UL (4.20-5.40) L Hemoglobin 8.6 G/DL (12.0-16.0) L Hematocrit 27.9 % (37.0-47.0) L Mean Corpuscular Volume 86 FL (80-99) Mean Corpuscular Hemoglobin 26.5 PG (27.0-31.0) L Mean Corpuscular Hemoglobin Concent 30.9 G/DL (32.0-36.0) L Red Cell Distribution Width 17.0 % (11.6-14.8) H Platelet Count 273 K/UL (150-450) Mean Platelet Volume 6.0 FL (6.5-10.1) L Neutrophils (%) (Auto) 74.8 % (45.0-75.0) Lymphocytes (%) (Auto) 16.2 % (20.0-45.0) L Monocytes (%) (Auto) 7.5 % (1.0-10.0) Eosinophils (%) (Auto) 0.5 % (0.0-3.0) Basophils (%) (Auto) 1.0 % (0.0-2.0) Sodium Level 136 MMOL/L (136-145) Potassium Level 4.2 MMOL/L (3.5-5.1) Chloride Level 98 MMOL/L (98-107) Carbon Dioxide Level 24 MMOL/L (21-32) Anion Gap 15 mmol/L (5-15) Blood Urea Nitrogen 35 mg/dL (7-18) H Creatinine 6.6 MG/DL (0.55-1.30) H Estimat Glomerular Filtration Rate 7.5 mL/min (>60) Glucose Level 41 MG/DL (74-106) L Calcium Level 5.9 MG/DL (8.5-10.1) *L Calcium (Send out) Pending Phosphorus Level 4.3 MG/DL (2.5-4.9) Troponin I 0.042 ng/mL (0.000-0.056) Albumin 1.7 G/DL (3.4-5.0) L Parathyroid Hormone (Intact) Pending PREM BIGGS Sep 11, 2017 20:55
--- NOTE | 2017-09-11 23:01 | History and Physical Report ---
DATE OF ADMISSION: 09/10/2017 TIME: 3 p.m. CONSULTANTS: 1. Nicolasa Delgado M.D. 2. Jas Thompson M.D. 3. Juanita Jones M.D. 4. Rich Alicea M.D. CHIEF COMPLAINT: Low blood pressure after dialysis and shortness of breath. BRIEF HISTORY: The patient is a 66-year-old female who presents to [facility] last night after dialysis, being very short of breath, lethargic, had low blood pressure, diagnosed with the above, admitted to telemetry for further care. Currently, O2 NC, calm slightly weak in bed. No complaint. REVIEW OF SYSTEMS: No chest pain. Slight short of breath. No nausea, vomiting, diarrhea. PAST MEDICAL HISTORY: ESRD, hypothyroid, methadone use, and left lung mass. PAST SURGICAL HISTORY: Shunt. MEDICATIONS: Procrit, NovoLog, methadone, Renvela, Seroquel, heparin, albuterol, Tylenol, MiraLAX, Zofran, . ALLERGIES: Denies. SOCIAL HISTORY: Positive smoking. No alcohol. No intravenous drug abuse. FAMILY HISTORY: Noncontributory. PHYSICAL EXAMINATION: GENERAL: Calm in bed, oriented x2, in no acute distress, O2 NC in place. VITAL SIGNS: Temperature is 99, pulse 114, respiratory rate 18, blood pressure 100/69. CARDIOVASCULAR: No murmur. LUNGS: Poor air exchange. ABDOMEN: Bowel sounds distant. EXTREMITIES: Show no cyanosis, clubbing, or edema. NEUROLOGIC: The patient moves all extremities slightly weak. LABORATORY AND DIAGNOSTIC DATA: Labs at this time show white count initially 12 now 10, hemoglobin and hematocrit 8.6 and 27, platelets 273. BMP shows BUN and creatinine 39 and 6.6, calcium 5.9, glucose . INR is 1.2. Urinalysis is pending. ASSESSMENT: 1. ESRD. 2. Low blood pressure. 3. General weakness. 4. Anemia. 5. Hypothyroid. 6. Methadone. 7. Leukocytosis. 8. Left lung mass. PLAN: 1. Continue premedications. 2. O2 pulmonary treatment. 3. Antibiotics per Infectious diseases. 4. Blood pressure and blood sugar control. 5. Dialysis as needed. 6. We will continue to follow the patient. Facundo Waller D.O. DR: Kenan JOB#: [id number] CC:
[2017-09-12] VITALS (7 sets, daily range): BP systolic 102–127; BP diastolic 63–79
[2017-09-12] MEDS: NovoLOG Insulin Flexpen SUBQ SCH ×4 (06:30→20:32)
[2017-09-12] MEDS: Morphine Sulfate 2mg/ml Inj IVP PRN ×3 (06:53→19:37)
[2017-09-12 08:09] LABS: BASOPHILS % (AUTO) 0.7 % (0.0-2.0); EOSINOPHILS % (AUTO) 0.5 % (0.0-3.0); HEMATOCRIT 27.9 % (37.0-47.0); HEMOGLOBIN 8.5 G/DL (12.0-16.0); LYMPHOCYTES % (AUTO) 13.6 % (20.0-45.0); MEAN CORPUSCULAR VOLUME 87 FL (80-99); MONOCYTES % (AUTO) 8.4 % (1.0-10.0); NEUTROPHILS % (AUTO) 76.8 % (45.0-75.0); PLATELET COUNT 276 K/UL (150-450); RED BLOOD COUNT 3.22 M/UL (4.20-5.40); RED CELL DISTRIBUTION WIDTH 16.7 % (11.6-14.8); WHITE BLOOD COUNT 10.7 K/UL (4.8-10.8)
[2017-09-12] MEDS: Renvela 800mg Pkt ORAL SCH ×3 (08:19→17:10)
[2017-09-12] MEDS: Heparin 5000 units/ml inj SUBQ SCH ×2 (08:21→20:31)
[2017-09-12 08:26] LABS: ANION GAP 6 mmol/L (5-15); BLOOD UREA NITROGEN 22 mg/dL (7-18); CALCIUM 6.6 MG/DL (8.5-10.1); CARBON DIOXIDE 34 MMOL/L (21-32); CHLORIDE 94 MMOL/L (98-107); CREATININE 4.8 MG/DL (0.55-1.30); POTASSIUM 3.5 MMOL/L (3.5-5.1); SODIUM 134 MMOL/L (136-145)
--- NOTE | 2017-09-12 14:20 | Nephrology Progress Note ---
Assessment/Plan Assessment 1. ESRD 2.ANT 3.Anemia of CKD 4.Hypotension 5.hypocalcemia 6.malnutrition Plan plan dialysis in am continue epogen check vit d monitoring PTH and phos Subjective Constitutional: Reports: no symptoms HEENT: Reports: no symptoms Genitourinary: Reports: no symptoms 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: Reports: no symptoms Subjective alert and awake feeling better had dialysis yesterday Objective Objective Last 24 Hour Vital Signs Date Time Temp Pulse Resp B/P (MAP) Pulse Ox O2 Delivery O2 Flow Rate FiO2 09/12/17 12:00 122 09/12/17 12:00 97.8 122 18 113/79 97 Nasal Cannula 2.0 97.8 09/12/17 08:00 117 09/12/17 08:00 Nasal Cannula 2.0 28 09/12/17 08:00 98 Nasal Cannula 2.0 28 09/12/17 08:00 75 18 Nasal Cannula 2.0 28 09/12/17 08:00 97.9 118 19 120/74 98 Nasal Cannula 2.0 97.9 09/12/17 04:00 98.2 112 22 109/66 Nasal Cannula 3.0 98.2 09/12/17 04:00 108 09/12/17 01:32 Nasal Cannula 3.0 28 09/12/17 01:18 97.7 79 16 125/63 Nasal Cannula 3.0 97.7 09/12/17 01:00 Nasal Cannula 3.0 09/12/17 00:00 78 09/12/17 00:00 97.0 102 23 127/73 98 Nasal Cannula 2.0 97.0 09/11/17 21:17 Nasal Cannula 2.0 28 09/11/17 21:16 81 18 Nasal Cannula 2.0 28 09/11/17 21:16 97 Nasal Cannula 2.0 28 09/11/17 21:00 97.7 111 12 111/65 Nasal Cannula 3.0 97.7 09/11/17 21:00 Nasal Cannula 3.0 09/11/17 20:00 111 09/11/17 20:00 98.4 112 23 136/79 97 Nasal Cannula 2.0 98.4 09/11/17 16:00 98.7 111 18 112/78 95 Nasal Cannula 2.0 98.7 09/11/17 16:00 112 Intake and Output 09/11/17 09/12/17 19:00 07:00 Intake Total 300 ml 320 ml Output Total 0 ml Balance 300 ml 320 ml Intake Oral 300 ml Hemodialysis 320 ml Output Hemodialysis UF 0 ml Laboratory Tests 09/12/17 05:30: White Blood Count 10.7, Red Blood Count 3.22L, Hemoglobin 8.5L, Hematocrit 27.9L , Mean Corpuscular Volume 87, Mean Corpuscular Hemoglobin 26.4L, Mean Corpuscular Hemoglobin Concent 30.5L, Red Cell Distribution Width 16.7H, Platelet Count 276, Mean Platelet Volume 6.0L, Neutrophils (%) (Auto) 76.8H, Lymphocytes (%) (Auto) 13.6L, Monocytes (%) (Auto) 8.4, Eosinophils (%) (Auto) 0.5, Basophils (%) (Auto) 0.7, Sodium Level 134L, Potassium Level 3.5, Chloride Level 94L, Carbon Dioxide Level 34H, Anion Gap 6, Blood Urea Nitrogen 22H, Creatinine 4.8H, Estimat Glomerular Filtration Rate 11.0, Glucose Level 57L, Calcium Level 6.6L, Troponin I 0.026 Height (Feet): 5 Height (Inches): 10.00 Weight (Pounds): 140 Objective HEAD AND NECK: No JVP. No LAD. No thyromegaly. Extraocular movement intact. Pupils are reactive to light and accommodation. LUNGS: Clear to auscultation. CARDIAC: Regular rate and rhythm. S1 and S2. No murmur. No gallop. ABDOMEN: soft, nontender, nondistended. EXTREMITIES: No edema. No clubbing. No cyanosis. NEUROLOGIC: Cranial nerves II to XII within normal limits. Upper and lower extremities are grossly intact CHARLENE FINN Sep 12, 2017 14:20
--- NOTE | 2017-09-12 14:50 | Infectious Diseases Prog Note ---
Assessment/Plan Assessment/Plan Abx: None Assessment: Hypotension- improved with IVFs- ?2ry to V/D Diarrhea- per RN no episodes here -stool cx normal javier to date Mild leukocytosis, resolved ?Metastatic Lung Cancer -CT chest: Large left upper lobe soft tissue mass measuring 11 x 6.8 x 6 cm. This is highly suspicious for pulmonary neoplasm. More medial left upper hemithoracic mass noted, may reflect an extension of the above-mentioned lesion , versus a second lesion, versus mediastinal lymphadenopathy. Osteolytic lesion of the right first rib. This is concerning for an osseous metastasis. Small left pleural effusion. Compression atelectasis of portions of the left lower lobe. 12 x 9 mm anterolateral left hemithoracic pleural based mass. Probably a small focal pleural fluid collection as this demonstrates fluid attenuation. Evidence of bullous COPD. Possible right paratracheal adenopathy versus ectatic neck vessels. Markedly dilated main pulmonary artery, diagnostic for pulmonary arterial. hypertension -CXR: 9 x 6 cm masslike opacity in the left hilar region. New since 2016. Main differential considerations include rapidly growing neoplasm versus infiltrate. Diffuse interstitial disease, suspect chronic but acute interstitial edema also possible Cough/congestion- 2ry to above, possible post-obstructive PNA Asthma/COPD DM2 HTN ESRD on HD opoid dependency on methadone schizophrenia CVA seizure disorder Plan: -Start PO Augmentin #1/5 for possible post-obstructive PNA -Consider Heme onc eval for possible lung CA -f/u cx -Monitor CBC/BMP, temperatures -aspiration precautions Thank you for this consultation. Will continue to follow along with you. Discussed with RN. Subjective Allergies: Coded Allergies: No Known Allergies (Unverified , 02/28/17) Objective Vital Signs Last 24 Hour Vital Signs Date Time Temp Pulse Resp B/P (MAP) Pulse Ox O2 Delivery O2 Flow Rate FiO2 09/12/17 12:00 122 09/12/17 12:00 97.8 122 18 113/79 97 Nasal Cannula 2.0 97.8 09/12/17 08:00 117 09/12/17 08:00 Nasal Cannula 2.0 28 09/12/17 08:00 98 Nasal Cannula 2.0 28 09/12/17 08:00 75 18 Nasal Cannula 2.0 28 09/12/17 08:00 97.9 118 19 120/74 98 Nasal Cannula 2.0 97.9 09/12/17 04:00 98.2 112 22 109/66 Nasal Cannula 3.0 98.2 09/12/17 04:00 108 09/12/17 01:32 Nasal Cannula 3.0 28 09/12/17 01:18 97.7 79 16 125/63 Nasal Cannula 3.0 97.7 09/12/17 01:00 Nasal Cannula 3.0 09/12/17 00:00 78 09/12/17 00:00 97.0 102 23 127/73 98 Nasal Cannula 2.0 97.0 09/11/17 21:17 Nasal Cannula 2.0 28 09/11/17 21:16 81 18 Nasal Cannula 2.0 28 09/11/17 21:16 97 Nasal Cannula 2.0 28 09/11/17 21:00 97.7 111 12 111/65 Nasal Cannula 3.0 97.7 09/11/17 21:00 Nasal Cannula 3.0 09/11/17 20:00 111 09/11/17 20:00 98.4 112 23 136/79 97 Nasal Cannula 2.0 98.4 09/11/17 16:00 98.7 111 18 112/78 95 Nasal Cannula 2.0 98.7 09/11/17 16:00 112 Height (Feet): 5 Height (Inches): 10.00 Weight (Pounds): 140 Objective General Appearance: no apparent distress, alert, non-toxic HEENT:normocephalic, atraumatic, PERRL, normal pharynx Neck: full range of motion, supple/symm/no masses Respiratory: chest non-tender, speaking full sentences, wheezing Cardiovascular : regular rate, rhythm, no edema Gastrointestinal: normal bowel sounds, non tender, soft, non-distended, no guarding, no rebound Genitourinary: normal inspection, no CVA tenderness Musculoskeletal: back normal, gait/station normal, normal range of motion, non- tender Neurologic: alert, oriented x3, responsive Skin: normal color, no rash, warm/dry, well hydrated Microbiology Date/Time Source Procedure Growth Status 09/10/17 17:38 Blood Blood Culture - Preliminary NO GROWTH AFTER 24 HOURS Resulted 09/10/17 17:19 Blood Blood Culture - Preliminary NO GROWTH AFTER 24 HOURS Resulted 09/10/17 18:48 Stool Stool Culture - Preliminary NORMAL FECAL JAVIER. Resulted Laboratory Tests Test 09/12/17 05:30 White Blood Count 10.7 K/UL (4.8-10.8) Red Blood Count 3.22 M/UL (4.20-5.40) L Hemoglobin 8.5 G/DL (12.0-16.0) L Hematocrit 27.9 % (37.0-47.0) L Mean Corpuscular Volume 87 FL (80-99) Mean Corpuscular Hemoglobin 26.4 PG (27.0-31.0) L Mean Corpuscular Hemoglobin Concent 30.5 G/DL (32.0-36.0) L Red Cell Distribution Width 16.7 % (11.6-14.8) H Platelet Count 276 K/UL (150-450) Mean Platelet Volume 6.0 FL (6.5-10.1) L Neutrophils (%) (Auto) 76.8 % (45.0-75.0) H Lymphocytes (%) (Auto) 13.6 % (20.0-45.0) L Monocytes (%) (Auto) 8.4 % (1.0-10.0) Eosinophils (%) (Auto) 0.5 % (0.0-3.0) Basophils (%) (Auto) 0.7 % (0.0-2.0) Sodium Level 134 MMOL/L (136-145) L Potassium Level 3.5 MMOL/L (3.5-5.1) Chloride Level 94 MMOL/L (98-107) L Carbon Dioxide Level 34 MMOL/L (21-32) H Anion Gap 6 mmol/L (5-15) Blood Urea Nitrogen 22 mg/dL (7-18) H Creatinine 4.8 MG/DL (0.55-1.30) H Estimat Glomerular Filtration Rate 11.0 mL/min (>60) Glucose Level 57 MG/DL (74-106) L Calcium Level 6.6 MG/DL (8.5-10.1) L Troponin I 0.026 ng/mL (0.000-0.056) Current Medications Medications (Trade) Dose Ordered Sig/Winter Route PRN Reason Start Time Stop Time Status Last Admin Dose Admin Acetaminophen (Tylenol) 650 mg Q4H PRN ORAL Fever 09/10/17 19:30 10/10/17 19:29 09/11/17 20:47 Albuterol/ Ipratropium (Albuterol/ Ipratropium) 3 ml Q4H PRN HHN Shortness of Breath 09/10/17 19:30 09/15/17 19:29 Dextrose (Dextrose 50%) STAT PRN IV Hypoglycemia 09/11/17 09:15 10/11/17 09:14 Epoetin Vijay (Procrit (for ESRD on dialysis)) 10,000 units SAT-SAT-SAT SUBQ 09/11/17 21:00 10/11/17 20:59 09/11/17 20:47 Heparin Sodium (Porcine) (Heparin 5000 units/ml) 5,000 units EVERY 12 HOURS SUBQ 09/10/17 21:00 10/10/17 20:59 09/12/17 08:21 Insulin Aspart (NovoLOG) BEFORE MEALS AND HS SUBQ 09/11/17 11:30 10/11/17 11:29 Methadone HCl (Methadone HCl) 40 mg DAILY ORAL 09/11/17 10:00 09/18/17 09:59 09/12/17 08:19 Morphine Sulfate (Morphine Sulfate) 2 mg Q4H PRN IVP For Pain 09/11/17 00:00 09/18/17 00:00 09/12/17 14:25 Ondansetron HCl (Zofran) 4 mg Q6H PRN IVP Nausea & Vomiting 09/10/17 19:30 10/10/17 19:29 Polyethylene Glycol (Miralax) 17 gm DAILYPRN PRN ORAL Constipation 09/10/17 19:30 10/10/17 19:29 Quetiapine Fumarate (SEROquel) 25 mg QHS ORAL 09/10/17 21:00 10/10/17 20:59 09/11/17 21:12 Sevelamer Carbonate (Renvela) 800 mg THREE TIMES A DAY ORAL 09/11/17 09:00 10/11/17 08:59 09/12/17 08:19 Temazepam (Restoril) 15 mg HSPRN PRN ORAL Insomnia 09/10/17 19:30 09/17/17 19:29 Portia Menjivar M.D. Sep 12, 2017 14:50
--- NOTE | 2017-09-12 14:55 | General Progress Note ---
Assessment/Plan Problem List: (1) Tachycardia ICD Codes: R00.0 - Tachycardia, unspecified SNOMED: 4763708 (2) Hypotension ICD Codes: I95.9 - Hypotension, unspecified SNOMED: 53747420 (3) Hypothyroid ICD Codes: E03.9 - Hypothyroidism, unspecified SNOMED: 82266768 (4) Lung mass ICD Codes: R91.8 - Other nonspecific abnormal finding of lung field SNOMED: 464885877 (5) ESRD (end stage renal disease) on dialysis ICD Codes: N18.6 - End stage renal disease; Z99.2 - Dependence on renal dialysis SNOMED: 186063275 (6) General weakness ICD Codes: R53.1 - Weakness SNOMED: 96643057 Status: unchanged Assessment/Plan ot pt diet abx o2 pulm tx dialysis cbc bmp am Subjective Constitutional: Reports: weakness Respiratory: Reports: shortness of breath Allergies: Coded Allergies: No Known Allergies (Unverified , 02/28/17) All Systems: reviewed and negative except above Subjective o2nc sl anxious Objective Last 24 Hour Vital Signs Date Time Temp Pulse Resp B/P (MAP) Pulse Ox O2 Delivery O2 Flow Rate FiO2 09/12/17 12:00 122 09/12/17 12:00 97.8 122 18 113/79 97 Nasal Cannula 2.0 97.8 09/12/17 08:00 117 09/12/17 08:00 Nasal Cannula 2.0 28 09/12/17 08:00 98 Nasal Cannula 2.0 28 09/12/17 08:00 75 18 Nasal Cannula 2.0 28 09/12/17 08:00 97.9 118 19 120/74 98 Nasal Cannula 2.0 97.9 09/12/17 04:00 98.2 112 22 109/66 Nasal Cannula 3.0 98.2 09/12/17 04:00 108 09/12/17 01:32 Nasal Cannula 3.0 28 09/12/17 01:18 97.7 79 16 125/63 Nasal Cannula 3.0 97.7 09/12/17 01:00 Nasal Cannula 3.0 09/12/17 00:00 78 09/12/17 00:00 97.0 102 23 127/73 98 Nasal Cannula 2.0 97.0 09/11/17 21:17 Nasal Cannula 2.0 28 09/11/17 21:16 81 18 Nasal Cannula 2.0 28 09/11/17 21:16 97 Nasal Cannula 2.0 28 09/11/17 21:00 97.7 111 12 111/65 Nasal Cannula 3.0 97.7 09/11/17 21:00 Nasal Cannula 3.0 09/11/17 20:00 111 09/11/17 20:00 98.4 112 23 136/79 97 Nasal Cannula 2.0 98.4 09/11/17 16:00 98.7 111 18 112/78 95 Nasal Cannula 2.0 98.7 09/11/17 16:00 112 Intake and Output 09/11/17 09/12/17 19:00 07:00 Intake Total 300 ml 320 ml Output Total 0 ml Balance 300 ml 320 ml Intake Oral 300 ml Hemodialysis 320 ml Output Hemodialysis UF 0 ml Laboratory Tests 09/12/17 05:30: White Blood Count 10.7, Red Blood Count 3.22L, Hemoglobin 8.5L, Hematocrit 27.9L , Mean Corpuscular Volume 87, Mean Corpuscular Hemoglobin 26.4L, Mean Corpuscular Hemoglobin Concent 30.5L, Red Cell Distribution Width 16.7H, Platelet Count 276, Mean Platelet Volume 6.0L, Neutrophils (%) (Auto) 76.8H, Lymphocytes (%) (Auto) 13.6L, Monocytes (%) (Auto) 8.4, Eosinophils (%) (Auto) 0.5, Basophils (%) (Auto) 0.7, Sodium Level 134L, Potassium Level 3.5, Chloride Level 94L, Carbon Dioxide Level 34H, Anion Gap 6, Blood Urea Nitrogen 22H, Creatinine 4.8H, Estimat Glomerular Filtration Rate 11.0, Glucose Level 57L, Calcium Level 6.6L, Troponin I 0.026 Height (Feet): 5 Height (Inches): 10.00 Weight (Pounds): 140 General Appearance: lethargic EENT: normal ENT inspection Neck: normal alignment Cardiovascular: normal peripheral pulses, normal rate, regular rhythm Respiratory/Chest: decreased breath sounds Abdomen: normal bowel sounds, non tender, soft Extremities: normal inspection Edema: no edema noted Arm (L), no edema noted Arm (R), no edema noted Leg (L), no edema noted Leg (R), no edema noted Pedal (L), no edema noted Pedal (R), no edema noted Generalized Neurologic: motor weakness Skin: normal pigmentation, warm/dry PASCALE PASCUAL Sep 12, 2017 14:55
[2017-09-12] MEDS ORDERED: Cefdinir 300mg cap ORAL SCH (15:00)
[2017-09-12] MEDS ORDERED: Cefdinir 300mg cap ORAL PRN (15:30)
[2017-09-12] MEDS ORDERED: Vancomycin 1gm in D5W 275ml IVPB ONE (16:30)
[2017-09-12] MEDS: Cefdinir 300mg cap ORAL SCH (17:11)
--- NOTE | 2017-09-12 23:59 | Cardiology Progress Note ---
Assessment/Plan Assessment/Plan 1. Hypotension, continue hydration with NS. 2. Sinus tachycardia, likely due to hypotension, may consider AV lulu agents. 3. Lung mass 4. ESRD Subjective Subjective Sinus tachycardia at 111. Objective Last 24 Hour Vital Signs Date Time Temp Pulse Resp B/P (MAP) Pulse Ox O2 Delivery O2 Flow Rate FiO2 09/12/17 20:19 98 Nasal Cannula 2.0 28 09/12/17 20:19 101 18 Nasal Cannula 2.0 28 09/12/17 20:19 Nasal Cannula 2.0 28 09/12/17 20:00 98.6 115 20 110/72 100 Nasal Cannula 2.0 98.6 09/12/17 20:00 114 09/12/17 16:00 98.2 118 18 102/73 95 Nasal Cannula 2.0 98.2 09/12/17 16:00 117 09/12/17 12:00 122 09/12/17 12:00 97.8 122 18 113/79 97 Nasal Cannula 2.0 97.8 09/12/17 08:00 117 09/12/17 08:00 Nasal Cannula 2.0 28 09/12/17 08:00 98 Nasal Cannula 2.0 28 09/12/17 08:00 75 18 Nasal Cannula 2.0 28 09/12/17 08:00 97.9 118 19 120/74 98 Nasal Cannula 2.0 97.9 09/12/17 04:00 98.2 112 22 109/66 Nasal Cannula 3.0 98.2 09/12/17 04:00 108 09/12/17 01:32 Nasal Cannula 3.0 28 09/12/17 01:18 97.7 79 16 125/63 Nasal Cannula 3.0 97.7 09/12/17 01:00 Nasal Cannula 3.0 09/12/17 00:00 78 09/12/17 00:00 97.0 102 23 127/73 98 Nasal Cannula 2.0 97.0 Intake and Output 09/11/17 09/12/17 19:00 07:00 Intake Total 300 ml 320 ml Output Total 0 ml Balance 300 ml 320 ml Intake Oral 300 ml Hemodialysis 320 ml Output Hemodialysis UF 0 ml 2D Echo: EF 70%, Mod LVH, LAE, Mod /AR, RVSP 46 mmHg, Mild MR Laboratory Tests Test 09/12/17 05:30 White Blood Count 10.7 K/UL (4.8-10.8) Red Blood Count 3.22 M/UL (4.20-5.40) L Hemoglobin 8.5 G/DL (12.0-16.0) L Hematocrit 27.9 % (37.0-47.0) L Mean Corpuscular Volume 87 FL (80-99) Mean Corpuscular Hemoglobin 26.4 PG (27.0-31.0) L Mean Corpuscular Hemoglobin Concent 30.5 G/DL (32.0-36.0) L Red Cell Distribution Width 16.7 % (11.6-14.8) H Platelet Count 276 K/UL (150-450) Mean Platelet Volume 6.0 FL (6.5-10.1) L Neutrophils (%) (Auto) 76.8 % (45.0-75.0) H Lymphocytes (%) (Auto) 13.6 % (20.0-45.0) L Monocytes (%) (Auto) 8.4 % (1.0-10.0) Eosinophils (%) (Auto) 0.5 % (0.0-3.0) Basophils (%) (Auto) 0.7 % (0.0-2.0) Sodium Level 134 MMOL/L (136-145) L Potassium Level 3.5 MMOL/L (3.5-5.1) Chloride Level 94 MMOL/L (98-107) L Carbon Dioxide Level 34 MMOL/L (21-32) H Anion Gap 6 mmol/L (5-15) Blood Urea Nitrogen 22 mg/dL (7-18) H Creatinine 4.8 MG/DL (0.55-1.30) H Estimat Glomerular Filtration Rate 11.0 mL/min (>60) Glucose Level 57 MG/DL (74-106) L Calcium Level 6.6 MG/DL (8.5-10.1) L Troponin I 0.026 ng/mL (0.000-0.056) Microbiology Date/Time Source Procedure Growth Status 09/10/17 17:38 Blood Blood Culture - Preliminary NO GROWTH AFTER 24 HOURS Resulted 09/10/17 17:19 Blood Blood Culture - Preliminary Resulted 09/10/17 18:48 Stool Stool Culture - Preliminary NORMAL FECAL WALLY. Resulted Objective HEENT: Atraumatic, normocephalic, Pupils are equal reactive to light and accommodation. Extraocular movement intact. NECK: No JVD, no carotid bruit. LUNGS: Clear to auscultation. CARDIAC: Regular rate and rhythm. S1 and S2. No murmur, gallops or rubs. ABDOMEN: soft, nontender, nondistended, + BS. EXTREMITIES: No edema, clubbing or cyanosis. NEUROLOGIC: Cranial nerves II to XII within normal limits. PREM BIGGS Sep 12, 2017 23:59
[2017-09-13] VITALS (7 sets, daily range): BP systolic 105–147; BP diastolic 66–89
[2017-09-13] MEDS: Morphine Sulfate 2mg/ml Inj IVP PRN ×3 (04:52→20:20)
[2017-09-13] MEDS: NovoLOG Insulin Flexpen SUBQ SCH ×4 (06:30→21:00)
[2017-09-13 07:43] LABS: BASOPHILS % (AUTO) 1.1 % (0.0-2.0); EOSINOPHILS % (AUTO) 0.1 % (0.0-3.0); HEMATOCRIT 27.5 % (37.0-47.0); HEMOGLOBIN 8.4 G/DL (12.0-16.0); LYMPHOCYTES % (AUTO) 10.2 % (20.0-45.0); MEAN CORPUSCULAR VOLUME 86 FL (80-99); MONOCYTES % (AUTO) 9.1 % (1.0-10.0); NEUTROPHILS % (AUTO) 79.5 % (45.0-75.0); PLATELET COUNT 263 K/UL (150-450); RED CELL DISTRIBUTION WIDTH 16.5 % (11.6-14.8); WHITE BLOOD COUNT 13.2 K/UL (4.8-10.8)
[2017-09-13 08:10] LABS: ANION GAP 10 mmol/L (5-15); BLOOD UREA NITROGEN 39 mg/dL (7-18); CALCIUM 6.7 MG/DL (8.5-10.1); CARBON DIOXIDE 30 MMOL/L (21-32); CHLORIDE 93 MMOL/L (98-107); CREATININE 6.8 MG/DL (0.55-1.30); POTASSIUM 3.8 MMOL/L (3.5-5.1); SODIUM 133 MMOL/L (136-145)
[2017-09-13] MEDS: Renvela 800mg Pkt ORAL SCH ×3 (08:41→17:16)
[2017-09-13] MEDS: Heparin 5000 units/ml inj SUBQ SCH ×2 (08:48→21:10)
[2017-09-13] MEDS ORDERED: Vancomycin 750mg/NS 250ml IVPB ONE (10:00)
--- NOTE | 2017-09-13 11:45 | Nephrology Progress Note ---
Assessment/Plan Assessment 1. ESRD 2.ATN 3.Anemia of CKD 4.Hypotension 5.hypocalcemia 6.malnutrition Plan plan dialysis in am continue epogen check vit d monitoring PTH and phos Subjective Subjective alert and awake feeling better had dialysis yesterday Objective Objective Last 24 Hour Vital Signs Date Time Temp Pulse Resp B/P (MAP) Pulse Ox O2 Delivery O2 Flow Rate FiO2 09/13/17 08:00 119 09/13/17 08:00 97.6 118 18 120/73 100 Nasal Cannula 2.0 97.6 09/13/17 06:30 90 18 Nasal Cannula 2.0 28 09/13/17 06:30 Nasal Cannula 2.0 28 09/13/17 06:30 98 Nasal Cannula 2.0 28 09/13/17 04:00 98.6 122 20 105/66 100 Nasal Cannula 2.0 98.6 09/13/17 04:00 121 09/13/17 00:00 114 09/13/17 00:00 98.1 112 20 108/67 100 Nasal Cannula 2.0 98.1 09/12/17 20:19 98 Nasal Cannula 2.0 28 09/12/17 20:19 101 18 Nasal Cannula 2.0 28 09/12/17 20:19 Nasal Cannula 2.0 28 09/12/17 20:00 98.6 115 20 110/72 100 Nasal Cannula 2.0 98.6 09/12/17 20:00 114 09/12/17 16:00 98.2 118 18 102/73 95 Nasal Cannula 2.0 98.2 09/12/17 16:00 117 09/12/17 12:00 122 09/12/17 12:00 97.8 122 18 113/79 97 Nasal Cannula 2.0 97.8 Intake and Output 09/12/17 09/13/17 19:00 07:00 Intake Total 511.000 ml 552 ml Output Total 0 ml Balance 511.000 ml 552 ml Intake Oral 236 ml 232 ml IV Total 275.000 ml Hemodialysis 320 ml Output Hemodialysis UF 0 ml # Voids 1 1 # Bowel Movements 2 Laboratory Tests 09/13/17 07:00: White Blood Count 13.2H, Red Blood Count 3.20L, Hemoglobin 8.4L, Hematocrit 27.5L, Mean Corpuscular Volume 86, Mean Corpuscular Hemoglobin 26.4L, Mean Corpuscular Hemoglobin Concent 30.7L, Red Cell Distribution Width 16.5H, Platelet Count 263, Mean Platelet Volume 6.2L, Neutrophils (%) (Auto) 79.5H, Lymphocytes (%) (Auto) 10.2L, Monocytes (%) (Auto) 9.1, Eosinophils (%) (Auto) 0.1, Basophils (%) (Auto) 1.1, Sodium Level 133L, Potassium Level 3.8, Chloride Level 93L, Carbon Dioxide Level 30, Anion Gap 10, Blood Urea Nitrogen 39H, Creatinine 6.8H, Estimat Glomerular Filtration Rate 7.4, Glucose Level 83, Calcium Level 6.7L, Random Vancomycin Level 15.0 Height (Feet): 5 Height (Inches): 10.00 Weight (Pounds): 140 Objective HEAD AND NECK: No JVP. No LAD. No thyromegaly. Extraocular movement intact. Pupils are reactive to light and accommodation. LUNGS: Clear to auscultation. CARDIAC: Regular rate and rhythm. S1 and S2. No murmur. No gallop. ABDOMEN: soft, nontender, nondistended. EXTREMITIES: No edema. No clubbing. No cyanosis. NEUROLOGIC: Cranial nerves II to XII within normal limits. Upper and lower extremities are grossly intact CHARLENE FINN Sep 13, 2017 11:45
--- NOTE | 2017-09-13 13:58 | General Progress Note ---
Assessment/Plan Problem List: (1) Tachycardia ICD Codes: R00.0 - Tachycardia, unspecified SNOMED: 7411192 (2) Hypotension ICD Codes: I95.9 - Hypotension, unspecified SNOMED: 07166228 (3) Hypothyroid ICD Codes: E03.9 - Hypothyroidism, unspecified SNOMED: 81228336 (4) Lung mass ICD Codes: R91.8 - Other nonspecific abnormal finding of lung field SNOMED: 427100568 (5) ESRD (end stage renal disease) on dialysis ICD Codes: N18.6 - End stage renal disease; Z99.2 - Dependence on renal dialysis SNOMED: 207736012 (6) General weakness ICD Codes: R53.1 - Weakness SNOMED: 91053814 Status: stable, progressing, tolerating diet Assessment/Plan ot pt diet abx o2 pulm tx dialysis cbc bmp am dc if clear Subjective Constitutional: Reports: weakness Allergies: Coded Allergies: No Known Allergies (Unverified , 02/28/17) All Systems: reviewed and negative except above Subjective o2nc sitting calm Objective Last 24 Hour Vital Signs Date Time Temp Pulse Resp B/P (MAP) Pulse Ox O2 Delivery O2 Flow Rate FiO2 09/13/17 13:31 97.6 09/13/17 12:00 110 09/13/17 08:00 119 09/13/17 08:00 97.6 118 18 120/73 100 Nasal Cannula 2.0 97.6 09/13/17 06:30 90 18 Nasal Cannula 2.0 28 09/13/17 06:30 Nasal Cannula 2.0 28 09/13/17 06:30 98 Nasal Cannula 2.0 28 09/13/17 04:00 98.6 122 20 105/66 100 Nasal Cannula 2.0 98.6 09/13/17 04:00 121 09/13/17 00:00 114 09/13/17 00:00 98.1 112 20 108/67 100 Nasal Cannula 2.0 98.1 09/12/17 20:19 98 Nasal Cannula 2.0 28 09/12/17 20:19 101 18 Nasal Cannula 2.0 28 09/12/17 20:19 Nasal Cannula 2.0 28 09/12/17 20:00 98.6 115 20 110/72 100 Nasal Cannula 2.0 98.6 09/12/17 20:00 114 09/12/17 16:00 98.2 118 18 102/73 95 Nasal Cannula 2.0 98.2 09/12/17 16:00 117 Intake and Output 09/12/17 09/13/17 19:00 07:00 Intake Total 511.000 ml 552 ml Output Total 0 ml Balance 511.000 ml 552 ml Intake Oral 236 ml 232 ml IV Total 275.000 ml Hemodialysis 320 ml Output Hemodialysis UF 0 ml # Voids 1 1 # Bowel Movements 2 Laboratory Tests 09/13/17 07:00: White Blood Count 13.2H, Red Blood Count 3.20L, Hemoglobin 8.4L, Hematocrit 27.5L, Mean Corpuscular Volume 86, Mean Corpuscular Hemoglobin 26.4L, Mean Corpuscular Hemoglobin Concent 30.7L, Red Cell Distribution Width 16.5H, Platelet Count 263, Mean Platelet Volume 6.2L, Neutrophils (%) (Auto) 79.5H, Lymphocytes (%) (Auto) 10.2L, Monocytes (%) (Auto) 9.1, Eosinophils (%) (Auto) 0.1, Basophils (%) (Auto) 1.1, Sodium Level 133L, Potassium Level 3.8, Chloride Level 93L, Carbon Dioxide Level 30, Anion Gap 10, Blood Urea Nitrogen 39H, Creatinine 6.8H, Estimat Glomerular Filtration Rate 7.4, Glucose Level 83, Calcium Level 6.7L, Random Vancomycin Level 15.0 Height (Feet): 5 Height (Inches): 10.00 Weight (Pounds): 140 General Appearance: lethargic EENT: normal ENT inspection Neck: normal alignment Cardiovascular: normal peripheral pulses, normal rate, regular rhythm Respiratory/Chest: chest wall non-tender, lungs clear, normal breath sounds Abdomen: normal bowel sounds, non tender, soft Extremities: normal inspection Edema: no edema noted Arm (L), no edema noted Arm (R), no edema noted Leg (L), no edema noted Leg (R), no edema noted Pedal (L), no edema noted Pedal (R), no edema noted Generalized Neurologic: motor weakness Skin: normal pigmentation, warm/dry PASCALE PASCUAL Sep 13, 2017 13:58
--- NOTE | 2017-09-13 14:39 | Infectious Diseases Prog Note ---
Assessment/Plan Assessment/Plan Assessment: Hypotension- improved with IVFs- ?2ry to V/D Diarrhea- per RN no episodes here -stool cx normal javier to date Mild leukocytosis, recurrent ?Metastatic Lung Cancer -CT chest: Large left upper lobe soft tissue mass measuring 11 x 6.8 x 6 cm. This is highly suspicious for pulmonary neoplasm. More medial left upper hemithoracic mass noted, may reflect an extension of the above-mentioned lesion , versus a second lesion, versus mediastinal lymphadenopathy. Osteolytic lesion of the right first rib. This is concerning for an osseous metastasis. Small left pleural effusion. Compression atelectasis of portions of the left lower lobe. 12 x 9 mm anterolateral left hemithoracic pleural based mass. Probably a small focal pleural fluid collection as this demonstrates fluid attenuation. Evidence of bullous COPD. Possible right paratracheal adenopathy versus ectatic neck vessels. Markedly dilated main pulmonary artery, diagnostic for pulmonary arterial. hypertension -CXR: 9 x 6 cm masslike opacity in the left hilar region. New since 2016. Main differential considerations include rapidly growing neoplasm versus infiltrate. Diffuse interstitial disease, suspect chronic but acute interstitial edema also possible Cough/congestion- 2ry to above, possible post-obstructive PNA CoNS bacteremia- suspect contaminant but r/o line infection, awaitng Repaet Bcx -09/10 Bcx / Cons; Bcx 09/12 p Asthma/COPD DM2 HTN ESRD on HD opoid dependency on methadone schizophrenia CVA seizure disorder Plan: -Continue PO Cefdinir #2/5 for possible post-obstructive PNA and IV Vancomcyin # 2 for CoNS bacteremia pending repeat Bcx -Consider Heme onc eval for possible lung CA -f/u cx -Monitor CBC/BMP, temperatures -aspiration precautions Thank you for this consultation. Will continue to follow along with you. Discussed with RN. Subjective Allergies: Coded Allergies: No Known Allergies (Unverified , 02/28/17) Subjective afebrile mild leukocytosis Bcx 1/4 CoNS Objective Vital Signs Last 24 Hour Vital Signs Date Time Temp Pulse Resp B/P (MAP) Pulse Ox O2 Delivery O2 Flow Rate FiO2 09/13/17 14:01 97.6 09/13/17 13:31 97.6 09/13/17 12:00 110 09/13/17 12:00 97.1 111 18 115/71 95 Nasal Cannula 2.0 97.1 09/13/17 08:00 119 09/13/17 08:00 97.6 118 18 120/73 100 Nasal Cannula 2.0 97.6 09/13/17 06:30 90 18 Nasal Cannula 2.0 28 09/13/17 06:30 Nasal Cannula 2.0 28 09/13/17 06:30 98 Nasal Cannula 2.0 28 09/13/17 04:00 98.6 122 20 105/66 100 Nasal Cannula 2.0 98.6 09/13/17 04:00 121 09/13/17 00:00 114 09/13/17 00:00 98.1 112 20 108/67 100 Nasal Cannula 2.0 98.1 09/12/17 20:19 98 Nasal Cannula 2.0 28 09/12/17 20:19 101 18 Nasal Cannula 2.0 28 09/12/17 20:19 Nasal Cannula 2.0 28 09/12/17 20:00 98.6 115 20 110/72 100 Nasal Cannula 2.0 98.6 09/12/17 20:00 114 09/12/17 16:00 98.2 118 18 102/73 95 Nasal Cannula 2.0 98.2 09/12/17 16:00 117 Height (Feet): 5 Height (Inches): 10.00 Weight (Pounds): 140 Objective General Appearance: no apparent distress, alert, non-toxic HEENT:normocephalic, atraumatic, PERRL, normal pharynx Neck: full range of motion, supple/symm/no masses Respiratory: chest non-tender, speaking full sentences, wheezing Cardiovascular : regular rate, rhythm, no edema Gastrointestinal: normal bowel sounds, non tender, soft, non-distended, no guarding, no rebound Genitourinary: normal inspection, no CVA tenderness Musculoskeletal: back normal, gait/station normal, normal range of motion, non- tender Neurologic: alert, oriented x3, responsive Skin: normal color, no rash, warm/dry, well hydrated Microbiology Date/Time Source Procedure Growth Status 09/10/17 17:38 Blood Blood Culture - Preliminary NO GROWTH AFTER 48 HOURS Resulted 09/10/17 17:19 Blood Blood Culture - Preliminary Staphylococcus Sp Coag Neg Resulted 09/10/17 20:15 Nasal Nares MRSA Culture - Final NO METHICILLIN RESISTANT STAPH AUREUS... Complete 09/10/17 18:48 Stool Stool Culture - Preliminary NORMAL FECAL JAVIER. Resulted 09/10/17 20:15 Rectum VRE Culture - Final Enterococcus Faecium - Vre Complete Laboratory Tests Test 09/13/17 07:00 White Blood Count 13.2 K/UL (4.8-10.8) H Red Blood Count 3.20 M/UL (4.20-5.40) L Hemoglobin 8.4 G/DL (12.0-16.0) L Hematocrit 27.5 % (37.0-47.0) L Mean Corpuscular Volume 86 FL (80-99) Mean Corpuscular Hemoglobin 26.4 PG (27.0-31.0) L Mean Corpuscular Hemoglobin Concent 30.7 G/DL (32.0-36.0) L Red Cell Distribution Width 16.5 % (11.6-14.8) H Platelet Count 263 K/UL (150-450) Mean Platelet Volume 6.2 FL (6.5-10.1) L Neutrophils (%) (Auto) 79.5 % (45.0-75.0) H Lymphocytes (%) (Auto) 10.2 % (20.0-45.0) L Monocytes (%) (Auto) 9.1 % (1.0-10.0) Eosinophils (%) (Auto) 0.1 % (0.0-3.0) Basophils (%) (Auto) 1.1 % (0.0-2.0) Sodium Level 133 MMOL/L (136-145) L Potassium Level 3.8 MMOL/L (3.5-5.1) Chloride Level 93 MMOL/L (98-107) L Carbon Dioxide Level 30 MMOL/L (21-32) Anion Gap 10 mmol/L (5-15) Blood Urea Nitrogen 39 mg/dL (7-18) H Creatinine 6.8 MG/DL (0.55-1.30) H Estimat Glomerular Filtration Rate 7.4 mL/min (>60) Glucose Level 83 MG/DL (74-106) Calcium Level 6.7 MG/DL (8.5-10.1) L Random Vancomycin Level 15.0 ug/mL Current Medications Medications (Trade) Dose Ordered Sig/Winter Route PRN Reason Start Time Stop Time Status Last Admin Dose Admin Acetaminophen (Tylenol) 650 mg Q4H PRN ORAL Fever 09/10/17 19:30 10/10/17 19:29 09/11/17 20:47 Albuterol/ Ipratropium (Albuterol/ Ipratropium) 3 ml Q4H PRN HHN Shortness of Breath 09/10/17 19:30 09/15/17 19:29 Cefdinir (Cefdinir) 300 mg POSTHD PRN ORAL POSTHD SESSIONS PER RXPROTOCOL 09/12/17 15:30 09/19/17 15:29 Cefdinir (Cefdinir) 300 mg Q48H ORAL 09/12/17 16:00 09/19/17 15:59 09/12/17 17:11 Dextrose (Dextrose 50%) STAT PRN IV Hypoglycemia 09/11/17 09:15 10/11/17 09:14 Epoetin Vijay (Procrit (for ESRD on dialysis)) 10,000 units SAT-SAT-SAT SUBQ 09/11/17 21:00 10/11/17 20:59 09/11/17 20:47 Heparin Sodium (Porcine) (Heparin 5000 units/ml) 5,000 units EVERY 12 HOURS SUBQ 09/10/17 21:00 10/10/17 20:59 09/13/17 08:48 Insulin Aspart (NovoLOG) BEFORE MEALS AND HS SUBQ 09/11/17 11:30 10/11/17 11:29 09/12/17 20:32 Methadone HCl (Methadone HCl) 40 mg DAILY ORAL 09/11/17 10:00 09/18/17 09:59 09/13/17 08:43 Morphine Sulfate (Morphine Sulfate) 2 mg Q4H PRN IVP For Pain 09/11/17 00:00 09/18/17 00:00 09/13/17 13:31 Ondansetron HCl (Zofran) 4 mg Q6H PRN IVP Nausea & Vomiting 09/10/17 19:30 10/10/17 19:29 Polyethylene Glycol (Miralax) 17 gm DAILYPRN PRN ORAL Constipation 09/10/17 19:30 10/10/17 19:29 Quetiapine Fumarate (SEROquel) 25 mg QHS ORAL 09/10/17 21:00 10/10/17 20:59 09/12/17 20:32 Sevelamer Carbonate (Renvela) 800 mg THREE TIMES A DAY ORAL 09/11/17 09:00 10/11/17 08:59 09/13/17 13:26 Temazepam (Restoril) 15 mg HSPRN PRN ORAL Insomnia 09/10/17 19:30 09/17/17 19:29 Vancomycin HCl (Vanco rx to dose) 1 ea DAILYPRN PRN MISC Per rx protocol 09/12/17 15:15 10/12/17 15:14 Porita Menjivar M.D. Sep 13, 2017 14:39
--- NOTE | 2017-09-13 17:19 | Cardiology Progress Note ---
Assessment/Plan Assessment/Plan 1. Hypotension, resolved, continue hydration. 2. Sinus tachycardia, due to hypotension, malignancy, etc. 3. Lung cancer, hem/onc folow up. 4. ESRD 5. Moderate aortic stenosis with regurgitation, normal LVEF. Subjective Subjective Sinus tachycardia at 100. No chest pain or SOB. Objective Last 24 Hour Vital Signs Date Time Temp Pulse Resp B/P (MAP) Pulse Ox O2 Delivery O2 Flow Rate FiO2 09/13/17 16:00 97.5 110 19 123/73 95 Nasal Cannula 2.0 97.5 09/13/17 16:00 100 09/13/17 14:01 97.6 09/13/17 13:31 97.6 09/13/17 12:00 110 09/13/17 12:00 97.1 111 18 115/71 95 Nasal Cannula 2.0 97.1 09/13/17 08:00 119 09/13/17 08:00 97.6 118 18 120/73 100 Nasal Cannula 2.0 97.6 09/13/17 06:30 90 18 Nasal Cannula 2.0 28 09/13/17 06:30 Nasal Cannula 2.0 28 09/13/17 06:30 98 Nasal Cannula 2.0 28 09/13/17 04:00 98.6 122 20 105/66 100 Nasal Cannula 2.0 98.6 09/13/17 04:00 121 09/13/17 00:00 114 09/13/17 00:00 98.1 112 20 108/67 100 Nasal Cannula 2.0 98.1 09/12/17 20:19 98 Nasal Cannula 2.0 28 09/12/17 20:19 101 18 Nasal Cannula 2.0 28 09/12/17 20:19 Nasal Cannula 2.0 28 09/12/17 20:00 98.6 115 20 110/72 100 Nasal Cannula 2.0 98.6 09/12/17 20:00 114 Intake and Output 09/12/17 09/13/17 19:00 07:00 Intake Total 511.000 ml 552 ml Output Total 0 ml Balance 511.000 ml 552 ml Intake Oral 236 ml 232 ml IV Total 275.000 ml Hemodialysis 320 ml Output Hemodialysis UF 0 ml # Voids 1 1 # Bowel Movements 2 2D Echo: EF 70%, Mod LVH, LAE, Mod /AR, RVSP 46 mmHg, Mild MR Laboratory Tests Test 09/13/17 07:00 White Blood Count 13.2 K/UL (4.8-10.8) H Red Blood Count 3.20 M/UL (4.20-5.40) L Hemoglobin 8.4 G/DL (12.0-16.0) L Hematocrit 27.5 % (37.0-47.0) L Mean Corpuscular Volume 86 FL (80-99) Mean Corpuscular Hemoglobin 26.4 PG (27.0-31.0) L Mean Corpuscular Hemoglobin Concent 30.7 G/DL (32.0-36.0) L Red Cell Distribution Width 16.5 % (11.6-14.8) H Platelet Count 263 K/UL (150-450) Mean Platelet Volume 6.2 FL (6.5-10.1) L Neutrophils (%) (Auto) 79.5 % (45.0-75.0) H Lymphocytes (%) (Auto) 10.2 % (20.0-45.0) L Monocytes (%) (Auto) 9.1 % (1.0-10.0) Eosinophils (%) (Auto) 0.1 % (0.0-3.0) Basophils (%) (Auto) 1.1 % (0.0-2.0) Sodium Level 133 MMOL/L (136-145) L Potassium Level 3.8 MMOL/L (3.5-5.1) Chloride Level 93 MMOL/L (98-107) L Carbon Dioxide Level 30 MMOL/L (21-32) Anion Gap 10 mmol/L (5-15) Blood Urea Nitrogen 39 mg/dL (7-18) H Creatinine 6.8 MG/DL (0.55-1.30) H Estimat Glomerular Filtration Rate 7.4 mL/min (>60) Glucose Level 83 MG/DL (74-106) Calcium Level 6.7 MG/DL (8.5-10.1) L Random Vancomycin Level 15.0 ug/mL Microbiology Date/Time Source Procedure Growth Status 09/10/17 17:38 Blood Blood Culture - Preliminary NO GROWTH AFTER 48 HOURS Resulted 09/10/17 20:15 Nasal Nares MRSA Culture - Final NO METHICILLIN RESISTANT STAPH AUREUS... Complete 09/10/17 18:48 Stool Stool Culture - Preliminary NORMAL FECAL WALLY. Resulted 09/10/17 20:15 Rectum VRE Culture - Final Enterococcus Faecium - Vre Complete Objective HEENT: Atraumatic, normocephalic, Pupils are equal reactive to light and accommodation. Extraocular movement intact. NECK: No JVD, no carotid bruit. LUNGS: Clear to auscultation. CARDIAC: Regular rate and rhythm. S1 and S2. No murmur, gallops or rubs. ABDOMEN: soft, nontender, nondistended, + BS. EXTREMITIES: No edema, clubbing or cyanosis. NEUROLOGIC: Cranial nerves II to XII within normal limits. PREM BIGGS Sep 13, 2017 17:19
[2017-09-13] MEDS: Epogen (for ESRD on dialysis) SUBQ SCH (21:09)
[2017-09-14] VITALS: BP 95/51
[2017-09-14 04:00] VITALS: BP 107/65
[2017-09-14] MEDS: NovoLOG Insulin Flexpen SUBQ SCH ×4 (06:30→21:00)
[2017-09-14 08:00] VITALS: BP 114/66
[2017-09-14 08:08] LABS: BASOPHILS % (AUTO) 0.7 % (0.0-2.0); EOSINOPHILS % (AUTO) 0.1 % (0.0-3.0); HEMATOCRIT 28.6 % (37.0-47.0); HEMOGLOBIN 8.7 G/DL (12.0-16.0); LYMPHOCYTES % (AUTO) 10.2 % (20.0-45.0); MEAN CORPUSCULAR VOLUME 87 FL (80-99); MONOCYTES % (AUTO) 7.6 % (1.0-10.0); NEUTROPHILS % (AUTO) 81.5 % (45.0-75.0); PLATELET COUNT 282 K/UL (150-450); RED CELL DISTRIBUTION WIDTH 16.5 % (11.6-14.8); WHITE BLOOD COUNT 13.1 K/UL (4.8-10.8)
[2017-09-14] MEDS: Renvela 800mg Pkt ORAL SCH ×3 (08:13→17:26)
[2017-09-14] MEDS: Heparin 5000 units/ml inj SUBQ SCH ×2 (08:14→21:24)
[2017-09-14 08:18] LABS: ANION GAP 9 mmol/L (5-15); BLOOD UREA NITROGEN 35 mg/dL (7-18); CARBON DIOXIDE 34 MMOL/L (21-32); CHLORIDE 96 MMOL/L (98-107); CREATININE 6.2 MG/DL (0.55-1.30); POTASSIUM 3.8 MMOL/L (3.5-5.1); SODIUM 139 MMOL/L (136-145)
--- NOTE | 2017-09-14 10:46 | Infectious Diseases Prog Note ---
Assessment/Plan Assessment/Plan Assessment: Hypotension- improved with IVFs- ?2ry to V/D Diarrhea- per RN no episodes here -stool cx normal javier to date Mild leukocytosis, recurrent, stable- ?2ry to possible malignancy ?Metastatic Lung Cancer -CT chest: Large left upper lobe soft tissue mass measuring 11 x 6.8 x 6 cm. This is highly suspicious for pulmonary neoplasm. More medial left upper hemithoracic mass noted, may reflect an extension of the above-mentioned lesion , versus a second lesion, versus mediastinal lymphadenopathy. Osteolytic lesion of the right first rib. This is concerning for an osseous metastasis. Small left pleural effusion. Compression atelectasis of portions of the left lower lobe. 12 x 9 mm anterolateral left hemithoracic pleural based mass. Probably a small focal pleural fluid collection as this demonstrates fluid attenuation. Evidence of bullous COPD. Possible right paratracheal adenopathy versus ectatic neck vessels. Markedly dilated main pulmonary artery, diagnostic for pulmonary arterial. hypertension -CXR: 9 x 6 cm masslike opacity in the left hilar region. New since 2016. Main differential considerations include rapidly growing neoplasm versus infiltrate. Diffuse interstitial disease, suspect chronic but acute interstitial edema also possible Cough/congestion- 2ry to above, possible post-obstructive PNA CoNS bacteremia- suspect contaminant -09/10 Bcx 06/27 Cons; Bcx 09/12 NTD Asthma/COPD DM2 HTN ESRD on HD opoid dependency on methadone schizophrenia CVA seizure disorder Plan: -Continue PO Cefdinir #3/5 for possible post-obstructive PNA and d/c IV Vancomcyin #3 -Consider Heme onc eval for possible lung CA -f/u cx -Monitor CBC/BMP, temperatures -aspiration precautions Thank you for this consultation. Will continue to follow along with you. Discussed with RN. Subjective Allergies: Coded Allergies: No Known Allergies (Unverified , 02/28/17) Subjective afebrile mild leukocytosis Bcx 06/27 CoNS, repeat bcx NTD Objective Vital Signs Last 24 Hour Vital Signs Date Time Temp Pulse Resp B/P (MAP) Pulse Ox O2 Delivery O2 Flow Rate FiO2 09/14/17 08:00 97.9 117 20 114/66 98 Nasal Cannula 3.0 97.9 09/14/17 08:00 118 09/14/17 04:00 127 09/14/17 04:00 97.8 127 18 107/65 98 Nasal Cannula 3.0 97.8 09/14/17 00:00 125 09/14/17 00:00 99.3 123 20 95/51 97 Nasal Cannula 3.0 99.3 09/13/17 20:50 Nasal Cannula 3.0 09/13/17 20:30 98.1 119 20 147/75 Nasal Cannula 3.0 98.1 09/13/17 20:00 107 09/13/17 19:30 110 18 Nasal Cannula 2.0 28 09/13/17 19:30 Nasal Cannula 2.0 28 09/13/17 19:30 98 Nasal Cannula 2.0 28 09/13/17 17:00 Nasal Cannula 3.0 09/13/17 17:00 98.2 112 20 129/89 Nasal Cannula 3.0 98.2 09/13/17 16:00 97.5 110 19 123/73 95 Nasal Cannula 2.0 97.5 09/13/17 16:00 100 09/13/17 14:01 97.6 09/13/17 13:31 97.6 09/13/17 12:00 110 09/13/17 12:00 97.1 111 18 115/71 95 Nasal Cannula 2.0 97.1 Height (Feet): 5 Height (Inches): 10.00 Weight (Pounds): 140 Objective General Appearance: no apparent distress, alert, non-toxic HEENT:normocephalic, atraumatic, PERRL, normal pharynx Neck: full range of motion, supple/symm/no masses Respiratory: chest non-tender, speaking full sentences, wheezing Cardiovascular : regular rate, rhythm, no edema Gastrointestinal: normal bowel sounds, non tender, soft, non-distended, no guarding, no rebound Genitourinary: normal inspection, no CVA tenderness Musculoskeletal: back normal, gait/station normal, normal range of motion, non- tender Neurologic: alert, oriented x3, responsive Skin: normal color, no rash, warm/dry, well hydrated Microbiology Date/Time Source Procedure Growth Status 09/12/17 15:40 Blood Blood Culture - Preliminary NO GROWTH AFTER 24 HOURS Resulted 09/12/17 15:40 Blood Blood Culture - Preliminary NO GROWTH AFTER 24 HOURS Resulted Laboratory Tests Test 09/14/17 07:30 White Blood Count 13.1 K/UL (4.8-10.8) H Red Blood Count 3.30 M/UL (4.20-5.40) L Hemoglobin 8.7 G/DL (12.0-16.0) L Hematocrit 28.6 % (37.0-47.0) L Mean Corpuscular Volume 87 FL (80-99) Mean Corpuscular Hemoglobin 26.2 PG (27.0-31.0) L Mean Corpuscular Hemoglobin Concent 30.3 G/DL (32.0-36.0) L Red Cell Distribution Width 16.5 % (11.6-14.8) H Platelet Count 282 K/UL (150-450) Mean Platelet Volume 5.9 FL (6.5-10.1) L Neutrophils (%) (Auto) 81.5 % (45.0-75.0) H Lymphocytes (%) (Auto) 10.2 % (20.0-45.0) L Monocytes (%) (Auto) 7.6 % (1.0-10.0) Eosinophils (%) (Auto) 0.1 % (0.0-3.0) Basophils (%) (Auto) 0.7 % (0.0-2.0) Sodium Level 139 MMOL/L (136-145) Potassium Level 3.8 MMOL/L (3.5-5.1) Chloride Level 96 MMOL/L (98-107) L Carbon Dioxide Level 34 MMOL/L (21-32) H Anion Gap 9 mmol/L (5-15) Blood Urea Nitrogen 35 mg/dL (7-18) H Creatinine 6.2 MG/DL (0.55-1.30) H Estimat Glomerular Filtration Rate 8.2 mL/min (>60) Glucose Level 84 MG/DL (74-106) Calcium Level 7.0 MG/DL (8.5-10.1) L Current Medications Medications (Trade) Dose Ordered Sig/Winter Route PRN Reason Start Time Stop Time Status Last Admin Dose Admin Acetaminophen (Tylenol) 650 mg Q4H PRN ORAL Fever 09/10/17 19:30 10/10/17 19:29 09/11/17 20:47 Albuterol/ Ipratropium (Albuterol/ Ipratropium) 3 ml Q4H PRN HHN Shortness of Breath 09/10/17 19:30 3/25/18 19:29 Cefdinir (Cefdinir) 300 mg POSTHD PRN ORAL POSTHD SESSIONS PER RXPROTOCOL 09/12/17 15:30 09/19/17 15:29 Cefdinir (Cefdinir) 300 mg Q48H ORAL 09/12/17 16:00 09/19/17 15:59 09/12/17 17:11 Dextrose (Dextrose 50%) STAT PRN IV Hypoglycemia 09/11/17 09:15 10/11/17 09:14 Epoetin Vijay (Procrit (for ESRD on dialysis)) 10,000 units SAT-SAT-SAT SUBQ 09/11/17 21:00 10/11/17 20:59 09/13/17 21:09 Heparin Sodium (Porcine) (Heparin 5000 units/ml) 5,000 units EVERY 12 HOURS SUBQ 09/10/17 21:00 10/10/17 20:59 09/14/17 08:14 Insulin Aspart (NovoLOG) BEFORE MEALS AND HS SUBQ 09/11/17 11:30 10/11/17 11:29 09/12/17 20:32 Methadone HCl (Methadone HCl) 40 mg DAILY ORAL 09/11/17 10:00 09/18/17 09:59 09/14/17 08:13 Morphine Sulfate (Morphine Sulfate) 2 mg Q4H PRN IVP For Pain 09/11/17 00:00 09/18/17 00:00 09/13/17 20:20 Ondansetron HCl (Zofran) 4 mg Q6H PRN IVP Nausea & Vomiting 09/10/17 19:30 10/10/17 19:29 Polyethylene Glycol (Miralax) 17 gm DAILYPRN PRN ORAL Constipation 09/10/17 19:30 10/10/17 19:29 Quetiapine Fumarate (SEROquel) 25 mg QHS ORAL 09/10/17 21:00 10/10/17 20:59 09/13/17 21:08 Sevelamer Carbonate (Renvela) 800 mg THREE TIMES A DAY ORAL 09/11/17 09:00 10/11/17 08:59 09/14/17 08:13 Temazepam (Restoril) 15 mg HSPRN PRN ORAL Insomnia 09/10/17 19:30 09/17/17 19:29 Vancomycin HCl (Vanco rx to dose) 1 ea DAILYPRN PRN MISC Per rx protocol 09/12/17 15:15 10/12/17 15:14 Portia Menjivar M.D. Sep 14, 2017 10:46
[2017-09-14 12:00] VITALS: BP 103/71
--- NOTE | 2017-09-14 12:00 | General Progress Note ---
Assessment/Plan Problem List: (1) Abdominal distention ICD Codes: R14.0 - Abdominal distension (gaseous) SNOMED: 83890801 (2) Non compliance with medical treatment ICD Codes: Z91.19 - Patient's noncompliance with other medical treatment and regimen SNOMED: 3205991 (3) Sepsis ICD Codes: A41.9 - Sepsis, unspecified organism SNOMED: 51271483 (4) Pneumonia ICD Codes: J18.9 - Pneumonia, unspecified organism SNOMED: 370201357 (5) Lung mass ICD Codes: R91.8 - Other nonspecific abnormal finding of lung field SNOMED: 668128771 (6) ESRD (end stage renal disease) on dialysis ICD Codes: N18.6 - End stage renal disease; Z99.2 - Dependence on renal dialysis SNOMED: 139016666 (7) Hypothyroid ICD Codes: E03.9 - Hypothyroidism, unspecified SNOMED: 22022613 (8) General weakness ICD Codes: R53.1 - Weakness SNOMED: 36523518 Status: progressing Assessment/Plan afebrile reviewed chart and labs covering dr lorraine paris esrd on hd resp insull lung mass congested Subjective ROS Limited/Unobtainable: Yes Allergies: Coded Allergies: No Known Allergies (Unverified , 02/28/17) Objective Last 24 Hour Vital Signs Date Time Temp Pulse Resp B/P (MAP) Pulse Ox O2 Delivery O2 Flow Rate FiO2 09/14/17 08:00 97.9 117 20 114/66 98 Nasal Cannula 3.0 97.9 09/14/17 08:00 118 09/14/17 04:00 127 09/14/17 04:00 97.8 127 18 107/65 98 Nasal Cannula 3.0 97.8 09/14/17 00:00 125 09/14/17 00:00 99.3 123 20 95/51 97 Nasal Cannula 3.0 99.3 09/13/17 20:50 Nasal Cannula 3.0 09/13/17 20:30 98.1 119 20 147/75 Nasal Cannula 3.0 98.1 09/13/17 20:00 107 09/13/17 19:30 110 18 Nasal Cannula 2.0 28 09/13/17 19:30 Nasal Cannula 2.0 28 09/13/17 19:30 98 Nasal Cannula 2.0 28 09/13/17 17:00 Nasal Cannula 3.0 09/13/17 17:00 98.2 112 20 129/89 Nasal Cannula 3.0 98.2 09/13/17 16:00 97.5 110 19 123/73 95 Nasal Cannula 2.0 97.5 09/13/17 16:00 100 09/13/17 14:01 97.6 09/13/17 13:31 97.6 09/13/17 12:00 110 09/13/17 12:00 97.1 111 18 115/71 95 Nasal Cannula 2.0 97.1 Intake and Output 09/13/17 09/14/17 19:00 07:00 Intake Total 598.000 ml 872 ml Output Total 4116 ml Balance 598.000 ml -3244 ml Intake Oral 348 ml 232 ml IV Total 250.000 ml Hemodialysis 640 ml Output Hemodialysis UF 4116 ml # Voids 2 2 # Bowel Movements 4 Laboratory Tests 09/14/17 07:30: White Blood Count 13.1H, Red Blood Count 3.30L, Hemoglobin 8.7L, Hematocrit 28.6L, Mean Corpuscular Volume 87, Mean Corpuscular Hemoglobin 26.2L, Mean Corpuscular Hemoglobin Concent 30.3L, Red Cell Distribution Width 16.5H, Platelet Count 282, Mean Platelet Volume 5.9L, Neutrophils (%) (Auto) 81.5H, Lymphocytes (%) (Auto) 10.2L, Monocytes (%) (Auto) 7.6, Eosinophils (%) (Auto) 0.1, Basophils (%) (Auto) 0.7, Sodium Level 139, Potassium Level 3.8, Chloride Level 96L, Carbon Dioxide Level 34H, Anion Gap 9, Blood Urea Nitrogen 35H, Creatinine 6.2H, Estimat Glomerular Filtration Rate 8.2, Glucose Level 84, Calcium Level 7.0L Height (Feet): 5 Height (Inches): 10.00 Weight (Pounds): 140 Respiratory/Chest: lungs clear Abdomen: soft Aldair Kothari MD Sep 14, 2017 12:00
--- NOTE | 2017-09-14 12:18 | Nephrology Progress Note ---
Assessment/Plan Assessment 1. ESRD 2.ANT 3.Anemia of CKD 4.Hypotension 5.hypocalcemia 6.malnutrition Plan plan dialysis in am continue epogen check vit d monitoring PTH and phos Subjective Subjective alert and awake feeling better had dialysis yesterday Objective Objective Last 24 Hour Vital Signs Date Time Temp Pulse Resp B/P (MAP) Pulse Ox O2 Delivery O2 Flow Rate FiO2 09/14/17 08:00 97.9 117 20 114/66 98 Nasal Cannula 3.0 97.9 09/14/17 08:00 118 09/14/17 04:00 127 09/14/17 04:00 97.8 127 18 107/65 98 Nasal Cannula 3.0 97.8 09/14/17 00:00 125 09/14/17 00:00 99.3 123 20 95/51 97 Nasal Cannula 3.0 99.3 09/13/17 20:50 Nasal Cannula 3.0 09/13/17 20:30 98.1 119 20 147/75 Nasal Cannula 3.0 98.1 09/13/17 20:00 107 09/13/17 19:30 110 18 Nasal Cannula 2.0 28 09/13/17 19:30 Nasal Cannula 2.0 28 09/13/17 19:30 98 Nasal Cannula 2.0 28 09/13/17 17:00 Nasal Cannula 3.0 09/13/17 17:00 98.2 112 20 129/89 Nasal Cannula 3.0 98.2 09/13/17 16:00 97.5 110 19 123/73 95 Nasal Cannula 2.0 97.5 09/13/17 16:00 100 09/13/17 14:01 97.6 09/13/17 13:31 97.6 Intake and Output 09/13/17 09/14/17 19:00 07:00 Intake Total 598.000 ml 872 ml Output Total 4116 ml Balance 598.000 ml -3244 ml Intake Oral 348 ml 232 ml IV Total 250.000 ml Hemodialysis 640 ml Output Hemodialysis UF 4116 ml # Voids 2 2 # Bowel Movements 4 Laboratory Tests 09/14/17 07:30: White Blood Count 13.1H, Red Blood Count 3.30L, Hemoglobin 8.7L, Hematocrit 28.6L, Mean Corpuscular Volume 87, Mean Corpuscular Hemoglobin 26.2L, Mean Corpuscular Hemoglobin Concent 30.3L, Red Cell Distribution Width 16.5H, Platelet Count 282, Mean Platelet Volume 5.9L, Neutrophils (%) (Auto) 81.5H, Lymphocytes (%) (Auto) 10.2L, Monocytes (%) (Auto) 7.6, Eosinophils (%) (Auto) 0.1, Basophils (%) (Auto) 0.7, Sodium Level 139, Potassium Level 3.8, Chloride Level 96L, Carbon Dioxide Level 34H, Anion Gap 9, Blood Urea Nitrogen 35H, Creatinine 6.2H, Estimat Glomerular Filtration Rate 8.2, Glucose Level 84, Calcium Level 7.0L Height (Feet): 5 Height (Inches): 10.00 Weight (Pounds): 140 Objective HEAD AND NECK: No JVP. No LAD. No thyromegaly. Extraocular movement intact. Pupils are reactive to light and accommodation. LUNGS: Clear to auscultation. CARDIAC: Regular rate and rhythm. S1 and S2. No murmur. No gallop. ABDOMEN: soft, nontender, nondistended. EXTREMITIES: No edema. No clubbing. No cyanosis. NEUROLOGIC: Cranial nerves II to XII within normal limits. Upper and lower extremities are grossly intact CHARLENE FINN Sep 14, 2017 12:18
[2017-09-14 16:00] VITALS: BP 126/78
[2017-09-14] MEDS: Cefdinir 300mg cap ORAL SCH (16:04)
[2017-09-14] MEDS: Morphine Sulfate 2mg/ml Inj IVP PRN ×2 (16:35→21:09)
[2017-09-14 20:00] VITALS: BP 120/69
--- NOTE | 2017-09-14 23:57 | Cardiology Progress Note ---
Assessment/Plan Assessment/Plan 1. Hypotension, resolved, continue hydration. 2. Sinus tachycardia, start verapamil, will check BP closely, B-blockers not a good choice likely with more bronchoconstriction effects 3. Lung cancer, hem/onc folow up. 4. ESRD 5. Moderate aortic stenosis with regurgitation, normal LVEF. Subjective Subjective Sinus tachycardia at 123. No chest pain or SOB. Objective Last 24 Hour Vital Signs Date Time Temp Pulse Resp B/P (MAP) Pulse Ox O2 Delivery O2 Flow Rate FiO2 09/14/17 20:00 100.6 126 18 120/69 94 Nasal Cannula 3.0 100.6 09/14/17 20:00 107 09/14/17 19:23 123 20 Nasal Cannula 2.0 28 09/14/17 19:23 Nasal Cannula 2.0 28 09/14/17 19:23 92 Nasal Cannula 2.0 28 09/14/17 16:00 98.4 115 20 126/78 97 Nasal Cannula 3.0 98.4 09/14/17 16:00 119 09/14/17 12:00 120 09/14/17 12:00 98.4 102 20 103/71 97 Nasal Cannula 3.0 98.4 09/14/17 08:00 97.9 117 20 114/66 98 Nasal Cannula 3.0 97.9 09/14/17 08:00 118 09/14/17 04:00 127 09/14/17 04:00 97.8 127 18 107/65 98 Nasal Cannula 3.0 97.8 09/14/17 00:00 125 09/14/17 00:00 99.3 123 20 95/51 97 Nasal Cannula 3.0 99.3 Intake and Output 09/13/17 09/14/17 19:00 07:00 Intake Total 598.000 ml 872 ml Output Total 4116 ml Balance 598.000 ml -3244 ml Intake Oral 348 ml 232 ml IV Total 250.000 ml Hemodialysis 640 ml Output Hemodialysis UF 4116 ml # Voids 2 2 # Bowel Movements 4 2D Echo: EF 70%, Mod LVH, LAE, Mod /AR, RVSP 46 mmHg, Mild MR Laboratory Tests Test 09/14/17 07:30 White Blood Count 13.1 K/UL (4.8-10.8) H Red Blood Count 3.30 M/UL (4.20-5.40) L Hemoglobin 8.7 G/DL (12.0-16.0) L Hematocrit 28.6 % (37.0-47.0) L Mean Corpuscular Volume 87 FL (80-99) Mean Corpuscular Hemoglobin 26.2 PG (27.0-31.0) L Mean Corpuscular Hemoglobin Concent 30.3 G/DL (32.0-36.0) L Red Cell Distribution Width 16.5 % (11.6-14.8) H Platelet Count 282 K/UL (150-450) Mean Platelet Volume 5.9 FL (6.5-10.1) L Neutrophils (%) (Auto) 81.5 % (45.0-75.0) H Lymphocytes (%) (Auto) 10.2 % (20.0-45.0) L Monocytes (%) (Auto) 7.6 % (1.0-10.0) Eosinophils (%) (Auto) 0.1 % (0.0-3.0) Basophils (%) (Auto) 0.7 % (0.0-2.0) Sodium Level 139 MMOL/L (136-145) Potassium Level 3.8 MMOL/L (3.5-5.1) Chloride Level 96 MMOL/L (98-107) L Carbon Dioxide Level 34 MMOL/L (21-32) H Anion Gap 9 mmol/L (5-15) Blood Urea Nitrogen 35 mg/dL (7-18) H Creatinine 6.2 MG/DL (0.55-1.30) H Estimat Glomerular Filtration Rate 8.2 mL/min (>60) Glucose Level 84 MG/DL (74-106) Calcium Level 7.0 MG/DL (8.5-10.1) L Microbiology Date/Time Source Procedure Growth Status 09/12/17 15:40 Blood Blood Culture - Preliminary NO GROWTH AFTER 24 HOURS Resulted 09/12/17 15:40 Blood Blood Culture - Preliminary NO GROWTH AFTER 24 HOURS Resulted Objective HEENT: Atraumatic, normocephalic, Pupils are equal reactive to light and accommodation. Extraocular movement intact. NECK: No JVD, no carotid bruit. LUNGS: Clear to auscultation. CARDIAC: Regular rate and rhythm. S1 and S2. 2/6 ESM at LSB, no gallops or rubs. ABDOMEN: soft, nontender, nondistended, + BS. EXTREMITIES: No edema, clubbing or cyanosis. NEUROLOGIC: Cranial nerves II to XII within normal limits. PREM BIGGS Sep 14, 2017 23:57
[2017-09-15] VITALS: BP 105/59
[2017-09-15 04:00] VITALS: BP 111/67
--- NOTE | 2017-09-15 04:30 | Consultation ---
DATE OF CONSULTATION: 09/11/2017 CARDIOLOGY CONSULTATION CONSULTING PHYSICIAN: Jas Thompson M.D. REFERRING PHYSICIAN: Facundo Waller D.O. REASON FOR CONSULTATION: Management of hypotension. HISTORY OF PRESENT ILLNESS: This is a very unfortunate 66-year-old female, who was brought in by EMS after complaints of increased weakness and hypotension. The patient had associated vomiting and diarrhea. Apparently, she takes methadone on a regular basis. At the time of arrival to the emergency department, blood pressure was 89/51 mmHg and pulse of 107. After initiation of IV fluid in the emergency department, her blood pressure improved. Laboratory findings were significant for elevated white count as well as elevation of BUN and creatinine due to end-stage renal disease. Chest x-ray was significant for large left lung mass. Her proBNP also was elevated at 16,362. She was admitted to telemetry for further evaluation and management. Her coronary artery disease risk factors include diabetes mellitus and hypertension. She also has history of cerebrovascular accident in the past. A 12-lead electrocardiogram in the emergency department was significant for sinus tachycardia at rate of 106 with no acute ischemic changes. PAST MEDICAL HISTORY: Asthma/COPD, hypertension, diabetes mellitus. End-stage renal disease, on dialysis on Saturday, Saturday, and Saturday. History of schizophrenia, history of metabolic encephalopathy, history of CVA, and history of seizures. MEDICATIONS: List of medication includes acetaminophen 325 mg q.4 h. p.r.n. headache and temperature above 101, albuterol inhaler q.4 h. p.r.n. shortness of breath, Proteinex-18 Liquid 30 mL p.o. daily, amlodipine 2.5 mg nightly, aspirin 81 mg p.o. daily, atorvastatin 20 mg p.o. nightly, Coreg. 3.125 mg p.o. twice daily, vitamin D3 2000 units p.o. daily, clonazepam 2 mg p.o. nightly for anxiety, clonidine 0.1 mg q.12 h., Colace 100 mg p.o. twice daily, doxazosin 1 mg p.o. nightly, Petra-Perri 0.8 mg p.o. three times a day, gabapentin 300 mg three times a day, heparin sodium 5000 units subcutaneous q.12 hours, hydralazine 50 mg p.o. three times daily, hydrocodone/acetaminophen 5/325 one tablet q.6 hours p.r.n. moderate pain, losartan 100 mg p.o. daily, magnesium hydroxide 30 mL p.o. daily p.r.n. constipation, methadone 40 mg p.o. daily, Zofran 4 mg p.o. q.6 h. p.r.n. nausea or vomiting, Seroquel 25 mg p.o. daily, Zoloft 25 mg p.o. daily, Renvela 800 mg three times a day, Ultram 50 mg q.6 h. p.r.n. pain, vancomycin 1 g IV piggyback 3 days a week, and Petra-Perri one tablet p.o. nightly. ALLERGIES: No known drug allergies. PAST SURGICAL HISTORY: AV fistula placement. FAMILY HISTORY: No premature coronary artery disease in the first-degree relatives. PHYSICAL EXAMINATION: VITAL SIGNS: Blood pressure was 89/51, pulse of 107, respirations 16, and O2 saturation 99% on room air. GENERAL: The patient is a very unfortunate 66-year-old female, in no apparent respiratory distress. Alert and oriented x2. HEENT: Atraumatic and normocephalic. Anicteric. Pupils are equal, round, and reactive to light and accommodation. Extraocular muscles intact. NECK: JVP is less than 5 cm. No carotid bruit. Carotid upstrokes 2+ bilaterally. CARDIOVASCULAR: Normal S1, S2. Regular rate and rhythm. No murmurs, gallops, or rubs. PMI is at fourth intercostal space in the midclavicular line. LUNGS: Diminished breath sounds in both bases. ABDOMEN: Soft, nontender, and nondistended. No hepatosplenomegaly. Positive bowel sounds. EXTREMITIES: No evidence of edema, clubbing, or cyanosis. LABORATORY FINDINGS: WBC 12.1, hemoglobin 9.7, hematocrit 31.1, and platelet count 300,000. Sodium was 139, potassium 3.9, chloride 100, bicarbonate 27, BUN 38, creatinine 5.8, glucose 70, calcium is 5.7. Troponin I 0.054. ProBNP was 16,362. INR is 1.2. Chest x-ray showed 9 x 6 cm mass-like opacity in the left hilar region. Differential diagnosis, rapidly growing . Diffuse interstitial disease, suspect chronic interstitial edema. ASSESSMENT AND PLAN: This is a very unfortunate 66-year-old female seen in Cardiology consultation at the request of Dr. Waller. 1. Hypotension. This could be secondary to sepsis versus hypovolemia. We will obtain 2D echocardiography for assessment of left ventricular systolic function and wall motion assessment as well as obtain hemodynamic data from diastolic evaluation. Further therapeutic and diagnostic decision will be based on the results of 2D echocardiography. 2. History of diabetes mellitus. The patient will benefit from combination of aspirin and statin for a pen[facility]ent[facility]. 3. History of COPD/asthma. 4. History of end-stage renal disease, on dialysis. 5. History of CVA. 6. History of schizophrenia. 7. History of encephalopathy. 8. History of left lung mass versus infiltration. Pulmonary consultation is warranted. I would like to thank, Dr. Waller, for the courtesy of this consultation. Jas Thompson M.D. DR: JOSE JOB#: [id number] CC:
[2017-09-15] MEDS: Morphine Sulfate 2mg/ml Inj IVP PRN ×3 (06:25→21:32)
[2017-09-15] MEDS: NovoLOG Insulin Flexpen SUBQ SCH ×4 (06:30→21:00)
[2017-09-15 08:00] VITALS: BP 122/74
[2017-09-15] MEDS: Renvela 800mg Pkt ORAL SCH ×3 (08:12→17:11)
[2017-09-15] MEDS: Heparin 5000 units/ml inj SUBQ SCH ×2 (08:13→21:33)
[2017-09-15 12:00] VITALS: BP 123/77
[2017-09-15 16:00] VITALS: BP 121/75
--- NOTE | 2017-09-15 16:42 | Nephrology Progress Note ---
Assessment/Plan Assessment 1. ESRD 2.ANT 3.Anemia of CKD 4.Hypotension 5.hypocalcemia 6.malnutrition Plan plan dialysis in am continue epogen check vit d monitoring PTH and phos Subjective Constitutional: Reports: no symptoms HEENT: Reports: no symptoms Genitourinary: Reports: no symptoms 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: Reports: no symptoms Subjective alert and awake feeling better no events overnight Objective Objective Last 24 Hour Vital Signs Date Time Temp Pulse Resp B/P (MAP) Pulse Ox O2 Delivery O2 Flow Rate FiO2 09/15/17 14:30 121 123/77 09/15/17 12:00 120 09/15/17 12:00 98.3 121 19 123/77 96 Nasal Cannula 3.0 98.3 09/15/17 08:00 98.4 129 19 122/74 96 Nasal Cannula 3.0 98.4 09/15/17 08:00 126 09/15/17 07:50 126 20 Nasal Cannula 2.0 28 09/15/17 07:50 Nasal Cannula 2.0 28 09/15/17 07:50 92 Nasal Cannula 2.0 28 09/15/17 04:00 130 09/15/17 04:00 97.3 128 20 111/67 96 Nasal Cannula 3.0 97.3 09/15/17 00:00 98.1 129 12 105/59 97 Nasal Cannula 3.0 98.1 09/15/17 00:00 127 09/14/17 20:00 100.6 126 18 120/69 94 Nasal Cannula 3.0 100.6 09/14/17 20:00 107 09/14/17 19:23 123 20 Nasal Cannula 2.0 28 09/14/17 19:23 Nasal Cannula 2.0 28 09/14/17 19:23 92 Nasal Cannula 2.0 28 Intake and Output 09/14/17 09/15/17 19:00 07:00 Intake Total 200 ml Balance 200 ml Intake Oral 200 ml # Bowel Movements 1 Laboratory Tests 09/15/17 15:45: Magnesium Level 2.0 Height (Feet): 5 Height (Inches): 10.00 Weight (Pounds): 140 Objective HEAD AND NECK: No JVP. No LAD. No thyromegaly. Extraocular movement intact. Pupils are reactive to light and accommodation. LUNGS: Clear to auscultation. CARDIAC: Regular rate and rhythm. S1 and S2. No murmur. No gallop. ABDOMEN: soft, nontender, nondistended. EXTREMITIES: No edema. No clubbing. No cyanosis. NEUROLOGIC: Cranial nerves II to XII within normal limits. Upper and lower extremities are grossly intact CHARLENE FINN Sep 15, 2017 16:41
[2017-09-15 20:00] VITALS: BP 109/56
--- NOTE | 2017-09-15 20:33 | General Progress Note ---
Assessment/Plan Problem List: (1) Abdominal distention ICD Codes: R14.0 - Abdominal distension (gaseous) SNOMED: 91863389 (2) Non compliance with medical treatment ICD Codes: Z91.19 - Patient's noncompliance with other medical treatment and regimen SNOMED: 9020389 (3) Sepsis ICD Codes: A41.9 - Sepsis, unspecified organism SNOMED: 44189767 (4) Pneumonia ICD Codes: J18.9 - Pneumonia, unspecified organism SNOMED: 775461337 (5) Lung mass ICD Codes: R91.8 - Other nonspecific abnormal finding of lung field SNOMED: 282666670 (6) ESRD (end stage renal disease) on dialysis ICD Codes: N18.6 - End stage renal disease; Z99.2 - Dependence on renal dialysis SNOMED: 781232517 (7) Hypothyroid ICD Codes: E03.9 - Hypothyroidism, unspecified SNOMED: 80064758 (8) General weakness ICD Codes: R53.1 - Weakness SNOMED: 94667815 Assessment/Plan no wheezing rt ot do cpt afebrile esrd on hd lung mass w/u per pulmonary Subjective ROS Limited/Unobtainable: Yes Allergies: Coded Allergies: No Known Allergies (Unverified , 02/28/17) Objective Last 24 Hour Vital Signs Date Time Temp Pulse Resp B/P (MAP) Pulse Ox O2 Delivery O2 Flow Rate FiO2 09/15/17 19:47 92 Nasal Cannula 2.0 28 09/15/17 19:47 Nasal Cannula 2.0 28 09/15/17 19:44 120 20 Nasal Cannula 2.0 28 09/15/17 16:00 118 09/15/17 16:00 98.1 116 19 121/75 100 Nasal Cannula 3.0 98.1 09/15/17 14:30 121 123/77 09/15/17 12:00 120 09/15/17 12:00 98.3 121 19 123/77 96 Nasal Cannula 3.0 98.3 09/15/17 08:00 98.4 129 19 122/74 96 Nasal Cannula 3.0 98.4 09/15/17 08:00 126 09/15/17 07:50 126 20 Nasal Cannula 2.0 28 09/15/17 07:50 Nasal Cannula 2.0 28 09/15/17 07:50 92 Nasal Cannula 2.0 28 09/15/17 04:00 130 09/15/17 04:00 97.3 128 20 111/67 96 Nasal Cannula 3.0 97.3 09/15/17 00:00 98.1 129 12 105/59 97 Nasal Cannula 3.0 98.1 09/15/17 00:00 127 Intake and Output 09/14/17 09/15/17 19:00 07:00 Intake Total 200 ml Balance 200 ml Intake Oral 200 ml # Bowel Movements 1 Laboratory Tests 09/15/17 15:45: Magnesium Level 2.0 Height (Feet): 5 Height (Inches): 10.00 Weight (Pounds): 140 Cardiovascular: normal rate Respiratory/Chest: lungs clear Abdomen: soft Aldair Kothari MD Sep 15, 2017 20:33
--- NOTE | 2017-09-15 22:40 | Cardiology Progress Note ---
Assessment/Plan Assessment/Plan 1. Hypotension could be due to dialysis and excessive fluid withdrawal, continue hydration. 2. Sinus tachycardia, continue verapamil, will check BP closely, B-blockers not a good choice likely with more bronchoconstriction effects 3. Bigeminy VPC, Mg level, Mg sulfate 1 gram ordered. 4. Moderate aortic stenosis with regurgitation, normal LVEF. Subjective Subjective Sinus tachycardia at 118. Bigeminy VPC noted. Magnesium level is ordered. Objective Last 24 Hour Vital Signs Date Time Temp Pulse Resp B/P (MAP) Pulse Ox O2 Delivery O2 Flow Rate FiO2 09/15/17 19:47 92 Nasal Cannula 2.0 28 09/15/17 19:47 Nasal Cannula 2.0 28 09/15/17 19:44 120 20 Nasal Cannula 2.0 28 09/15/17 16:00 118 09/15/17 16:00 98.1 116 19 121/75 100 Nasal Cannula 3.0 98.1 09/15/17 14:30 121 123/77 09/15/17 12:00 120 09/15/17 12:00 98.3 121 19 123/77 96 Nasal Cannula 3.0 98.3 09/15/17 08:00 98.4 129 19 122/74 96 Nasal Cannula 3.0 98.4 09/15/17 08:00 126 09/15/17 07:50 126 20 Nasal Cannula 2.0 28 09/15/17 07:50 Nasal Cannula 2.0 28 09/15/17 07:50 92 Nasal Cannula 2.0 28 09/15/17 04:00 130 09/15/17 04:00 97.3 128 20 111/67 96 Nasal Cannula 3.0 97.3 09/15/17 00:00 98.1 129 12 105/59 97 Nasal Cannula 3.0 98.1 09/15/17 00:00 127 Intake and Output 09/14/17 09/15/17 19:00 07:00 Intake Total 200 ml Balance 200 ml Intake Oral 200 ml # Bowel Movements 1 2D Echo: EF 70%, Mod LVH, LAE, Mod /AR, RVSP 46 mmHg, Mild MR Laboratory Tests Test 09/15/17 15:45 Magnesium Level 2.0 MG/DL (1.8-2.4) Objective HEENT: Atraumatic, normocephalic, Pupils are equal reactive to light and accommodation. Extraocular movement intact. NECK: No JVD, no carotid bruit. LUNGS: Clear to auscultation. CARDIAC: Regular rate and rhythm. S1 and S2. 2/6 ESM at LSB, no gallops or rubs. ABDOMEN: soft, nontender, nondistended, + BS. EXTREMITIES: No edema, clubbing or cyanosis. NEUROLOGIC: Cranial nerves II to XII within normal limits. PREM BIGGS Sep 15, 2017 22:40
[2017-09-16] VITALS: BP 112/62
[2017-09-16] MEDS: Morphine Sulfate 2mg/ml Inj IVP PRN ×4 (02:15→17:01)
[2017-09-16 04:00] VITALS: BP 116/66
[2017-09-16] MEDS: NovoLOG Insulin Flexpen SUBQ SCH ×3 (06:30→16:30)
[2017-09-16 08:00] VITALS: BP 116/72
--- NOTE | 2017-09-16 09:16 | Nephrology Progress Note ---
Assessment/Plan Assessment 1. ESRD 2.ANT 3.Anemia of CKD 4.Hypotension 5.hypocalcemia 6.malnutrition Plan plan dialysis in am continue epogen check vit d monitoring PTH and phos Subjective Constitutional: Reports: no symptoms HEENT: Reports: no symptoms Genitourinary: Reports: no symptoms 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: Reports: no symptoms Subjective alert and awake feeling better no events overnight Objective Objective Last 24 Hour Vital Signs Date Time Temp Pulse Resp B/P (MAP) Pulse Ox O2 Delivery O2 Flow Rate FiO2 09/16/17 08:01 Nasal Cannula 3.0 32 09/16/17 08:01 114 20 Nasal Cannula 3.0 32 09/16/17 08:01 92 Nasal Cannula 3.0 32 09/16/17 04:00 112 09/16/17 04:00 97.7 113 20 116/66 89 Nasal Cannula 3.0 97.7 09/16/17 00:00 111 09/16/17 00:00 98.2 116 18 112/62 96 Nasal Cannula 3.0 98.2 09/15/17 20:00 99.1 118 22 109/56 96 Nasal Cannula 3.0 99.1 09/15/17 20:00 119 09/15/17 19:47 92 Nasal Cannula 2.0 28 09/15/17 19:47 Nasal Cannula 2.0 28 09/15/17 19:44 120 20 Nasal Cannula 2.0 28 09/15/17 16:00 118 09/15/17 16:00 98.1 116 19 121/75 100 Nasal Cannula 3.0 98.1 09/15/17 14:30 121 123/77 09/15/17 12:00 120 09/15/17 12:00 98.3 121 19 123/77 96 Nasal Cannula 3.0 98.3 Intake and Output 09/15/17 09/16/17 19:00 07:00 Intake Total 468 ml 200 ml Balance 468 ml 200 ml Intake Oral 468 ml 200 ml # Voids 1 Laboratory Tests 09/15/17 15:45: Magnesium Level 2.0 Height (Feet): 5 Height (Inches): 10.00 Weight (Pounds): 140 Objective HEAD AND NECK: No JVP. No LAD. No thyromegaly. Extraocular movement intact. Pupils are reactive to light and accommodation. LUNGS: Clear to auscultation. CARDIAC: Regular rate and rhythm. S1 and S2. No murmur. No gallop. ABDOMEN: soft, nontender, nondistended. EXTREMITIES: No edema. No clubbing. No cyanosis. NEUROLOGIC: Cranial nerves II to XII within normal limits. Upper and lower extremities are grossly intact CHARLENE FINN Sep 16, 2017 09:16
[2017-09-16] MEDS: Renvela 800mg Pkt ORAL SCH ×2 (09:20→13:00)
[2017-09-16] MEDS: Heparin 5000 units/ml inj SUBQ SCH (09:24)
--- NOTE | 2017-09-16 10:58 | Infectious Diseases Prog Note ---
Assessment/Plan Assessment/Plan Assessment: Hypotension- improved with IVFs- ?2ry to V/D Diarrhea- per RN no episodes here -stool cx normal javier to date Mild leukocytosis, recurrent, stable- ?2ry to possible malignancy ?Metastatic Lung Cancer -CT chest: Large left upper lobe soft tissue mass measuring 11 x 6.8 x 6 cm. This is highly suspicious for pulmonary neoplasm. More medial left upper hemithoracic mass noted, may reflect an extension of the above-mentioned lesion , versus a second lesion, versus mediastinal lymphadenopathy. Osteolytic lesion of the right first rib. This is concerning for an osseous metastasis. Small left pleural effusion. Compression atelectasis of portions of the left lower lobe. 12 x 9 mm anterolateral left hemithoracic pleural based mass. Probably a small focal pleural fluid collection as this demonstrates fluid attenuation. Evidence of bullous COPD. Possible right paratracheal adenopathy versus ectatic neck vessels. Markedly dilated main pulmonary artery, diagnostic for pulmonary arterial. hypertension -CXR: 9 x 6 cm masslike opacity in the left hilar region. New since 2016. Main differential considerations include rapidly growing neoplasm versus infiltrate. Diffuse interstitial disease, suspect chronic but acute interstitial edema also possible Cough/congestion- 2ry to above, possible post-obstructive PNA CoNS bacteremia- suspect contaminant -09/10 Bcx 06/27 Cons; Bcx 09/12 NTD Asthma/COPD DM2 HTN ESRD on HD opoid dependency on methadone schizophrenia CVA seizure disorder Plan: -Continue PO Cefdinir #5/5 for possible post-obstructive PNA -09/14 Sp IV Vanco #3 -Consider Heme onc eval for possible lung CA -f/u cx -Monitor CBC/BMP, temperatures -aspiration precautions -discharge planning Thank you for this consultation. Will continue to follow along with you. Discussed with RN. Subjective Allergies: Coded Allergies: No Known Allergies (Unverified , 02/28/17) Subjective afebrile in 36hr mild leukocytosis; stable repeat bcx NTD Objective Vital Signs Last 24 Hour Vital Signs Date Time Temp Pulse Resp B/P (MAP) Pulse Ox O2 Delivery O2 Flow Rate FiO2 09/16/17 09:20 114 116/66 09/16/17 08:01 Nasal Cannula 3.0 32 09/16/17 08:01 114 20 Nasal Cannula 3.0 32 09/16/17 08:01 92 Nasal Cannula 3.0 32 3/26/18 08:00 97.0 72 20 116/72 97 Nasal Cannula 3.0 97.0 09/16/17 04:00 112 09/16/17 04:00 97.7 113 20 116/66 89 Nasal Cannula 3.0 97.7 09/16/17 00:00 111 09/16/17 00:00 98.2 116 18 112/62 96 Nasal Cannula 3.0 98.2 09/15/17 20:00 99.1 118 22 109/56 96 Nasal Cannula 3.0 99.1 09/15/17 20:00 119 09/15/17 19:47 92 Nasal Cannula 2.0 28 09/15/17 19:47 Nasal Cannula 2.0 28 09/15/17 19:44 120 20 Nasal Cannula 2.0 28 09/15/17 16:00 118 09/15/17 16:00 98.1 116 19 121/75 100 Nasal Cannula 3.0 98.1 09/15/17 14:30 121 123/77 09/15/17 12:00 120 09/15/17 12:00 98.3 121 19 123/77 96 Nasal Cannula 3.0 98.3 Height (Feet): 5 Height (Inches): 10.00 Weight (Pounds): 140 Objective General Appearance: no apparent distress, alert, non-toxic HEENT:normocephalic, atraumatic, PERRL, normal pharynx Neck: full range of motion, supple/symm/no masses Respiratory: chest non-tender, speaking full sentences, wheezing Cardiovascular : regular rate, rhythm, no edema Gastrointestinal: normal bowel sounds, non tender, soft, non-distended, no guarding, no rebound Genitourinary: normal inspection, no CVA tenderness Musculoskeletal: back normal, gait/station normal, normal range of motion, non- tender Neurologic: alert, oriented x3, responsive Skin: normal color, no rash, warm/dry, well hydrated Laboratory Tests Test 09/15/17 15:45 Magnesium Level 2.0 MG/DL (1.8-2.4) Current Medications Medications (Trade) Dose Ordered Sig/Winter Route PRN Reason Start Time Stop Time Status Last Admin Dose Admin Acetaminophen (Tylenol) 650 mg Q4H PRN ORAL Fever 09/10/17 19:30 10/10/17 19:29 3/21/18 20:47 Cefdinir (Cefdinir) 300 mg POSTHD PRN ORAL POSTHD SESSIONS PER RXPROTOCOL 09/12/17 15:30 09/19/17 15:29 Cefdinir (Cefdinir) 300 mg Q48H ORAL 09/12/17 16:00 09/19/17 15:59 09/14/17 16:04 Dextrose (Dextrose 50%) STAT PRN IV Hypoglycemia 09/11/17 09:15 10/11/17 09:14 Epoetin Vijay (Procrit (for ESRD on dialysis)) 10,000 units SAT-SAT-SAT SUBQ 09/11/17 21:00 10/11/17 20:59 09/13/17 21:09 Heparin Sodium (Porcine) (Heparin 5000 units/ml) 5,000 units EVERY 12 HOURS SUBQ 09/10/17 21:00 10/10/17 20:59 09/16/17 09:24 Insulin Aspart (NovoLOG) BEFORE MEALS AND HS SUBQ 09/11/17 11:30 10/11/17 11:29 09/15/17 16:46 Methadone HCl (Methadone HCl) 40 mg DAILY ORAL 09/11/17 10:00 09/18/17 09:59 09/16/17 09:19 Morphine Sulfate (Morphine Sulfate) 2 mg Q4H PRN IVP For Pain 09/11/17 00:00 09/18/17 00:00 09/16/17 06:38 Ondansetron HCl (Zofran) 4 mg Q6H PRN IVP Nausea & Vomiting 09/10/17 19:30 10/10/17 19:29 Polyethylene Glycol (Miralax) 17 gm DAILYPRN PRN ORAL Constipation 09/10/17 19:30 10/10/17 19:29 Quetiapine Fumarate (SEROquel) 25 mg QHS ORAL 09/10/17 21:00 10/10/17 20:59 09/15/17 21:31 Sevelamer Carbonate (Renvela) 800 mg THREE TIMES A DAY ORAL 09/11/17 09:00 10/11/17 08:59 09/16/17 09:20 Temazepam (Restoril) 15 mg HSPRN PRN ORAL Insomnia 09/10/17 19:30 09/17/17 19:29 Verapamil HCl (Calan SR) 120 mg DAILY ORAL 09/15/17 14:00 10/15/17 13:59 09/16/17 09:20 Portia Menjivar M.D. Sep 16, 2017 10:58
[2017-09-16 12:00] VITALS: BP 113/82
--- NOTE | 2017-09-16 13:09 | General Progress Note ---
Assessment/Plan Problem List: (1) Abdominal distention ICD Codes: R14.0 - Abdominal distension (gaseous) SNOMED: 84360472 (2) Non compliance with medical treatment ICD Codes: Z91.19 - Patient's noncompliance with other medical treatment and regimen SNOMED: 1525698 (3) Sepsis ICD Codes: A41.9 - Sepsis, unspecified organism SNOMED: 04232102 (4) Pneumonia ICD Codes: J18.9 - Pneumonia, unspecified organism SNOMED: 359721255 (5) Lung mass ICD Codes: R91.8 - Other nonspecific abnormal finding of lung field SNOMED: 917696354 (6) ESRD (end stage renal disease) on dialysis ICD Codes: N18.6 - End stage renal disease; Z99.2 - Dependence on renal dialysis SNOMED: 854838190 (7) Hypothyroid ICD Codes: E03.9 - Hypothyroidism, unspecified SNOMED: 73976288 (8) General weakness ICD Codes: R53.1 - Weakness SNOMED: 10172398 Assessment/Plan no wheezing rt ot do cpt afebrile esrd on hd lung mass w/u per pulmonary Subjective ROS Limited/Unobtainable: Yes Allergies: Coded Allergies: No Known Allergies (Unverified , 02/28/17) Subjective chronic pain renal failure afebrile reviewed chart and labs Objective Last 24 Hour Vital Signs Date Time Temp Pulse Resp B/P (MAP) Pulse Ox O2 Delivery O2 Flow Rate FiO2 09/16/17 12:57 97.0 09/16/17 09:20 114 116/66 09/16/17 08:01 Nasal Cannula 3.0 32 09/16/17 08:01 114 20 Nasal Cannula 3.0 32 09/16/17 08:01 92 Nasal Cannula 3.0 32 09/16/17 08:00 114 09/16/17 08:00 97.0 72 20 116/72 97 Nasal Cannula 3.0 97.0 09/16/17 04:00 112 09/16/17 04:00 97.7 113 20 116/66 89 Nasal Cannula 3.0 97.7 09/16/17 00:00 111 09/16/17 00:00 98.2 116 18 112/62 96 Nasal Cannula 3.0 98.2 09/15/17 20:00 99.1 118 22 109/56 96 Nasal Cannula 3.0 99.1 3/25/18 20:00 119 09/15/17 19:47 92 Nasal Cannula 2.0 28 09/15/17 19:47 Nasal Cannula 2.0 28 09/15/17 19:44 120 20 Nasal Cannula 2.0 28 09/15/17 16:00 118 09/15/17 16:00 98.1 116 19 121/75 100 Nasal Cannula 3.0 98.1 09/15/17 14:30 121 123/77 Intake and Output 09/15/17 09/16/17 19:00 07:00 Intake Total 468 ml 200 ml Balance 468 ml 200 ml Intake Oral 468 ml 200 ml # Voids 1 Laboratory Tests 09/15/17 15:45: Magnesium Level 2.0 Height (Feet): 5 Height (Inches): 10.00 Weight (Pounds): 140 Aldair Kothari MD Sep 16, 2017 13:09
[2017-09-16 16:00] VITALS: BP 118/75
[2017-09-16] MEDS: Cefdinir 300mg cap ORAL SCH (16:29)
--- NOTE | 2017-09-19 14:41 | Discharge Summary ---
Discharge Summary Discharge Summary Discharge Summary DATE OF ADMISSION: 09/10/2017 DATE OF DISCHARGE: 09/16/2017 REASON FOR ADMISSION: 66 years years old female with past medical history significant for diabetes, end-stage renal disease,on hemodialysis, COPD, schizophrenia presented to emergency department for generalized weakness and hypotension. Patient with opioid dependency and was taken methadone on a regular basis. Blood pressure was 89/57 with heart rates 106. Patient reported vomiting and diarrhea. Patient denied any black or bloody stool, no blood in emesis. Patient had mild leukocytosis WBC -12.1, anemia with hemoglobin 9.7 hematocrit 31.1. Troponin was negative . EKG showed normal sinus rhythm, no ischemic changes. Chest x- ray revealed 9 x 6 cm masslike opacity in the left hilar region, appeared new since 03/07/2017. Consideration included a rapidly growing neoplasm versus infiltrates. Patient was admitted with diagnosis of end-stage renal disease, lung mass, hypotension. Consultants: Dr. Thompson -cardiology Dr. Rey- infectious disease specialist Dr. Jones- [facility] HOSPITAL COURSE: Patient admitted. Hypotension was likely secondary to hypovolemia due to the excess fluid removal well during hemodialysis. Patient was gently hydrated. ECHO revealed ejection fraction of 70-75% with normal left ventricular chamber size, hyperdynamic systolic function and wall motion. Moderate aortic stenosis. Right ventricular systolic pressure of 46 consistent with moderate pulmonary hypertension. Blood pressure eventually stabilized . Patient was noted to be in sinus tachycardia. Verapamil was continued with close monitoring of blood pressure. According to floor installation mechanic , beta ross was not recommended given bronchoconstrictive effect. Noted bigeminy on telemetry. Magnesium level was stable. Additional 1 gram of magnesium sulfate was given. Infectious disease specialist closely followed. Diarrhea resolved , stool culture was negative. Patient noted to have recurrent leukocytosis, stable. Per ID, likely secondary to malignancy. CT of the chest revealed large left upper lobe soft tissue mass 11 x 6.8 x 6 cm. Highly suspicious for pulmonary neoplasm. More medial left hemithoracic mass was noted, possibly reflecting extension of the above-mentioned lesion, versus a second lesion versus mediastinal lymphadenopathy . Osteolytic lesion of the right first rib, concerning for osseous metastasis. Compression atelectasis in left lower lobe noted. Anterolateral left hemithoracic pleural- based mass probably a small focal pleural fluid collection as it demonstrated fluid attenuation. Evidence of bullous COPD. Possible right paratracheal adenopathy versus ectatic neck vessels. Patient was treated with empiric antibiotics for possible postobstructive pneumonia. Blood cultures reveal Staph coagulase negative 06/27, likely contamination, repeated blood culture on 09/12 negative. Patient completed treatment for possible postobstructive pneumonia. Oncology and pulmonology evaluation to be done as an outpatient for likely metastatic lung CA. Supplemental oxygen and pulmonary toilet provided as needed. Strict aspiration precautions were maintained. Supervisor [employer] Emulsifiers closely follow. Dialysis was done as per [facility] orders. Renal parameters and electrolytes were closely monitored. Hemoglobin and hematocrit was closely monitored. Patient was on EPO. Electrolytes were replaced as needed . Dietary recommendations were implemented. Blood sugar was managed with sliding scale of insulin. Bowel regimen instituted. DVT prophylaxis provided. Patient was stable for discharge back to [facility] FINAL DIAGNOSES: Hypotension End-stage renal disease, on hemodialysis Lung mass, probably metastatic lung CA COPD/asthma Moderate aortic stenosis with regurgitation Bigeminy Diabetes Schizophrenia Anemia of chronic disease Malnutrition Hypocalcemia Renal osteodystrophy Encephalopathy History of CVA Opiate dependency, on methadone DISCHARGE MEDICATIONS: See Medication Reconciliation list. DISCHARGE INSTRUCTIONS: Patient was discharged to [facility]. Follow-up with a medical doctor at the facility. Outpatient follow-up with the fuel technician/oncologist and supervisor filter assembly for further workup for lung mass. I have been assigned to dictate discharge summary for this account. I was not involved in the patient's management. Avis Silva NP ([place]) Sep 19, 2017 14:41
== END 2017-09-16 17:32 | DRG 207 ==
LOC: EDBD 14:37 → EDBEDREQ 15:34 → EMR 16:37 → 2E 16:44 → EDBEDREQ 18:54
PROC: 5A1D70Z Performance of Urinary Filtration, Intermittent, Less than 6 Hours Per Day (ICD-10-PCS; principal; 2017-09-11)
DX: I95.3 Hypotension of hemodialysis (principal); G93.40 Encephalopathy, unspecified; J18.9 Pneumonia, unspecified organism; N18.6 End stage renal disease; C79.51 Secondary malignant neoplasm of bone; E46 Unspecified protein-calorie malnutrition; I12.0 Hypertensive chronic kidney disease with stage 5 chronic kidney disease or end stage renal disease; J44.0 Chronic obstructive pulmonary disease with (acute) lower respiratory infection; E83.51 Hypocalcemia; E11.22 Type 2 diabetes mellitus with diabetic chronic kidney disease; F11.20 Opioid dependence, uncomplicated; Z99.2 Dependence on renal dialysis; E03.9 Hypothyroidism, unspecified; D64.9 Anemia, unspecified; D72.829 Elevated white blood cell count, unspecified; C34.12 Malignant neoplasm of upper lobe, left bronchus or lung; F20.9 Schizophrenia, unspecified; G40.909 Epilepsy, unspecified, not intractable, without status epilepticus; Z86.73 Personal history of transient ischemic attack (TIA), and cerebral infarction without residual deficits; R00.0 Tachycardia, unspecified; I35.0 Nonrheumatic aortic (valve) stenosis; Z91.19 Patient's noncompliance with other medical treatment and regimen; Z68.20 Body mass index [BMI] 20.0-20.9, adult; R00.8 Other abnormalities of heart beat; N25.0 Renal osteodystrophy
CPT/HCPCS: 36415; 71045; 71250; 80048; 80053; 80069; 80202; 82550; 82553; 82962; 83605; 83690; 83735; 83880; 83970; 84100; 84484; 85025; 85610; 85730; 87040; 87045; 87081; 87181; 93005; 93306; 94664; 94760; 97803; 99285; J1815